=== PATIENT | female | born 1950 | race Caucasian/White ===

== ENCOUNTER → 2021-04-15 | Outpatient (CLI) | payer MEDICARE ==
--- NOTE | 2021-04-15 19:27 | CT ---
EXAMINATION TYPE: CT brain wo con DATE OF EXAM: 04/15/2021 COMPARISON: None HISTORY: Pt reports dizziness, blurry vision and LOC. Transthoracic ischemic aneurysm TECHNIQUE: CT scan of the head performed without contrast CT DLP: 1070.70 mGycm Automated exposure control for dose reduction was used. FINDINGS: No acute intracranial hemorrhage midline shift or mass effect. Goodrich-white matter differentiation is preserved. Posterior fossa contents are within normal limit. Brain volume, the ventricles and CSF spaces are within normal limit. Tiny scattered foci in the bilateral basal ganglia are noted could be related to remote lacunar infar cts. A focal low attenuating areas also demonstrated in the inocente. No acute orbital, osseous or soft tissue abnormalities seen. Mild mucosal sinus disease noted. Paranasal sinuses and mastoid air cells are well evaluated. Atherosclerotic calcifications are seen in the intracranial internal carotid arteries. IMPRESSION: 1 NO ACUTE INTRACRANIAL ABNORMALITY. 2. FOCAL LOW ATTENUATION IN THE INOCENTE MAY BE RELATED TO ARTIFACT VERSUS REMOTE INFARCT. 3. FOCAL LOW ATTENUATING LESIONS IN THE BILATERAL BASAL GANGLIA COULD BE RELATED TO REMOTE LACUNAR IN FARCT. RECOMMENDATION: FURTHER EVALUATION WITH NONCONTRAST ENHANCED MRI OF THE BRAIN COULD BE OF ADDITIONAL BENEFIT IF CLIN[facility] INDICATED.
== END | disposition home or self-care (01) ==
LOC: RADCTMAIN 18:05
PROVIDERS: ATTEND Internal Medicine Geriatric Medicine
DX: G45.9 Transient cerebral ischemic attack, unspecified (principal)
CPT/HCPCS: 70450

== ENCOUNTER → 2021-04-24 | Outpatient (CLI) | payer MEDICARE ==
--- NOTE | 2021-04-25 10:28 | US ---
EXAMINATION TYPE: US carotid duplex BILAT DATE OF EXAM: 04/24/2021 COMPARISON: NONE CLINICAL HISTORY: G45.9 TIA. EXAM MEASUREMENTS: RIGHT: Peak Systolic Velocity (PSV) cm/sec ----- Right CCA: 62.5 ----- Right ICA: 106.9 ----- Right ECA: 84.9 ICA/CCA ratio: 1.7 RIGHT: End Diastole cm/sec ----- Right CCA: 18.0 ----- Right ICA: 31.8 ----- Right ECA: 11.1 LEFT: Peak Systolic Velocity (PSV) cm/sec ----- Left CCA: 86.4 ----- Left ICA: 113.4 ----- Left ECA: 77.1 ICA/CCA ratio: 1.3 LEFT: End Diastole cm/sec ----- Left CCA: 24.8 ----- Left ICA: 47.4 ----- Left ECA: 77.1 VERTEBRALS (direction of flow): Right Vertebral: Antegrade Left Vertebral: Antegrade Rhythm: Normal No significant stenosis seen. No elevated velocities. IMPRESSION: No evidence for hemodynamically significant stenosis. NASCET criteria was used in interpretation of this exam? Criteria for Assigning % of Stenosis / Diameter reduction (Estimation based on the indirect measurements of the internal carotid artery velocities (ICA PSV). 1. Normal (no stenosis)=ICA PSV < 125 cm/s: ratio < 2.0: ICA EDV<40 cm/s. 2. Less than 50% stenosis=ICA PSV < 125 cm/s: ratio < 2.0: ICA EDV<40 cm/s. 3. 50 to 69% stenosis=ICA PSV of 125 to 230 cm/s: ration 2.0 ? 4.0: ICA EDV 40-100 cm/s. 4. Greater than 70% stenosis to near occlusion= ICA PSV > 230 cm/s: ratio > 4.0: ICA EDV > 100 cm/s. 5. Near occlusion= ICA PSV velocities may be low or undetectable: variable ratio and ICA EDV. 6. Total occlusion=unable to detect flow.
== END | disposition home or self-care (01) ==
LOC: RADUSWWP 09:08
PROVIDERS: ATTEND Internal Medicine Geriatric Medicine
DX: G45.9 Transient cerebral ischemic attack, unspecified (principal)
CPT/HCPCS: 93880

== ENCOUNTER → 2022-03-18 | Outpatient (CLI) | payer MEDICARE | END | disposition home or self-care (01) | LOC: RADPETMAIN 13:31 | PROVIDERS: ATTEND Internal Medicine Hematology & Oncology | DX: C18.7 Malignant neoplasm of sigmoid colon (principal) | CPT/HCPCS: 78815; A9552 ==

== ENCOUNTER 2022-04-02 15:58 | Emergency (ER) | payer MEDICARE ==
[2022-04-02] MEDS ORDERED: SODIUM CHLORIDE 0.9% 1,000 ML IV STA (16:21)
[2022-04-02] MEDS ORDERED: ONDANSETRON 4 MG/2 ML VIAL IVP STA (16:28)
[2022-04-02] MEDS ORDERED: MORPHINE SULFATE 4 MG/ML SYRINGE IV STA (16:28)
--- NOTE | 2022-04-02 16:33 | ED ---
Weakness HPI - General Chief complaint: Weakness Stated complaint: near syncope Time Seen by Provider: 04/02/22 16:21 Source: patient Mode of arrival: ambulatory Limitations: no limitations - History of Present Illness Initial comments: This is a pleasant 72-year-old female who was diagnosed with colon cancer about 4 months ago[address] Patient sees Dr. Juarez. Patient has had abdominal pain, vomiting, constipation for the past 3 or 4 days. Patient unable to hold down any fluids. Denies any hematemesis or coffee-ground emesis. Patient states she had some vomiting last week which seemed to resolve. However, the patient now getting lightheaded and feels like she is going to pass out.Patient describing some epigastric discomfort and acid type feeling. Denies any chest pain or shortness of breath. No fever. Has had occasional blood in the stool. Patient apparently is scheduled for surgery at [facility] to have excision of the cancerous mass. Undergoing no additional treatment at this time. No headache, no fever or chills, no changes in vision or hearing, no sore throat or difficulty with speech, no neck pain, no chest pain or shortness of breath, no changes in urination or bowel movements, no numbness or tingling, no extremity pain, no skin rashes or lesions. Past medical, surgical, social, and family history reviewed. - Related Data Home Medications Medication Instructions Recorded Confirmed Atorvastatin [Lipitor] 40 mg PO HS 04/02/22 04/02/22 Dicyclomine [Bentyl] 10 mg PO TID 04/02/22 04/02/22 Escitalopram [Lexapro] 20 mg PO HS 04/02/22 04/02/22 Gabapentin [Neurontin] 200 mg PO HS 04/02/22 04/02/22 Omeprazole [PriLOSEC] 20 mg PO BID 04/02/22 04/02/22 Ondansetron [Zofran] 4 mg PO Q8HR 04/02/22 04/02/22 Pantoprazole [Protonix] 40 mg PO BID 04/02/22 04/02/22 atenoloL [Tenormin] 25 mg PO DAILY 04/02/22 04/02/22 Allergies Allergy/AdvReac Type Severity Reaction Status Date / Time No Known Allergies Allergy Verified 04/02/22 17:33 Review of Systems ROS Statement: Those systems with pertinent positive or pertinent negative responses have been documented in the HPI. ROS Other: All systems not noted in ROS Statement are negative. Past Medical History Past Medical History: Hyperlipidemia, Hypertension History of Any Multi-Drug Resistant Organisms: None Reported Past Surgical History: No Surgical Hx Reported Past Psychological History: No Psychological Hx Reported Smoking Status: Never smoker Past Alcohol Use History: None Reported Past Drug Use History: None Reported General Exam - General Exam Comments Initial Comments: This is an ill-appearing 72-year-old female and mild distress. Patient appears to be ill but not toxic. Patient is tachycardic. Patient appears to be a bit pale and somewhat shaky. Cranial nerves II through XII grossly intact Limitations: no limitations General appearance: alert, in distress Head exam: Present: atraumatic, normocephalic, normal inspection Eye exam: Present: normal appearance, PERRL, EOMI. Absent: scleral icterus, conjunctival injection, periorbital swelling ENT exam: Present: mucous membranes dry, mucous membranes moist, normal external ear exam, other (Mucous membranes mildly dry). Absent: normal oropharynx Neck exam: Present: normal inspection, full ROM. Absent: tenderness, meningismus, lymphadenopathy Respiratory exam: Present: normal lung sounds bilaterally. Absent: respiratory distress, wheezes, rales, rhonchi, stridor, chest wall tenderness, accessory muscle use Cardiovascular Exam: Present: normal rhythm, tachycardia, normal heart sounds. Absent: systolic murmur, diastolic murmur, rubs, gallop, clicks GI/Abdominal exam: Present: soft, tenderness (Tenderness in the epigastric area with guarding, no rebound or percussion tenderness), guarding, normal bowel sounds. Absent: distended, rebound, rigid Extremities exam: Present: normal inspection, full ROM, normal capillary refill. Absent: tenderness, pedal edema, joint swelling, calf tenderness Back exam: Present: normal inspection Neurological exam: Present: alert, oriented X3, CN II-XII intact Psychiatric exam: Present: normal affect, normal mood Skin exam: Present: warm, dry, intact, normal color. Absent: rash Course Vital Signs 04/02/22 04/02/22 04/02/22 16:14 16:45 17:15 Temperature 97.2 F L Pulse Rate 123 H 123 H 122 H Respiratory 20 20 18 Rate Blood Pressure 111/70 112/77 123/70 O2 Sat by Pulse 94 L 93 L Oximetry 04/02/22 04/02/22 17:37 18:32 Temperature 97.1 F L Pulse Rate 116 H 115 H Respiratory 18 16 Rate Blood Pressure 133/83 120/61 O2 Sat by Pulse 91 L 92 L Oximetry - Reevaluation(s) Reevaluation #1: 04/02/22 17:56 Medical record is reviewed Symptoms are unchanged Patient's white blood cell count came back at 22,000 with a left shift, neutrophil count 20,700. Lactate is pending. Creatinine slightly bumped at 1.24. Zosyn 3.37 g IV piggyback ordered. Reevaluation #2: 04/02/22 19:24 Patient meets sepsis criteria. Still awaiting lactic acid which may have not been - Consultations Consultation #1: Case discussed with [facility] hospitalist group who suggested transfer to [facility] for continuity of care and complicated case. Consultation #2: Discussed with Dr. Landa at [facility] EKG Findings - EKG Comments: EKG Findings:: EKG done at 1616. ED attending physician reveals sinus tachycardia at a rate of 123. Normal intervals. Normal axis. Baseline artifact. No evidence for acute ST or T-wave changes. Normal QRS morphology. There is one PVC. No comparison study Medical Decision Making - Medical Decision Making Patient has had bowel movements and is passing occasional flatus. However given the patient's symptomology, partial bowel obstruction is possible as the patient does have a known cancerous mass in the lower colonic area. The patient. Patient appears to be dehydrated with tachycardia. Patient is having near syncopal episodes likely related hydration. Does not appear to be consistent with cardiopulmonary disease. Infectious process possible but less likely. Patient will be transferred to [facility] where she is scheduled for surgery on Monday with Dr. Prater All findings discussed with the patient. All questions answered. Treatment plan discussed. The case was discussed in detail with ED attending physician. Presentation, findings, treatment plan discussed in detail. [facility] [place] Dr. Husain - Lab Data Result diagrams: 04/02/22 16:35 04/02/22 16:35 Lab Results 04/02/22 04/02/22 04/02/22 Range/Units 16:24 16:35 16:35 WBC 22.4 H (3.8-10.6) k/uL RBC 4.56 (3.80-5.40) m/uL Hgb 10.6 L (11.4-16.0) gm/dL Hct 35.9 (34.0-46.0) % MCV 78.8 L (80.0-100.0) fL MCH 23.3 L (25.0-35.0) pg MCHC 29.6 L (31.0-37.0) g/dL RDW 14.2 (11.5-15.5) % Plt Count 652 H (150-450) k/uL MPV 7.3 Neutrophils % 93 % Lymphocytes % 3 % Monocytes % 3 % Eosinophils % 0 % Basophils % 0 % Neutrophils # 20.7 H (1.3-7.7) k/uL Lymphocytes # 0.7 L (1.0-4.8) k/uL Monocytes # 0.7 (0-1.0) k/uL Eosinophils # 0.1 (0-0.7) k/uL Basophils # 0.0 (0-0.2) k/uL Hypochromasia Moderate Poikilocytosis Slight PT (9.0-12.0) sec INR (<1.2) APTT (22.0-30.0) sec Sodium 129 L (137-145) mmol/L Potassium 3.9 (3.5-5.1) mmol/L Chloride 90 L (98-107) mmol/L Carbon Dioxide 21 L (22-30) mmol/L Anion Gap 18 mmol/L BUN 22 H (7-17) mg/dL Creatinine 1.24 H (0.52-1.04) mg/dL Est GFR (CKD-EPI)AfAm 51 (>60 ml/min/1.73 sqM) Est GFR (CKD-EPI)NonAf 44 (>60 ml/min/1.73 sqM) Glucose 131 H (74-99) mg/dL POC Glucose (mg/dL) 138 H (70-110) mg/dL POC Glu Optical Glass Wet Inspector ID Tonio, Kaylin Calcium 10.3 H (8.4-10.2) mg/dL Phosphorus 4.7 H (2.5-4.5) mg/dL Magnesium 1.6 (1.6-2.3) mg/dL Total Bilirubin 0.5 (0.2-1.3) mg/dL AST 37 H (14-36) U/L ALT 17 (4-34) U/L Alkaline Phosphatase 119 (38-126) U/L C-Reactive Protein 4.2 H (<1.0) mg/dL Total Protein 7.7 (6.3-8.2) g/dL Albumin 4.2 (3.5-5.0) g/dL Amylase 114 H (30-110) U/L Lipase 291 (23-300) U/L 04/02/22 Range/Units 16:35 WBC (3.8-10.6) k/uL RBC (3.80-5.40) m/uL Hgb (11.4-16.0) gm/dL Hct (34.0-46.0) % MCV (80.0-100.0) fL MCH (25.0-35.0) pg MCHC (31.0-37.0) g/dL RDW (11.5-15.5) % Plt Count (150-450) k/uL MPV Neutrophils % % Lymphocytes % % Monocytes % % Eosinophils % % Basophils % % Neutrophils # (1.3-7.7) k/uL Lymphocytes # (1.0-4.8) k/uL Monocytes # (0-1.0) k/uL Eosinophils # (0-0.7) k/uL Basophils # (0-0.2) k/uL Hypochromasia Poikilocytosis PT 10.6 (9.0-12.0) sec INR 1.0 (<1.2) APTT 20.4 L (22.0-30.0) sec Sodium (137-145) mmol/L Potassium (3.5-5.1) mmol/L Chloride (98-107) mmol/L Carbon Dioxide (22-30) mmol/L Anion Gap mmol/L BUN (7-17) mg/dL Creatinine (0.52-1.04) mg/dL Est GFR (CKD-EPI)AfAm (>60 ml/min/1.73 sqM) Est GFR (CKD-EPI)NonAf (>60 ml/min/1.73 sqM) Glucose (74-99) mg/dL POC Glucose (mg/dL) (70-110) mg/dL POC Glu Optical Glass Wet Inspector ID Calcium (8.4-10.2) mg/dL Phosphorus (2.5-4.5) mg/dL Magnesium (1.6-2.3) mg/dL Total Bilirubin (0.2-1.3) mg/dL AST (14-36) U/L ALT (4-34) U/L Alkaline Phosphatase (38-126) U/L C-Reactive Protein (<1.0) mg/dL Total Protein (6.3-8.2) g/dL Albumin (3.5-5.0) g/dL Amylase (30-110) U/L Lipase (23-300) U/L - Radiology Data Radiology results: report reviewed, image reviewed Critical Care Time Critical Care Time: Yes (30) Critical Care Time: Sepsis, response to treatment, assessing diagnostic tests. Rechecking patient and response to treatment. Discussion with transfer center. Discussion with [facility] group. Disposition Clinical Impression: Gastric outlet obstruction, Nausea & vomiting, Abdominal pain, History of colon cancer, Dehydration, Sepsis Disposition: OTHER INSTITUTION NOT DEFINED Is patient prescribed a controlled substance at d/c from ED?: No Referrals: Partha Kelley MD [Primary Care Provider] - 1-2 days Time of Disposition: 19:03 Decision Time: 19:03 - Out of Hospital Transfer - Req. Specs Out of Hospital Transfer - Requested Specifics: Other Emergency Center ([facility] [place])
[2022-04-02 16:35] LABS: Glucose,Whole Blood 138 mg/dL (70-110)
[2022-04-02 16:53] LABS: Basophils % (A) 0 %; Eosinophils # (A) 0.1 k/uL (0-0.7); Eosinophils % (A) 0 %; HCT 35.9 % (34.0-46.0); HGB 10.6 gm/dL (11.4-16.0); Hypochromasia Moderate; Lymphocytes # (A) 0.7 k/uL (1.0-4.8); Lymphocytes % (A) 3 %; MCH 23.3 pg (25.0-35.0); MCHC 29.6 g/dL (31.0-37.0); MCV 78.8 fL (80.0-100.0); Mean Platelet Volume 7.3; Monocytes # (A) 0.7 k/uL (0-1.0); Monocytes % (A) 3 %; Neutrophils # (A) 20.7 k/uL (1.3-7.7); Neutrophils % (A) 93 %; Platelet Count 652 k/uL (150-450); Poikilocytosis Slight; RBC 4.56 m/uL (3.80-5.40); RDW 14.2 % (11.5-15.5); WBC 22.4 k/uL (3.8-10.6)
[2022-04-02 17:04] LABS: Albumin 4.2 g/dL (3.5-5.0); Calcium 10.3 mg/dL (8.4-10.2); Magnesium 1.6 mg/dL (1.6-2.3); Phosphorus 4.7 mg/dL (2.5-4.5); Potassium 3.9 mmol/L (3.5-5.1); Total Bilirubin 0.5 mg/dL (0.2-1.3); Total Protein 7.7 g/dL (6.3-8.2)
[2022-04-02 17:11] LABS: Prothrombin Time 10.6 sec (9.0-12.0)
[2022-04-02 17:15] LABS: Partial Thromboplastin Time 20.4 sec (22.0-30.0)
[2022-04-02 17:24] LABS: C Reactive Protein 4.2 mg/dL (<1.0)
[2022-04-02] MEDS ORDERED: PIPERACILLIN-TAZOBACTAM 3.375 GM in SODIUM CHLORIDE 0.9% 100 ML IVPB STA (17:55)
--- NOTE | 2022-04-02 18:10 | XR ---
EXAMINATION TYPE: XR abdomen acute w cxr DATE OF EXAM: 04/02/2022 COMPARISON: NONE HISTORY: Weakness TECHNIQUE: 4 views FINDINGS: Heart and mediastinum are normal. Lungs are clear. Diaphragm is normal. Bony thorax is inta ct. Bowel gas pattern is normal. No sign of intestinal obstruction or pneumoperitoneum. Fecal pattern is normal. No pathologic calcifications over the kidneys. IMPRESSION: Nonacute abdomen. Normal chest
--- NOTE | 2022-04-02 18:29 | CT ---
EXAMINATION TYPE: CT abdomen pelvis w con DATE OF EXAM: 04/02/2022 COMPARISON: 01/11/2022 and 03/18/2022 HISTORY: Epigastric abdominal pain, vomiting. hx of colon CA CT DLP: 796.2 mGycm Automated exposure control for dose reduction was used. CONTRAST: Performed with IV Contrast, patient injected with 80ml mL of Isovue 300. There is mild right pleural effusion. Heart size is normal. No pericardial effusion. There is dilated fluid-filled stomach. Liver is intact. The bile duct are not dilated. No evidence of pancreatic mass . Spleen is intact. There is increased density in the omentum throughout the anterior abdomen. There is no adrenal mass. Kidneys show satisfactory contrast opacification. There is left-sided renal cortical cysts that measure up to 4 cm. No retroperitoneal adenopathy. Ureters are not dilated. Blad radha distends smoothly. There is irregular increased density in the pelvis. There is 3 cm area of soft tissue density left side of the lower pelvis. Uterus is anteverted. Small bowel is not dilated. Lumb ar spine shows a degenerative first-degree L4-5 spondylolisthesis. The bony pelvis is intact. Hip ghassan nts are intact. IMPRESSION: Increased omental density consistent with carcinomatosis and omental caking. Increased density in the pelvis on the left side consistent with metastatic disease. Markedly dilated stomach with air and fluid which is a change compared to old exam and could relate t o gastric outlet obstruction. No obstructing lesion seen. Right pleural effusion without change.
[2022-04-02 18:34] VITALS: BP 120/61; PULSE 115; RESP 16; TEMP 97.1
[2022-04-02] MEDS ORDERED: SODIUM CHLORIDE 0.9% 1,000 ML IV SCH (19:15)
== END 2022-04-02 21:12 | disposition other institution (70) ==
LOC: EC 15:58
DX: A41.9 Sepsis, unspecified organism (principal); K31.1 Adult hypertrophic pyloric stenosis; E86.0 Dehydration; I10 Essential (primary) hypertension; E78.5 Hyperlipidemia, unspecified; Z85.038 Personal history of other malignant neoplasm of large intestine; Z79.899 Other long term (current) drug therapy
CPT/HCPCS: 99291 ×2; 96365 ×2; 96375 ×2; 96361 ×2; 36415; 93005; 80053; 82150; 83690; 83735; 84100; 85025; 85610; 85730; 86140; 87040; 87635; 74022; 74177; J2543; J2270; J2405; Q9967

== ENCOUNTER 2022-09-20 10:56 | Day surgery (SDC) | payer MEDICARE ==
[2022-09-15 12:02] VITALS: BMI 28.1
[2022-09-20 11:22] VITALS: BP 136/65; PULSE 86; RESP 16; TEMP 98.4
[2022-09-20] MEDS ORDERED: LIDOCAINE 1% INJ 10MG/ML (5 ML VIAL-PF) SQ ONE (12:12)
--- NOTE | 2022-09-20 12:28 | IR ---
PICC LINE PLACEMENT: HISTORY: Infection requiring long-term antibiotic therapy PROCEDURE: Ultrasound and fluoroscopic guidance of PICC line placement. COMPLICATIONS: None ANESTHESIA: 1. 1% Lidocaine locally. FINDINGS/TECHNIQUE: The procedure was explained to the patient. The risks, complications, benefits and alternatives were discussed and any questions were answered. Informed consent was obtained. The patient was placed supine on the fluoroscopic table and prepped and draped in the usual sterile fash ion. Utilizing a 21 gauge needle and sonographic and fluoroscopic guidance, access in the left basi lic vein was achieved and there is placement of a 0.018 guidewire. The vein is patent. A 4-F sheath was placed over the guidewire. The guidewire and dilator were removed and a 4-F. PICC line was plac ed through the sheath with the tip at the level of the SVC. The sheath was removed, the catheter was flushed and sutured into position. The patient was stable throughout the procedure and remained sta ble upon discharge from the Department of Radiology. The vein puncture was patent under ultrasound. A baca scale image was obtained to document patency of the vein punctured. All elements of the maximal barrier technique were utilized. FLUOROSCOPY TIME: 1.3 minutes and one image submitted IMPRESSION: Successful PICC line placement under ultrasound and fluoroscopic guidance.
== END 2022-09-20 12:40 | disposition home or self-care (01) ==
LOC: CATHCVL 10:56
PROVIDERS: ATTEND Radiology Diagnostic Radiology
DX: I87.2 Venous insufficiency (chronic) (peripheral) (principal); C18.7 Malignant neoplasm of sigmoid colon; Z79.82 Long term (current) use of aspirin; Z79.899 Other long term (current) drug therapy; Z79.01 Long term (current) use of anticoagulants; F32.A Depression, unspecified; E78.5 Hyperlipidemia, unspecified; I10 Essential (primary) hypertension; I26.99 Other pulmonary embolism without acute cor pulmonale
CPT/HCPCS: 36573; J2001

== ENCOUNTER 2022-11-25 12:31 | Inpatient (IN) | payer MEDICARE ==
--- NOTE | 2022-11-25 13:43 | ED ---
General Adult HPI - General Chief complaint: Altered Mental Status Stated complaint: Altered mental status Time Seen by Provider: 11/25/22 12:49 Source: patient, family, RN notes reviewed Mode of arrival: wheelchair Limitations: no limitations - History of Present Illness Initial comments: Patient is a pleasant 72-year-old female presenting to the emergency department for change in mental status. Onset of symptoms was 3 days ago. Symptoms have been intermittent but progressively worsening. Patient has had headache. Patient has had increase in generalized weakness, more so her legs. Patient has recently been on oral chemotherapy for colon cancer and is planning to restart today. Patient has had bilateral leg rash that her physician has related to chemotherapy. Patient states legs do burn. Patient has expressive aphasia with slurred speech and confusion. - Related Data Home Medications Medication Instructions Recorded Confirmed Atorvastatin [Lipitor] 40 mg PO DAILY 04/02/22 11/25/22 Escitalopram [Lexapro] 20 mg PO DAILY 04/02/22 11/25/22 Pantoprazole [Protonix] 40 mg PO BID 04/02/22 11/25/22 Aspirin [Adult Low Dose Aspirin EC] 81 mg PO DAILY 09/15/22 11/25/22 Capecitabine [Xeloda] 1,500 mg PO DIRECTED 09/15/22 11/25/22 Metoprolol Tartrate [Lopressor] 50 mg PO TID 09/15/22 11/25/22 Rivaroxaban [Xarelto] 20 mg PO HS 09/15/22 11/25/22 Acetaminophen Tab [Tylenol] 650 mg PO Q6H PRN 11/25/22 11/25/22 Betamethasone Valerate [Luxiq 0.1%] 1 applic TOPICAL BID 11/25/22 11/25/22 Cholestyramine (with Sugar) 4 gm PO HS PRN 11/25/22 11/25/22 [Cholestyramine Powder] Furosemide [Lasix] 20 mg PO TID 11/25/22 11/25/22 Gabapentin [Neurontin] 200 mg PO HS PRN 11/25/22 11/25/22 Lidocaine-Prilocaine Cream [Emla 1 applic TOPICAL DAILY PRN 11/25/22 11/25/22 Cream 2.5%/2.5%] Nitroglycerin Sl Tabs [Nitrostat] 0.4 mg SUBLINGUAL Q5M PRN 11/25/22 11/25/22 Potassium Chloride ER [K-Dur 10] 10 meq PO BID 11/25/22 11/25/22 SILVER sulfADIAZINE CREAM 1 applic TOPICAL BID PRN 11/25/22 11/25/22 [Silvadene Cream] amLODIPine [Norvasc] 5 mg PO DAILY 11/25/22 11/25/22 ondansetron HCL [Zofran] 8 mg PO Q6H PRN 11/25/22 11/25/22 oxyCODONE HCL [OxyIR] 5 mg PO Q8H PRN 11/25/22 11/25/22 Allergies Allergy/AdvReac Type Severity Reaction Status Date / Time No Known Allergies Allergy Verified 11/25/22 13:38 Review of Systems ROS Statement: Those systems with pertinent positive or pertinent negative responses have been documented in the HPI. ROS Other: All systems not noted in ROS Statement are negative. Constitutional: Denies: fever Eyes: Denies: eye pain ENT: Denies: ear pain Respiratory: Denies: cough, dyspnea Cardiovascular: Denies: chest pain Gastrointestinal: Denies: abdominal pain Genitourinary: Denies: dysuria Musculoskeletal: Denies: back pain Skin: Reports: as per HPI, rash Neurological: Reports: headache, weakness, confusion Past Medical History Past Medical History: Cancer, Hyperlipidemia, Hypertension, Myocardial Infarction ([place]) Additional Past Medical History / Comment(s): Colon Cancer. bowel blockage Last Myocardial Infarction Date:: 04/2022 History of Any Multi-Drug Resistant Organisms: None Reported Past Surgical History: No Surgical Hx Reported Past Anesthesia/Blood Transfusion Reactions: No Reported Reaction Past Psychological History: Depression Smoking Status: Never smoker Past Alcohol Use History: None Reported Past Drug Use History: None Reported General Exam Limitations: no limitations General appearance: alert, in no apparent distress Head exam: Present: atraumatic, normocephalic Eye exam: Present: normal appearance, PERRL, EOMI ENT exam: Present: normal oropharynx Neck exam: Present: normal inspection. Absent: tenderness, meningismus Respiratory exam: Present: normal lung sounds bilaterally Cardiovascular Exam: Present: regular rate, normal rhythm GI/Abdominal exam: Present: soft, other (PEG tube is present however patient states this is used for drainage, not feeding). Absent: tenderness Extremities exam: Present: pedal edema Neurological exam: Present: alert, CN II-XII intact Expanded Neurological exam: Present: protecting the airway Cranial nerves: EOM's Intact: Normal Motor strength exam: RUE: 5, LUE: 5, RLE: 3, LLE: 3 Eye Response: (4) open spontaneously Motor Response: (6) obeys commands Verbal Response: (5) oriented Psychiatric exam: Present: normal affect, normal mood Skin exam: Present: other (Bilateral swelling and erythema lower legs with some scabbing-type formation. This extends from the feet to the upper thighs) Course Vital Signs 11/25/22 11/25/22 11/25/22 12:33 14:37 15:28 Temperature 97.4 F L Pulse Rate 101 H 90 98 Respiratory 20 18 18 Rate Blood Pressure 138/57 126/64 138/59 O2 Sat by Pulse 99 96 99 Oximetry EKG Findings - EKG Results: EKG: interpreted by JUANITA, sinus rhythm, normal axis, normal QRS, normal ST/T Medical Decision Making - Medical Decision Making Was pt. sent in by a medical professional or institution (Dr. PA, BOARD LINER OPERATOR, urgent care, hospital, or alf...) When possible be specific @ -No Did you speak to anyone other than the patient for history (EMS, parent, family, police, friend...)? What history was obtained from this source @ -No Did you review nursing and triage notes (agree or disagree)? Why? @ -I reviewed and agree with nursing and triage notes Were old charts reviewed (outside hosp., previous admission, EMS record, old EKG, old radiological studies, urgent care reports/EKG's, alf records)? Report findings @ -No old charts were reviewed Differential Diagnosis (chest pain, altered mental status, abdominal pain women, abdominal pain men, vaginal bleeding, weakness, fever, dyspnea, syncope, headache, dizziness, GI bleed, back pain, seizure, CVA, palpatations, mental health)? @ -Differential Altered Mental Status: Hypoglycemia, DKA, hypercapnia, ETOH, overdose, CO poisoning, trauma, myxedema coma, HTN encephalopathy, infection, encephalitis, psychosis, intercranial hemorrhage, hepatic encephalopathy, meningitis, CVA, this is not meant to be an all-inclusive list EKG interpreted by me (3pts min.). @ -As above X-rays interpreted by me (1pt min.). @ -Chest x-ray shows no acute process CT interpreted by me (1pt min.). @ -Reports reviewed U/S interpreted by me (1pt. min.). @ -None done What testing was considered but not performed or refused? (CT, X-rays, U/S, labs)? Why? @ -None What meds were considered but not given or refused? Why? @ -None Did you discuss the management of the patient with other professionals (professionals i.e. , PA, BOARD LINER OPERATOR, lab, RT, psych nurse, social media campaign manager, paper steamer, teacher, parole or probation officer, case reviewer)? Give summary @ -No Was smoking cessation discussed for >3mins.? @ -No Was critical care preformed (if so, how long)? @ -No Were there social determinants of health that impacted care today? How? (Homelessness, low income, unemployed, alcoholism, drug addiction, transportation, low edu. Level, literacy, decrease access to med. care, fpc, rehab)? @ -No Was there de-escalation of care discussed even if they declined (Discuss DNR or withdrawal of care, Hospice)? DNR status @ -No What co-morbidities impacted this encounter? (DM, HTN, Smoking, COPD, CAD, Cancer, CVA, ARF, Chemo, Hep., AIDS, mental health diagnosis, sleep apnea, morbid obesity)? @ -Patient has underlying active colon cancer Was patient admitted / discharged? Hospital course, mention meds given and route, prescriptions, significant lab abnormalities, going to OR and other pertinent info. @ -[Patient evaluated and resting comfortably in bed. Patient family are updated on results and plan. Patient will be admitted with consults with oncology and neurology. Patient has unclear etiology of change in mental status. Patient does have symptoms consistent potentially with both TIAs or metastasis not seen with CT. Patient may need MRI and this will be deferred to neurology. Patient also benefit from further evaluation of leg rash with oncology. Undiagnosed new problem with uncertain prognosis? @ -No Drug Therapy requiring intensive monitoring for toxicity (Heparin, Nitro, Insulin, Cardizem)? @ -No Were any procedures done? @ -No Diagnosis/symptom? @ -Altered mental status, dehydration, dermatitis Acute, or Chronic, or Acute on Chronic? @ -Acute, acute, acute Uncomplicated (without systemic symptoms) or Complicated (systemic symptoms)? @ -default Side effects of treatment? @ -No Exacerbation, Progression, or Severe Exacerbation? @ -No Poses a threat to life or bodily function? How? (Chest pain, USA, NM, pneumonia, PE, COPD, DKA, ARF, appy, cholecystitis, CVA, Diverticulitis, Homicidal, Suicidal, threat to staff... and all critical care pts) @ -No - Lab Data Result diagrams: 11/25/22 14:00 11/25/22 14:00 Lab Results 11/25/22 11/25/22 11/25/22 Range/Units 14:00 14:00 14:00 WBC 4.5 (3.8-10.6) k/uL RBC 2.13 L (3.80-5.40) m/uL Hgb 7.9 L (11.4-16.0) gm/dL Hct 23.4 L (34.0-46.0) % MCV 109.7 H (80.0-100.0) fL MCH 37.2 H (25.0-35.0) pg MCHC 33.9 (31.0-37.0) g/dL RDW 22.2 H (11.5-15.5) % Plt Count 76 L (150-450) k/uL MPV 10.9 Neutrophils % (Manual) 69 % Lymphocytes % (Manual) 18 % Monocytes % (Manual) 13 % Neutrophils # (Manual) 3.11 (1.3-7.7) k/uL Lymphocytes # (Manual) 0.81 L (1.0-4.8) k/uL Monocytes # (Manual) 0.59 (0-1.0) k/uL Nucleated RBCs 0 (0-0) /100 WBC Manual Slide Review Performed Hypochromasia Slight Poikilocytosis Slight Anisocytosis Moderate Macrocytosis Marked A PT 9.9 (9.0-12.0) sec INR 0.9 (<1.2) APTT 24.2 (22.0-30.0) sec Sodium 134 L (137-145) mmol/L Potassium 4.4 (3.5-5.1) mmol/L Chloride 102 (98-107) mmol/L Carbon Dioxide 27 (22-30) mmol/L Anion Gap 5 mmol/L BUN 27 H (7-17) mg/dL Creatinine 0.91 (0.52-1.04) mg/dL Est GFR (CKD-EPI)AfAm 73 (>60 ml/min/1.73 sqM) Est GFR (CKD-EPI)NonAf 64 (>60 ml/min/1.73 sqM) Glucose 141 H (74-99) mg/dL POC Glucose (mg/dL) (70-110) mg/dL POC Glu Coating And Embossing Unit Operator ID Plasma Lactic Acid Sam (0.7-2.0) mmol/L Calcium 7.2 L (8.4-10.2) mg/dL Magnesium 2.1 (1.6-2.3) mg/dL Total Bilirubin 0.5 (0.2-1.3) mg/dL AST 79 H (14-36) U/L ALT 31 (4-34) U/L Alkaline Phosphatase 370 H (38-126) U/L Total Protein 5.6 L (6.3-8.2) g/dL Albumin 2.4 L (3.5-5.0) g/dL 11/25/22 11/25/22 Range/Units 14:00 14:42 WBC (3.8-10.6) k/uL RBC (3.80-5.40) m/uL Hgb (11.4-16.0) gm/dL Hct (34.0-46.0) % MCV (80.0-100.0) fL MCH (25.0-35.0) pg MCHC (31.0-37.0) g/dL RDW (11.5-15.5) % Plt Count (150-450) k/uL MPV Neutrophils % (Manual) % Lymphocytes % (Manual) % Monocytes % (Manual) % Neutrophils # (Manual) (1.3-7.7) k/uL Lymphocytes # (Manual) (1.0-4.8) k/uL Monocytes # (Manual) (0-1.0) k/uL Nucleated RBCs (0-0) /100 WBC Manual Slide Review Hypochromasia Poikilocytosis Anisocytosis Macrocytosis PT (9.0-12.0) sec INR (<1.2) APTT (22.0-30.0) sec Sodium (137-145) mmol/L Potassium (3.5-5.1) mmol/L Chloride (98-107) mmol/L Carbon Dioxide (22-30) mmol/L Anion Gap mmol/L BUN (7-17) mg/dL Creatinine (0.52-1.04) mg/dL Est GFR (CKD-EPI)AfAm (>60 ml/min/1.73 sqM) Est GFR (CKD-EPI)NonAf (>60 ml/min/1.73 sqM) Glucose (74-99) mg/dL POC Glucose (mg/dL) 150 H (70-110) mg/dL POC Glu Co[employer] And Embossing Unit Operator ID Linda Smith Plasma Lactic Acid Sam 2.8 H* (0.7-2.0) mmol/L Calcium (8.4-10.2) mg/dL Magnesium (1.6-2.3) mg/dL Total Bilirubin (0.2-1.3) mg/dL AST (14-36) U/L ALT (4-34) U/L Alkaline Phosphatase (38-126) U/L Total Protein (6.3-8.2) g/dL Albumin (3.5-5.0) g/dL Disposition Clinical Impression: Altered mental status, Dehydration, Dermatitis Disposition: ADMITTED IP TO THIS HOSP Is patient prescribed a controlled substance at d/c from ED?: No Referrals: Partha Kelley MD [Primary Care Provider] - 1-2 days Time of Disposition: 16:06
[2022-11-25 14:22] LABS: Anisocytosis Moderate; HCT 23.4 % (34.0-46.0); HGB 7.9 gm/dL (11.4-16.0); Hypochromasia Slight; MCH 37.2 pg (25.0-35.0); MCHC 33.9 g/dL (31.0-37.0); MCV 109.7 fL (80.0-100.0); Macrocytosis Marked; Mean Platelet Volume 10.9; Poikilocytosis Slight; RBC 2.13 m/uL (3.80-5.40); RDW 22.2 % (11.5-15.5); WBC 4.5 k/uL (3.8-10.6)
[2022-11-25 14:28] LABS: INR 0.9 (<1.2); Partial Thromboplastin Time 24.2 sec (22.0-30.0); Prothrombin Time 9.9 sec (9.0-12.0)
--- NOTE | 2022-11-25 14:37 | XR ---
EXAMINATION TYPE: XR chest 2V DATE OF EXAM: 11/25/2022 COMPARISON: NONE HISTORY: Shortness of breath TECHNIQUE: Frontal and lateral views of the chest are obtained. FINDINGS: Scattered senescent parenchymal changes noted. Hyperinflation compatible with COPD. No evidence for infiltrate. No evidence for atelectasis. Heart size is stable. Mediastinal structures are stable and grossly unremarkable. No evidence for hilar prominence. Degenerative changes dorsal spine. IMPRESSION: 1. No evidence for acute pulmonary disease.
[2022-11-25 14:43] LABS: Glucose,Whole Blood 150 mg/dL (70-110)
[2022-11-25 14:45] LABS: Albumin 2.4 g/dL (3.5-5.0); Calcium 7.2 mg/dL (8.4-10.2); Magnesium 2.1 mg/dL (1.6-2.3); Potassium 4.4 mmol/L (3.5-5.1); Total Bilirubin 0.5 mg/dL (0.2-1.3); Total Protein 5.6 g/dL (6.3-8.2)
--- NOTE | 2022-11-25 15:20 | CT ---
EXAMINATION TYPE: CT brain wo/w con CT DLP: 2150.4 mGycm, Automated exposure control for dose reduction was used. DATE OF EXAM: 11/25/2022 3:14 PM COMPARISON: PET CT 03/18/2022. CLINICAL INDICATION:Female, 72 years old with history of ams, colon ca; PHH, weakness, lower limb swe lling TECHNIQUE: Axial CT images of the brain were obtained followed by contrast enhanced axial images of t he brain with 100 cc of ISO-view 370 IV contrast. One or more CT dose reduction strategies were utili zed during this examination. FINDINGS: Extra-axial spaces: No abnormal extra-axial fluid collections. Ventricular system: Within normal limits Cerebral parenchyma: No acute intraparenchymal hemorrhage or mass effect. The baca-white junction is well differentiated. No abnormal enhancement is seen after the administration of intravenous contras t. Cerebellum: Unremarkable. Mass effect: No evidence of midline shift. Intracranial vasculature: Atherosclerotic calcifications of the intracranial vessels. Soft tissues: Normal. Calvarium/osseous structures: No depressed skull fracture. Paranasal sinuses and mastoid air cells: Clear. Visualized orbits: Orbital contents are intact. IMPRESSION: No acute intracranial process and no evidence to suggest intracranial mass.
[2022-11-25 16:00] LABS: Lymphocytes # (M) 0.81 k/uL (1.0-4.8); Monocytes # (M) 0.59 k/uL (0-1.0); Neutrophils # (M) 3.11 k/uL (1.3-7.7); Neutrophils % (M) 69 %; Nucleated Red Blood Cells 0 /100 WBC (0-0); Total Cells Counted 100
[2022-11-25 16:02] LABS: Platelet Count 76 k/uL (150-450)
[2022-11-25] MEDS ORDERED: NALOXONE 0.4 MG/ML 1 ML VIAL IV PRN (16:06)
[2022-11-25] MEDS: SODIUM CHLORIDE 0.9% 1,000 ML IV SCH (16:22)
[2022-11-25] MEDS: ACETAMINOPHEN TAB 325 MG TAB PO PRN (16:24)
[2022-11-25] MEDS ORDERED: CHOLESTYRAMINE (WITH SUGAR) 4 GM PACKET PO PRN (17:15)
[2022-11-25] MEDS ORDERED: GABAPENTIN 100 MG CAP PO PRN (17:15)
[2022-11-25] MEDS ORDERED: NITROGLYCERIN SL TABS 0.4 MG TAB SUBLINGUAL PRN (17:15)
[2022-11-25] MEDS ORDERED: ONDANSETRON 4 MG TAB PO PRN (17:15)
[2022-11-25] MEDS ORDERED: CAPECITABINE 500 MG PO SCH (18:00)
[2022-11-25] MEDS: PIPERACILLIN-TAZOBACTAM 3.375 GM in SODIUM CHLORIDE 0.9% 100 ML IVPB SCH (18:43)
[2022-11-25] MEDS: FUROSEMIDE 20 MG TAB PO SCH (18:43)
--- NOTE | 2022-11-25 18:52 | US ---
EXAMINATION TYPE: US venous doppler duplex LE BI DATE OF EXAM: 11/25/2022 6:30 PM COMPARISON: NONE CLINICAL HISTORY: LE swelling. Edema limitations due to body habitus. SIDE PERFORMED: Bilateral TECHNIQUE: The lower extremity deep venous system is examined utilizing real time linear array sonog iain with graded compression, doppler sonography and color-flow sonography. VESSELS IMAGED: Common Femoral Vein Deep Femoral Vein Greater Saphenous Vein * Femoral Vein Popliteal Vein Right Leg: Negative for DVT Left Leg: Negative for DVT IMPRESSION: No evidence of deep vein thrombosis in both legs.
[2022-11-25] MEDS: RIVAROXABAN 20 MG TAB PO SCH (22:26)
[2022-11-25] MEDS: METOPROLOL TARTRATE 50 MG TAB PO SCH (22:26)
[2022-11-25] MEDS: POTASSIUM CHLORIDE ER 10 MEQ TAB.ER.PRT PO SCH (22:26)
[2022-11-25] MEDS: TRIAMCINOLONE 0.1% CREAM 80 GM TUBE TOPICAL SCH (22:26)
--- NOTE | 2022-11-26 00:50 | P.CONS ---
History of Present Illness - Reason for Consult Consult date: 11/25/22 AMS, metastatic colon cancer - History of Present Illness The patient is a 72-year-old white female, well known to our service. She is followed by Dr. Juarez in the outpatient setting. Her oncology history is as follows: The patient had presented in the spring, complaining of persistent vague left-sided abdominal pain that started approximately in early 12/24. The patient had a screening colonoscopy done in early 01/23, revealing a near obstructing mass at [address] of the abdomen and pelvis raises the possibility of mesenteric carcinomatosis. Patient subsequently had a PET scan in 03/25 which confirmed the presence of metastatic disease in the peritoneum. She then developed progressive difficulty with passing bowel movements, nausea, vomiting and appetite. She was then admitted to [facility] and had a computed course during which a stent was placed in the sigmoid colon. Her stay was completed by bilateral PEs requiring thrombectomy. Was able to recover, and was started on FOLFOX as an outpatient. She was also supported with TPN. She was subsequently changed to Xeloda and oxaliplatin in 07/26, due to skin rash affecting the upper body. PET in 07/26 had shown stable disease The pt has continued on XELOX. Over the past few weeks, she has developed progressive swelling of her LE, and rash. Rash has become especially prominent in the last 1-2 weeks The pt was brought the ER by her , due to progressive weakness, especially in her LE over the past 3 days. She has also been intermittently confused, and appears to be having difficulty in finding words. Appetite has been diminished. She c/o intermittent headaches. No h/o f/c/loss of consciousness or falls. The pt is dependent on TPN for nutrition. She is able to tolerate only small amounts of PO. She has a PEG for decompression. She does have BMs, loose and solid. Labs showed a Hgb of 7.9, and plt of 76. WBC was normal. Chem panel showed normal Cr, mild to moderate liver enzyme elevation, and Ca ++ of 7.2. CXR showed no acute process. Review of Systems Constitutional: Reports fatigue, Reports poor appetite, Reports weakness Eyes: denies blurred vision, denies pain Ears: deny: decreased hearing, ear discharge, earache, tinnitus Ears, nose, mouth and throat: Denies headache, Denies sore throat Cardiovascular: Reports decreased exercise tolerance Respiratory: Denies cough Gastrointestinal: Reports as per HPI Genitourinary: Denies dysuria, Denies hematuria Menstruation: Reports postmenopausal Musculoskeletal: Reports as per HPI, Reports muscle weakness Integumentary: Reports color changes, Reports rash Neurological: Reports aphasia, Reports change in mentation, Reports confusion, Reports weakness Psychiatric: Reports confusion Endocrine: Reports fatigue Hematologic/Lymphatic: Reports as per HPI, Reports lymphedema Past Medical History Past Medical History: Cancer, Hyperlipidemia, Hypertension, Myocardial Infarction ([place]) Additional Past Medical History / Comment(s): Colon Cancer. bowel blockage Last Myocardial Infarction Date:: 04/2022 History of Any Multi-Drug Resistant Organisms: None Reported Past Surgical History: No Surgical Hx Reported Past Anesthesia/Blood Transfusion Reactions: No Reported Reaction Past Psychological History: Depression Smoking Status: Never smoker Past Alcohol Use History: None Reported Past Drug Use History: None Reported Medications and Allergies Home Medications Medication Instructions Recorded Confirmed Type Atorvastatin [Lipitor] 40 mg PO DAILY 04/02/22 11/25/22 History Escitalopram [Lexapro] 20 mg PO DAILY 04/02/22 11/25/22 History Pantoprazole [Protonix] 40 mg PO BID 04/02/22 11/25/22 History Aspirin [Adult Low Dose Aspirin EC] 81 mg PO DAILY 09/15/22 11/25/22 History Capecitabine [Xeloda] 1,500 mg PO DIRECTED 09/15/22 11/25/22 History Metoprolol Tartrate [Lopressor] 50 mg PO TID 09/15/22 11/25/22 History Rivaroxaban [Xarelto] 20 mg PO HS 09/15/22 11/25/22 History Acetaminophen Tab [Tylenol] 650 mg PO Q6H PRN 11/25/22 11/25/22 History Betamethasone Valerate [Luxiq 0.1%] 1 applic TOPICAL BID 11/25/22 11/25/22 History Cholestyramine (with Sugar) 4 gm PO HS PRN 11/25/22 11/25/22 History [Cholestyramine Powder] Furosemide [Lasix] 20 mg PO TID 11/25/22 11/25/22 History Gabapentin [Neurontin] 200 mg PO HS PRN 11/25/22 11/25/22 History Lidocaine-Prilocaine Cream [Emla 1 applic TOPICAL DAILY PRN 11/25/22 11/25/22 History Cream 2.5%/2.5%] Nitroglycerin Sl Tabs [Nitrostat] 0.4 mg SUBLINGUAL Q5M PRN 11/25/22 11/25/22 History Potassium Chloride ER [K-Dur 10] 10 meq PO BID 11/25/22 11/25/22 History SILVER sulfADIAZINE CREAM 1 applic TOPICAL BID PRN 11/25/22 11/25/22 History [Silvadene Cream] amLODIPine [Norvasc] 5 mg PO DAILY 11/25/22 11/25/22 History ondansetron HCL [Zofran] 8 mg PO Q6H PRN 11/25/22 11/25/22 History oxyCODONE HCL [OxyIR] 5 mg PO Q8H PRN 11/25/22 11/25/22 History Allergies Allergy/AdvReac Type Severity Reaction Status Date / Time No Known Allergies Allergy Verified 11/25/22 13:38 Physical Exam Vitals: Vital Signs Temp Pulse Resp BP Pulse Ox 11/25/22 15:28 98 18 138/59 99 11/25/22 14:37 90 18 126/64 96 11/25/22 12:33 97.4 F L 101 H 20 138/57 99 Intake and Output 11/25/22 11/25/22 11/25/22 06:59 14:59 22:59 Other: Weight 89.811 kg - Constitutional General appearance: no acute distress - EENT Eyes: EOMI, PERRLA ENT: hearing grossly normal, normal oropharynx - Neck Neck: no lymphadenopathy Thyroid: bilateral: normal size - Respiratory Respiratory: bilateral: CTA - Cardiovascular Rhythm: regular Heart sounds: normal: S1, S2 - Gastrointestinal General gastrointestinal: hepatomegaly (poss hepatomegaly 3 fbcm - exam limited though due to body habitus), normal bowel sounds, soft - Integumentary Integumentary: rash (extensive, maculo papular, confluent involving whole of LE upto lower abd. scattered ulcers, scabbed areas) - Neurologic expressive aphasia - mild difficulty finding words, speech clear, O x3, no confusion currently, responses appropriate, recall diminished Neurologic: CNII-XII intact - Musculoskeletal Musculoskeletal: generalized weakness, strength equal bilaterally - Psychiatric Psychiatric: A&O x's 3 Results CBC & Chem 7: 11/25/22 14:00 11/25/22 14:00 Labs: Abnormal Lab Results - Last 24 Hours (Table) 11/25/22 11/25/22 11/25/22 Range/Units 14:00 14:00 14:00 RBC 2.13 L (3.80-5.40) m/uL Hgb 7.9 L (11.4-16.0) gm/dL Hct 23.4 L (34.0-46.0) % MCV 109.7 H (80.0-100.0) fL MCH 37.2 H (25.0-35.0) pg RDW 22.2 H (11.5-15.5) % Plt Count 76 L (150-450) k/uL Lymphocytes # (Manual) 0.81 L (1.0-4.8) k/uL Macrocytosis Marked A Sodium 134 L (137-145) mmol/L BUN 27 H (7-17) mg/dL Glucose 141 H (74-99) mg/dL POC Glucose (mg/dL) (70-110) mg/dL Plasma Lactic Acid Sam 2.8 H* (0.7-2.0) mmol/L Calcium 7.2 L (8.4-10.2) mg/dL AST 79 H (14-36) U/L Alkaline Phosphatase 370 H (38-126) U/L Total Protein 5.6 L (6.3-8.2) g/dL Albumin 2.4 L (3.5-5.0) g/dL 11/25/22 Range/Units 14:42 RBC (3.80-5.40) m/uL Hgb (11.4-16.0) gm/dL Hct (34.0-46.0) % MCV (80.0-100.0) fL MCH (25.0-35.0) pg RDW (11.5-15.5) % Plt Count (150-450) k/uL Lymphocytes # (Manual) (1.0-4.8) k/uL Macrocytosis Sodium (137-145) mmol/L BUN (7-17) mg/dL Glucose (74-99) mg/dL POC Glucose (mg/dL) 150 H (70-110) mg/dL Plasma Lactic Acid Sam (0.7-2.0) mmol/L Calcium (8.4-10.2) mg/dL AST (14-36) U/L Alkaline Phosphatase (38-126) U/L Total Protein (6.3-8.2) g/dL Albumin (3.5-5.0) g/dL Chest x-ray: report reviewed CT Scan - head: report reviewed Assessment and Plan (1) Altered mental status Narrative/Plan: Etiology is unclear at this time. This is of new onset. Confusion and ENRIQUEZ have been intermittent, with difficulty finding words and diminished recall more persistent. - Infection w/u . CXR is negative. Blood culture and UA ordered - Check MRI brain - Check ammonia level - Neurology has been consulted Current Visit: Yes Status: Acute Code(s): R41.82 - ALTERED MENTAL STATUS, UNSPECIFIED SNOMED Code(s): 755421722 (2) Dermatitis Narrative/Plan: The pt previously had upper body rash with FOLFOX, With substitution of IV 5 FU to oral Xeloda, this had improved. However she has developed major rash now involving the LE, as described. THe pt had previously received systemic steroids for repeated courses. This can be considered depending on the clinical course. Xeloda effect is the main differential Current Visit: Yes Status: Acute Code(s): L30.9 - DERMATITIS, UNSPECIFIED SNOMED Code(s): 017041159 (3) Bicytopenia Narrative/Plan: Due to chemo. Monitor counts. Transfuse to keep Hgb > 7 Current Visit: Yes Status: Acute Code(s): D75.89 - OTHER SPECIFIED DISEASES OF BLOOD AND BLOOD-FORMING ORGANS SNOMED Code(s): 76816118 (4) H/O colon cancer, stage IV Narrative/Plan: Diagnostic and therapeutic cicumstances as described. There is concern for progression, including possible brain mets given her current presentation. O/E there was possibility of hepatomegaly - Check MRI brain - Check CEA ( may not be revealing as baseline CEA was normal) - Check CT AP to eval for liver involvement ( not involved at baseline) - Treatment on hold till acute condition resolves Current Visit: Yes Status: Acute Code(s): Z85.038 - PERSONAL HISTORY OF MALIGNANT NEOPLASM OF LARGE INTESTINE SNOMED Code(s): 972988699 Plan: CHeck LE dopplers in view of progressive LE swelling
--- NOTE | 2022-11-26 03:31 | HP ---
HISTORY AND PHYSICAL CHIEF COMPLAINT: Confusion as well as bilateral skin lesions. HISTORY OF PRESENT ILLNESS: This is a 72-year-old woman with a past medical history of multiple medical problems including colon cancer, hypertension, hyperlipidemia, was also taking oral chemotherapy. Currently, the patient complains of increasing bilateral leg swelling and as well as skin lesions and as well as the patient is also confused, and the patient came to [facility] and was admitted for further evaluation and treatment. A CT of the brain showed no evidence acute abnormalities. There is no history of fever, rigors, chills at this time. PAST MEDICAL HISTORY: Reviewed, include hypertension, hyperlipidemia, colon cancer. The rest of the history and rest of the chart is also noted. HOME MEDICATIONS: Reviewed include Norvasc, the dose and rest of medication noted. ALLERGIES: None. FAMILY HISTORY: No history of heart disease or strokes in the family. SOCIAL HISTORY: No history of smoking or alcohol. REVIEW OF SYSTEMS: 14-point review is negative except as mentioned earlier. PHYSICAL EXAM: VITAL SIGNS: Pulse is 101, blood pressure 138/70, respiration 20. HEENT: Conjunctivae normal. NECK: No jugular venous distention. CARDIOVASCULAR: S1, S2 muffled. RESPIRATION: A few scattered rhonchi. ABDOMEN: Soft, obese. LEGS: Bilateral leg edema, significant erythema, and superficial skin lesion also present. JOINTS: No active deforming arthropathy. LABORATORY DATA: WBC 12.2, hemoglobin 7.9. Lactic acid is 2.6. The rest of the labs are noted. ASSESSMENT: 1. Acute bilateral leg cellulitis with possible sepsis. 2. Anemia, macrocytic. 3. Colon cancer. 4. Hypertension. 5. Hyperlipidemia. 6. Multiple medical issues. 7. Change in mental status, metabolic encephalopathy, multifactorial, possibly induced. RECOMMENDATION: This 72-year-old woman who presented with multiple complex medical issues. We will monitor the patient closely. Initiate broad-spectrum IV antibiotics, and I would also recommend Infectious Disease evaluation, Hematology-Oncology evaluation. Neurology is consulted for confusion. Guarded prognosis. Further recommendations to follow. See orders for further details. MMODL / IJN: [id number] / MTDD
[2022-11-26] MEDS: SODIUM CHLORIDE 0.9% 1,000 ML IV SCH ×2 (08:58→22:06)
[2022-11-26] MEDS: FUROSEMIDE 20 MG TAB PO SCH ×3 (08:59→15:52)
[2022-11-26] MEDS: amLODIPine 5 MG TAB PO SCH (08:59)
[2022-11-26] MEDS: PIPERACILLIN-TAZOBACTAM 3.375 GM in SODIUM CHLORIDE 0.9% 100 ML IVPB SCH ×2 (08:59→15:53)
[2022-11-26] MEDS: ESCITALOPRAM 20 MG TAB PO SCH (09:00)
[2022-11-26] MEDS: ASPIRIN 81 MG PO SCH (09:00)
[2022-11-26] MEDS: METOPROLOL TARTRATE 50 MG TAB PO SCH ×3 (09:00→21:47)
[2022-11-26] MEDS: ATORVASTATIN 40 MG TAB PO SCH (09:00)
[2022-11-26] MEDS: POTASSIUM CHLORIDE ER 10 MEQ TAB.ER.PRT PO SCH ×2 (09:00→21:47)
[2022-11-26] MEDS: TRIAMCINOLONE 0.1% CREAM 80 GM TUBE TOPICAL SCH ×2 (09:09→21:48)
[2022-11-26 11:19] LABS: African American GFR (CKD) 67.4 (60.0-200.0); Albumin 2.3 g/dL (3.8-4.9); Albumin/Globulin Ratio 0.82 (1.60-3.17); Anion Gap 7.8 mmol/L (10.00-18.00); Blood Urea Nitrogen 23.5 mg/dL (9.0-27.0); Calcium 7.6 mg/dL (8.7-10.3); Carbon Dioxide 25.5 mmol/L (20.0-27.5); Globulin 2.8 g/dL (1.6-3.3); Non-African American GFR(CKD) 58.1 (60.0-200.0); Potassium 4.1 mmol/L (3.5-5.5); Total Bilirubin 0.3 mg/dL (0.30-1.20); Total Protein 5.1 g/dL (6.2-8.2)
[2022-11-26 12:28] LABS: Basophils # (A) 0 X 10*3/uL (0.00-0.10); Basophils % (A) 0 %; Eosinophils # (A) 0.01 X 10*3/uL (0.04-0.35); Eosinophils % (A) 0.2 %; HCT 22.1 % (37.2-46.3); Immature Grans, Automated 0.5 %; Lymphocytes % (A) 31.6 %; MCH 35.7 pg (27.0-32.0); MCHC 31.7 g/dL (32.0-37.0); MCV 112.8 fL (80.0-97.0); Mean Platelet Volume 12.9 fL (9.5-12.2); Monocytes # (A) 0.81 X 10*3/uL (0.20-1.00); Monocytes % (A) 19.7 %; NRBC Per 100 WBC 0 /100 WBCS (0.0-0.0); Neutrophils # (A) 1.97 X 10*3/uL (1.80-7.70); Platelet Count 64 X 10*3/uL (140-440); RBC 1.96 X 10*6/uL (4.10-5.20); WBC 4.11 X 10*3/uL (4.50-10.00)
[2022-11-26] MEDS: MULTIVITAMINS, THERA 1 EACH TAB PO SCH (12:55)
[2022-11-26] MEDS: THIAMINE 100 MG TAB PO SCH (12:55)
[2022-11-26] MEDS: FOLIC ACID 1 MG TAB PO SCH (12:55)
[2022-11-26] MEDS: IOPAMIDOL CONTRAST (ORAL USE) VIAL PO PRN ×2 (13:51→15:03)
--- NOTE | 2022-11-26 14:40 | P.PN ---
Subjective Progress Note Date: 11/26/22 Principal diagnosis: Acute metabolic encephalopathy -Brain CT with and without contrast overnight revealed no acute intracranial process -Duplex of the lower extremities bilaterally revealed no evidence of DVT -Brain MRI and CT abdomen/pelvis are pending -Kaya notes improved mentation since admission. She denies any focal neurologic signs or symptoms -Notes having significant pain in the lower extremities bilaterally, which has gotten worse with her most recent cycle of capecitabine, which she finished on 11/11/2022 Objective - Vital Signs Vital signs: Vital Signs Temp 97.5 F L 11/26/22 12:17 Pulse 85 11/26/22 12:17 Resp 18 11/26/22 12:17 BP 107/55 11/26/22 12:17 Pulse Ox 98 11/26/22 12:17 FiO2 Intake & Output 11/25/22 11/26/22 11/26/22 18:59 06:59 18:59 Intake Total 450 Balance 450 Weight 89.811 kg 89.811 kg Intake: Intake, IV Titration 450 Amount Sodium Chloride 0.9% 1, 450 000 ml @ 75 mls/hr IV . [id number] [facility] Rx#:[id number] Other: Voiding Method External Catheter Bedside Commode External Catheter # Voids 1 1 - Constitutional General appearance: Present: no acute distress - EENT Eyes: Present: EOMI - Respiratory Respiratory: bilateral: CTA - Cardiovascular Rhythm: regular - Gastrointestinal General gastrointestinal: Present: soft. Absent: distended, tenderness - Integumentary Integumentary Comment(s): Diffuse erythema and cracks in the skin of the lower extremities bilaterally with areas of desquamation - Neurologic Neurologic: Absent: focal deficits - Labs CBC & Chem 7: 11/26/22 07:45 11/26/22 07:45 Labs: Abnormal Lab Results - Last 24 Hours (Table) 11/25/22 11/25/22 11/25/22 Range/Units 14:00 14:00 14:00 WBC (4.50-10.00) X 10*3/uL RBC 2.13 L (3.80-5.40) m/uL Hgb 7.9 L (11.4-16.0) gm/dL Hct 23.4 L (34.0-46.0) % MCV 109.7 H (80.0-100.0) fL MCH 37.2 H (25.0-35.0) pg MCHC (32.0-37.0) g/dL RDW 22.2 H (11.5-15.5) % Plt Count 76 L (150-450) k/uL MPV (9.5-12.2) fL Lymphocytes # (Manual) 0.81 L (1.0-4.8) k/uL Eosinophils # (0.04-0.35) X 10*3/uL Immature Plt Fraction (1.1-6.1) % Macrocytosis Marked A Sodium 134 L (137-145) mmol/L Anion Gap (10.00-18.00) mmol/L BUN 27 H (7-17) mg/dL Est GFR (CKD-EPI)NonAf (60.0-200.0) BUN/Creatinine Ratio (12.00-20.00) Ratio Glucose 141 H (74-99) mg/dL POC Glucose (mg/dL) (70-110) mg/dL Plasma Lactic Acid Sam 2.8 H* (0.7-2.0) mmol/L Calcium 7.2 L (8.4-10.2) mg/dL AST 79 H (14-36) U/L Alkaline Phosphatase 370 H (38-126) U/L Total Protein 5.6 L (6.3-8.2) g/dL Albumin 2.4 L (3.5-5.0) g/dL Albumin/Globulin Ratio (1.60-3.17) g/dL 11/25/22 11/25/22 11/25/22 Range/Units 14:42 16:50 20:06 WBC (4.50-10.00) X 10*3/uL RBC (3.80-5.40) m/uL Hgb (11.4-16.0) gm/dL Hct (34.0-46.0) % MCV (80.0-100.0) fL MCH (25.0-35.0) pg MCHC (32.0-37.0) g/dL RDW (11.5-15.5) % Plt Count (150-450) k/uL MPV (9.5-12.2) fL Lymphocytes # (Manual) (1.0-4.8) k/uL Eosinophils # (0.04-0.35) X 10*3/uL Immature Plt Fraction (1.1-6.1) % Macrocytosis Sodium (137-145) mmol/L Anion Gap (10.00-18.00) mmol/L BUN (7-17) mg/dL Est GFR (CKD-EPI)NonAf (60.0-200.0) BUN/Creatinine Ratio (12.00-20.00) Ratio Glucose (74-99) mg/dL POC Glucose (mg/dL) 150 H (70-110) mg/dL Plasma Lactic Acid Sam 4.3 H* 2.3 H* (0.7-2.0) mmol/L Calcium (8.4-10.2) mg/dL AST (14-36) U/L Alkaline Phosphatase (38-126) U/L Total Protein (6.3-8.2) g/dL Albumin (3.5-5.0) g/dL Albumin/Globulin Ratio (1.60-3.17) g/dL 11/26/22 11/26/22 Range/Units 07:45 07:45 WBC 4.11 L (4.50-10.00) X 10*3/uL RBC 1.96 L (3.80-5.40) m/uL Hgb 7.0 L (11.4-16.0) gm/dL Hct 22.1 L (34.0-46.0) % MCV 112.8 H (80.0-100.0) fL MCH 35.7 H (25.0-35.0) pg MCHC 31.7 L (32.0-37.0) g/dL RDW 23.0 H (11.5-15.5) % Plt Count 64 L (150-450) k/uL MPV 12.9 H (9.5-12.2) fL Lymphocytes # (Manual) (1.0-4.8) k/uL Eosinophils # 0.01 L (0.04-0.35) X 10*3/uL Immature Plt Fraction 12.0 H (1.1-6.1) % Macrocytosis Sodium (137-145) mmol/L Anion Gap 7.80 L (10.00-18.00) mmol/L BUN (7-17) mg/dL Est GFR (CKD-EPI)NonAf 58.1 L (60.0-200.0) BUN/Creatinine Ratio 24.00 H (12.00-20.00) Ratio Glucose (74-99) mg/dL POC Glucose (mg/dL) (70-110) mg/dL Plasma Lactic Acid Sam (0.7-2.0) mmol/L Calcium 7.6 L (8.4-10.2) mg/dL AST 70 H (14-36) U/L Alkaline Phosphatase 332 H (38-126) U/L Total Protein 5.1 L (6.3-8.2) g/dL Albumin 2.3 L (3.5-5.0) g/dL Albumin/Globulin Ratio 0.82 L (1.60-3.17) g/dL Microbiology - Last 24 Hours (Table) 11/25/22 23:02 Wound Culture - Preliminary Leg - Right - Imaging and Cardiology CT scan - abdomen: pending MRI - head: pending Assessment and Plan (1) Altered mental status Current Visit: Yes Status: Acute Code(s): R41.82 - ALTERED MENTAL STATUS, UNSPECIFIED SNOMED Code(s): 886788476 (2) Bicytopenia Current Visit: Yes Status: Acute Code(s): D75.89 - OTHER SPECIFIED DISEASES OF BLOOD AND BLOOD-FORMING ORGANS SNOMED Code(s): 92893602 (3) H/O colon cancer, stage IV Current Visit: Yes Status: Acute Code(s): Z85.038 - PERSONAL HISTORY OF MALIGNANT NEOPLASM OF LARGE INTESTINE SNOMED Code(s): 233841628 Plan: Metabolic encephalopathy -Noted having episodes of confusion with disorientation to place and being slow to respond prior to admission -She denies any fevers prior to admission or changes to her medications -Labs revealed no acute metabolic changes with ammonia within normal limits -Clinically, Kaya and her note that she is significantly improved compared to initial presentation -Follow-up MRI of the brain to rule out intracranial metastases -Neurology consult also obtained, appreciate their assistance Dermatitis -Noted to have significant erythema of the legs bilaterally that are painful -This had limited her mobility within the past week -There are areas of skin breakdown and desquamation, likely consistent with dermatitis secondary to capecitabine that appears to be grade 3 in nature -Hold capecitabine for now and likely on discharge until this improves to grade 2 -Dose reduction of capecitabine may have to be considered outpatient on resumption -Wound consult ordered for additional management recommendations, appreciate th eir assistance Bicytopenia -Capecitabine induced anemia (grade 2), and thrombocytopenia (grade 1) -Continue to monitor CBC daily -Transfuse for hemoglobin less than 7 -Transfuse for platelets less than 10,000 and/or bleeding Metastatic colon cancer -Noted to have metastases to the peritoneum as well as possibly the liver and small nodules in the lungs -Completed 6 cycles of of FOLFOX, which was then transition to capecitabine due to rash from 5-FU -Most recent cycle of CAPOX/XELOX was on 11/05/2022 for oxaliplatin and completed 2 weeks of capecitabine on 11/11/2022 -CT abdomen/pelvis as above along with MRI of the brain to assess for evidence of disease progression -Continue holding capecitabine as noted above
[2022-11-26] MEDS: PANTOPRAZOLE 40 MG TABLET PO SCH (15:52)
--- NOTE | 2022-11-26 15:54 | PN ---
PROGRESS NOTE DATE OF SERVICE: 11/26/2022 SUBJECTIVE: This is a 72-year-old woman who was admitted with acute bilateral leg cellulitis, also had some change in mental status. No chest pain. No palpitations. No fever. OBJECTIVE: VITAL SIGNS: Pulse is 85, blood pressure is 107/54, respirations 18. CHEST: Clear to auscultation. CARDIOVASCULAR: S1 and S2 muffled. ABDOMEN: Soft. NERVOUS SYSTEM: No focal deficits. LABORATORY DATA: Hemoglobin 7. The rest of the labs are noted. ASSESSMENT: 1. Acute bilateral leg cellulitis with possible sepsis. 2. Anemia, macrocytic. 3. Colon cancer. 4. Hypertension. 5. Hyperlipidemia. 6. Multiple medical issues. 7. Change in mental status, acute metabolic encephalopathy, possibly multifactorial. RECOMMENDATIONS: Recommend to continue current medications. Continue symptomatic treatment. Continue with broad-spectrum IV antibiotics. Closely follow with Infectious Disease. I would also recommend 1 unit transfusion. Continue to monitor. Further recommendations to follow. MMODL / IJN: [id number] /
--- NOTE | 2022-11-26 16:22 | CT ---
EXAMINATION TYPE: CT abdomen pelvis w con DATE OF EXAM: 11/26/2022 COMPARISON: 04/02/2022 HISTORY: poss hepatomegaly, metastatic colon ca CT DLP: 1546.5 mGycm Automated exposure control for dose reduction was used. CONTRAST: Performed with IV Contrast, patient injected with 100cc mL of Isovue 300. Images obtained from the diaphragms to the floor the pelvis with oral and IV contrast. There is bilateral pleural effusions. There is mild infiltrates and atelectasis of the lung bases seth aterally. Heart size is normal. No pericardial effusion. Liver and spleen are intact. The bile ducts are not dilated. Gallbladder is intact. No pancreatic mas s. There is no adrenal mass. Kidneys have normal size. There are left-sided renal cortical cysts up to 4 cm. No hydronephrosis. Ureters are not dilated. No retroperitoneal adenopathy. The bladder distends smoothly. There is a stent in the rectum. There is 3.7 cm enlarged lymph node on the left lateral pel han sidewall. Appendix not definitely seen. There is tiny amount of fluid in the right paracolic gutt er. There is subcutaneous edema around the abdomen. There is some edema and increased density in the omental fat anterior abdomen. Lumbar vertebrae have normal alignment. No compression fracture. Posterior elements are intact. IMPRESSION: Rectal stent. Enlarged left lateral pelvic lymph node slightly increased compared to the old exam. Di ffuse subcutaneous edema. Omental caking consistent with metastatic disease and similar to the old ex am. There is tiny amount of abdominal ascites fluid which is new compared to old exam. Bilateral pleu ral effusions and basilar atelectasis increased compared to old exam.
--- NOTE | 2022-11-26 18:50 | MR ---
EXAMINATION TYPE: MR brain wo/w con DATE OF EXAM: 11/26/2022 COMPARISON: CT brain 11/25/2022 HISTORY: Colon ca, AMS CONTRAST: Performed utilizing 9 mL intravenous Gadavist gadolinium contrast. TECHNIQUE: Multiplanar, multiecho imaging on a 3.0 Aicha magnet is performed through the brain. Stud y is performed within 24 hours of arrival to the hospital. The craniovertebral junction is normal. The pituitary is normal. Diffusion-weighted imaging is performed. No abnormal hyperintensity is present to suggest an acute i ntracranial infarct or acute ischemic change. There is some increased signal along the proximal left temporal lobe baca matter on inversion recover y weighted sequences may be some chronic ischemic change. No abnormal hyperdensity is present on the diffusion. Following contrast, no abnormal enhancement is evident. This area may be somewhat hypointe nse on T1 postcontrast imaging. Ventricles and sulci are appropriate for the patient age. IMPRESSIONS: 1. Increased signal along the proximal left temporal lobe gyrus could be some chronic ischemic change . Acute changes for ischemic change are not identified. 2. Suspicious changes to suggest a static disease are not apparent.
[2022-11-26] MEDS: RIVAROXABAN 20 MG TAB PO SCH (21:47)
--- NOTE | 2022-11-26 22:57 | P.CONS ---
History of Present Illness - Reason for Consult Consult date: 11/26/22 Sepsis Requesting physician: Yanira Mixon - Chief Complaint Weakness and mental status changes X 1 day - History of Present Illness Patient is a 72-year female with a past medical history significant for metastatic colon cancer on chemotherapy patient was brought into the ER last night for evaluation of change in mental status symptom has been getting worse for the last 3 days mostly complaining of generalized weakness the patient also have developed bilateral lower extremity swelling and leg rash apparent related to her chemotherapy with worsening of her symptoms with increasing pain mostly dull aching to sharp and burning in nature 6-7 out of 10 no radiation did have some superficial ulceration with a clear drainage with the symptom the patient was evaluated on arrival to the ER patient was afebrile and no fever has been recorded subsequently patient did have a normal white count kidney function was normal lactic acid was elevated AST was mildly elevated patient did have blood cultures obtained which are currently pending lower extremity Dopplers were negative for DVT patient did have a chest x-ray and no evidence for acute cardiopulmonary disease CT of the brain no acute intracranial process patient was started on Zosyn infectious disease was consulted was consulted for possible sepsis Review of Systems Positive point has been mentioned in the HPI rest of the systems are negative Past Medical History Past Medical History: Cancer, Hyperlipidemia, Hypertension, Myocardial Infarction ([place]) Additional Past Medical History / Comment(s): Colon Cancer. bowel blockage Last Myocardial Infarction Date:: 04/2022 History of Any Multi-Drug Resistant Organisms: None Reported Past Surgical History: No Surgical Hx Reported Past Anesthesia/Blood Transfusion Reactions: No Reported Reaction Past Psychological History: Depression Smoking Status: Never smoker Past Alcohol Use History: None Reported Past Drug Use History: None Reported Medications and Allergies Home Medications Medication Instructions Recorded Confirmed Type Atorvastatin [Lipitor] 40 mg PO DAILY 04/02/22 11/25/22 History Escitalopram [Lexapro] 20 mg PO DAILY 04/02/22 11/25/22 History Pantoprazole [Protonix] 40 mg PO BID 04/02/22 11/25/22 History Aspirin [Adult Low Dose Aspirin EC] 81 mg PO DAILY 09/15/22 11/25/22 History Capecitabine [Xeloda] 1,500 mg PO DIRECTED 09/15/22 11/25/22 History Metoprolol Tartrate [Lopressor] 50 mg PO TID 09/15/22 11/25/22 History Acetaminophen Tab [Tylenol] 650 mg PO Q6H PRN 11/25/22 11/25/22 History Betamethasone Valerate [Luxiq 0.1%] 1 applic TOPICAL BID 11/25/22 11/25/22 Histo ry Cholestyramine (with Sugar) 4 gm PO HS PRN 11/25/22 11/25/22 History [Cholestyramine Powder] Furosemide [Lasix] 20 mg PO TID 11/25/22 11/25/22 History Gabapentin [Neurontin] 200 mg PO HS PRN 11/25/22 11/25/22 History Lidocaine-Prilocaine Cream [Emla 1 applic TOPICAL DAILY PRN 11/25/22 11/25/22 History Cream 2.5%/2.5%] Nitroglycerin Sl Tabs [Nitrostat] 0.4 mg SUBLINGUAL Q5M PRN 11/25/22 11/25/22 History Potassium Chloride ER [K-Dur 10] 10 meq PO BID 11/25/22 11/25/22 History SILVER sulfADIAZINE CREAM 1 applic TOPICAL BID PRN 11/25/22 11/25/22 History [Silvadene Cream] amLODIPine [Norvasc] 5 mg PO DAILY 11/25/22 11/25/22 History ondansetron HCL [Zofran] 8 mg PO Q6H PRN 11/25/22 11/25/22 History oxyCODONE HCL [OxyIR] 5 mg PO Q8H PRN 11/25/22 11/25/22 History Amoxic-Pot Clav 875-125Mg 1 tab PO Q12HR 5 Days #10 tab 12/06/22 Rx [Augmentin 875-125] Ciprofloxacin HCl [Cipro] 500 mg PO BID 5 Days #10 tab 12/06/22 Rx Folic Acid 1 mg PO DAILY@1200 #30 tab 12/06/22 Rx Levothyroxine Sodium [Synthroid] 25 mcg PO DAILY@0630 #30 tab 12/06/22 Rx Multivitamins, Thera [Multivitamin 1 each PO DAILY #30 tab 12/06/22 Rx (formulary)] Rivaroxaban [Xarelto] 10 mg PO DAILY #30 tab 12/06/22 Rx Thiamine [Vitamin B-1] 100 mg PO DAILY@1200 #30 tab 12/06/22 Rx Allergies Allergy/AdvReac Type Severity Reaction Status Date / Time No Known Allergies Allergy Verified 11/25/22 13:38 Physical Exam Vitals: Vital Signs Temp Pulse Pulse Resp BP BP Pulse Ox 11/26/22 08:35 92 18 11/26/22 07:51 96 11/26/22 07:05 97.7 F 92 18 101/49 96 11/26/22 02:00 97.4 F L 80 16 99/53 98 11/25/22 20:00 97.5 F L 105 H 16 122/63 99 11/25/22 18:00 98 11 L 137/58 98 11/25/22 17:00 98 19 152/61 98 11/25/22 16:00 99 17 139/62 98 11/25/22 15:28 98 18 138/59 99 11/25/22 14:37 90 18 126/64 96 11/25/22 12:33 97.4 F L 101 H 20 138/57 99 Intake and Output 11/25/22 11/26/22 11/26/22 22:59 06:59 14:59 Intake Total 450 Balance 450 Intake: Intake, IV Titration 450 Amount Sodium Chloride 0.9% 1, 450 000 ml @ 75 mls/hr IV . [id number] [facility] Rx#:[id number] Other: Voiding Method External Catheter Bedside Commode External Catheter # Voids 1 1 Weight 89.811 kg GENERAL DESCRIPTION: Elderly female lying in bed, no distress. No tachypnea or accessory muscle of respiration use. HEENT: Shows Pallor , no scleral icterus. Oral mucous membrane is dry. No pharyngeal erythema or thrush NECK: Trachea central, no thyromegaly. LUNGS: Unlabored breathing. Clear to auscultation anteriorly. No wheeze or crackle. HEART: S1, S2, regular rate and rhythm. No loud murmur ABDOMEN: Soft, no tenderness , guarding or rigidity, no organomegaly EXTREMITIES: Diffuse swelling to bilateral lower extremity with erythematous rash no blister or any drainage. SKIN: No rash, no masses palpable. NEUROLOGICAL: The patient is awake, alert, oriented x3, mood and affect normal. Results CBC & Chem 7: 12/06/22 06:51 12/06/22 06:51 Labs: Abnormal Lab Results - Last 24 Hours (Table) 11/25/22 11/25/2223 Range/Units 14:00 14:00 14:00 RBC 2.13 L (3.80-5.40) m/uL Hgb 7.9 L (11.4-16.0) gm/dL Hct 23.4 L (34.0-46.0) % MCV 109.7 H (80.0-100.0) fL MCH 37.2 H (25.0-35.0) pg RDW 22.2 H (11.5-15.5) % Plt Count 76 L (150-450) k/uL Lymphocytes # (Manual) 0.81 L (1.0-4.8) k/uL Macrocytosis Marked A Sodium 134 L (137-145) mmol/L Anion Gap (10.00-18.00) mmol/L BUN 27 H (7-17) mg/dL Est GFR (CKD-EPI)NonAf (60.0-200.0) BUN/Creatinine Ratio (12.00-20.00) Ratio Glucose 141 H (74-99) mg/dL POC Glucose (mg/dL) (70-110) mg/dL Plasma Lactic Acid Sam 2.8 H* (0.7-2.0) mmol/L Calcium 7.2 L (8.4-10.2) mg/dL AST 79 H (14-36) U/L Alkaline Phosphatase 370 H (38-126) U/L Total Protein 5.6 L (6.3-8.2) g/dL Albumin 2.4 L (3.5-5.0) g/dL Albumin/Globulin Ratio (1.60-3.17) g/dL 11/25/22 11/25/22 11/25/22 Range/Units 14:42 16:50 20:06 RBC (3.80-5.40) m/uL Hgb (11.4-16.0) gm/dL Hct (34.0-46.0) % MCV (80.0-100.0) fL MCH (25.0-35.0) pg RDW (11.5-15.5) % Plt Count (150-450) k/uL Lymphocytes # (Manual) (1.0-4.8) k/uL Macrocytosis Sodium (137-145) mmol/L Anion Gap (10.00-18.00) mmol/L BUN (7-17) mg/dL Est GFR (CKD-EPI)NonAf (60.0-200.0) BUN/Creatinine Ratio (12.00-20.00) Ratio Glucose (74-99) mg/dL POC Glucose (mg/dL) 150 H (70-110) mg/dL Plasma Lactic Acid Sam 4.3 H* 2.3 H* (0.7-2.0) mmol/L Calcium (8.4-10.2) mg/dL AST (14-36) U/L Alkaline Phosphatase (38-126) U/L Total Protein (6.3-8.2) g/dL Albumin (3.5-5.0) g/dL Albumin/Globulin Ratio (1.60-3.17) g/dL 11/26/22 Range/Units 07:45 RBC (3.80-5.40) m/uL Hgb (11.4-16.0) gm/dL Hct (34.0-46.0) % MCV (80.0-100.0) fL MCH (25.0-35.0) pg RDW (11.5-15.5) % Plt Count (150-450) k/uL Lymphocytes # (Manual) (1.0-4.8) k/uL Macrocytosis Sodium (137-145) mmol/L Anion Gap 7.80 L (10.00-18.00) mmol/L BUN (7-17) mg/dL Est GFR (CKD-EPI)NonAf 58.1 L (60.0-200.0) BUN/Creatinine Ratio 24.00 H (12.00-20.00) Ratio Glucose (74-99) mg/dL POC Glucose (mg/dL) (70-110) mg/dL Plasma Lactic Acid Sam (0.7-2.0) mmol/L Calcium 7.6 L (8.4-10.2) mg/dL AST 70 H (14-36) U/L Alkaline Phosphatase 332 H (38-126) U/L Total Protein 5.1 L (6.3-8.2) g/dL Albumin 2.3 L (3.5-5.0) g/dL Albumin/Globulin Ratio 0.82 L (1.60-3.17) g/dL Assessment and Plan (1) Left leg cellulitis Status: Acute Code(s): L03.116 - CELLULITIS OF LEFT LOWER LIMB SNOMED Cod e(s): 775048801 Plan: 1patient presented to hospital with mental status changes more likely metabolic in this patient who do have a history of metastatic colon cancer on chemotherapy patient currently with no fever or elevated white count and does not look toxic. Patient did have a negative chest x-ray 2we will obtain UA to complete the work-up 3-patient also have bilateral lower extremity swelling erythematous rash possibly related to her chemotherapy cellulitis less likely but not entirely excluded lower extremity Doppler were negative for DVT 4we will apply Silvadene cream to the erythematous rash followed by Cisco wrap to get some of the swelling down 5continue with empiric Zosyn while waiting for the work-up to be completed 6check inflammatory markers We will follow on clinical condition and cultures to further adjust medication if needed Thank you for this consultation we will follow the patient along with you Time with Patient: Greater than 30
[2022-11-27] MEDS: PIPERACILLIN-TAZOBACTAM 3.375 GM in SODIUM CHLORIDE 0.9% 100 ML IVPB SCH ×3 (00:21→15:31)
[2022-11-27] MEDS: SODIUM CHLORIDE 0.9% 1,000 ML IV SCH (06:23)
[2022-11-27 08:25] LABS: Anisocytosis Moderate; HGB 8.8 gm/dL (11.4-16.0); Hypochromasia Slight; MCH 35.1 pg (25.0-35.0); MCHC 32.6 g/dL (31.0-37.0); MCV 107.7 fL (80.0-100.0); Macrocytosis Marked; Mean Platelet Volume 11.3; Poikilocytosis Moderate; RDW 23.4 % (11.5-15.5); WBC 2.9 k/uL (3.8-10.6)
[2022-11-27 08:34] LABS: Platelet Count 60 k/uL (150-450)
[2022-11-27] MEDS: ATORVASTATIN 40 MG TAB PO SCH (09:35)
[2022-11-27] MEDS: amLODIPine 5 MG TAB PO SCH (09:35)
[2022-11-27] MEDS: METOPROLOL TARTRATE 50 MG TAB PO SCH ×3 (09:35→21:19)
[2022-11-27] MEDS: ASPIRIN 81 MG PO SCH (09:35)
[2022-11-27] MEDS: PANTOPRAZOLE 40 MG TABLET PO SCH ×2 (09:35→17:55)
[2022-11-27] MEDS: ESCITALOPRAM 20 MG TAB PO SCH (09:36)
[2022-11-27] MEDS: MULTIVITAMINS, THERA 1 EACH TAB PO SCH (09:36)
[2022-11-27] MEDS: FUROSEMIDE 20 MG TAB PO SCH ×3 (09:36→17:55)
[2022-11-27] MEDS: POTASSIUM CHLORIDE ER 10 MEQ TAB.ER.PRT PO SCH ×2 (09:36→21:18)
--- NOTE | 2022-11-27 10:11 | P.CNNES ---
History of Present Illness Consult date: 11/26/22 Requesting physician: Matt Loyola Reason for Consult: AMS History of Present Illness: Patient is a 72-year-old female, with diagnosis of colon cancer, status post chemotherapy, now undergoing oral chemotherapy with Xeloda, came to the hospital yesterday at 12:31 PM for altered mental status. Patient states that in the past 6 weeks she has developed rapidly progressive swelling of bilateral lower extremity, which has now become very red, started oozing. She states her both legs are affected, there is swollen, wet and sore. It is progressively getting worse. She is not able to walk, cannot get out of bed, cannot do anything. In the last 3 days she has developed altered mental status, which she states came "all of a sudden", as she did not know the date or where she was. She couldn't get up on her own. Her has to help her with everything. Patient denies any stroke symptoms. Patient admits to having bifrontal headache 4/10 and Tylenol helps. She states that she is often prone to get headache and Tylenol usually helps, and this headache is not new. Patient says that she was diagnosed with colon cancer in March 2022. She underwent 6 rounds of IV chemotherapy. Now she is on oral chemotherapy regimen with Xeloda. It is a 15 gait regimen, off for 6 days and then repeat course for 15 days. She has completed 3/4 cycles. Patient does not know the stage of her cancer. Her vital signs on arrival blood pressure 138/57, pulse rate 101, temperature 97.4. She has been afebrile. Blood tests shows normal WBC hemoglobin 7.9, platelets 76, which is low. MCV is significantly elevated 112. PT/PTT is normal, sodium 134, potassium is normal, renal functions normal. Lactate was 2.8, which went up to 4.3. AST is elevated 79, ALT normal 31. Ammonia is <9. Patient underwent computed tomography scan of the head, which was normal. I personally reviewed CT head, agree with the findings. EKG shows sinus rhythm. Venous Doppler negative for DVT. CT of abdomen and pelvis revealed rectal stent. Enlarged left lateral pelvic lymph node slightly increased compared to the old exam. Diffuse subcutaneous edema. On mental caking consistent with metastatic disease and similar to the old exam. There is tiny amount of abdominal ascites fluid which is new compared to old exam. Bilateral pleural effusion and basilar atelectasis increased compared to old exam. Patient denies any tobacco or alcohol use. Denies hypertension diabetes or hyperlipidemia. Review of Systems Constitutional: Reports chills, Denies fever Eyes: denies blurred vision, denies diplopia, denies pain Ears: deny: decreased hearing, ear discharge Ears, nose, mouth and throat: Reports headache, Denies sore throat Cardiovascular: Denies chest pain, Denies shortness of breath Respiratory: Denies congestion, Denies cough, Denies excessive sputum Gastrointestinal: Denies abdominal pain, Denies diarrhea, Denies nausea, Denies vomiting Genitourinary: Denies dysuria, Denies hematuria, Denies urge incontinence Musculoskeletal: Reports gait dysfunction, Denies frequent falls, Denies low back pain, Denies myalgias Integumentary: Reports rash, Denies pruritus Neurological: Reports as per HPI Psychiatric: Denies anxiety, Denies depression Endocrine: Reports fatigue, Reports weight change Past Medical History Past Medical History: Cancer, Hyperlipidemia, Hypertension, Myocardial Infarction ([place]) Additional Past Medical History / Comment(s): Colon Cancer. bowel blockage Last Myocardial Infarction Date:: 04/2022 History of Any Multi-Drug Resistant Organisms: None Reported Past Surgical History: No Surgical Hx Reported Past Anesthesia/Blood Transfusion Reactions: No Reported Reaction Past Psychological History: Depression Smoking Status: Never smoker Past Alcohol Use History: None Reported Past Drug Use History: None Reported Medications and Allergies Home Medications Medication Instructions Recorded Confirmed Type Atorvastatin [Lipitor] 40 mg PO DAILY 04/02/22 11/25/22 History Escitalopram [Lexapro] 20 mg PO DAILY 04/02/22 11/25/22 History Pantoprazole [Protonix] 40 mg PO BID 04/02/22 11/25/22 History Aspirin [Adult Low Dose Aspirin EC] 81 mg PO DAILY 09/15/22 11/25/22 History Capecitabine [Xeloda] 1,500 mg PO DIRECTED 09/15/22 11/25/22 History Metoprolol Tartrate [Lopressor] 50 mg PO TID 09/15/22 11/25/22 History Rivaroxaban [Xarelto] 20 mg PO HS 09/15/22 11/25/22 History Acetaminophen Tab [Tylenol] 650 mg PO Q6H PRN 11/25/22 11/25/22 History Betamethasone Valerate [Luxiq 0.1%] 1 applic TOPICAL BID 11/25/22 11/25/22 His tory Cholestyramine (with Sugar) 4 gm PO HS PRN 11/25/22 11/25/22 History [Cholestyramine Powder] Furosemide [Lasix] 20 mg PO TID 11/25/22 11/25/22 History Gabapentin [Neurontin] 200 mg PO HS PRN 11/25/22 11/25/22 History Lidocaine-Prilocaine Cream [Emla 1 applic TOPICAL DAILY PRN 11/25/22 11/25/22 History Cream 2.5%/2.5%] Nitroglycerin Sl Tabs [Nitrostat] 0.4 mg SUBLINGUAL Q5M PRN 11/25/22 11/25/22 History Potassium Chloride ER [K-Dur 10] 10 meq PO BID 11/25/22 11/25/22 History SILVER sulfADIAZINE CREAM 1 applic TOPICAL BID PRN 11/25/22 11/25/22 History [Silvadene Cream] amLODIPine [Norvasc] 5 mg PO DAILY 11/25/22 11/25/22 History ondansetron HCL [Zofran] 8 mg PO Q6H PRN 11/25/22 11/25/22 History oxyCODONE HCL [OxyIR] 5 mg PO Q8H PRN 11/25/22 11/25/22 History Allergies Allergy/AdvReac Type Severity Reaction Status Date / Time No Known Allergies Allergy Verified 11/25/22 13:38 Physical Examination - Vital Signs Vital Signs: Vital Signs Temp Pulse Pulse Resp BP BP Pulse Ox 11/26/22 18:18 97.6 F 80 18 115/61 97 11/26/22 18:05 97.9 F 88 20 121/69 97 11/26/22 17:45 98.6 F 69 20 116/61 96 11/26/22 17:30 97.5 F L 70 20 121/67 96 11/26/22 12:17 97.5 F L 85 18 107/55 98 11/26/22 08:35 92 18 11/26/22 07:51 96 11/26/22 07:05 97.7 F 92 18 101/49 96 11/26/22 02:00 97.4 F L 80 16 99/53 98 11/25/22 20:00 97.5 F L 105 H 16 122/63 99 Intake and Output 11/26/22 11/26/22 11/26/22 06:59 14:59 22:59 Intake Total 450 0 Balance 450 0 Intake: Intake, IV Titration 450 Amount Sodium Chloride 0.9% 1, 450 000 ml @ 75 mls/hr IV . [id number] [facility] Rx#:[id number] Blood Product 0 Rc As-1 Unit 0 [id number] Other: Voiding Method External Catheter Bedside Commode External Catheter # Voids 1 1 # Bowel Movements 1 1 Patient is an elderly female, very pleasant, in no acute distress. Patient is slightly encephalopathic, mildly delirious, but is alert awake oriented to time place and person. She knows it is 11/26/2022 and that she is in [facility] in [facility]. Speech and language functions are normal. Patient can name and repeat very well. No aphasia or dysarthria. Attention, concentration and fund of knowledge is adequate. On cranial nerve examination, pupils are equal, round and reacting to light, visual patiño are full on confrontation, with no neglect on double simultaneous stimulation. Extraocular muscles are intact with no nystagmus. Face is symmetric, tongue protrudes to the midline. Palatal elevation and sensation normal, hearing and shoulder shrug normal, facial sensation normal. On muscle strength testing, there is no pronator drift and the strength is normal in arms distally and proximally. In the lower limbs, hip flexion is 4+, ankle dorsiflexion 5 bilaterally. Deep tendon reflexes are symmetric 2+ in the upper limbs, 1 in the lower limbs and plantars are flat. Sensory to touch is equal with no neglect on double simultaneous stimulation. Cerebellar function showed no ataxia for [id number] testing. No dysdiadochokinesia. Tone and bulk of muscles normal. Gait deferred.. On general examination, there is no carotid bruit or murmur, S1-S2 audible. C hest is clear on consultation. Abdomen is soft nontender. No organomegaly, bowel sounds present. Patient has significant peripheral edema in the lower legs bilaterally, and the skin is very bright red patches, with some oozing and some blistering Results - Laboratory Findings CBC and BMP: 11/27/22 07:08 11/27/22 07:13 Abnormal Lab Findings: Abnormal Labs 11/25/22 11/25/22 11/25/22 14:00 14:00 14:00 WBC RBC 2.13 L Hgb 7.9 L Hct 23.4 L MCV 109.7 H MCH 37.2 H MCHC RDW 22.2 H Plt Count 76 L MPV Lymphocytes # (Manual) 0.81 L Eosinophils # Immature Plt Fraction Macrocytosis Marked A Sodium 134 L Anion Gap BUN 27 H Est GFR (CKD-EPI)NonAf BUN/Creatinine Ratio Glucose 141 H POC Glucose (mg/dL) Plasma Lactic Acid Sam 2.8 H* Calcium 7.2 L AST 79 H Alkaline Phosphatase 370 H Total Protein 5.6 L Albumin 2.4 L Albumin/Globulin Ratio Crossmatch 11/25/22 11/25/22 11/25/22 14:42 16:50 20:06 WBC RBC Hgb Hct MCV MCH MCHC RDW Plt Count MPV Lymphocytes # (Manual) Eosinophils # Immature Plt Fraction Macrocytosis Sodium Anion Gap BUN Est GFR (CKD-EPI)NonAf BUN/Creatinine Ratio Glucose POC Glucose (mg/dL) 150 H Plasma Lactic Acid Sam 4.3 H* 2.3 H* Calcium AST Alkaline Phosphatase Total Protein Albumin Albumin/Globulin Ratio Crossmatch 11/26/22 11/26/22 11/26/22 07:45 07:45 14:01 WBC 4.11 L RBC 1.96 L Hgb 7.0 L Hct 22.1 L MCV 112.8 H MCH 35.7 H MCHC 31.7 L RDW 23.0 H Plt Count 64 L MPV 12.9 H Lymphocytes # (Manual) Eosinophils # 0.01 L Immature Plt Fraction 12.0 H Macrocytosis Sodium Anion Gap 7.80 L BUN Est GFR (CKD-EPI)NonAf 58.1 L BUN/Creatinine Ratio 24.00 H Glucose POC Glucose (mg/dL) Plasma Lactic Acid Sam Calcium 7.6 L AST 70 H Alkaline Phosphatase 332 H Total Protein 5.1 L Albumin 2.3 L Albumin/Globulin Ratio 0.82 L Crossmatch See Detail Assessment and Plan Assessment: * Altered mental status, likely due to toxic metabolic encephalopathy. Rule out cerebral metastasis. Rule out paraneoplastic syndrome * Metastatic colon cancer, with metastasis to the peritoneum as well as the liver. * Macrocytosis, rule out B12/folate deficiency * Bilateral leg swelling, rash in the lower legs with oozing. Rule out lymphedema. Rule out cellulitis. * Coronary artery disease, history of TX April 2022. Plan: * Patient undergoing MRI of the brain with and without contrast * We will check EEG to rule out any epileptiform activity * We will check NMDA antibodies, Anti Hu and Anti Yo antibodies. * B12, folate, MMA, TSH * Oncology and ID also on board. * Neurology will follow. Thank you for the consult.
[2022-11-27 11:59] LABS: African American GFR (CKD) 66.6 (60.0-200.0); Anion Gap 9.3 mmol/L (10.00-18.00); BUN/Creat Ratio 19.23 Ratio (12.00-20.00); Calcium 7.4 mg/dL (8.7-10.3); Carbon Dioxide 23.9 mmol/L (20.0-27.5); Non-African American GFR(CKD) 57.5 (60.0-200.0)
[2022-11-27] MEDS: THIAMINE 100 MG TAB PO SCH (12:48)
[2022-11-27] MEDS: FOLIC ACID 1 MG TAB PO SCH (12:48)
--- NOTE | 2022-11-27 13:58 | P.PN ---
Subjective Progress Note Date: 11/27/22 Patient is a 72-year-old female, with diagnosis of colon cancer, status post chemotherapy, now undergoing oral chemotherapy with Xeloda, came to the hospital yesterday at 12:31 PM for altered mental status. Patient states that in the past 6 weeks she has developed rapidly progressive swelling of bilateral lower extremity, which has now become very red, started oozing. She states her both legs are affected, there is swollen, wet and sore. It is progressively getting worse. She is not able to walk, cannot get out of bed, cannot do anything. In the last 3 days she has developed altered mental status, which she states came "all of a sudden", as she did not know the date or where she was. She couldn't get up on her own. Her has to help her with everything.Patient denies any stroke symptoms. Patient admits to having bifrontal headache 4/10 and Tylenol helps. She states that she is often prone to get headache and Tylenol usually helps, and this headache is not new. Patient says that she was diagnosed with colon cancer in March 2022. She underwent 6 rounds of IV chemotherapy. Now she is on oral chemotherapy regimen with Xeloda. It is a 15 gait regimen, off for 6 days and then repeat course for 15 days. She has completed 3/4 cycles. Patient does not know the stage of her cancer. Her vital signs on arrival blood pressure 138/57, pulse rate 101, temperature 97.4. She has been afebrile. Blood tests shows normal WBC hemoglobin 7.9, platelets 76, which is low. MCV is significantly elevated 112. PT/PTT is normal, sodium 134, potassium is normal, renal functions normal. Lactate was 2.8, which went up to 4.3. AST is elevated 79, ALT normal 31. Ammonia is <9. Patient underwent computed tomography scan of the head, which was normal. I personally reviewed CT head, agree with the findings. EKG shows sinus rhythm. Venous Doppler negative for DVT. CT of abdomen and pelvis revealed rectal stent. Enlarged left lateral pelvic lymph node slightly increased compared to the old exam. Diffuse subcutaneous edema. On mental caking consistent with metastatic disease and similar to the old exam. There is tiny amount of abdominal ascites fluid which is new compared to old exam. Bilateral pleural effusion and basilar atelectasis increased compared to old exam. 11/27/22. Patient seen and examined at bedside. States she feels better compared to yesterday. Confusion is improving REVIEW OF SYSTEMS: CONSTITUTIONAL: No fever, no malaise,. CARDIOVASCULAR: No chest pain, no palpitations, no syncope. PULMONARY: No shortness of breath, no cough, GASTROINTESTINAL: No diarrhea, no nausea, no vomiting, no abdominal pain. NEUROLOGICAL: No headaches, no weakness, PHYSICAL EXAMINATION: GENERAL: The patient is alert and oriented x3, not in any acute distress. Well developed, well nourished. HEENT: Pupils are round and equally reacting to light. EOMI. No scleral icterus. No conjunctival pallor. Normocephalic, atraumatic. No pharyngeal erythema. No thyromegaly. CARDIOVASCULAR: S1 and S2 present. No murmurs, rubs, or gallops. PULMONARY: Chest is clear to auscultation, no wheezing or crackles. ABDOMEN: Soft, nontender, nondistended, normoactive bowel sounds. No palpable organomegaly. MUSCULOSKELETAL: No joint swelling or deformity. EXTREMITIES: No cyanosis, clubbing, or pedal edema. NEUROLOGICAL: Gross neurological examination did not reveal any focal deficits. SKIN: Bilateral lower extremity erythematous rash Assessment Cellulitis of lower extremities. Acute Metabolic encephalopathy Anemia Colon cancer Hypertension Hyperlipidemia plan Monitor vital signs Monitor CBC Monitor CMP Follow-up blood cultures Continue Zosyn Follow-up in ID recs Follow-up on oncology recommendations Objective - Vital Signs Vital signs: Vital Signs Temp 97.9 F 11/27/22 11:45 Pulse 76 11/27/22 11:45 Resp 18 11/27/22 11:45 BP 101/58 11/27/22 11:45 Pulse Ox 98 11/27/22 11:45 FiO2 Intake & Output 11/26/22 11/27/22 11/27/22 18:59 06:59 18:59 Intake Total 0 1620 Output Total 500 Balance 0 1120 Intake: Intake, IV Titration 1000 Amount Piperacillin-Tazobactam 3 100 .375 gm In Sodium Chloride 0.9% 100 ml @ 25 mls/hr IVPB Q8HR [facility] Rx# :[id number] Sodium Chloride 0.9% 1, 900 000 ml @ 75 mls/hr IV . [id number] [facility] Rx#:[id number] Blood Product 0 620 Rc As-1 Unit 0 310 [id number] Output: Urine 500 Other: Voiding Method Bedside Commode Bedside Commode Bedside Commode External Catheter External Catheter External Catheter # Voids 1 1 # Bowel Movements 1 1 - Labs CBC & Chem 7: 11/27/22 07:08 11/27/22 07:13 Labs: Abnormal Lab Results - Last 24 Hours (Table) 11/26/22 11/27/22 11/27/22 Range/Units 14:01 07:08 07:13 WBC 2.9 L (3.8-10.6) k/uL RBC 2.50 L (3.80-5.40) m/uL Hgb 8.8 L (11.4-16.0) gm/dL Hct 27.0 L (34.0-46.0) % MCV 107.7 H (80.0-100.0) fL MCH 35.1 H (25.0-35.0) pg RDW 23.4 H (11.5-15.5) % Plt Count 60 L (150-450) k/uL Macrocytosis Marked A Anion Gap 9.30 L (10.00-18.00) mmol/L Est GFR (CKD-EPI)NonAf 57.5 L (60.0-200.0) Calcium 7.4 L (8.7-10.3) mg/dL Crossmatch See Detail Microbiology - Last 24 Hours (Table) 11/25/22 23:02 Gram Stain - Preliminary Leg - Right Wound Culture - Preliminary Gram Neg Bacilli Group D Enterococcus 11/25/22 13:30 Blood Culture - Preliminary Blood No Growth after 24 hours 11/25/22 14:00 Blood Culture - Preliminary Blood No Growth after 24 hours
[2022-11-27 15:26] LABS: Lymphocytes # (M) 0.64 k/uL (1.0-4.8); Monocytes # (M) 0.35 k/uL (0-1.0); Neutrophils # (M) 1.91 k/uL (1.3-7.7); Neutrophils % (M) 66 %; Nucleated Red Blood Cells 0 /100 WBC (0-0); Total Cells Counted 100
[2022-11-27 15:27] LABS: Mixed Population RBC Present
--- NOTE | 2022-11-27 17:32 | P.PN ---
Subjective Progress Note Date: 11/27/22 Principal diagnosis: Acute metabolic encephalopathy -Brain MRI noted increased signal in the proximal left temporal lobe gyrus with no evidence of acute ischemia or metastases -CT abdomen/pelvis revealed no gross evidence of disease progression -No acute events overnight -Noted to have improved mentation on today's visit with decreased swelling of the legs Objective - Vital Signs Vital signs: Vital Signs Temp 97.9 F 11/27/22 11:45 Pulse 76 11/27/22 11:45 Resp 18 11/27/22 11:45 BP 101/58 11/27/22 11:45 Pulse Ox 98 11/27/22 11:45 FiO2 Intake & Output 11/26/22 11/27/22 11/27/22 18:59 06:59 18:59 Intake Total 0 1620 240 Output Total 500 Balance 0 1120 240 Intake: Intake, IV Titration 1000 Amount Piperacillin-Tazobactam 3 100 .375 gm In Sodium Chloride 0.9% 100 ml @ 25 mls/hr IVPB Q8HR [facility] Rx# :[id number] Sodium Chloride 0.9% 1, 900 000 ml @ 75 mls/hr IV . [id number] [facility] Rx#:[id number] Oral 240 Blood Product 0 620 Rc As-1 Unit 0 310 [id number] Output: Urine 500 Other: Voiding Method Bedside Commode Bedside Commode Bedside Commode External Catheter External Catheter External Catheter # Voids 1 1 # Bowel Movements 1 1 - Constitutional General appearance: Present: cooperative, no acute distress - Respiratory Respiratory: bilateral: CTA - Cardiovascular Rhythm: regular - Gastrointestinal General gastrointestinal: Present: normal bowel sounds, soft. Absent: distended, tenderness - Integumentary Integumentary Comment(s): Significant erythema of the lower extremities bilaterally with areas of desquamation and weeping clear fluid - Neurologic Neurologic: Absent: focal deficits - Labs CBC & Chem 7: 11/27/22 07:08 11/27/22 07:13 Labs: Abnormal Lab Results - Last 24 Hours (Table) 11/26/22 11/27/22 11/27/22 Range/Units 14:01 07:08 07:13 WBC 2.9 L (3.8-10.6) k/uL RBC 2.50 L (3.80-5.40) m/uL Hgb 8.8 L (11.4-16.0) gm/dL Hct 27.0 L (34.0-46.0) % MCV 107.7 H (80.0-100.0) fL MCH 35.1 H (25.0-35.0) pg RDW 23.4 H (11.5-15.5) % Plt Count 60 L (150-450) k/uL Lymphocytes # (Manual) 0.64 L (1.0-4.8) k/uL Macrocytosis Marked A Anion Gap 9.30 L (10.00-18.00) mmol/L Est GFR (CKD-EPI)NonAf 57.5 L (60.0-200.0) Calcium 7.4 L (8.7-10.3) mg/dL Crossmatch See Detail Microbiology - Last 24 Hours (Table) 11/25/22 13:30 Blood Culture - Preliminary Blood No Growth after 48 hours 11/25/22 14:00 Blood Culture - Preliminary Blood No Growth after 48 hours 11/25/22 23:02 Gram Stain - Preliminary Leg - Right Wound Culture - Preliminary Gram Neg Bacilli Group D Enterococcus - Imaging and Cardiology CT scan - abdomen: report reviewed, image reviewed MRI - head: report reviewed Assessment and Plan (1) Altered mental status Current Visit: Yes Status: Acute Code(s): R41.82 - ALTERED MENTAL STATUS, UNSPECIFIED SNOMED Code(s): 230054864 (2) Bicytopenia Current Visit: Yes Status: Acute Code(s): D75.89 - OTHER SPECIFIED DISEASES OF BLOOD AND BLOOD-FORMING ORGANS SNOMED Code(s): 06809176 (3) H/O colon cancer, stage IV Current Visit: Yes Status: Acute Code(s): Z85.038 - PERSONAL HISTORY OF MALIGNANT NEOPLASM OF LARGE INTESTINE SNOMED Code(s): 925955820 Plan: Metabolic encephalopathy -Noted having episodes of confusion with disorientation to place and being slow to respond prior to admission -She denies any fevers prior to admission or changes to her medications -Labs revealed no acute metabolic changes with ammonia within normal limits -Clinically, Kaya notes she continues to improve compared to her initial presentation -MRI of the brain noted increased signal in the proximal left temporal lobe gyrus with no evidence of ischemia or intracranial metastases -Discussed with neurology with no clear etiology for this finding -EEG along with antibodies for NMDA, anti-Hu, and anti-Yo have been recommended along with vitamin B12, MMA, folate, TSH -Follow-up additional neurology recommendations, appreciate their assistance Dermatitis -Noted to have significant erythema of the legs bilaterally that are painful -This had limited her mobility within the past week. This has improved since admission -There are areas of skin breakdown and desquamation, likely consistent with dermatitis secondary to capecitabine that appears to be grade 3 in nature -Hold capecitabine for now and likely on discharge until this improves to grade 2 -Dose reduction of capecitabine may have to be considered outpatient on resumption -Wound consult ordered for additional management recommendations, appreciate their assistance Bicytopenia -Capecitabine induced anemia (grade 2), and thrombocytopenia (grade 1) -Continue to monitor CBC daily -Transfuse for hemoglobin less than 7 -Transfuse for platelets less than 10,000 and/or bleeding Metastatic colon cancer -Noted to have metastases to the peritoneum as well as possibly the liver and small nodules in the lungs -Completed 6 cycles of of FOLFOX, which was then transition to capecitabine due to rash from 5-FU -Most recent cycle of CAPOX/XELOX was on 11/05/2022 for oxaliplatin and completed 2 weeks of capecitabine on 11/11/2022 -CT abdomen/pelvis on admission with no definitive evidence of disease progression -Continue holding capecitabine as noted above -Consider dose changes to capecitabine or alternative regimen to be determined by her primary oncologist outpatient
[2022-11-27] MEDS: RIVAROXABAN 20 MG TAB PO SCH (21:18)
[2022-11-28] MEDS: PIPERACILLIN-TAZOBACTAM 3.375 GM in SODIUM CHLORIDE 0.9% 100 ML IVPB SCH ×3 (00:25→16:52)
[2022-11-28] MEDS: SODIUM CHLORIDE 0.9% 1,000 ML IV SCH ×2 (01:19→10:03)
--- NOTE | 2022-11-28 02:32 | P.PN ---
Subjective Progress Note Date: 11/27/22 Patient was seen for a follow-up. Patient is laying comfortably in the bed. Patient denies headache today at all. No new concerns. Objective - Vital Signs Vital signs: Vital Signs Temp 97.9 F 11/27/22 11:45 Pulse 76 11/27/22 11:45 Resp 18 11/27/22 11:45 BP 101/58 11/27/22 11:45 Pulse Ox 98 11/27/22 11:45 FiO2 Intake & Output 11/26/22 11/27/22 11/27/22 18:59 06:59 18:59 Intake Total 0 1620 240 Output Total 500 Balance 0 1120 240 Intake: Intake, IV Titration 1000 Amount Piperacillin-Tazobactam 3 100 .375 gm In Sodium Chloride 0.9% 100 ml @ 25 mls/hr IVPB Q8HR [facility] Rx# :[id number] Sodium Chloride 0.9% 1, 900 000 ml @ 75 mls/hr IV . [id number] [facility] Rx#:[id number] Oral 240 Blood Product 0 620 Rc As-1 Unit 0 310 [id number] Output: Urine 500 Other: Voiding Method Bedside Commode Bedside Commode Bedside Commode External Catheter External Catheter External Catheter # Voids 1 1 # Bowel Movements 1 1 - Exam Patient's mentation is normal. Otherwise examination is unchanged. - Labs CBC & Chem 7: 11/27/22 07:08 11/27/22 07:13 Labs: Abnormal Lab Results - Last 24 Hours (Table) 11/26/22 11/27/22 11/27/22 Range/Units 14:01 07:08 07:13 WBC 2.9 L (3.8-10.6) k/uL RBC 2.50 L (3.80-5.40) m/uL Hgb 8.8 L (11.4-16.0) gm/dL Hct 27.0 L (34.0-46.0) % MCV 107.7 H (80.0-100.0) fL MCH 35.1 H (25.0-35.0) pg RDW 23.4 H (11.5-15.5) % Plt Count 60 L (150-450) k/uL Lymphocytes # (Manual) 0.64 L (1.0-4.8) k/uL Macrocytosis Marked A Anion Gap 9.30 L (10.00-18.00) mmol/L Est GFR (CKD-EPI)NonAf 57.5 L (60.0-200.0) Calcium 7.4 L (8.7-10.3) mg/dL Crossmatch See Detail Microbiology - Last 24 Hours (Table) 11/25/22 13:30 Blood Culture - Preliminary Blood No Growth after 48 hours 11/25/22 14:00 Blood Culture - Preliminary Blood No Growth after 48 hours 11/25/22 23:02 Gram Stain - Preliminary Leg - Right Wound Culture - Preliminary Gram Neg Bacilli Group D Enterococcus Assessment and Plan Assessment: * Altered mental status, likely due to toxic metabolic encephalopathy. Rule out cerebral metastasis. Rule out paraneoplastic syndrome * Abnormal brain MRI. * Metastatic colon cancer, with metastasis to the peritoneum as well as the liver. * Macrocytosis, rule out B12/folate deficiency * Bilateral leg swelling, rash in the lower legs with oozing. Rule out lymphedema. Rule out cellulitis. * Coronary artery disease, history of [place] April 2022. Plan: * MRI of the brain with and without contrast reported as increased signal along the proximal left temporal lobe gyrus, could be some chronic ischemic change. Acute changes for ischemic changes are not identified. Suspicious changes to suggest metastatic disease are not apparently. I personally reviewed MRI, and there is abnormal signal only in the FLAIR sequence in the left temporal cortical region. There is no abnormal signal on DWI or abnormal enhancement. Uncertain if it is early metastatic deposit, or inflammatory process. * Recommend repeating MRI of the brain with and without contrast in 2-3 months, or earlier if indicated to rule out metastatic disease. * We will check EEG to rule out any epileptiform activity * We will check NMDA antibodies, Anti Hu and Anti Yo antibodies. * B12 1236, folate 40.0, MMA, TSH * Oncology and ID also on board. * Dr. Tony Mota will resume neurology service in the morning.
[2022-11-28 02:48] LABS: Appearance,Urine Clear (Clear); Bilirubin,Urine Negative (Negative); Blood,Urine Negative (Negative); Color,Urine Light Yellow; Glucose,Urine (UA) Negative (Negative); Ketones,Urine Negative (Negative); Leukocyte Esterase,Urine Negative (Negative); Nitrite,Urine Negative (Negative); Protein,Urine Negative (Negative); Specific Gravity,Urine 1.011 (1.001-1.035); Urobilinogen,Urine <2.0 mg/dL (<2.0)
[2022-11-28] MEDS: PANTOPRAZOLE 40 MG TABLET PO SCH ×2 (08:32→16:52)
[2022-11-28] MEDS: FUROSEMIDE 20 MG TAB PO SCH ×3 (08:32→16:52)
[2022-11-28] MEDS: ASPIRIN 81 MG PO SCH (08:32)
[2022-11-28] MEDS: amLODIPine 5 MG TAB PO SCH (08:32)
[2022-11-28] MEDS: ATORVASTATIN 40 MG TAB PO SCH (08:32)
[2022-11-28] MEDS: MULTIVITAMINS, THERA 1 EACH TAB PO SCH (08:32)
[2022-11-28] MEDS: METOPROLOL TARTRATE 50 MG TAB PO SCH ×3 (08:32→22:12)
[2022-11-28] MEDS: POTASSIUM CHLORIDE ER 10 MEQ TAB.ER.PRT PO SCH ×2 (08:32→22:12)
[2022-11-28] MEDS: ESCITALOPRAM 20 MG TAB PO SCH (08:32)
--- NOTE | 2022-11-28 09:43 | P.GSCN ---
History of Present Illness Consult date: 11/28/22 Reason for Consult: Lower extremity rash Requesting physician: Gorge Juarez History of present illness: This is a 72-year-old female with a history of extensive colorectal cancer. She is admitted with a number of complaints including a progressive swelling, pain, weeping of both lower extremities. Past Medical History Past Medical History: Cancer, Hyperlipidemia, Hypertension, Myocardial Infarction ([place]) Additional Past Medical History / Comment(s): Colon Cancer. bowel blockage Last Myocardial Infarction Date:: 04/2022 History of Any Multi-Drug Resistant Organisms: None Reported Past Surgical History: No Surgical Hx Reported Past Anesthesia/Blood Transfusion Reactions: No Reported Reaction Past Psychological History: Depression Smoking Status: Never smoker Past Alcohol Use History: None Reported Past Drug Use History: None Reported Medications and Allergies Home Medications Medication Instructions Recorded Confirmed Type Atorvastatin [Lipitor] 40 mg PO DAILY 04/02/22 11/25/22 History Escitalopram [Lexapro] 20 mg PO DAILY 04/02/22 11/25/22 History Pantoprazole [Protonix] 40 mg PO BID 04/02/22 11/25/22 History Aspirin [Adult Low Dose Aspirin EC] 81 mg PO DAILY 09/15/22 11/25/22 History Capecitabine [Xeloda] 1,500 mg PO DIRECTED 09/15/22 11/25/22 History Metoprolol Tartrate [Lopressor] 50 mg PO TID 09/15/22 11/25/22 History Rivaroxaban [Xarelto] 20 mg PO HS 09/15/22 11/25/22 History Acetaminophen Tab [Tylenol] 650 mg PO Q6H PRN 11/25/22 11/25/22 History Betamethasone Valerate [Luxiq 0.1%] 1 applic TOPICAL BID 11/25/22 11/25/22 History Cholestyramine (with Sugar) 4 gm PO HS PRN 11/25/22 11/25/22 History [Cholestyramine Powder] Furosemide [Lasix] 20 mg PO TID 11/25/22 11/25/22 History Gabapentin [Neurontin] 200 mg PO HS PRN 11/25/22 11/25/22 History Lidocaine-Prilocaine Cream [Emla 1 applic TOPICAL DAILY PRN 11/25/22 11/25/22 History Cream 2.5%/2.5%] Nitroglycerin Sl Tabs [Nitrostat] 0.4 mg SUBLINGUAL Q5M PRN 11/25/22 11/25/22 History Potassium Chloride ER [K-Dur 10] 10 meq PO BID 11/25/22 11/25/22 History SILVER sulfADIAZINE CREAM 1 applic TOPICAL BID PRN 11/25/22 11/25/22 History [Silvadene Cream] amLODIPine [Norvasc] 5 mg PO DAILY 11/25/22 11/25/22 History ondansetron HCL [Zofran] 8 mg PO Q6H PRN 11/25/22 11/25/22 History oxyCODONE HCL [OxyIR] 5 mg PO Q8H PRN 11/25/22 11/25/22 History Allergies Allergy/AdvReac Type Severity Reaction Status Date / Time No Known Allergies Allergy Verified 11/25/22 13:38 Surgical - Exam Osteopathic Statement: *. No significant issues noted on an osteopathic structural exam other than those noted in the History and Physical/Consult. Vital Signs Temp Pulse Resp BP Pulse Ox 97.4 F L 101 H 20 138/57 99 11/25/22 12:33 11/25/22 12:33 11/25/22 12:33 11/25/22 12:33 11/25/22 12:33 - General well developed, well nourished, no distress - Eyes normal ocular movement, no icteric - ENT no hearing loss, no congestion - Neck no masses, trachea midline - Respiratory normal respiratory effort, clear to auscultation - Abdomen Abdomen: soft, non tender, no guarding, no rigid, no rebound - Integumentary no rash, no abnormal pigmentation - Neurologic no disoriented, no combative - Psychiatric oriented to time, oriented to person, oriented to place, speech is normal, memory intact Both lower extremities are covered from groins down with a macular rash with elements of desquamation and mild weeping. Results - Labs 11/27/22 07:08 11/27/22 07:13 Abnormal Lab Results - Last 24 Hours (Table) 11/27/22 11/27/22 11/27/22 Range/Units 07:08 07:13 14:55 Lymphocytes # (Manual) 0.64 L (1.0-4.8) k/uL Anion Gap 9.30 L (10.00-18.00) mmol/L Est GFR (CKD-EPI)NonAf 57.5 L (60.0-200.0) Calcium 7.4 L (8.7-10.3) mg/dL Vitamin B12 1263.0 H (200.0-944.0) pg/mL Folate (4.40-31.00) ng/mL 11/27/22 Range/Units 14:55 Lymphocytes # (Manual) (1.0-4.8) k/uL Anion Gap (10.00-18.00) mmol/L Est GFR (CKD-EPI)NonAf (60.0-200.0) Calcium (8.7-10.3) mg/dL Vitamin B12 (200.0-944.0) pg/mL Folate 40.00 H (4.40-31.00) ng/mL Microbiology - Last 24 Hours (Table) 11/25/22 13:30 Blood Culture - Preliminary Blood No Growth after 48 hours 11/25/22 14:00 Blood Culture - Preliminary Blood No Growth after 48 hours 11/25/22 23:02 Gram Stain - Preliminary Leg - Right Wound Culture - Preliminary Gram Neg Bacilli Group D Enterococcus Diabetes panel 11/27/22 Range/Units 07:13 Sodium 136 (135-145) mmol/L Potassium 4.0 (3.5-5.5) mmol/L Chloride 103 (96-109) mmol/L Carbon Dioxide 23.9 (20.0-27.5) mmol/L BUN 19.0 (9.0-27.0) mg/dL Creatinine 1.0 (0.6-1.5) mg/dL Glucose 78 (70-110) mg/dL Calcium 7.4 L (8.7-10.3) mg/dL Calcium panel 11/27/22 Range/Units 07:13 Calcium 7.4 L (8.7-10.3) mg/dL Pituitary panel 11/27/22 Range/Units 07:13 Sodium 136 (135-145) mmol/L Potassium 4.0 (3.5-5.5) mmol/L Chloride 103 (96-109) mmol/L Carbon Dioxide 23.9 (20.0-27.5) mmol/L BUN 19.0 (9.0-27.0) mg/dL Creatinine 1.0 (0.6-1.5) mg/dL Glucose 78 (70-110) mg/dL Calcium 7.4 L (8.7-10.3) mg/dL Adrenal panel 11/27/22 Range/Units 07:13 Sodium 136 (135-145) mmol/L Potassium 4.0 (3.5-5.5) mmol/L Chloride 103 (96-109) mmol/L Carbon Dioxide 23.9 (20.0-27.5) mmol/L BUN 19.0 (9.0-27.0) mg/dL Creatinine 1.0 (0.6-1.5) mg/dL Glucose 78 (70-110) mg/dL Calcium 7.4 L (8.7-10.3) mg/dL Assessment and Plan (1) Dermatitis Current Visit: Yes Status: Acute Code(s): L30.9 - DERMATITIS, UNSPECIFIED SNOMED Code(s): 385297153 Plan: This patient has a dermatologic condition that is very possibly related to a chemotherapeutic agent. This is generally out of the scope of wound care per se. I would recommend consultation, either inpatient or outpatient if necessary, with dermatology. Treatment would generally relate to the cessation or at least lowering the dosage of offending chemotherapeutic agents. I would leave it to oncology or dermatology as to whether to treat the phenomenon with topical or systemic steroid therapy. Topical Silvadene may be of some benefit. I would however watch closely for the possibility of the silver creating its own skin irritation. A more benign second alternative would be triad.
--- NOTE | 2022-11-28 10:29 | P.PN ---
Subjective Progress Note Date: 11/28/22 I'm seeing the patient for the first time during this admission. Patient had altered mental status and there is concern that patient has toxic-metabolic encephalopathy. On the MRI was felt was abnormal by Dr. Muhammad, in which he felt the patient had increased signal in the proximal left temporal gyrus concern for metastatic deposit or inflammatory process. It seems that the patient has history of metastatic colon cancer and the patient had MRI of the brain. Patient states she's doing well overall. Please refer to Dr. Muhammad for further details. Objective - Vital Signs Vital signs: Vital Signs Temp 97.8 F 11/28/22 07:16 Pulse 80 11/28/22 07:16 Resp 16 11/28/22 07:16 BP 113/64 11/28/22 07:16 Pulse Ox 96 11/28/22 07:16 FiO2 Intake & Output 11/27/22 11/28/22 11/28/22 18:59 06:59 18:59 Intake Total 240 1000 Balance 240 1000 Intake: Intake, IV Titration 1000 Amount Piperacillin-Tazobactam 3 100 .375 gm In Sodium Chloride 0.9% 100 ml @ 25 mls/hr IVPB Q8HR [facility] Rx# :[id number] Sodium Chloride 0.9% 1, 900 000 ml @ 75 mls/hr IV . [id number] [facility] Rx#:[id number] Oral 240 Other: Voiding Method Bedside Commode Bedside Commode External Catheter # Voids 1 2 # Bowel Movements 1 - Exam GENERAL: The patient is lying in bed and is not in acute distress. NEUROLOGICAL: Higher mental function: The patient is awake, alert, oriented to self, place and time. Patient is following simple commands. Has paraphrasic error and it seems has difficulty repeating phrases. No neglect. Cranial nerves: The pupils are round, equal and reactive to light. Visual patiño are full to confrontation throughout. Extraocular movement is intact no nystagmus is noted. The facial strength is normal throughout. No dysarthria is noted. Shoulder shrug is normal bilaterally. Motor: The strength is hard to assess inidividual muscles because of her cooperation. But lifting bilateral upper and no focality is appreciated. Has severe erythema withe edema in lowers bilaterally. . - Labs CBC & Chem 7: 11/27/22 07:08 11/27/22 07:13 Labs: Abnormal Lab Results - Last 24 Hours (Table) 11/27/22 11/27/22 11/27/22 Range/Units 07:08 07:13 14:55 Lymphocytes # (Manual) 0.64 L (1.0-4.8) k/uL Anion Gap 9.30 L (10.00-18.00) mmol/L Est GFR (CKD-EPI)NonAf 57.5 L (60.0-200.0) Calcium 7.4 L (8.7-10.3) mg/dL Vitamin B12 1263.0 H (200.0-944.0) pg/mL Folate (4.40-31.00) ng/mL TSH (0.350-5.500) uIU/mL Free (T4) Reflex I (0.800-1.800) ng/dL 11/27/22 11/28/22 Range/Units 14:55 06:15 Lymphocytes # (Manual) (1.0-4.8) k/uL Anion Gap (10.00-18.00) mmol/L Est GFR (CKD-EPI)NonAf (60.0-200.0) Calcium (8.7-10.3) mg/dL Vitamin B12 (200.0-944.0) pg/mL Folate 40.00 H (4.40-31.00) ng/mL TSH 30.500 H (0.350-5.500) uIU/mL Free (T4) Reflex I 0.580 L (0.800-1.800) ng/dL Microbiology - Last 24 Hours (Table) 11/25/22 13:30 Blood Culture - Preliminary Blood No Growth after 48 hours 11/25/22 14:00 Blood Culture - Preliminary Blood No Growth after 48 hours 11/25/22 23:02 Gram Stain - Preliminary Leg - Right Wound Culture - Preliminary Gram Neg Bacilli Group D Enterococcus Assessment and Plan Assessment: * Altered mental status, likely due to toxic metabolic encephalopathy and abnormal thryoid. Rule out cerebral metastasis. Rule out paraneoplastic syndrome * Aphasia due to possible suspicious for left temporal lesion * Abnormal brain MRI over left temporal and unsure if early brain mets * Metastatic colon cancer, with metastasis to the peritoneum as well as the liver. * Hypothyroidism * Macrocytosis, rule out B12/folate deficiency * Bilateral leg swelling, rash in the lower legs with oozing. Rule out lymphedema. Rule out cellulitis. * Coronary artery disease, history of [place] April 2022. Plan: * MRI of the brain with and without contrast reported as increased signal along the proximal left temporal lobe gyrus, could be some chronic ischemic change. Acute changes for ischemic changes are not identified. Suspicious changes to suggest metastatic disease are not apparently. I personally reviewed MRI, and there is abnormal signal only in the FLAIR sequence in the left temporal cortical region. There is no abnormal signal on DWI or abnormal enhancement. Uncertain if it is early metastatic deposit, or inflammatory process. * Recommend repeating MRI of the brain with and without contrast in 1-2 months, or earlier if indicated to rule out metastatic disease. * Pending EEG to rule out any epileptiform activity * Pending NMDA antibodies, Anti Hu and Anti Yo antibodies. * B12 1236, folate 40.0, MMA pending * For abnormal thyroid will defr management to primary team. * Oncology and ID also on board. Upon discharge, recommend the patient to follow-up with neurologist as outpatient within 1-2 weeks. Time with Patient: Less than 30
[2022-11-28] MEDS: THIAMINE 100 MG TAB PO SCH (11:59)
[2022-11-28] MEDS: FOLIC ACID 1 MG TAB PO SCH (11:59)
[2022-11-28] MEDS: ACETAMINOPHEN TAB 325 MG TAB PO PRN ×2 (12:06→22:15)
--- NOTE | 2022-11-28 13:17 | P.PN ---
Subjective Progress Note Date: 11/28/22 Patient is a 72-year-old female, with diagnosis of colon cancer, status post chemotherapy, now undergoing oral chemotherapy with Xeloda, came to the hospital yesterday at 12:31 PM for altered mental status. Patient states that in the past 6 weeks she has developed rapidly progressive swelling of bilateral lower extremity, which has now become very red, started oozing. She states her both legs are affected, there is swollen, wet and sore. It is progressively getting worse. She is not able to walk, cannot get out of bed, cannot do anything. In the last 3 days she has developed altered mental status, which she states came "all of a sudden", as she did not know the date or where she was. She couldn't get up on her own. Her has to help her with everything.Patient denies any stroke symptoms. Patient admits to having bifrontal headache 4/10 and Tylenol helps. She states that she is often prone to get headache and Tylenol usually helps, and this headache is not new. Patient says that she was diagnosed with colon cancer in March 2022. She underwent 6 rounds of IV chemotherapy. Now she is on oral chemotherapy regimen with Xeloda. It is a 15 gait regimen, off for 6 days and then repeat course for 15 days. She has completed 3/4 cycles. Patient does not know the stage of her cancer. Her vital signs on arrival blood pressure 138/57, pulse rate 101, temperature 97.4. She has been afebrile. Blood tests shows normal WBC hemoglobin 7.9, platelets 76, which is low. MCV is significantly elevated 112. PT/PTT is normal, sodium 134, potassium is normal, renal functions normal. Lactate was 2.8, which went up to 4.3. AST is elevated 79, ALT normal 31. Ammonia is <9. Patient underwent computed tomography scan of the head, which was normal. I personally reviewed CT head, agree with the findings. EKG shows sinus rhythm. Venous Doppler negative for DVT. CT of abdomen and pelvis revealed rectal stent. Enlarged left lateral pelvic lymph node slightly increased compared to the old exam. Diffuse subcutaneous edema. On mental caking consistent with metastatic disease and similar to the old exam. There is tiny amount of abdominal ascites fluid which is new compared to old exam. Bilateral pleural effusion and basilar atelectasis increased compared to old exam. 11/27/22. Patient seen and examined at bedside. States she feels better compared to yesterday. Confusion is improving 11/28 26. Patient seen and examined. Swelling of lower extremities has improved. Redness has improved REVIEW OF SYSTEMS: CONSTITUTIONAL: No fever, no malaise,. CARDIOVASCULAR: No chest pain, no palpitations, no syncope. PULMONARY: No shortness of breath, no cough, GASTROINTESTINAL: No diarrhea, no nausea, no vomiting, no abdominal pain. NEUROLOGICAL: No headaches, no weakness, PHYSICAL EXAMINATION: GENERAL: The patient is alert and oriented x3, not in any acute distress. Well developed, well nourished. HEENT: Pupils are round and equally reacting to light. EOMI. No scleral icterus. No conjunctival pallor. Normocephalic, atraumatic. No pharyngeal erythema. No thyromegaly. CARDIOVASCULAR: S1 and S2 present. No murmurs, rubs, or gallops. PULMONARY: Chest is clear to auscultation, no wheezing or crackles. ABDOMEN: Soft, nontender, nondistended, normoactive bowel sounds. No palpable organomegaly. MUSCULOSKELETAL: No joint swelling or deformity. EXTREMITIES: No cyanosis, clubbing, or pedal edema. NEUROLOGICAL: Gross neurological examination did not reveal any focal deficits. SKIN:Both lower extremities are covered from groins down with a macular rash with elements of desquamation and mild weeping. Assessment Cellulitis of lower extremities. Acute Metabolic encephalopathy Anemia Colon cancer Hypertension Hyperlipidemia Dermatitis plan Monitor vital signs Monitor CBC Monitor CMP Follow-up blood cultures Continue Zosyn Follow-up in ID recs MRI of the brain with and without contrast reported as increased signal along the proximal left temporal lobe gyrus, could be some chronic ischemic change. Acute changes for ischemic changes are not identified. Suspicious changes to suggest metastatic disease are not apparently. Recommend repeating MRI of the brain with and without contrast in 2-3 months, or earlier if indicated to rule out metastatic disease. Neurology following EEG ordered For dermatitis, to be secondary to capecitabine, oncologist recommended to hold it for now and at Discharge Follow-up on oncology recommendations. Patient Completed 6 cycles of of FOLFOX, which was then transition to capecitabine due to rash from 5-FU .Most recent cycle of CAPOX/XELOX was on 11/05/2022 for oxaliplatin and completed 2 weeks of capecitabine on 11/11/2022.-Continue holding capecitabine as noted above.- Consider dose changes to capecitabine or alternative regimen to be determined by her primary oncologist outpatient Objective - Vital Signs Vital signs: Vital Signs Temp 97.8 F 11/28/22 07:16 Pulse 80 11/28/22 07:16 Resp 16 11/28/22 07:16 BP 113/64 11/28/22 07:16 Pulse Ox 96 11/28/22 07:16 FiO2 Intake & Output 11/27/22 11/28/22 11/28/22 18:59 06:59 18:59 Intake Total 240 1000 Balance 240 1000 Intake: Intake, IV Titration 1000 Amount Piperacillin-Tazobactam 3 100 .375 gm In Sodium Chloride 0.9% 100 ml @ 25 mls/hr IVPB Q8HR [facility] Rx# :[id number] Sodium Chloride 0.9% 1, 900 000 ml @ 75 mls/hr IV . [id number] [facility] Rx#:[id number] Oral 240 Other: Voiding Method Bedside Commode Bedside Commode External Catheter # Voids 1 2 # Bowel Movements 1 - Labs CBC & Chem 7: 11/27/22 07:08 11/27/22 07:13 Labs: Abnormal Lab Results - Last 24 Hours (Table) 11/27/22 11/27/22 11/27/22 Range/Units 07:08 07:13 14:55 Lymphocytes # (Manual) 0.64 L (1.0-4.8) k/uL Anion Gap 9.30 L (10.00-18.00) mmol/L Est GFR (CKD-EPI)NonAf 57.5 L (60.0-200.0) Calcium 7.4 L (8.7-10.3) mg/dL Vitamin B12 1263.0 H (200.0-944.0) pg/mL Folate (4.40-31.00) ng/mL TSH (0.350-5.500) uIU/mL 11/27/22 11/28/22 Range/Units 14:55 06:15 Lymphocytes # (Manual) (1.0-4.8) k/uL Anion Gap (10.00-18.00) mmol/L Est GFR (CKD-EPI)NonAf (60.0-200.0) Calcium (8.7-10.3) mg/dL Vitamin B12 (200.0-944.0) pg/mL Folate 40.00 H (4.40-31.00) ng/mL TSH 30.500 H (0.350-5.500) uIU/mL Microbiology - Last 24 Hours (Table) 11/25/22 13:30 Blood Culture - Preliminary Blood No Growth after 48 hours 11/25/22 14:00 Blood Culture - Preliminary Blood No Growth after 48 hours 11/25/22 23:02 Gram Stain - Preliminary Leg - Right Wound Culture - Preliminary Gram Neg Bacilli Group D Enterococcus
--- NOTE | 2022-11-28 21:16 | P.PN ---
Subjective Progress Note Date: 11/27/22 Principal diagnosis: Bilateral lower extremity rash and question cellulitis Patient is a 72-year female with a past medical history significant for metastatic colon cancer on chemotherapy patient was brought into the ER last night for evaluation of change in mental status, patient also have a extensive rash to bilateral lower extremity and was a question of possible cellulitis. On today's evaluation that is 11/27/2022, the patient is afebrile. The patient is feeling better today breathing comfortably no chest pain or shortness of breath and cough some nausea but no vomiting overall pain and discomfort lower extremity has slightly decreased Objective - Vital Signs Vital signs: Vital Signs Temp 97.9 F 11/27/22 11:45 Pulse 76 11/27/22 11:45 Resp 18 11/27/22 11:45 BP 101/58 11/27/22 11:45 Pulse Ox 98 11/27/22 11:45 FiO2 Intake & Output 11/26/22 11/27/22 11/27/22 18:59 06:59 18:59 Intake Total 0 1620 Output Total 500 Balance 0 1120 Intake: Intake, IV Titration 1000 Amount Piperacillin-Tazobactam 3 100 .375 gm In Sodium Chloride 0.9% 100 ml @ 25 mls/hr IVPB Q8HR [facility] Rx# :[id number] Sodium Chloride 0.9% 1, 900 000 ml @ 75 mls/hr IV . [id number] [facility] Rx#:[id number] Blood Product 0 620 Rc As-1 Unit 0 310 [id number] Output: Urine 500 Other: Voiding Method Bedside Commode Bedside Commode Bedside Commode External Catheter External Catheter External Catheter # Voids 1 1 # Bowel Movements 1 1 - Exam GENERAL DESCRIPTION: An elderly female lying in bed in no distress RESPIRATORY SYSTEM: Unlabored breathing , decreased breath sounds at bases HEART: S1 S2 regular rate and rhythm , ABDOMEN: Soft , no tenderness EXTREMITIES: Diffuse swelling bilaterally extremity with erythematous rash - Labs CBC & Chem 7: 11/27/22 07:08 11/27/22 07:13 Labs: Abnormal Lab Results - Last 24 Hours (Table) 11/26/22 11/27/22 11/27/22 Range/Units 14:01 07:08 07:13 WBC 2.9 L (3.8-10.6) k/uL RBC 2.50 L (3.80-5.40) m/uL Hgb 8.8 L (11.4-16.0) gm/dL Hct 27.0 L (34.0-46.0) % MCV 107.7 H (80.0-100.0) fL MCH 35.1 H (25.0-35.0) pg RDW 23.4 H (11.5-15.5) % Plt Count 60 L (150-450) k/uL Macrocytosis Marked A Anion Gap 9.30 L (10.00-18.00) mmol/L Est GFR (CKD-EPI)NonAf 57.5 L (60.0-200.0) Calcium 7.4 L (8.7-10.3) mg/dL Crossmatch See Detail Microbiology - Last 24 Hours (Table) 11/25/22 23:02 Gram Stain - Preliminary Leg - Right Wound Culture - Preliminary Gram Neg Bacilli Group D Enterococcus 11/25/22 13:30 Blood Culture - Preliminary Blood No Growth after 24 hours 11/25/22 14:00 Blood Culture - Preliminary Blood No Growth after 24 hours Assessment and Plan (1) Bilateral lower leg cellulitis Current Visit: Yes Status: Acute Code(s): L03.116 - CELLULITIS OF LEFT LOWER LIMB; L03.115 - CELLULITIS OF RIGHT LOWER LIMB SNOMED Code(s): 992241315 Plan: 1patient presented to hospital with mental status changes more likely metabolic in this patient who do have a history of metastatic colon cancer on chemotherapy patient currently with no fever or elevated white count and does not look toxic. Patient did have a negative chest x-ray 2 -patient also have bilateral lower extremity swelling erythematous rash possibly related to her chemotherapy cellulitis less likely but not entirely excluded lower extremity Doppler were negative for DVT 3local cultures currently growing gram-positive as well as gram-negative 4patient to continue with the Zosyn while waiting for cultures to finalize Time with Patient: Less than 30
--- NOTE | 2022-11-28 21:18 | P.PN ---
Subjective Progress Note Date: 11/28/22 Principal diagnosis: Bilateral lower extremity rash and question cellulitis Patient is a 72-year female with a past medical history significant for metastatic colon cancer on chemotherapy patient was brought into the ER last night for evaluation of change in mental status, patient also have a extensive rash to bilateral lower extremity and was a question of possible cellulitis. On today's evaluation that is 11/28/2022, the patient remains to be afebrile. The patient is breathing comfortably on room air, the patient denies chest pain or shortness of breath and cough some nausea but no vomiting , the patient pain and discomfort lower extremity has slightly decreased in intensity Objective - Vital Signs Vital signs: Vital Signs Temp 98.0 F 11/28/22 11:41 Pulse 78 11/28/22 11:41 Resp 18 11/28/22 11:41 BP 111/60 11/28/22 11:41 Pulse Ox 97 11/28/22 11:41 FiO2 Intake & Output 11/27/22 11/28/22 11/28/22 18:59 06:59 18:59 Intake Total 240 1000 Balance 240 1000 Intake: Intake, IV Titration 1000 Amount Piperacillin-Tazobactam 3 100 .375 gm In Sodium Chloride 0.9% 100 ml @ 25 mls/hr IVPB Q8HR [facility] Rx# :[id number] Sodium Chloride 0.9% 1, 900 000 ml @ 75 mls/hr IV . [id number] [facility] Rx#:[id number] Oral 240 Other: Voiding Method Bedside Commode Bedside Commode Bedside Commode External Catheter # Voids 1 2 # Bowel Movements 1 - Exam GENERAL DESCRIPTION: An elderly female lying in bed in no distress RESPIRATORY SYSTEM: Unlabored breathing , decreased breath sounds at bases HEART: S1 S2 regular rate and rhythm , ABDOMEN: Soft , no tenderness EXTREMITIES: Diffuse swelling bilaterally extremity with erythematous rash, which is decreased intensity - Labs CBC & Chem 7: 11/27/22 07:08 11/27/22 07:13 Labs: Abnormal Lab Results - Last 24 Hours (Table) 11/27/22 11/27/22 11/27/22 Range/Units 07:08 14:55 14:55 Lymphocytes # (Manual) 0.64 L (1.0-4.8) k/uL Vitamin B12 1263.0 H (200.0-944.0) pg/mL Folate 40.00 H (4.40-31.00) ng/mL TSH (0.350-5.500) uIU/mL Free (T4) Reflex I (0.800-1.800) ng/dL 11/28/22 Range/Units 06:15 Lymphocytes # (Manual) (1.0-4.8) k/uL Vitamin B12 (200.0-944.0) pg/mL Folate (4.40-31.00) ng/mL TSH 30.500 H (0.350-5.500) uIU/mL Free (T4) Reflex I 0.580 L (0.800-1.800) ng/dL Microbiology - Last 24 Hours (Table) 11/25/22 23:02 Gram Stain - Preliminary Leg - Right Wound Culture - Preliminary Pseudomonas aeruginosa Group D Enterococcus 11/25/22 13:30 Blood Culture - Preliminary Blood No Growth after 48 hours 11/25/22 14:00 Blood Culture - Preliminary Blood No Growth after 48 hours Assessment and Plan (1) Bilateral lower leg cellulitis Current Visit: Yes Status: Acute Code(s): L03.116 - CELLULITIS OF LEFT LOWER LIMB; L03.115 - CELLULITIS OF RIGHT LOWER LIMB SNOMED Code(s): 553486899 Plan: 1patient presented to hospital with mental status changes more likely metabolic in this patient who do have a history of metastatic colon cancer on chemotherapy patient currently with no fever or elevated white count and does not look toxic. Patient did have a negative chest x-ray 2 -patient also have bilateral lower extremity swelling erythematous rash possibly related to her chemotherapy cellulitis less likely but not entirely excluded lower extremity Doppler were negative for DVT 3local cultures currently growing gram-positive as well as gram-negative, with ID sensitivities pending 4patient did have some clinical improvement and will continue with the Zosyn while waiting for cultures to finalize Time with Patient: Less than 30
[2022-11-28] MEDS: RIVAROXABAN 20 MG TAB PO SCH (22:11)
--- NOTE | 2022-11-28 23:41 | EEG ---
ELECTROENCEPHALOGRAM REPORT CLINICAL HISTORY: This is a 72-year-old woman with altered mental status. The video EEG is obtained to evaluate for seizure epileptiform activity. RELEVANT MEDICATION: Gabapentin. EEG TYPE: A routine 21-channel EEG is performed with video using the 10/20 electrode placement system. DESCRIPTION: Wakefulness is only obtained. During awake state, the posterior-dominant rhythm consists of tmg-th-wdewxmag voltage of 7 to 8 hertz that is well modulated, well sustained. There is no physiological sleep architecture. There is no focal slowing. Interictal and ictal is none. ACTIVATION PROCEDURE: Photic stimulation did not evoke a posterior driving response. There is no abnormality during the photic stimulation. Hyperventilation is not performed. CLINICAL INTERPRETATION: This is an abnormal routine EEG. The background slowing is suggestive of mild encephalopathy. Otherwise, there is no focal slowing, epileptiform discharge, or seizure on the EEG. Clinical correlation is recommended. MMMILKA / KURTN: [id number] /
[2022-11-29] MEDS: PIPERACILLIN-TAZOBACTAM 3.375 GM in SODIUM CHLORIDE 0.9% 100 ML IVPB SCH ×3 (00:23→16:33)
[2022-11-29] MEDS: SODIUM CHLORIDE 0.9% 1,000 ML IV SCH ×2 (00:27→14:15)
[2022-11-29] MEDS: PANTOPRAZOLE 40 MG TABLET PO SCH ×2 (09:10→16:35)
[2022-11-29] MEDS: amLODIPine 5 MG TAB PO SCH (09:10)
[2022-11-29] MEDS: FUROSEMIDE 20 MG TAB PO SCH ×3 (09:10→16:33)
[2022-11-29] MEDS: MULTIVITAMINS, THERA 1 EACH TAB PO SCH (09:11)
[2022-11-29] MEDS: ASPIRIN 81 MG PO SCH (09:11)
[2022-11-29] MEDS: ATORVASTATIN 40 MG TAB PO SCH (09:11)
[2022-11-29] MEDS: POTASSIUM CHLORIDE ER 10 MEQ TAB.ER.PRT PO SCH ×2 (09:11→21:24)
[2022-11-29] MEDS: ESCITALOPRAM 20 MG TAB PO SCH (09:11)
[2022-11-29] MEDS: METOPROLOL TARTRATE 50 MG TAB PO SCH ×3 (09:11→21:24)
[2022-11-29] MEDS: ACETAMINOPHEN TAB 325 MG TAB PO PRN ×2 (09:40→21:29)
[2022-11-29 10:16] LABS: Anisocytosis Moderate; HCT 25.8 % (34.0-46.0); HGB 8.4 gm/dL (11.4-16.0); Hypochromasia Slight; MCH 34.5 pg (25.0-35.0); MCHC 32.5 g/dL (31.0-37.0); MCV 106.4 fL (80.0-100.0); Macrocytosis Marked; Mean Platelet Volume 11.2; Poikilocytosis Slight; RBC 2.42 m/uL (3.80-5.40); WBC 2.5 k/uL (3.8-10.6)
[2022-11-29 10:19] LABS: Platelet Count 48 k/uL (150-450)
[2022-11-29 13:35] LABS: Band Neutrophils % 1 %; Lymphocytes # (M) 0.78 k/uL (1.0-4.8); Monocytes # (M) 0.38 k/uL (0-1.0); Neutrophils % (M) 53 %; Nucleated Red Blood Cells 0 /100 WBC (0-0); Total Cells Counted 100
[2022-11-29] MEDS: FOLIC ACID 1 MG TAB PO SCH (14:15)
[2022-11-29] MEDS: THIAMINE 100 MG TAB PO SCH (14:15)
--- NOTE | 2022-11-29 14:20 | P.PN ---
Subjective Progress Note Date: 11/29/22 Patient is a 72-year-old female, with diagnosis of colon cancer, status post chemotherapy, now undergoing oral chemotherapy with Xeloda, came to the hospital yesterday at 12:31 PM for altered mental status. Patient states that in the past 6 weeks she has developed rapidly progressive swelling of bilateral lower extremity, which has now become very red, started oozing. She states her both legs are affected, there is swollen, wet and sore. It is progressively getting worse. She is not able to walk, cannot get out of bed, cannot do anything. In the last 3 days she has developed altered mental status, which she states came "all of a sudden", as she did not know the date or where she was. She couldn't get up on her own. Her has to help her with everything.Patient denies any stroke symptoms. Patient admits to having bifrontal headache 4/10 and Tylenol helps. She states that she is often prone to get headache and Tylenol usually helps, and this headache is not new. Patient says that she was diagnosed with colon cancer in March 2022. She underwent 6 rounds of IV chemotherapy. Now she is on oral chemotherapy regimen with Xeloda. It is a 15 gait regimen, off for 6 days and then repeat course for 15 days. She has completed 3/4 cycles. Patient does not know the stage of her cancer. Her vital signs on arrival blood pressure 138/57, pulse rate 101, temperature 97.4. She has been afebrile. Blood tests shows normal WBC hemoglobin 7.9, platelets 76, which is low. MCV is significantly elevated 112. PT/PTT is normal, sodium 134, potassium is normal, renal functions normal. Lactate was 2.8, which went up to 4.3. AST is elevated 79, ALT normal 31. Ammonia is <9. Patient underwent computed tomography scan of the head, which was normal. I personally reviewed CT head, agree with the findings. EKG shows sinus rhythm. Venous Doppler negative for DVT. CT of abdomen and pelvis revealed rectal stent. Enlarged left lateral pelvic lymph node slightly increased compared to the old exam. Diffuse subcutaneous edema. On mental caking consistent with metastatic disease and similar to the old exam. There is tiny amount of abdominal ascites fluid which is new compared to old exam. Bilateral pleural effusion and basilar atelectasis increased compared to old exam. 11/27/22. Patient seen and examined at bedside. States she feels better compared to yesterday. Confusion is improving 11/28. Patient seen and examined. Swelling of lower extremities has improved. Redness has improved 11/29. Patient seen and examined. at the bedside. States she feels much better. No episodes of fever or chills. Redness of lower extremities improving REVIEW OF SYSTEMS: CONSTITUTIONAL: No fever, no malaise,. CARDIOVASCULAR: No chest pain, no palpitations, no syncope. PULMONARY: No shortness of breath, no cough, GASTROINTESTINAL: No diarrhea, no nausea, no vomiting, no abdominal pain. NEUROLOGICAL: No headaches, no weakness, PHYSICAL EXAMINATION: GENERAL: The patient is alert and oriented x3, not in any acute distress. Well developed, well nourished. HEENT: Pupils are round and equally reacting to light. EOMI. No scleral icterus. No conjunctival pallor. Normocephalic, atraumatic. No pharyngeal erythema. No thyromegaly. CARDIOVASCULAR: S1 and S2 present. No murmurs, rubs, or gallops. PULMONARY: Chest is clear to auscultation, no wheezing or crackles. ABDOMEN: Soft, nontender, nondistended, normoactive bowel sounds. No palpable organomegaly. MUSCULOSKELETAL: No joint swelling or deformity. EXTREMITIES: No cyanosis, clubbing, or pedal edema. NEUROLOGICAL: Gross neurological examination did not reveal any focal deficits. SKIN:Both lower extremities are covered from groins down with a macular rash with elements of desquamation and mild weeping. Bandage in place Assessment Cellulitis of lower extremities. Acute Metabolic encephalopathy Anemia Colon cancer Hypertension Hyperlipidemia Dermatitis Hypothyroidism TSH elevated at 30.5 plan Monitor vital signs Monitor CBC Monitor CMP Follow-up blood cultures Continue Zosyn Follow-up in ID recs MRI of the brain with and without contrast reported as increased signal along the proximal left temporal lobe gyrus, could be some chronic ischemic change. Acute changes for ischemic changes are not identified. Suspicious changes to suggest metastatic disease are not apparently. Recommend repeating MRI of the brain with and without contrast in 2-3 months, or earlier if indicated to rule out metastatic disease. Neurology following EEG ordered For dermatitis, to be secondary to capecitabine, oncologist recommended to hold it for now and at Discharge Follow-up on oncology recommendations. Patient Completed 6 cycles of of FOLFOX, which was then transition to capecitabine due to rash from 5-FU .Most recent cycle of CAPOX/XELOX was on 11/05/2022 for oxaliplatin and completed 2 weeks of capecitabine on 11/11/2022.-Continue holding capecitabine as noted above.- Consider dose changes to capecitabine or alternative regimen to be determined by her primary oncologist outpatient Started on Synthroid 25 MCG daily, repeat TSH levels in 6-8 weeks Objective - Vital Signs Vital signs: Vital Signs Temp 98.2 F 11/29/22 13:17 Pulse 79 11/29/22 13:17 Resp 16 11/29/22 13:17 BP 112/65 11/29/22 13:17 Pulse Ox 98 11/29/22 13:17 FiO2 Intake & Output 11/28/22 11/29/22 11/29/22 18:59 06:59 18:59 Other: Voiding Method Bedside Commode Bedside Commode Toilet Bedside Commode # Voids 1 1 # Bowel Movements 1 2 1 - Labs CBC & Chem 7: 11/29/22 09:47 11/27/22 07:13 Labs: Abnormal Lab Results - Last 24 Hours (Table) 11/29/22 Range/Units 09:47 WBC 2.5 L (3.8-10.6) k/uL RBC 2.42 L (3.80-5.40) m/uL Hgb 8.4 L (11.4-16.0) gm/dL Hct 25.8 L (34.0-46.0) % MCV 106.4 H (80.0-100.0) fL RDW 23.0 H (11.5-15.5) % Plt Count 48 L (150-450) k/uL Lymphocytes # (Manual) 0.78 L (1.0-4.8) k/uL Macrocytosis Marked A Microbiology - Last 24 Hours (Table) 11/25/22 23:02 Gram Stain - Final Leg - Right Wound Culture - Final Pseudomonas aeruginosa Enterococcus faecalis 11/25/22 13:30 Blood Culture - Preliminary Blood No Growth after 72 hours 11/25/22 14:00 Blood Culture - Preliminary Blood No Growth after 72 hours
--- NOTE | 2022-11-29 14:47 | CDI ---
Documentation Clarification Form Date: 11/29/2022 2:36:29 PM From: Anayeli Block RN, CCDS Email: [email or web address] Admit Date: 11/25/2022 4:08:00 PM Patient Name: Kaya Loco Visit Number: [id number] Discharge Date: ATTENTION: The Clinical Documentation Specialists (CDI) and [facility] Coding Staff appreciate your assistance in clarifying documentation. Please respond to the clarification below the line at the bottom and electronically sign. The CDI & [facility] Coding staff will review the response and follow-up if needed. Please note: Queries are made part of the Legal Health Record. If you have any questions, please contact the author of this message via ITS. Dr. Darell De Luna The patient has abnormal labs. Additional clarification is requested. History/Risk factors: colon cancer and currently on oral chemotherapy. Admitted with change in mental status, metabolic encephalopathy. Clinical indicators: 11/29 Labs: WBC 2.5, Hgb 8.4, platelets 48 11/26 Oncology: "Capecitabine induced anemia (grade 2), and thrombocytopenia (grade 1)." Treatment: Monitor CBC daily. Transfuse for Hgb <7. Transfuse for platelets <10,000 and or bleeding. 1 unit of PRBC's on 11/26. Folic acid 1mg po daily. Please clarify if there is an additional diagnosis: [ x] Pancytopenia due to chemotherapy [ ] Pancytopenia due to other, please specify [ ] Other condition, please specify ____ [ ] Unable to determine MTDD
--- NOTE | 2022-11-29 14:56 | P.PN ---
Subjective Progress Note Date: 11/29/22 Principal diagnosis: altered mental status Upon visit today patient is resting comfortably in bedside chair. at bedside. Patient reports improvement today and states her legs are less painful. No other reported complaints at this time Objective - Vital Signs Vital signs: Vital Signs Temp 98.2 F 11/29/22 13:17 Pulse 79 11/29/22 13:17 Resp 16 11/29/22 13:17 BP 112/65 11/29/22 13:17 Pulse Ox 98 11/29/22 13:17 FiO2 Intake & Output 11/28/22 11/29/22 11/29/22 18:59 06:59 18:59 Other: Voiding Method Bedside Commode Bedside Commode Toilet Bedside Commode # Voids 1 1 # Bowel Movements 1 2 1 - Constitutional General appearance: Present: average body habitus, no acute distress - EENT Eyes: Present: anicteric sclerae, EOMI ENT: Present: hearing grossly normal - Respiratory Details: breathing is even and unlabored - Cardiovascular Details: skin is warm and dry - Peripheral edema leg Peripheral Edema: bilateral: 3+ - Integumentary Integumentary Comment(s): diffuse erythema, dryness, and scaling to BLE - Neurologic Neurologic Comment(s): grossly intact - Musculoskeletal Musculoskeletal: Present: strength equal bilaterally - Psychiatric Psychiatric: Present: A&O x's 3, intact judgment & insight - Labs CBC & Chem 7: 11/29/22 09:47 11/27/22 07:13 Labs: Abnormal Lab Results - Last 24 Hours (Table) 11/29/22 Range/Units 09:47 WBC 2.5 L (3.8-10.6) k/uL RBC 2.42 L (3.80-5.40) m/uL Hgb 8.4 L (11.4-16.0) gm/dL Hct 25.8 L (34.0-46.0) % MCV 106.4 H (80.0-100.0) fL RDW 23.0 H (11.5-15.5) % Plt Count 48 L (150-450) k/uL Lymphocytes # (Manual) 0.78 L (1.0-4.8) k/uL Macrocytosis Marked A Microbiology - Last 24 Hours (Table) 11/25/22 23:02 Gram Stain - Final Leg - Right Wound Culture - Final Pseudomonas aeruginosa Enterococcus faecalis 11/25/22 13:30 Blood Culture - Preliminary Blood No Growth after 72 hours 11/25/22 14:00 Blood Culture - Preliminary Blood No Growth after 72 hours Assessment and Plan (1) Altered mental status Current Visit: Yes Status: Acute Priority: High Code(s): R41.82 - ALTERED MENTAL STATUS, UNSPECIFIED SNOMED Code(s): 190976484 (2) Bicytopenia Current Visit: Yes Status: Acute Priority: High Code(s): D75.89 - OTHER SPECIFIED DISEASES OF BLOOD AND BLOOD-FORMING ORGANS SNOMED Code(s): 75378965 (3) Dermatitis Current Visit: Yes Status: Acute Priority: High Code(s): L30.9 - DERMA TITIS, UNSPECIFIED SNOMED Code(s): 785449948 (4) H/O colon cancer, stage IV Current Visit: Yes Status: Acute Priority: High Code(s): Z85.038 - PERSON AL HISTORY OF MALIGNANT NEOPLASM OF LARGE INTESTINE SNOMED Code(s): 321916131 Plan: Metabolic encephalopathy -Noted having episodes of confusion with disorientation to place and being slow to respond prior to admission. -She denies any fevers prior to admission or changes to her medications -Labs revealed no acute metabolic changes with ammonia within normal limits -Clinically, Kaya notes she continues to improve compared to her initial presentation -MRI of the brain noted increased signal in the proximal left temporal lobe gyrus with no evidence of ischemia or intracranial metastases -Discussed with neurology with no clear etiology for this finding -EEG along with antibodies for NMDA, anti-Hu, and anti-Yo have been recommended along with vitamin B12, MMA, folate, TSH. Folate and vitamin B12 normal. MMA pending. Thyroid studies, consistent with hypothyroidism. Synthroid ordered. -Follow-up additional neurology recommendations, appreciate their assistance Dermatitis -Noted to have significant erythema of the legs bilaterally that are painful -This had limited her mobility within the past week. This has improved since admission -There are areas of skin breakdown and desquamation, likely consistent with dermatitis secondary to capecitabine that appears to be grade 3 in nature -Hold capecitabine for now and likely on discharge until this improves to grade 2 -Dose reduction of capecitabine may have to be considered outpatient on resumption -Wound consult ordered for additional management recommendations, monica christie assistance Bicytopenia -Capecitabine induced anemia and thrombocytopenia -Continue to monitor CBC daily -Transfuse for hemoglobin less than 7 -Transfuse for platelets less than 10,000 and/or bleeding Metastatic colon cancer -Noted to have metastases to the peritoneum as well as possibly the liver and small nodules in the lungs -Completed 6 cycles of of FOLFOX, which was then transitioned to capecitabine due to rash from 5-FU -Most recent cycle of CAPOX/XELOX was on 11/05/2022 for oxaliplatin and completed 2 weeks of capecitabine on 11/11/2022 -CT abdomen/pelvis on admission with no definitive evidence of disease progression -Continue holding capecitabine as noted above -Consider dose changes to capecitabine or alternative regimen to be determined by her primary oncologist outpatient
--- NOTE | 2022-11-29 15:47 | P.PN ---
Subjective Progress Note Date: 11/29/22 The patient is seen at bedside and feels about doing drastically better. Denies of any new neurological issues. Feels her speech is better. Objective - Vital Signs Vital signs: Vital Signs Temp 98.2 F 11/29/22 13:17 Pulse 79 11/29/22 13:17 Resp 16 11/29/22 13:17 BP 112/65 11/29/22 13:17 Pulse Ox 98 11/29/22 13:17 FiO2 Intake & Output 11/28/22 11/29/22 11/29/22 18:59 06:59 18:59 Other: Voiding Method Bedside Commode Bedside Commode Toilet Bedside Commode # Voids 1 1 # Bowel Movements 1 2 1 - Exam GENERAL: The patient is lying in bed and is not in acute distress. NEUROLOGICAL: Higher mental function: The patient is awake, alert, oriented to self, place and time. Patient is following simple commands. No aphasia or neglect. Cranial nerves: The pupils are round, equal and reactive to light. Visual patiño are full to confrontation throughout. Extraocular movement is intact no nystagmus is noted. The facial strength is normal throughout. No dysarthria is noted. Shoulder shrug is normal bilaterally. Motor: The strength is hard to assess inidividual muscles because of her cooperation. But lifting bilateral upper and no focality is appreciated. Has severe erythema withe edema in lowers bilaterally. . - Labs CBC & Chem 7: 11/29/22 09:47 11/27/22 07:13 Labs: Abnormal Lab Results - Last 24 Hours (Table) 11/29/22 Range/Units 09:47 WBC 2.5 L (3.8-10.6) k/uL RBC 2.42 L (3.80-5.40) m/uL Hgb 8.4 L (11.4-16.0) gm/dL Hct 25.8 L (34.0-46.0) % MCV 106.4 H (80.0-100.0) fL RDW 23.0 H (11.5-15.5) % Plt Count 48 L (150-450) k/uL Lymphocytes # (Manual) 0.78 L (1.0-4.8) k/uL Macrocytosis Marked A Microbiology - Last 24 Hours (Table) 11/25/22 23:02 Gram Stain - Final Leg - Right Wound Culture - Final Pseudomonas aeruginosa Enterococcus faecalis 11/25/22 13:30 Blood Culture - Preliminary Blood No Growth after 72 hours 11/25/22 14:00 Blood Culture - Preliminary Blood No Growth after 72 hours Assessment and Plan Assessment: * Altered mental status, likely due to toxic metabolic encephalopathy and abnormal thryoid. Rule out cerebral metastasis. Rule out paraneoplastic syn drome---mentation improved. * Aphasia due to possible suspicious for left temporal lesion ---seems improving * Abnormal brain MRI over left temporal and unsure if early brain mets * Metastatic colon cancer, with metastasis to the peritoneum as well as the liver. * Hypothyroidism * Macrocytosis, rule out B12/folate deficiency * Bilateral leg swelling, rash in the lower legs with oozing. Rule out lymphed roberto. Rule out cellulitis. * Coronary artery disease, history of MT April 2022. Plan: * MRI of the brain with and without contrast reported as increased signal along the proximal left temporal lobe gyrus, could be some chronic ischemic change. Acute changes for ischemic changes are not identified. Suspicious changes to suggest metastatic disease are not apparently. I personally reviewed MRI, and there is abnormal signal only in the FLAIR sequence in the left temporal cortical region. There is no abnormal signal on DWI or abnormal enhancement. Uncertain if it is early metastatic deposit, or inflammatory process. * Recommend repeating MRI of the brain with and without contrast in 1-2 months, or earlier if indicated to rule out metastatic disease. * EEG: Is abnormal. The back of slowing suggestive of mild encephalopathy. Otherwise there is no focal slowing, perform discharges or seizure on the EEG. * Pending NMDA antibodies, Anti Hu and Anti Yo antibodies. * B12 1236, folate 40.0, MMA pending * I ordered ionized calcium and if abnormal will defer management to primary team. * For abnormal thyroid will defer management to primary team. * Oncology and ID also on board. * Upon discharge, recommend the patient to follow-up with neurologist as outpatient within 1-2 weeks. Otherwise no additional work-up. The plan is discussed with patient. Time with Patient: Less than 30
[2022-11-29] MEDS: RIVAROXABAN 20 MG TAB PO SCH (21:24)
--- NOTE | 2022-11-29 23:09 | P.PN ---
Subjective Progress Note Date: 11/29/22 Principal diagnosis: Bilateral lower extremity rash and question cellulitis Patient is a 72-year female with a past medical history significant for metastatic colon cancer on chemotherapy patient was brought into the ER last night for evaluation of change in mental status, patient also have a extensive rash to bilateral lower extremity and was a question of possible cellulitis. On today's evaluation that is 11/29/2022, The patient remains to be afebrile, the patient is breathing comfortably on room air patient denies having any chest pain or shortness breath or cough or pain or discomfort at the leg has decreased in intensity and denies having any diarrhea Objective - Vital Signs Vital signs: Vital Signs Temp 98.2 F 11/29/22 13:17 Pulse 79 11/29/22 13:17 Resp 16 11/29/22 13:17 BP 112/65 11/29/22 13:17 Pulse Ox 98 11/29/22 13:17 FiO2 Intake & Output 11/28/22 11/29/22 11/29/22 18:59 06:59 18:59 Other: Voiding Method Bedside Commode Bedside Commode Toilet Bedside Commode # Voids 1 1 # Bowel Movements 1 2 1 - Exam GENERAL DESCRIPTION: An elderly female lying in bed in no distress RESPIRATORY SYSTEM: Unlabored breathing , decreased breath sounds at bases HEART: S1 S2 regular rate and rhythm , ABDOMEN: Soft , no tenderness EXTREMITIES: Diffuse swelling bilaterally extremity with erythematous rash, which is decreased intensity - Labs CBC & Chem 7: 11/29/22 09:47 11/27/22 07:13 Labs: Abnormal Lab Results - Last 24 Hours (Table) 11/29/22 Range/Units 09:47 WBC 2.5 L (3.8-10.6) k/uL RBC 2.42 L (3.80-5.40) m/uL Hgb 8.4 L (11.4-16.0) gm/dL Hct 25.8 L (34.0-46.0) % MCV 106.4 H (80.0-100.0) fL RDW 23.0 H (11.5-15.5) % Plt Count 48 L (150-450) k/uL Lymphocytes # (Manual) 0.78 L (1.0-4.8) k/uL Macrocytosis Marked A Microbiology - Last 24 Hours (Table) 11/25/22 23:02 Gram Stain - Final Leg - Right Wound Culture - Final Pseudomonas aeruginosa Enterococcus faecalis 11/25/22 13:30 Blood Culture - Preliminary Blood No Growth after 72 hours 11/25/22 14:00 Blood Culture - Preliminary Blood No Growth after 72 hours Assessment and Plan (1) Bilateral lower leg cellulitis Current Visit: Yes Status: Acute Code(s): L03.116 - CELLULITIS OF LEFT LOWER LIMB; L03.115 - CELLULITIS OF RIGHT LOWER LIMB SNOMED Code(s): 629249861 Plan: 1patient presented to hospital with mental status changes more likely metabolic in this patient who do have a history of metastatic colon cancer on chemotherapy patient currently with no fever or elevated white count and does not look toxic. Patient did have a negative chest x-ray 2 -patient also have bilateral lower extremity swelling erythematous rash possibly related to her chemotherapy cellulitis less likely but not entirely excluded lower extremity Doppler were negative for DVT 3Local culture has been finalized with Pseudomonas aeruginosa and Enterococcus faecalis for the patient is covered with Zosyn to continue while inpatient however will be able to finish therapy with oral antibiotics on discharge Time with Patient: Less than 30
[2022-11-30] MEDS: PIPERACILLIN-TAZOBACTAM 3.375 GM in SODIUM CHLORIDE 0.9% 100 ML IVPB SCH ×4 (01:00→23:34)
[2022-11-30] MEDS: LEVOTHYROXINE 25 MCG TAB PO SCH (06:13)
[2022-11-30] MEDS: SODIUM CHLORIDE 0.9% 1,000 ML IV SCH ×2 (06:13→16:22)
[2022-11-30] MEDS: METOPROLOL TARTRATE 50 MG TAB PO SCH ×3 (08:48→21:15)
[2022-11-30] MEDS: FUROSEMIDE 20 MG TAB PO SCH ×3 (08:48→16:22)
[2022-11-30] MEDS: ATORVASTATIN 40 MG TAB PO SCH (08:48)
[2022-11-30] MEDS: amLODIPine 5 MG TAB PO SCH (08:48)
[2022-11-30] MEDS: ASPIRIN 81 MG PO SCH (08:48)
[2022-11-30] MEDS: PANTOPRAZOLE 40 MG TABLET PO SCH ×2 (08:48→16:22)
[2022-11-30] MEDS: ESCITALOPRAM 20 MG TAB PO SCH (08:48)
[2022-11-30] MEDS: MULTIVITAMINS, THERA 1 EACH TAB PO SCH (08:49)
[2022-11-30] MEDS: POTASSIUM CHLORIDE ER 10 MEQ TAB.ER.PRT PO SCH ×2 (08:49→21:15)
[2022-11-30] MEDS: ACETAMINOPHEN TAB 325 MG TAB PO PRN ×2 (10:54→23:33)
--- NOTE | 2022-11-30 12:49 | P.PN ---
Subjective Progress Note Date: 11/30/22 Patient is a 72-year-old female, with diagnosis of colon cancer, status post chemotherapy, now undergoing oral chemotherapy with Xeloda, came to the hospital yesterday at 12:31 PM for altered mental status. Patient states that in the past 6 weeks she has developed rapidly progressive swelling of bilateral lower extremity, which has now become very red, started oozing. She states her both legs are affected, there is swollen, wet and sore. It is progressively getting worse. She is not able to walk, cannot get out of bed, cannot do anything. In the last 3 days she has developed altered mental status, which she states came "all of a sudden", as she did not know the date or where she was. She couldn't get up on her own. Her has to help her with everything.Patient denies any stroke symptoms. Patient admits to having bifrontal headache 4/10 and Tylenol helps. She states that she is often prone to get headache and Tylenol usually helps, and this headache is not new. Patient says that she was diagnosed with colon cancer in March 2022. She underwent 6 rounds of IV chemotherapy. Now she is on oral chemotherapy regimen with Xeloda. It is a 15 gait regimen, off for 6 days and then repeat course for 15 days. She has completed 3/4 cycles. Patient does not know the stage of her cancer. Her vital signs on arrival blood pressure 138/57, pulse rate 101, temperature 97.4. She has been afebrile. Blood tests shows normal WBC hemoglobin 7.9, platelets 76, which is low. MCV is significantly elevated 112. PT/PTT is normal, sodium 134, potassium is normal, renal functions normal. Lactate was 2.8, which went up to 4.3. AST is elevated 79, ALT normal 31. Ammonia is <9. Patient underwent computed tomography scan of the head, which was normal. I personally reviewed CT head, agree with the findings. EKG shows sinus rhythm. Venous Doppler negative for DVT. CT of abdomen and pelvis revealed rectal stent. Enlarged left lateral pelvic lymph node slightly increased compared to the old exam. Diffuse subcutaneous edema. On mental caking consistent with metastatic disease and similar to the old exam. There is tiny amount of abdominal ascites fluid which is new compared to old exam. Bilateral pleural effusion and basilar atelectasis increased compared to old exam. 11/27/22. Patient seen and examined at bedside. States she feels better compared to yesterday. Confusion is improving 11/28. Patient seen and examined. Swelling of lower extremities has improved. Redness has improved 11/29. Patient seen and examined. at the bedside. States she feels much better. No episodes of fever or chills. Redness of lower extremities improving 11/30. Patient seen and examined. States that her confusion has improved, patient stated that she is closer to being back to baseline. Maintaining good appetite. Denies any lightheadedness or dizziness REVIEW OF SYSTEMS: CONSTITUTIONAL: No fever, no malaise,. CARDIOVASCULAR: No chest pain, no palpitations, no syncope. PULMONARY: No shortness of breath, no cough, GASTROINTESTINAL: No diarrhea, no nausea, no vomiting, no abdominal pain. NEUROLOGICAL: No headaches, no weakness, PHYSICAL EXAMINATION: GENERAL: The patient is alert and oriented x3, not in any acute distress. Well developed, well nourished. HEENT: Pupils are round and equally reacting to light. EOMI. No scleral icterus. No conjunctival pallor. Normocephalic, atraumatic. No pharyngeal erythema. No thyromegaly. CARDIOVASCULAR: S1 and S2 present. No murmurs, rubs, or gallops. PULMONARY: Chest is clear to auscultation, no wheezing or crackles. ABDOMEN: Soft, nontender, nondistended, normoactive bowel sounds. No palpable organomegaly. MUSCULOSKELETAL: No joint swelling or deformity. EXTREMITIES: No cyanosis, clubbing, or pedal edema. NEUROLOGICAL: Gross neurological examination did not reveal any focal deficits. SKIN:Both lower extremities are covered from groins down with a macular rash with elements of desquamation and mild weeping. Bandage in place, improving Assessment Cellulitis of lower extremities. Acute Metabolic encephalopathy Anemia Colon cancer Hypertension Hyperlipidemia Dermatitis Hypothyroidism TSH elevated at 30.5 plan Monitor vital signs Monitor CBC Monitor CMP Follow-up blood cultures Continue Zosyn Follow-up in ID recs MRI of the brain with and without contrast reported as increased signal along the proximal left temporal lobe gyrus, could be some chronic ischemic change. Acute changes for ischemic changes are not identified. Suspicious changes to suggest metastatic disease are not apparently. Recommend repeating MRI of the brain with and without contrast in 2-3 months, or earlier if indicated to rule out metastatic disease. EEG Is abnormal. The back of slowing suggestive of mild encephalopathy. Otherwise there is no focal slowing, perform discharges or seizure on the EEG. For dermatitis, to be secondary to capecitabine, oncologist recommended to hold it for now and at Discharge Follow-up on oncology recommendations. Patient Completed 6 cycles of of FOLFOX, which was then transition to capecitabine due to rash from 5-FU .Most recent cycle of CAPOX/XELOX was on 11/05/2022 for oxaliplatin and completed 2 weeks of capecitabine on 11/11/2022.-Continue holding capecitabine as noted above.- Consider dose changes to capecitabine or alternative regimen to be determined by her primary oncologist outpatient Continue Synthroid 25 MCG daily, repeat TSH levels in 6-8 weeks Objective - Vital Signs Vital signs: Vital Signs Temp 98.1 F 11/30/22 07:39 Pulse 85 11/30/22 08:50 Resp 17 11/30/22 08:50 BP 125/66 11/30/22 07:39 Pulse Ox 95 11/30/22 07:39 FiO2 Intake & Output 11/29/22 11/30/22 11/30/22 18:59 06:59 18:59 Intake Total 1100 Output Total 300 Balance 1100 -300 Intake: Intake, IV Titration 1100 Amount Piperacillin-Tazobactam 3 200 .375 gm In Sodium Chloride 0.9% 100 ml @ 25 mls/hr IVPB Q8HR [facility] Rx# :[id number] Sodium Chloride 0.9% 1, 900 000 ml @ 75 mls/hr IV . [id number] [facility] Rx#:[id number] Output: Urine 300 Other: Voiding Method Toilet Toilet Toilet Bedside Commode Bedside Commode Bedside Commode # Voids 1 1 1 # Bowel Movements 1 1 - Labs CBC & Chem 7: 11/29/22 09:47 11/27/22 07:13 Labs: Abnormal Lab Results - Last 24 Hours (Table) 11/29/22 Range/Units 09:47 WBC 2.5 L (3.8-10.6) k/uL RBC 2.42 L (3.80-5.40) m/uL Hgb 8.4 L (11.4-16.0) gm/dL Hct 25.8 L (34.0-46.0) % MCV 106.4 H (80.0-100.0) fL RDW 23.0 H (11.5-15.5) % Plt Count 48 L (150-450) k/uL Lymphocytes # (Manual) 0.78 L (1.0-4.8) k/uL Macrocytosis Marked A Microbiology - Last 24 Hours (Table) 11/25/22 13:30 Blood Culture - Preliminary Blood No Growth after 96 hours 11/25/22 14:00 Blood Culture - Preliminary Blood No Growth after 96 hours 11/25/22 23:02 Gram Stain - Final Leg - Right Wound Culture - Final Pseudomonas aeruginosa Enterococcus faecalis
[2022-11-30] MEDS: FOLIC ACID 1 MG TAB PO SCH (13:41)
[2022-11-30] MEDS: THIAMINE 100 MG TAB PO SCH (13:41)
--- NOTE | 2022-11-30 14:10 | P.PN ---
Subjective Progress Note Date: 11/30/22 Principal diagnosis: altered mental status Upon visit today patient is resting comfortably in bed. Patient reports much improvement today. she denies leg pain but states they feel heavy. Also reports decreased redness in bilateral lower extremities. She also reports that she f eels much less foggy and more like herself. No other reported complaints at this time Objective - Vital Signs Vital signs: Vital Signs Temp 98.2 F 11/30/22 13:03 Pulse 84 11/30/22 13:03 Resp 16 11/30/22 13:03 BP 130/58 11/30/22 13:03 Pulse Ox 95 11/30/22 13:03 FiO2 Intake & Output 11/29/22 11/30/22 11/30/22 18:59 06:59 18:59 Intake Total 1100 Output Total 300 Balance 1100 -300 Intake: Intake, IV Titration 1100 Amount Piperacillin-Tazobactam 3 200 .375 gm In Sodium Chloride 0.9% 100 ml @ 25 mls/hr IVPB Q8HR [facility] Rx# :[id number] Sodium Chloride 0.9% 1, 900 000 ml @ 75 mls/hr IV . [id number] [facility] Rx#:[id number] Output: Urine 300 Other: Voiding Method Toilet Toilet Toilet Bedside Commode Bedside Commode Bedside Commode # Voids 1 1 1 # Bowel Movements 1 1 - Constitutional General appearance: Present: average body habitus, no acute distress - EENT Eyes: Present: anicteric sclerae, EOMI ENT: Present: hearing grossly normal - Respiratory Details: breathing is even and unlabored - Cardiovascular Details: skin warm and dry - Peripheral edema leg Peripheral Edema: bilateral: 4+ - Integumentary Integumentary Comment(s): BLE with erythema, dryness and scaling, improved since admission - Neurologic Neurologic Comment(s): grossly intact - Musculoskeletal Musculoskeletal: Present: strength equal bilaterally - Psychiatric Psychiatric: Present: A&O x's 3, appropriate affect, intact judgment & insight - Labs CBC & Chem 7: 11/29/22 09:47 11/27/22 07:13 Labs: Microbiology - Last 24 Hours (Table) 11/25/22 13:30 Blood Culture - Preliminary Blood No Growth after 96 hours 11/25/22 14:00 Blood Culture - Preliminary Blood No Growth after 96 hours 11/25/22 23:02 Gram Stain - Final Leg - Right Wound Culture - Final Pseudomonas aeruginosa Enterococcus faecalis Assessment and Plan (1) Altered mental status Current Visit: Yes Status: Acute Priority: High Code(s): R41.82 - ALTERED MENTAL STATUS, UNSPECIFIED SNOMED Code(s): 999417234 (2) Bicytopenia Current Visit: Yes Status: Acute Priority: High Code(s): D75.89 - OTHER SPECIFIED DISEASES OF BLOOD AND BLOOD-FORMING ORGANS SNOMED Code(s): 14340211 (3) Dermatitis Current Visit: Yes Status: Acute Priority: High Code(s): L30.9 - DERMATITIS, UNSPECIFIED SNOMED Code(s): 250384716 (4) H/O colon cancer, stage IV Current Visit: Yes Status: Acute Priority: High Code(s): Z85.038 - PERSONAL HISTORY OF MALIGNANT NEOPLASM OF LARGE INTESTINE SNOMED Code(s): 042175985 Plan: Metabolic encephalopathy -Noted having episodes of confusion with disorientation to place and being slow to respond prior to admission. -She denies any fevers prior to admission or changes to her medications -Labs revealed no acute metabolic changes with ammonia within normal limits -Clinically, Kaya notes she continues to improve compared to her initial presentation -MRI of the brain noted increased signal in the proximal left temporal lobe gyrus with no evidence of ischemia or intracranial metastases -Discussed with neurology with no clear etiology for this finding -EEG along with antibodies for NMDA, anti-Hu, and anti-Yo have been recommended along with vitamin B12, MMA, folate, TSH. Folate and vitamin B12 normal. MMA pending. Thyroid studies, consistent with hypothyroidism. Synthroid ordered. -Follow-up additional neurology recommendations, appreciate their assistance Dermatitis -Noted to have significant erythema of the legs bilaterally that are painful. Improved since admission -This had limited her mobility within the past week. This has improved since admission -There are areas of skin breakdown and desquamation, likely consistent with dermatitis secondary to capecitabine that appears to be grade 3 in nature -Hold capecitabine for now and likely on discharge until this improves to grade 2 -Dose reduction of capecitabine may have to be considered outpatient on re sumption -Wound consult ordered for additional management recommendations, appreciate their assistance Bicytopenia -Capecitabine induced anemia and thrombocytopenia -Continue to monitor CBC daily -Transfuse for hemoglobin less than 7 -Transfuse for platelets less than 10,000 and/or bleeding Metastatic colon cancer -Noted to have metastases to the peritoneum as well as possibly the liver and small nodules in the lungs -Completed 6 cycles of of FOLFOX, which was then transitioned to capecitabine due to rash from 5-FU -Most recent cycle of CAPOX/XELOX was on 11/05/2022 for oxaliplatin and completed 2 weeks of capecitabine on 11/11/2022 -CT abdomen/pelvis on admission with no definitive evidence of disease progression -Continue holding capecitabine as noted above -Consider dose changes to capecitabine or alternative regimen to be determined by her primary oncologist outpatient attests: I have performed H&P and developed impression and plan of care for patient, discussed with dictator. I agree with dictated know, documented as a scribe
--- NOTE | 2022-11-30 15:04 | P.PN ---
Subjective Progress Note Date: 11/30/22 Principal diagnosis: Bilateral lower extremity rash and question cellulitis Patient is a 72-year female with a past medical history significant for metastatic colon cancer on chemotherapy patient was brought into the ER last night for evaluation of change in mental status, patient also have a extensive rash to bilateral lower extremity and was a question of possible cellulitis. On today's evaluation that is 11/30/2022, The patient continues to be afebrile, the patient is breathing comfortably on room air, patient denies having any chest pain or shortness breath or cough , the patient overall discomfort to the lower extremity has decreased in intensity and no diarrhea Objective - Vital Signs Vital signs: Vital Signs Temp 98.2 F 11/30/22 13:03 Pulse 84 11/30/22 13:03 Resp 16 11/30/22 13:03 BP 130/58 11/30/22 13:03 Pulse Ox 95 11/30/22 13:03 FiO2 Intake & Output 11/29/22 11/30/22 11/30/22 18:59 06:59 18:59 Intake Total 1100 Output Total 300 Balance 1100 -300 Intake: Intake, IV Titration 1100 Amount Piperacillin-Tazobactam 3 200 .375 gm In Sodium Chloride 0.9% 100 ml @ 25 mls/hr IVPB Q8HR [facility] Rx# :[id number] Sodium Chloride 0.9% 1, 900 000 ml @ 75 mls/hr IV . [id number] [facility] Rx#:[id number] Output: Urine 300 Other: Voiding Method Toilet Toilet Toilet Bedside Commode Bedside Commode Bedside Commode # Voids 1 1 1 # Bowel Movements 1 1 - Exam GENERAL DESCRIPTION: An elderly female lying in bed in no distress RESPIRATORY SYSTEM: Unlabored breathing , decreased breath sounds at bases HEART: S1 S2 regular rate and rhythm , ABDOMEN: Soft , no tenderness EXTREMITIES: Bilateral lower extremity currently wrapped with Cisco wrap - Labs CBC & Chem 7: 11/29/22 09:47 11/27/22 07:13 Labs: Abnormal Lab Results - Last 24 Hours (Table) 11/29/22 Range/Units 09:47 Lymphocytes # (Manual) 0.78 L (1.0-4.8) k/uL Microbiology - Last 24 Hours (Table) 11/25/22 13:30 Blood Culture - Preliminary Blood No Growth after 96 hours 11/25/22 14:00 Blood Culture - Preliminary Blood No Growth after 96 hours 11/25/22 23:02 Gram Stain - Final Leg - Right Wound Culture - Final Pseudomonas aeruginosa Enterococcus faecalis Assessment and Plan (1) Bilateral lower leg cellulitis Current Visit: Yes Status: Acute Code(s): L03.116 - CELLULITIS OF LEFT LOWER LIMB; L03.115 - CELLULITIS OF RIGHT LOWER LIMB SNOMED Code(s): 838460368 Plan: 1patient presented to hospital with mental status changes more likely metabolic in this patient who do have a history of metastatic colon cancer on chemotherapy patient currently with no fever or elevated white count and does not look toxic. Patient did have a negative chest x-ray 2 -patient also have bilateral lower extremity swelling erythematous rash possibly related to her chemotherapy cellulitis less likely but not entirely excluded lower extremity Doppler were negative for DVT 3Local culture has been finalized with Pseudomonas aeruginosa and Enterococcus faecalis for the patient is covered with Zosyn which should be continued finishing therapy with oral Cipro and Augmentin Time with Patient: Less than 30
[2022-11-30] MEDS: RIVAROXABAN 20 MG TAB PO SCH (21:15)
[2022-12-01] MEDS: LEVOTHYROXINE 25 MCG TAB PO SCH (05:44)
[2022-12-01] MEDS: FUROSEMIDE 20 MG TAB PO SCH ×3 (07:29→17:04)
[2022-12-01] MEDS: PANTOPRAZOLE 40 MG TABLET PO SCH ×2 (07:29→17:05)
[2022-12-01] MEDS: ACETAMINOPHEN TAB 325 MG TAB PO PRN ×2 (08:28→21:03)
[2022-12-01] MEDS: ATORVASTATIN 40 MG TAB PO SCH (08:31)
[2022-12-01] MEDS: ASPIRIN 81 MG PO SCH (08:31)
[2022-12-01] MEDS: POTASSIUM CHLORIDE ER 10 MEQ TAB.ER.PRT PO SCH ×2 (08:31→21:01)
[2022-12-01] MEDS: METOPROLOL TARTRATE 50 MG TAB PO SCH ×3 (08:32→21:01)
[2022-12-01] MEDS: amLODIPine 5 MG TAB PO SCH (08:32)
[2022-12-01] MEDS: ESCITALOPRAM 20 MG TAB PO SCH (08:32)
[2022-12-01] MEDS: MULTIVITAMINS, THERA 1 EACH TAB PO SCH (08:32)
[2022-12-01] MEDS: PIPERACILLIN-TAZOBACTAM 3.375 GM in SODIUM CHLORIDE 0.9% 100 ML IVPB SCH ×3 (08:42→23:59)
[2022-12-01 10:14] LABS: African American GFR (CKD) 58.5 (60.0-200.0); Albumin 2.7 g/dL (3.8-4.9); Albumin/Globulin Ratio 0.87 (1.60-3.17); Anion Gap 9.8 mmol/L (10.00-18.00); BUN/Creat Ratio 8.18 Ratio (12.00-20.00); Calcium 8.1 mg/dL (8.7-10.3); Carbon Dioxide 23.2 mmol/L (20.0-27.5); Globulin 3.1 g/dL (1.6-3.3); Non-African American GFR(CKD) 50.5 (60.0-200.0); Potassium 3.5 mmol/L (3.5-5.5); Total Bilirubin 0.4 mg/dL (0.30-1.20); Total Protein 5.8 g/dL (6.2-8.2)
[2022-12-01 11:12] LABS: Basophils # (A) 0.02 X 10*3/uL (0.00-0.10); Basophils % (A) 0.7 %; Eosinophils # (A) 0 X 10*3/uL (0.04-0.35); Eosinophils % (A) 0 %; HCT 25.9 % (37.2-46.3); HGB 8.5 g/dL (12.0-15.0); Immature Grans, Automated 1.1 %; Immature Platelet Fraction 11.5 % (1.1-6.1); Lymphocytes # (A) 0.91 X 10*3/uL (0.90-5.00); Lymphocytes % (A) 34.1 %; MCH 34.4 pg (27.0-32.0); MCHC 32.8 g/dL (32.0-37.0); MCV 104.9 fL (80.0-97.0); Mean Platelet Volume 12.1 fL (9.5-12.2); Monocytes # (A) 0.62 X 10*3/uL (0.20-1.00); Monocytes % (A) 23.2 %; NRBC Per 100 WBC 0 /100 WBCS (0.0-0.0); Neutrophils # (A) 1.09 X 10*3/uL (1.80-7.70); Neutrophils % (A) 40.9 %; Platelet Count 52 X 10*3/uL (140-440); RBC 2.47 X 10*6/uL (4.10-5.20); RDW 22.5 % (11.5-14.5); WBC 2.67 X 10*3/uL (4.50-10.00)
[2022-12-01] MEDS: SODIUM CHLORIDE 0.9% 1,000 ML IV SCH ×2 (11:38→23:59)
--- NOTE | 2022-12-01 12:47 | P.PN ---
Subjective Progress Note Date: 12/01/22 The patient is seen at sitting in a recliner chair and states is doing well and no issues. Objective - Vital Signs Vital signs: Vital Signs Temp 97.9 F 12/01/22 07:15 Pulse 81 12/01/22 07:15 Resp 18 12/01/22 07:15 BP 116/68 12/01/22 07:15 Pulse Ox 99 12/01/22 07:59 FiO2 Intake & Output 11/30/22 12/01/22 12/01/22 18:59 06:59 18:59 Intake Total 240 120 Output Total 300 Balance -60 120 Intake: Intake, IV Titration 240 Amount Piperacillin-Tazobactam 3 240 .375 gm In Sodium Chloride 0.9% 100 ml @ 25 mls/hr IVPB Q8HR [facility] Rx# :[id number] Oral 120 Output: Urine 300 Other: Voiding Method Toilet Bedside Commode # Voids 3 1 2 # Bowel Movements 1 - Exam GENERAL: The patient is sitting in a recliner chair and is not in acute distress. NEUROLOGICAL: Higher mental function: The patient is awake, alert, oriented to self, place and time. Patient is following simple commands. No aphasia or neglect. Cranial nerves: The pupils are round, equal and reactive to light. Visual patiño are full to confrontation throughout. Extraocular movement is intact no nystagmus is noted. The facial strength is normal throughout. No dysarthria is noted. Shoulder shrug is normal bilaterally. Motor: The strength is hard to assess inidividual muscles because of her cooperation. But lifting bilateral upper and no focality is appreciated. Has severe erythema withe edema in lowers bilaterally. . - Labs CBC & Chem 7: 12/01/22 05:37 12/01/22 05:37 Labs: Abnormal Lab Results - Last 24 Hours (Table) 12/01/22 12/01/22 Range/Units 05:37 05:37 WBC 2.67 L (4.50-10.00) X 10*3/uL RBC 2.47 L (4.10-5.20) X 10*6/uL Hgb 8.5 L (12.0-15.0) g/dL Hct 25.9 L (37.2-46.3) % MCV 104.9 H (80.0-97.0) fL MCH 34.4 H (27.0-32.0) pg RDW 22.5 H (11.5-14.5) % Plt Count 52 L (140-440) X 10*3/uL Neutrophils # 1.09 L (1.80-7.70) X 10*3/uL Eosinophils # 0 L (0.04-0.35) X 10*3/uL Immature Plt Fraction 11.5 H (1.1-6.1) % Anion Gap 9.80 L (10.00-18.00) mmol/L Est GFR (CKD-EPI)AfAm 58.5 L (60.0-200.0) Est GFR (CKD-EPI)NonAf 50.5 L (60.0-200.0) BUN/Creatinine Ratio 8.18 L (12.00-20.00) Ratio Calcium 8.1 L (8.7-10.3) mg/dL AST 108 H (13-35) U/L Alkaline Phosphatase 451 H (41-126) U/L Total Protein 5.8 L (6.2-8.2) g/dL Albumin 2.7 L (3.8-4.9) g/dL Albumin/Globulin Ratio 0.87 L (1.60-3.17) g/dL Microbiology - Last 24 Hours (Table) 11/25/22 13:30 Blood Culture - Preliminary Blood No Growth after 120 hours 11/25/22 14:00 Blood Culture - Preliminary Blood No Growth after 120 hours Assessment and Plan Assessment: * Altered mental status, likely due to toxic metabolic encephalopathy and abnormal thryoid. Rule out cerebral metastasis. Rule out paraneoplastic syndrome---mentation improved. * Aphasia due to possible suspicious for left temporal lesion ---seems improving * Abnormal brain MRI over left temporal and unsure if early brain mets * Metastatic colon cancer, with metastasis to the peritoneum as well as the liver. * Hypothyroidism * Macrocytosis, rule out B12/folate deficiency * Bilateral leg swelling, rash in the lower legs with oozing. Rule out lymphedema. Rule out cellulitis. * Coronary artery disease, history of IA April 2022. Plan: * MRI of the brain with and without contrast reported as increased signal along the proximal left temporal lobe gyrus, could be some chronic ischemic change. Acute changes for ischemic changes are not identified. Suspicious changes to suggest metastatic disease are not apparently. I personally reviewed MRI, and there is abnormal signal only in the FLAIR sequence in the left temporal co rtical region. There is no abnormal signal on DWI or abnormal enhancement. Uncertain if it is early metastatic deposit, or inflammatory process. * Recommend repeating MRI of the brain with and without contrast in 1-2 months, or earlier if indicated to rule out metastatic disease. * EEG: Is abnormal. The back of slowing suggestive of mild encephalopathy. Otherwise there is no focal slowing, perform discharges or seizure on the EEG. * Pending NMDA antibodies, Anti Hu and Anti Yo antibodies. * B12 1236, folate 40.0, MMA pending * I ordered ionized calcium and if abnormal will defer management to primary team. * For abnormal thyroid will defer management to primary team. * Oncology and ID also on board. * Upon discharge, recommend the patient to follow-up with neurologist as outpatient within 1-2 weeks. Otherwise no additional work-up. Will sign off. Please reconsult if needed. The plan is discussed with patient. Time with Patient: Less than 30
[2022-12-01] MEDS: THIAMINE 100 MG TAB PO SCH (13:04)
[2022-12-01] MEDS: FOLIC ACID 1 MG TAB PO SCH (13:04)
--- NOTE | 2022-12-01 18:56 | P.PN ---
Subjective Progress Note Date: 12/01/22 Principal diagnosis: Bilateral lower extremity rash and question cellulitis Patient is a 72-year female with a past medical history significant for metastatic colon cancer on chemotherapy patient was brought into the ER last night for evaluation of change in mental status, patient also have a extensive rash to bilateral lower extremity and was a question of possible cellulitis. On today's evaluation that is 12/01/2022, The patient remains to be afebrile, the patient is breathing comfortably on room air, patient denies having any chest pain or shortness breath or cough , the patient pain/ discomfort to the lower extremity has decreased in intensity and denies any drainage, no nausea no vomiting no abdominal pain and no diarrhea Objective - Vital Signs Vital signs: Vital Signs Temp 97.9 F 12/01/22 07:15 Pulse 81 12/01/22 07:15 Resp 18 12/01/22 07:15 BP 116/68 12/01/22 07:15 Pulse Ox 99 12/01/22 07:59 FiO2 Intake & Output 11/30/22 12/01/22 12/01/22 18:59 06:59 18:59 Intake Total 240 120 Output Total 300 Balance -60 120 Intake: Intake, IV Titration 240 Amount Piperacillin-Tazobactam 3 240 .375 gm In Sodium Chloride 0.9% 100 ml @ 25 mls/hr IVPB Q8HR [facility] Rx# :[id number] Oral 120 Output: Urine 300 Other: Voiding Method Toilet Bedside Commode # Voids 3 1 2 # Bowel Movements 1 - Exam GENERAL DESCRIPTION: An elderly female lying in bed in no distress RESPIRATORY SYSTEM: Unlabored breathing , decreased breath sounds at bases HEART: S1 S2 regular rate and rhythm , ABDOMEN: Soft , no tenderness EXTREMITIES: Bilateral lower extremity currently wrapped with Cisco wrap - Labs CBC & Chem 7: 12/01/22 05:37 12/01/22 05:37 Labs: Abnormal Lab Results - Last 24 Hours (Table) 12/01/22 12/01/22 Range/Units 05:37 05:37 WBC 2.67 L (4.50-10.00) X 10*3/uL RBC 2.47 L (4.10-5.20) X 10*6/uL Hgb 8.5 L (12.0-15.0) g/dL Hct 25.9 L (37.2-46.3) % MCV 104.9 H (80.0-97.0) fL MCH 34.4 H (27.0-32.0) pg RDW 22.5 H (11.5-14.5) % Plt Count 52 L (140-440) X 10*3/uL Neutrophils # 1.09 L (1.80-7.70) X 10*3/uL Eosinophils # 0 L (0.04-0.35) X 10*3/uL Immature Plt Fraction 11.5 H (1.1-6.1) % Anion Gap 9.80 L (10.00-18.00) mmol/L Est GFR (CKD-EPI)AfAm 58.5 L (60.0-200.0) Est GFR (CKD-EPI)NonAf 50.5 L (60.0-200.0) BUN/Creatinine Ratio 8.18 L (12.00-20.00) Ratio Calcium 8.1 L (8.7-10.3) mg/dL AST 108 H (13-35) U/L Alkaline Phosphatase 451 H (41-126) U/L Total Protein 5.8 L (6.2-8.2) g/dL Albumin 2.7 L (3.8-4.9) g/dL Albumin/Globulin Ratio 0.87 L (1.60-3.17) g/dL Microbiology - Last 24 Hours (Table) 11/25/22 13:30 Blood Culture - Preliminary Blood No Growth after 120 hours 11/25/22 14:00 Blood Culture - Preliminary Blood No Growth after 120 hours Assessment and Plan (1) Bilateral lower leg cellulitis Current Visit: Yes Status: Acute Code(s): L03.116 - CELLULITIS OF LEFT LOWER LIMB; L03.115 - CELLULITIS OF RIGHT LOWER LIMB SNOMED Code(s): 557990788 Plan: 1patient presented to hospital with mental status changes more likely metabolic in this patient who do have a history of metastatic colon cancer on chemotherapy patient currently with no fever or elevated white count and does not look toxic. Patient did have a negative chest x-ray 2 -patient also have bilateral lower extremity swelling erythematous rash possibly related to her chemotherapy cellulitis less likely but not entirely excluded lower extremity Doppler were negative for DVT 3the patient lower extremity culture has been finalized with Pseudomonas aeruginosa and Enterococcus faecalis , patient to continue with Zosyn while inpa tient and plan to finish therapy with oral Cipro and Augmentin 7 days on discharge Time with Patient: Less than 30
--- NOTE | 2022-12-01 19:08 | P.PN ---
Subjective Patient is a 72-year-old female, with diagnosis of colon cancer, status post chemotherapy, now undergoing oral chemotherapy with Xeloda, came to the hospital yesterday at 12:31 PM for altered mental status. Patient states that in the past 6 weeks she has developed rapidly progressive swelling of bilateral lower extremity, which has now become very red, started oozing. She states her both legs are affected, there is swollen, wet and sore. It is progressively getting worse. She is not able to walk, cannot get out of bed, cannot do anything. In the last 3 days she has developed altered mental status, which she states came "all of a sudden", as she did not know the date or where she was. She couldn't get up on her own. Her has to help her with everything.Patient denies any stroke symptoms. Patient admits to having bifrontal headache 4/10 and Tylenol helps. She states that she is often prone to get headache and Tylenol usually helps, and this headache is not new. Patient says that she was diagnosed with colon cancer in March 2022. She underwent 6 rounds of IV chemotherapy. Now she is on oral chemotherapy regimen with Xeloda. It is a 15 gait regimen, off for 6 days and then repeat course for 15 days. She has compl eted 3/4 cycles. Patient does not know the stage of her cancer. Her vital signs on arrival blood pressure 138/57, pulse rate 101, temperature 97.4. She has been afebrile. Blood tests shows normal WBC hemoglobin 7.9, platelets 76, which is low. MCV is significantly elevated 112. PT/PTT is johnson l, sodium 134, potassium is normal, renal functions normal. Lactate was 2.8, which went up to 4.3. AST is elevated 79, ALT normal 31. Ammonia is <9. Patient underwent computed tomography scan of the head, which was normal. I personally reviewed CT head, agree with the findings. EKG shows sinus rhythm. Venous Doppler negative for DVT. CT of abdomen and pelvis revealed rectal stent. Enlarged left lateral pelvic lymph node slightly increased compared to the old exam. Diffuse subcutaneous edema. On mental caking consistent with metastatic disease and similar to the old exam. There is tiny amount of abdominal ascites fluid which is new compared to old exam. Bilateral pleural effusion and basilar atelectasis increased compared to old exam. 12/01/2022 This is a pleasant 72 years old female who presents with confusion and leg cellulitis and clinically is improving. Today she was sitting in chair fully awake and oriented and mentation is back to baseline, she has insight into her illness, she follows commands, she feels improving and she wants to be considered for discharge today or tomorrow. Her both legs are wrapped in Cisco bandage. She tolerated diet well, she is walking to the bathroom with no difficulty. Patient is been followed by several consultants including hematology/oncology, neurology, and infectious disease team. Patient is currently covered with Zosyn for her bilateral lower extremity cellulitis which is also thought secondary to chemotherapy as well as infection, culture is growing Pseudomonas and enterococcus faecalis, she is covered with Zosyn with recommendation to be discharged on Augmentin and Cipro 7 days per ID team Also she has mild hyperthyroidism and she was started on levothyroxine 25 g, patient wears and she was instructed to recheck her thyroid function tests in 4- 6 weeks. Also MRI of the brain was suspicious for left temporal lobe increased signal which is thought chronic ischemia however neurologist is consistent also possibility of metastasis and recommended to repeat MRI of the brain in 1-2 months. She is known history of obesity: Cancer undergoing chemotherapy with possible metastasis to the lung, liver and omentum however repeat CAT scan showing no progressive disease. Overall patient is clinically improving and expected her to be discharged in 2448 hrs. Objective - Vital Signs Vital signs: Vital Signs Temp 97.6 F 12/01/22 12:26 Pulse 66 12/01/22 12:26 Resp 18 12/01/22 12:26 BP 114/65 12/01/22 12:26 Pulse Ox 98 12/01/22 12:26 FiO2 Intake & Output 11/30/22 12/01/22 12/01/22 18:59 06:59 18:59 Intake Total 240 120 Output Total 300 Balance -60 120 Intake: Intake, IV Titration 240 Amount Piperacillin-Tazobactam 3 240 .375 gm In Sodium Chloride 0.9% 100 ml @ 25 mls/hr IVPB Q8HR [facility] Rx# :[id number] Oral 120 Output: Urine 300 Other: Voiding Method Toilet Bedside Commode # Voids 3 1 2 # Bowel Movements 1 - Exam GENERAL: The patient is alert and oriented x3, not in any acute distress. Well developed, well nourished. HEENT: Pupils are round and equally reacting to light. EOMI. No scleral icterus. No conjunctival pallor. Normocephalic, atraumatic. No pharyngeal erythema. No thyromegaly. CARDIOVASCULAR: S1 and S2 present. No murmurs, rubs, or gallops. PULMONARY: Chest is clear to auscultation, no wheezing or crackles. ABDOMEN: Soft, nontender, nondistended, normoactive bowel sounds. No palpable organomegaly. MUSCULOSKELETAL: No joint swelling or deformity. -EXTREMITIES: No cyanosis, clubbing, or pedal edema. Bilateral rash and cellulitis, with Cisco wrap in place NEUROLOGICAL: Gross neurological examination did not reveal any focal deficits. SKIN: No rashes. no petechiae. - Labs CBC & Chem 7: 12/01/22 05:37 12/01/22 05:37 Labs: Abnormal Lab Results - Last 24 Hours (Table) 12/01/22 12/01/22 Range/Units 05:37 05:37 WBC 2.67 L (4.50-10.00) X 10*3/uL RBC 2.47 L (4.10-5.20) X 10*6/uL Hgb 8.5 L (12.0-15.0) g/dL Hct 25.9 L (37.2-46.3) % MCV 104.9 H (80.0-97.0) fL MCH 34.4 H (27.0-32.0) pg RDW 22.5 H (11.5-14.5) % Plt Count 52 L (140-440) X 10*3/uL Neutrophils # 1.09 L (1.80-7.70) X 10*3/uL Eosinophils # 0 L (0.04-0.35) X 10*3/uL Immature Plt Fraction 11.5 H (1.1-6.1) % Anion Gap 9.80 L (10.00-18.00) mmol/L Est GFR (CKD-EPI)AfAm 58.5 L (60.0-200.0) Est GFR (CKD-EPI)NonAf 50.5 L (60.0-200.0) BUN/Creatinine Ratio 8.18 L (12.00-20.00) Ratio Calcium 8.1 L (8.7-10.3) mg/dL AST 108 H (13-35) U/L Alkaline Phosphatase 451 H (41-126) U/L Total Protein 5.8 L (6.2-8.2) g/dL Albumin 2.7 L (3.8-4.9) g/dL Albumin/Globulin Ratio 0.87 L (1.60-3.17) g/dL Microbiology - Last 24 Hours (Table) 11/25/22 13:30 Blood Culture - Preliminary Blood No Growth after 120 hours 11/25/22 14:00 Blood Culture - Preliminary Blood No Growth after 120 hours Assessment and Plan Assessment: Bilateral Cellulitis and rash of lower extremities. Secondary to enterococcus pseudomonas and secondary to chemotherapy Capcetiban as per oncologist who follo w the pt closely Acute toxic/Metabolic encephalopathy. Completely resolved and patient back to baseline Pancytopenia most likely secondary to chemotherapy Metastatic Colon cancer to the liver lung and omentum, computed tomography scan showing no progressive disease Left temporal lobe increased signal suspected chronic ischemia versus metastatic disease, needs outpatient follow-up Hypertension Hyperlipidemia Dermatitis Hypothyroidism Plan: Continue with antibiotics as per ID team, currently on Zosyn with plan to discharge him on Cipro and Augmentin 7 days Continue with his total Recommend to repeat thyroid function tests in 4-6 weeks, currently continue with levothyroxine 25 g Recommend repeat MRI of the brain in 1-2 months. Neurologist Neurology service signed off the case Patient as well as closely by ID team oncology team Labs and medication were reviewed.. Continue same treatment. Continue with symptomatic treatment. Resume home medication. Monitor labs and vitals. DVT and GI prophylaxis. Further recommendations as per clinical course of the p atient DVT prophylaxis: xdarelto GI Prophylaxis: Ppi Prognosis is guarded
[2022-12-01] MEDS: RIVAROXABAN 20 MG TAB PO SCH (21:01)
[2022-12-02] MEDS: LEVOTHYROXINE 25 MCG TAB PO SCH (05:32)
[2022-12-02 07:44] VITALS: BMI 31.0
[2022-12-02] MEDS: PIPERACILLIN-TAZOBACTAM 3.375 GM in SODIUM CHLORIDE 0.9% 100 ML IVPB SCH ×2 (09:08→16:12)
[2022-12-02] MEDS: amLODIPine 5 MG TAB PO SCH (09:09)
[2022-12-02] MEDS: ATORVASTATIN 40 MG TAB PO SCH (09:09)
[2022-12-02] MEDS: POTASSIUM CHLORIDE ER 10 MEQ TAB.ER.PRT PO SCH ×2 (09:09→20:46)
[2022-12-02] MEDS: METOPROLOL TARTRATE 50 MG TAB PO SCH ×4 (09:09→20:50)
[2022-12-02] MEDS: MULTIVITAMINS, THERA 1 EACH TAB PO SCH (09:10)
[2022-12-02] MEDS: ESCITALOPRAM 20 MG TAB PO SCH (09:10)
[2022-12-02] MEDS: ASPIRIN 81 MG PO SCH (09:11)
[2022-12-02 10:12] LABS: Anisocytosis Moderate; Basophils % (A) 0 %; Eosinophils % (A) 1 %; HCT 29.3 % (34.0-46.0); HGB 9.3 gm/dL (11.4-16.0); Hypochromasia Slight; Lymphocytes # (A) 0.9 k/uL (1.0-4.8); Lymphocytes % (A) 30 %; MCHC 31.8 g/dL (31.0-37.0); Macrocytosis Marked; Mean Platelet Volume 10.3; Monocytes # (A) 0.3 k/uL (0-1.0); Monocytes % (A) 10 %; Neutrophils # (A) 1.7 k/uL (1.3-7.7); Neutrophils % (A) 56 %; Poikilocytosis Slight; RBC 2.74 m/uL (3.80-5.40); RDW 21.6 % (11.5-15.5)
[2022-12-02 10:16] LABS: Platelet Count 55 k/uL (150-450)
--- NOTE | 2022-12-02 11:08 | P.GSCN ---
History of Present Illness Consult date: 12/02/22 History of present illness: CHIEF COMPLAINT: Altered mental status and lower extremity cellulitis HISTORY OF PRESENT ILLNESS: This is a 72-year-old female who presented to the hospital with evidence of altered mental status as well as lower extremity cellulitis. There have been plans initially for possible discharge patient today. However, she started to have bright red blood per rectum yesterday afternoon with blood clots. She denies any abdominal pain she had some mild discomfort with the bowel movements. She had 2 bloody stools yesterday and has had 3 bloody stools since this morning. She has a known history of colon cancer with metastatic disease to the liver and omentum. She was diagnosed in March 2022. She had been undergoing chemotherapy. Hemoglobin on admission was 7.9 hemoglobin today is 9.3. She has been on Xarelto and aspirin. Medications were discontinued today. She did receive the Xarelto an aspirin yesterday. She is on the Xarelto for history of PE. Her last colonoscopy was in March 2022 when the colon cancer was diagnosed. She is had an EGD completed. PAST MEDICAL HISTORY: See below PAST SURGICAL HISTORY: See below MEDICATIONS: See below ALLERGIES: See below SOCIAL HISTORY: No illicit drug use. REVIEW OF SYSTEMS: CONSTITUTIONAL: Denies fever or chills. HEENT: Denies blurred vision, vision changes, or eye pain. Denies hemoptysis CARDIOVASCULAR: Denies chest pain or pressure. RESPIRATORY: No shortness of breath. GASTROINTESTINAL: See HPI for pertinent findings HEMATOLOGIC: Denies bleeding disorders. GENITOURINARY: Denies any blood in urine or increased urinary frequency. SKIN: Denies pruitis. Denies rash. PHYSICAL EXAM: VITAL SIGNS: Reviewed GENERAL: Well-developed in no acute distress. HEENT: No sclera icterus. Extraocular movements grossly intact. Moist buccal mucosa. Head is atraumatic, normocephalic. No nasal drainage. ABDOMEN: Soft. Nondistended. Nontender NEUROLOGIC: Alert and oriented. Cranial nerves II through XII grossly intact. LABORATORY DATA: WBC is 3.0 Hgb is up from 8.5 to 9.3 platelets 55 Sodium 138 potassium 3.5 creatinine 1.1 IMAGING: Computed tomography scan rectal stent. Enlarged left lateral pelvic lymph node slightly increased compared to old exam. Diffuse subcutaneous edema. Mental caking consistent with metastatic disease and similar to old exam. Tiny amount of abdominal ascites fluid which is new compared to old exam. ASSESSMENT: 1. Acute GI bleed with bright red blood per rectum 2. History of PE on Xarelto 3. History of colon cancer with metastases to the liver and omentum PLAN: -Patient scheduled for EGD and colonoscopy on 12/05/[address] suarez -Continue to monitor hemoglobin -Continue to monitor for any signs or symptoms of bleeding -Continue to hold Xarelto and aspirin Thank you for this consultation Physician Cake Press Operator note has been reviewed by physician. Signing provider agrees with the documented findings, assessment, and plan of care. Past Medical History Past Medical History: Cancer, Hyperlipidemia, Hypertension, Myocardial Infarction ([place]) Additional Past Medical History / Comment(s): Colon Cancer. bowel blockage Last Myocardial Infarction Date:: 04/2022 History of Any Multi-Drug Resistant Organisms: None Reported Past Surgical History: No Surgical Hx Reported Past Anesthesia/Blood Transfusion Reactions: No Reported Reaction Past Psychological History: Depression Smoking Status: Never smoker Past Alcohol Use History: None Reported Past Drug Use History: None Reported Medications and Allergies Home Medications Medication Instructions Recorded Confirmed Type Atorvastatin [Lipitor] 40 mg PO DAILY 04/02/22 11/25/22 History Escitalopram [Lexapro] 20 mg PO DAILY 04/02/22 11/25/22 History Pantoprazole [Protonix] 40 mg PO BID 04/02/22 11/25/22 History Aspirin [Adult Low Dose Aspirin EC] 81 mg PO DAILY 09/15/22 11/25/22 History Capecitabine [Xeloda] 1,500 mg PO DIRECTED 09/15/22 11/25/22 History Metoprolol Tartrate [Lopressor] 50 mg PO TID 09/15/22 11/25/22 History Rivaroxaban [Xarelto] 20 mg PO HS 09/15/22 11/25/22 History Acetaminophen Tab [Tylenol] 650 mg PO Q6H PRN 11/25/22 11/25/22 History Betamethasone Valerate [Luxiq 0.1%] 1 applic TOPICAL BID 11/25/22 11/25/22 History Cholestyramine (with Sugar) 4 gm PO HS PRN 11/25/22 11/25/22 History [Cholestyramine Powder] Furosemide [Lasix] 20 mg PO TID 11/25/22 11/25/22 History Gabapentin [Neurontin] 200 mg PO HS PRN 11/25/22 11/25/22 History Lidocaine-Prilocaine Cream [Emla 1 applic TOPICAL DAILY PRN 11/25/22 11/25/22 History Cream 2.5%/2.5%] Nitroglycerin Sl Tabs [Nitrostat] 0.4 mg SUBLINGUAL Q5M PRN 11/25/22 11/25/22 History Potassium Chloride ER [K-Dur 10] 10 meq PO BID 11/25/22 11/25/22 History SILVER sulfADIAZINE CREAM 1 applic TOPICAL BID PRN 11/25/22 11/25/22 History [Silvadene Cream] amLODIPine [Norvasc] 5 mg PO DAILY 11/25/22 11/25/22 History ondansetron HCL [Zofran] 8 mg PO Q6H PRN 11/25/22 11/25/22 History oxyCODONE HCL [OxyIR] 5 mg PO Q8H PRN 11/25/22 11/25/22 History Allergies Allergy/AdvReac Type Severity Reaction Status Date / Time No Known Allergies Allergy Verified 11/25/22 13:38 Surgical - Exam Vital Signs Temp Pulse Resp BP Pulse Ox 97.4 F L 101 H 20 138/57 99 11/25/22 12:33 11/25/22 12:33 11/25/22 12:33 11/25/22 12:33 11/25/22 12:33 Results - Labs 12/02/22 09:51 12/01/22 05:37 Abnormal Lab Results - Last 24 Hours (Table) 12/01/22 12/02/22 Range/Units 05:37 09:51 WBC 2.67 L 3.0 L (4.50-10.00) X 10*3/uL RBC 2.47 L 2.74 L (4.10-5.20) X 10*6/uL Hgb 8.5 L 9.3 L (12.0-15.0) g/dL Hct 25.9 L 29.3 L (37.2-46.3) % MCV 104.9 H 107.0 H (80.0-97.0) fL MCH 34.4 H (27.0-32.0) pg RDW 22.5 H 21.6 H (11.5-14.5) % Plt Count 52 L 55 L (140-440) X 10*3/uL Neutrophils # 1.09 L (1.80-7.70) X 10*3/uL Lymphocytes # 0.9 L (1.0-4.8) k/uL Eosinophils # 0 L (0.04-0.35) X 10*3/uL Immature Plt Fraction 11.5 H (1.1-6.1) % Macrocytosis Marked A Microbiology - Last 24 Hours (Table) 11/25/22 13:30 Blood Culture - Final Blood No Growth after 144 hours 11/25/22 14:00 Blood Culture - Final Blood No Growth after 144 hours
[2022-12-02] MEDS: FUROSEMIDE 20 MG TAB PO SCH ×3 (11:11→18:06)
[2022-12-02] MEDS: PANTOPRAZOLE 40 MG TABLET PO SCH ×2 (11:11→18:06)
--- NOTE | 2022-12-02 11:35 | P.PN ---
Subjective Progress Note Date: 12/02/22 Principal diagnosis: Bilateral lower extremity rash and question cellulitis Patient is a 72-year female with a past medical history significant for metastatic colon cancer on chemotherapy patient was brought into the ER last night for evaluation of change in mental status, patient also have a extensive rash to bilateral lower extremity and was a question of possible cellulitis. Patient apparently has developed bleeding per rectum and Gen. surgery has been consulted On today's evaluation that is 12/02/2022, The patient continues to be afebrile, the patient is breathing comfortably on room air, patient denies having any chest pain or shortness breath or cough , the patient denies any pain to the lower extremity and denies any drainage, no nausea no vomiting no abdominal pain Objective - Vital Signs Vital signs: Vital Signs Temp 97.7 F 12/02/22 07:32 Pulse 67 12/02/22 07:32 Resp 18 12/02/22 07:32 BP 106/63 12/02/22 07:32 Pulse Ox 97 12/02/22 07:32 FiO2 Intake & Output 12/01/22 12/02/22 12/02/22 18:59 06:59 18:59 Intake Total 680 Balance 680 Weight 89.811 kg Intake: Intake, IV Titration 200 Amount Piperacillin-Tazobactam 3 100 .375 gm In Sodium Chloride 0.9% 100 ml @ 25 mls/hr IVPB Q8HR [facility] Rx# :[id number] Sodium Chloride 0.9% 1, 100 000 ml @ 75 mls/hr IV . [id number] [facility] Rx#:[id number] Oral 480 Other: Voiding Method Toilet Bedside Commode # Voids 1 2 1 # Bowel Movements 1 - Exam GENERAL DESCRIPTION: An elderly female lying in bed in no distress RESPIRATORY SYSTEM: Unlabored breathing , decreased breath sounds at bases HEART: S1 S2 regular rate and rhythm , ABDOMEN: Soft , no tenderness EXTREMITIES: Bilateral lower extremity currently wrapped with Cisco wrap, overall swelling redness has decreased no drainage - Labs CBC & Chem 7: 12/02/22 09:51 12/01/22 05:37 Labs: Abnormal Lab Results - Last 24 Hours (Table) 12/01/22 12/01/22 Range/Units 05:37 05:37 WBC 2.67 L (4.50-10.00) X 10*3/uL RBC 2.47 L (4.10-5.20) X 10*6/uL Hgb 8.5 L (12.0-15.0) g/dL Hct 25.9 L (37.2-46.3) % MCV 104.9 H (80.0-97.0) fL MCH 34.4 H (27.0-32.0) pg RDW 22.5 H (11.5-14.5) % Plt Count 52 L (140-440) X 10*3/uL Neutrophils # 1.09 L (1.80-7.70) X 10*3/uL Eosinophils # 0 L (0.04-0.35) X 10*3/uL Immature Plt Fraction 11.5 H (1.1-6.1) % Anion Gap 9.80 L (10.00-18.00) mmol/L Est GFR (CKD-EPI)AfAm 58.5 L (60.0-200.0) Est GFR (CKD-EPI)NonAf 50.5 L (60.0-200.0) BUN/Creatinine Ratio 8.18 L (12.00-20.00) Ratio Calcium 8.1 L (8.7-10.3) mg/dL AST 108 H (13-35) U/L Alkaline Phosphatase 451 H (41-126) U/L Total Protein 5.8 L (6.2-8.2) g/dL Albumin 2.7 L (3.8-4.9) g/dL Albumin/Globulin Ratio 0.87 L (1.60-3.17) g/dL Microbiology - Last 24 Hours (Table) 11/25/22 13:30 Blood Culture - Final Blood No Growth after 144 hours 11/25/22 14:00 Blood Culture - Final Blood No Growth after 144 hours Assessment and Plan (1) Bilateral lower leg cellulitis Current Visit: Yes Status: Acute Code(s): L03.116 - CELLULITIS OF LEFT LOWER LIMB; L03.115 - CELLULITIS OF RIGHT LOWER LIMB SNOMED Code(s): 496290021 Plan: 1patient presented to hospital with mental status changes more likely metabolic in this patient who do have a history of metastatic colon cancer on chemotherapy patient currently with no fever or elevated white count and does not look toxic. Patient did have a negative chest x-ray 2 -patient also have bilateral lower extremity swelling erythematous rash possibly related to her chemotherapy cellulitis less likely but not entirely excluded lower extremity Doppler were negative for DVT 3the patient lower extremity culture has been finalized with Pseudomonas aeruginosa and Enterococcus faecalis 4-patient is currently being treated with Zosyn while inpatient and plan to finish therapy with oral Cipro and Augmentin once stable for discharge from other managing consultant Time with Patient: Less than 30
[2022-12-02] MEDS: THIAMINE 100 MG TAB PO SCH (13:09)
[2022-12-02] MEDS: FOLIC ACID 1 MG TAB PO SCH (13:09)
--- NOTE | 2022-12-02 14:32 | P.PN ---
Subjective Progress Note Date: 12/02/22 Principal diagnosis: altered mental status Upon visit today patient is resting comfortably in bed. Patient reports feeling well and leg pain has improved. Patient reports having 2 bloody loose stools yesterday. Aspirin and xarelto have been held. Surgery consulted with plan for EGD/colonoscopy Monday. Denies abdominal pain, N/V, fever and chills. No other reported complaints at this time Objective - Vital Signs Vital signs: Vital Signs Temp 98.1 F 12/02/22 12:16 Pulse 87 12/02/22 12:16 Resp 18 12/02/22 12:16 BP 100/61 12/02/22 12:16 Pulse Ox 99 12/02/22 12:16 FiO2 Intake & Output 12/01/22 12/02/22 12/02/22 18:59 06:59 18:59 Intake Total 680 Balance 680 Weight 89.811 kg Intake: Intake, IV Titration 200 Amount Piperacillin-Tazobactam 3 100 .375 gm In Sodium Chloride 0.9% 100 ml @ 25 mls/hr IVPB Q8HR [facility] Rx# :[id number] Sodium Chloride 0.9% 1, 100 000 ml @ 75 mls/hr IV . [id number] [facility] Rx#:[id number] Oral 480 Other: Voiding Method Toilet Bedside Commode # Voids 1 2 1 # Bowel Movements 1 - Constitutional General appearance: Present: average body habitus, no acute distress - EENT Eyes: Present: anicteric sclerae, EOMI ENT: Present: hearing grossly normal - Respiratory Details: breathing is even and unlabored - Cardiovascular Details: skin warm and dry - Peripheral edema leg Peripheral Edema: bilateral: 4+ - Gastrointestinal General gastrointestinal: Present: soft. Absent: tenderness - Integumentary Integumentary Comment(s): BLE dry, scaly and erythematous, with improvement - Neurologic Neurologic Comment(s): grossly intact - Musculoskeletal Musculoskeletal: Present: strength equal bilaterally - Psychiatric Psychiatric: Present: A&O x's 3, appropriate affect, intact judgment & insight - Labs CBC & Chem 7: 12/02/22 09:51 12/01/22 05:37 Labs: Abnormal Lab Results - Last 24 Hours (Table) 12/02/22 Range/Units 09:51 WBC 3.0 L (3.8-10.6) k/uL RBC 2.74 L (3.80-5.40) m/uL Hgb 9.3 L (11.4-16.0) gm/dL Hct 29.3 L (34.0-46.0) % MCV 107.0 H (80.0-100.0) fL RDW 21.6 H (11.5-15.5) % Plt Count 55 L (150-450) k/uL Lymphocytes # 0.9 L (1.0-4.8) k/uL Macrocytosis Marked A Microbiology - Last 24 Hours (Table) 11/25/22 13:30 Blood Culture - Final Blood No Growth after 144 hours 11/25/22 14:00 Blood Culture - Final Blood No Growth after 144 hours Assessment and Plan (1) Altered mental status Current Visit: Yes Status: Acute Priority: High Code(s): R41.82 - ALTERED MENTAL STATUS, UNSPECIFIED SNOMED Code(s): 787607579 (2) Bicytopenia Current Visit: Yes Status: Acute Priority: High Code(s): D75.89 - OTHER SPECIFIED DISEASES OF BLOOD AND BLOOD-FORMING ORGANS SNOMED Code(s): 96018232 (3) Dermatitis Current Visit: Yes Status: Acute Priority: High Code(s): L30.9 - DERMATITIS, UNSPECIFIED SNOMED Code(s): 291553709 (4) H/O colon cancer, stage IV Current Visit: Yes Status: Acute Priority: High Code(s): Z85.038 - PERSONAL HISTORY OF MALIGNANT NEOPLASM OF LARGE INTESTINE SNOMED Code(s): 004381199 Plan: Metabolic encephalopathy -Noted having episodes of confusion with disorientation to place and being slow to respond prior to admission. -She denies any fevers prior to admission or changes to her medications -Labs revealed no acute metabolic changes with ammonia within normal limits -Clinically, Kaya notes she continues to improve compared to her initial presentation -MRI of the brain noted increased signal in the proximal left temporal lobe gyrus with no evidence of ischemia or intracranial metastases -Discussed with neurology with no clear etiology for this finding -EEG along with antibodies for NMDA, anti-Hu, and anti-Yo have been recommended along with vitamin B12, MMA, folate, TSH. Folate, vitamin B12, MMA normal. Thyroid studies, consistent with hypothyroidism. Synthroid ordered. -Follow-up additional neurology recommendations, appreciate their assistance Dermatitis -Noted to have significant erythema of the legs bilaterally that are painful. Improved since admission -This had limited her mobility within the past week. This has improved since admission -There are areas of skin breakdown and desquamation, likely consistent with dermatitis secondary to capecitabine that appears to be grade 3 in nature -Hold capecitabine for now and likely on discharge until this improves to grade 2 -Dose reduction of capecitabine may have to be considered outpatient on resumption -Wound consult ordered for additional management recommendations, appreciate their assistance Bicytopenia -Capecitabine induced anemia and thrombocytopenia -Continue to monitor CBC daily -Transfuse for hemoglobin less than 7 -Transfuse for platelets less than 10,000 and/or bleeding Hematochezia: -Reports 2 bloody BMs yesterday -Surgery consulted. Plan for EGD/colonoscopy Monday -Aspirin and xarelto held Metastatic colon cancer -Noted to have metastases to the peritoneum as well as possibly the liver and small nodules in the lungs -Completed 6 cycles of of FOLFOX, which was then transitioned to capecitabine due to rash from 5-FU -Most recent cycle of CAPOX/XELOX was on 11/05/2022 for oxaliplatin and completed 2 weeks of capecitabine on 11/11/2022 -CT abdomen/pelvis on admission with no definitive evidence of disease progression -Continue holding capecitabine as noted above -Consider dose changes to capecitabine or alternative regimen to be determined by her primary oncologist outpatient attests: I have performed H&P and developed impression and plan of care for patient, discussed with dictator. I agree with dictated know, documented as a scribe
[2022-12-02] MEDS: SILVER sulfADIAZINE Cream 400 GM 1 APPLIC APPLIC TOPICAL SCH ×2 (16:38→20:47)
[2022-12-02] MEDS: SODIUM CHLORIDE 0.9% 1,000 ML IV SCH ×2 (16:40→20:47)
--- NOTE | 2022-12-02 19:47 | P.PN ---
Subjective Patient is a 72-year-old female, with diagnosis of colon cancer, status post chemotherapy, now undergoing oral chemotherapy with Xeloda, came to the hospital yesterday at 12:31 PM for altered mental status. Patient states that in the past 6 weeks she has developed rapidly progressive swelling of bilateral lower extremity, which has now become very red, started oozing. She states her both legs are affected, there is swollen, wet and sore. It is progressively getting worse. She is not able to walk, cannot get out of bed, cannot do anything. In the last 3 days she has developed altered mental status, which she states came "all of a sudden", as she did not know the date or where she was. She couldn't get up on her own. Her has to help her with everything.Patient denies any stroke symptoms. Patient admits to having bifrontal headache 4/10 and Tylenol helps. She states that she is often prone to get headache and Tylenol usually helps, and this headache is not new. Patient says that she was diagnosed with colon cancer in March 2022. She underwent 6 rounds of IV chemotherapy. Now she is on oral chemotherapy regimen with Xeloda. It is a 15 gait regimen, off for 6 days and then repeat course for 15 days. She has compl eted 3/4 cycles. Patient does not know the stage of her cancer. Her vital signs on arrival blood pressure 138/57, pulse rate 101, temperature 97.4. She has been afebrile. Blood tests shows normal WBC hemoglobin 7.9, platelets 76, which is low. MCV is significantly elevated 112. PT/PTT is johnson l, sodium 134, potassium is normal, renal functions normal. Lactate was 2.8, which went up to 4.3. AST is elevated 79, ALT normal 31. Ammonia is <9. Patient underwent computed tomography scan of the head, which was normal. I personally reviewed CT head, agree with the findings. EKG shows sinus rhythm. Venous Doppler negative for DVT. CT of abdomen and pelvis revealed rectal stent. Enlarged left lateral pelvic lymph node slightly increased compared to the old exam. Diffuse subcutaneous edema. On mental caking consistent with metastatic disease and similar to the old exam. There is tiny amount of abdominal ascites fluid which is new compared to old exam. Bilateral pleural effusion and basilar atelectasis increased compared to old exam. 12/01/2022 This is a pleasant 72 years old female who presents with confusion and leg cellulitis and clinically is improving. Today she was sitting in chair fully awake and oriented and mentation is back to baseline, she has insight into her illness, she follows commands, she feels improving and she wants to be considered for discharge today or tomorrow. Her both legs are wrapped in Cisco bandage. She tolerated diet well, she is walking to the bathroom with no difficulty. Patient is been followed by several consultants including hematology/oncology, neurology, and infectious disease team. Patient is currently covered with Zosyn for her bilateral lower extremity cellulitis which is also thought secondary to chemotherapy as well as infection, culture is growing Pseudomonas and enterococcus faecalis, she is covered with Zosyn with recommendation to be discharged on Augmentin and Cipro 7 days per ID team Also she has mild hyperthyroidism and she was started on levothyroxine 25 g, patient wears and she was instructed to recheck her thyroid function tests in 4- 6 weeks. Also MRI of the brain was suspicious for left temporal lobe increased signal which is thought chronic ischemia however neurologist is consistent also possibility of metastasis and recommended to repeat MRI of the brain in 1-2 months. She is known history of obesity: Cancer undergoing chemotherapy with possible metastasis to the lung, liver and omentum however repeat CAT scan showing no progressive disease. Overall patient is clinically improving and expected her to be discharged in 2448 hrs. 12/02/2022 Patient reports bleeding per rectum to, hemoglobin is stable 9.3 but patient with evidence of pancytopenia, platelet 55, we held aspirin and Plavix and consult to surgery team murmurs obtained recommended to keep holding aspirin and Plavix and plan for EGD/colonoscopy on Monday on 12/05. Patient still stressed for Zosyn for her bilateral cellulitis and improving slowly and gradually. Then the patient awakened alert and denies abdominal pain and symptoms. Patient states that she takes Zoloft since last April because she was not sure why she is taking it, I explained to the patient she'll be at higher risk of thrombosis and stroke while she is off his aspirin and she agrees with the plan. Objective - Vital Signs Vital signs: Vital Signs Temp 97.7 F 12/02/22 07:32 Pulse 67 12/02/22 07:32 Resp 18 12/02/22 07:32 BP 106/63 12/02/22 07:32 Pulse Ox 97 12/02/22 09:31 FiO2 Intake & Output 12/01/22 12/02/22 12/02/22 18:59 06:59 18:59 Intake Total 680 Balance 680 Weight 89.811 kg Intake: Intake, IV Titration 200 Amount Piperacillin-Tazobactam 3 100 .375 gm In Sodium Chloride 0.9% 100 ml @ 25 mls/hr IVPB Q8HR [facility] Rx# :[id number] Sodium Chloride 0.9% 1, 100 000 ml @ 75 mls/hr IV . [id number] [facility] Rx#:[id number] Oral 480 Other: Voiding Method Toilet Bedside Commode # Voids 1 2 1 # Bowel Movements 1 - Exam GENERAL: The patient is alert and oriented x3, not in any acute distress. Well developed, well nourished. HEENT: Pupils are round and equally reacting to light. EOMI. No scleral icterus. No conjunctival pallor. Normocephalic, atraumatic. No pharyngeal erythema. No t hyromegaly. CARDIOVASCULAR: S1 and S2 present. No murmurs, rubs, or gallops. PULMONARY: Chest is clear to auscultation, no wheezing or crackles. ABDOMEN: Soft, nontender, nondistended, normoactive bowel sounds. No palpable organomegaly. MUSCULOSKELETAL: No joint swelling or deformity. -EXTREMITIES: No cyanosis, clubbing, or pedal edema. Bilateral rash and cellulitis, with Cisco wrap in place NEUROLOGICAL: Gross neurological examination did not reveal any focal deficits. SKIN: No rashes. no petechiae. - Labs CBC & Chem 7: 12/02/22 09:51 12/01/22 05:37 Labs: Abnormal Lab Results - Last 24 Hours (Table) 12/02/22 Range/Units 09:51 WBC 3.0 L (3.8-10.6) k/uL RBC 2.74 L (3.80-5.40) m/uL Hgb 9.3 L (11.4-16.0) gm/dL Hct 29.3 L (34.0-46.0) % MCV 107.0 H (80.0-100.0) fL RDW 21.6 H (11.5-15.5) % Plt Count 55 L (150-450) k/uL Lymphocytes # 0.9 L (1.0-4.8) k/uL Macrocytosis Marked A Microbiology - Last 24 Hours (Table) 11/25/22 13:30 Blood Culture - Final Blood No Growth after 144 hours 11/25/22 14:00 Blood Culture - Final Blood No Growth after 144 hours Assessment and Plan Assessment: Bilateral Cellulitis and rash of lower extremities. Secondary to enterococcus p seudomonas and secondary to chemotherapy Capcetiban as per oncologist who follow the pt closely Possible GI bleed with bleeding per rectum Acute toxic/Metabolic encephalopathy. Completely resolved and patient back to baseline Pancytopenia most likely secondary to chemotherapy Metastatic Colon cancer to the liver lung and omentum, computed tomography scan showing no progressive disease Left temporal lobe increased signal suspected chronic ischemia versus metastatic disease, needs outpatient follow-up Hypertension Hyperlipidemia Dermatitis Hypothyroidism Plan: Continue with antibiotics as per ID team, currently on Zosyn with plan to discharge him on Cipro and Augmentin 7 days Hold aspirin and xarelto , surgical team consult with plan for EGD/colonoscopy on Recommend to repeat thyroid function tests in 4-6 weeks, currently continue with levothyroxine 25 g Recommend repeat MRI of the brain in 1-2 months. Neurologist Neurology service signed off the case Patient as well as closely by ID team oncology team Labs and medication were reviewed.. Continue same treatment. Continue with symptomatic treatment. Resume home medication. Monitor labs and vitals. DVT and GI prophylaxis. Further recommendations as per clinical course of the patient DVT prophylaxis: xdarelto (on hold) GI Prophylaxis: Ppi Prognosis is guarded
[2022-12-02] MEDS: ACETAMINOPHEN TAB 325 MG TAB PO PRN (20:52)
[2022-12-03] MEDS: LEVOTHYROXINE 25 MCG TAB PO SCH (06:49)
[2022-12-03 09:06] LABS: HCT 24.3 % (37.2-46.3); HGB 7.9 g/dL (12.0-15.0); MCH 34.8 pg (27.0-32.0); MCHC 32.5 g/dL (32.0-37.0); Mean Platelet Volume 12.9 fL (9.5-12.2); NRBC Per 100 WBC 0 /100 WBCS (0.0-0.0); Platelet Count 44 X 10*3/uL (140-440); RBC 2.27 X 10*6/uL (4.10-5.20); RDW 22.4 % (11.5-14.5); WBC 2.69 X 10*3/uL (4.50-10.00)
[2022-12-03 09:07] LABS: Immature Platelet Fraction 12.3 % (1.1-6.1)
[2022-12-03 09:21] LABS: African American GFR (CKD) 71.3 (60.0-200.0); Anion Gap 7.9 mmol/L (10.00-18.00); BUN/Creat Ratio 8.45 Ratio (12.00-20.00); Blood Urea Nitrogen 7.9 mg/dL (9.0-27.0); Non-African American GFR(CKD) 61.5 (60.0-200.0); Potassium 3.4 mmol/L (3.5-5.5)
--- NOTE | 2022-12-03 09:38 | P.PN ---
Progress Note - Text Progress Note Date: 12/03/22 Patient been stable. Her hemoglobin 7.9. On exam vital signs are stable. Abdomen soft. Patient is scheduled for EGD colonoscopy on Monday.
[2022-12-03] MEDS: ATORVASTATIN 40 MG TAB PO SCH (10:08)
[2022-12-03] MEDS: PANTOPRAZOLE 40 MG TABLET PO SCH ×2 (10:08→17:14)
[2022-12-03] MEDS: FUROSEMIDE 20 MG TAB PO SCH ×3 (10:08→17:14)
[2022-12-03] MEDS: MULTIVITAMINS, THERA 1 EACH TAB PO SCH ×2 (10:08→10:09)
[2022-12-03] MEDS: amLODIPine 5 MG TAB PO SCH (10:09)
[2022-12-03] MEDS: POTASSIUM CHLORIDE ER 10 MEQ TAB.ER.PRT PO SCH ×2 (10:09→22:09)
[2022-12-03] MEDS: THIAMINE 100 MG TAB PO SCH (10:09)
[2022-12-03] MEDS: METOPROLOL TARTRATE 50 MG TAB PO SCH ×3 (10:09→22:09)
[2022-12-03] MEDS: SILVER sulfADIAZINE Cream 400 GM 1 APPLIC APPLIC TOPICAL SCH ×2 (10:10→17:24)
[2022-12-03] MEDS: ESCITALOPRAM 20 MG TAB PO SCH (10:10)
[2022-12-03] MEDS: FOLIC ACID 1 MG TAB PO SCH (14:28)
[2022-12-03] MEDS: SODIUM CHLORIDE 0.9% 1,000 ML IV SCH (14:29)
--- NOTE | 2022-12-03 17:13 | P.PN ---
Subjective Progress Note Date: 12/03/22 Principal diagnosis: Bilateral lower extremity rash and question cellulitis Patient is a 72-year female with a past medical history significant for metastatic colon cancer on chemotherapy patient was brought into the ER last night for evaluation of change in mental status, patient also have a extensive rash to bilateral lower extremity and was a question of possible cellulitis. Patient apparently has developed bleeding per rectum and Gen. surgery has been consulted On today's evaluation that is 12/03/2022, The patient remains to be afebrile, the patient is breathing comfortably on room air, patient denies having any chest pain or shortness breath or cough , the patient denies any pain to the lower extremity and denies nausea no vomiting no abdominal pain, feeling better no new symptoms Objective - Vital Signs Vital signs: Vital Signs Temp 98.3 F 12/03/22 08:00 Pulse 84 12/03/22 08:45 Resp 16 12/03/22 08:45 BP 122/61 12/03/22 08:00 Pulse Ox 98 12/03/22 08:00 FiO2 Intake & Output 12/02/22 12/03/22 12/03/22 18:59 06:59 18:59 Weight 89.811 kg Other: Voiding Method Toilet Toilet Bedside Commode Bedside Commode # Voids 1 0 1 # Bowel Movements 1 0 - Exam GENERAL DESCRIPTION: An elderly female lying in bed in no distress RESPIRATORY SYSTEM: Unlabored breathing , decreased breath sounds at bases HEART: S1 S2 regular rate and rhythm , ABDOMEN: Soft , no tenderness EXTREMITIES: Bilateral lower extremity currently wrapped with Cisco wrap, overall swelling redness has decreased no drainage - Labs CBC & Chem 7: 12/03/22 06:43 12/03/22 06:43 Labs: Abnormal Lab Results - Last 24 Hours (Table) 12/03/22 12/03/22 Range/Units 06:43 06:43 WBC 2.69 L (4.50-10.00) X 10*3/uL RBC 2.27 L (4.10-5.20) X 10*6/uL Hgb 7.9 L (12.0-15.0) g/dL Hct 24.3 L (37.2-46.3) % MCV 107.0 H (80.0-97.0) fL MCH 34.8 H (27.0-32.0) pg RDW 22.4 H (11.5-14.5) % Plt Count 44 L (140-440) X 10*3/uL MPV 12.9 H (9.5-12.2) fL Immature Plt Fraction 12.3 H (1.1-6.1) % Potassium 3.4 L (3.5-5.5) mmol/L Anion Gap 7.90 L (10.00-18.00) mmol/L BUN 7.9 L (9.0-27.0) mg/dL BUN/Creatinine Ratio 8.45 L (12.00-20.00) Ratio Calcium 8.0 L (8.7-10.3) mg/dL Assessment and Plan (1) Bilateral lower leg cellulitis Current Visit: Yes Status: Acute Code(s): L03.116 - CELLULITIS OF LEFT LOWER LIMB; L03.115 - CELLULITIS OF RIGHT LOWER LIMB SNOMED Code(s): 949939666 Plan: 1patient presented to hospital with mental status changes more likely metabolic in this patient who do have a history of metastatic colon cancer on chemotherapy patient currently with no fever or elevated white count and does not look toxic. Patient did have a negative chest x-ray 2 -patient also have bilateral lower extremity swelling erythematous rash possibly related to her chemotherapy cellulitis less likely but not entirely excluded lower extremity Doppler were negative for DVT 3the patient lower extremity culture has been finalized with Pseudomonas aeruginosa and Enterococcus faecalis 4-patient seem to have show some clinical improvement and will continue with the Zosyn local wound care as ordered questions concerned were answered
[2022-12-03] MEDS: ACETAMINOPHEN TAB 325 MG TAB PO PRN (22:11)
[2022-12-03] MEDS ORDERED: POTASSIUM CHLORIDE ER 20 MEQ TAB.ER PO STA (23:11)
--- NOTE | 2022-12-03 23:14 | P.PN ---
Subjective Patient is a 72-year-old female, with diagnosis of colon cancer, status post chemotherapy, now undergoing oral chemotherapy with Xeloda, came to the hospital yesterday at 12:31 PM for altered mental status. Patient states that in the past 6 weeks she has developed rapidly progressive swelling of bilateral lower extremity, which has now become very red, started oozing. She states her both legs are affected, there is swollen, wet and sore. It is progressively getting worse. She is not able to walk, cannot get out of bed, cannot do anything. In the last 3 days she has developed altered mental status, which she states came "all of a sudden", as she did not know the date or where she was. She couldn't get up on her own. Her has to help her with everything.Patient denies any stroke symptoms. Patient admits to having bifrontal headache 4/10 and Tylenol helps. She states that she is often prone to get headache and Tylenol usually helps, and this headache is not new. Patient says that she was diagnosed with colon cancer in March 2022. She underwent 6 rounds of IV chemotherapy. Now she is on oral chemotherapy regimen with Xeloda. It is a 15 gait regimen, off for 6 days and then repeat course for 15 days. She has compl eted 3/4 cycles. Patient does not know the stage of her cancer. Her vital signs on arrival blood pressure 138/57, pulse rate 101, temperature 97.4. She has been afebrile. Blood tests shows normal WBC hemoglobin 7.9, platelets 76, which is low. MCV is significantly elevated 112. PT/PTT is johnson l, sodium 134, potassium is normal, renal functions normal. Lactate was 2.8, which went up to 4.3. AST is elevated 79, ALT normal 31. Ammonia is <9. Patient underwent computed tomography scan of the head, which was normal. I personally reviewed CT head, agree with the findings. EKG shows sinus rhythm. Venous Doppler negative for DVT. CT of abdomen and pelvis revealed rectal stent. Enlarged left lateral pelvic lymph node slightly increased compared to the old exam. Diffuse subcutaneous edema. On mental caking consistent with metastatic disease and similar to the old exam. There is tiny amount of abdominal ascites fluid which is new compared to old exam. Bilateral pleural effusion and basilar atelectasis increased compared to old exam. 12/01/2022 This is a pleasant 72 years old female who presents with confusion and leg cellulitis and clinically is improving. Today she was sitting in chair fully awake and oriented and mentation is back to baseline, she has insight into her illness, she follows commands, she feels improving and she wants to be considered for discharge today or tomorrow. Her both legs are wrapped in Cisco bandage. She tolerated diet well, she is walking to the bathroom with no difficulty. Patient is been followed by several consultants including hematology/oncology, neurology, and infectious disease team. Patient is currently covered with Zosyn for her bilateral lower extremity cellulitis which is also thought secondary to chemotherapy as well as infection, culture is growing Pseudomonas and enterococcus faecalis, she is covered with Zosyn with recommendation to be discharged on Augmentin and Cipro 7 days per ID team Also she has mild hyperthyroidism and she was started on levothyroxine 25 g, patient wears and she was instructed to recheck her thyroid function tests in 4- 6 weeks. Also MRI of the brain was suspicious for left temporal lobe increased signal which is thought chronic ischemia however neurologist is consistent also possibility of metastasis and recommended to repeat MRI of the brain in 1-2 months. She is known history of obesity: Cancer undergoing chemotherapy with possible metastasis to the lung, liver and omentum however repeat CAT scan showing no progressive disease. Overall patient is clinically improving and expected her to be discharged in 2448 hrs. 12/02/2022 Patient reports bleeding per rectum to, hemoglobin is stable 9.3 but patient with evidence of pancytopenia, platelet 55, we held aspirin and Plavix and consult to surgery team murmurs obtained recommended to keep holding aspirin and Plavix and plan for EGD/colonoscopy on Monday on 12/05. Patient still stressed for Zosyn for her bilateral cellulitis and improving slowly and gradually. Then the patient awakened alert and denies abdominal pain and symptoms. Patient states that she takes Zoloft since last April because she was not sure why she is taking it, I explained to the patient she'll be at higher risk of thrombosis and stroke while she is off his aspirin and she agrees with the plan. 12/03/2022 Patient pleasant that looks comfortable in bed, she denies abdominal pain. No more episodes of blood per rectum or blood in stool or black stool. No other new complaint xarelto And aspirin remains on hold, risk of thrombosis and stroke are explained for the patient and she verbalized understanding and acceptance to keep holding this medication. Hemoglobin dropped today to 7.9 but also she has evidence of pancytopenia she remains on Zosyn Plan for EGD/colonoscopy on Monday for GI bleed. I talked to the patient and with a recommendation of the neurologist to check MRI of the brain in 1-2 months total of metastasis and both verbalized understanding and acceptance Objective - Vital Signs Vital signs: Vital Signs Temp 98.3 F 12/03/22 08:00 Pulse 84 12/03/22 08:45 Resp 16 12/03/22 08:45 BP 122/61 12/03/22 08:00 Pulse Ox 98 12/03/22 08:00 FiO2 Intake & Output 12/02/22 12/03/22 12/03/22 18:59 06:59 18:59 Weight 89.811 kg Other: Voiding Method Toilet Toilet Bedside Commode Bedside Commode # Voids 1 0 1 # Bowel Movements 1 0 - Exam GENERAL: The patient is alert and oriented x3, not in any acute distress. Well developed, well nourished. HEENT: Pupils are round and equally reacting to light. EOMI. No scleral icterus. No conjunctival pallor. Normocephalic, atraumatic. No pharyngeal erythema. No thyromegaly. CARDIOVASCULAR: S1 and S2 present. No murmurs, rubs, or gallops. PULMONARY: Chest is clear to auscultation, no wheezing or crackles. ABDOMEN: Soft, nontender, nondistended, normoactive bowel sounds. No palpable organomegaly. MUSCULOSKELETAL: No joint swelling or deformity. -EXTREMITIES: No cyanosis, clubbing, or pedal edema. Bilateral rash and cellulitis, with Cisco wrap in place NEUROLOGICAL: Gross neurological examination did not reveal any focal deficits. SKIN: No rashes. no petechiae. - Labs CBC & Chem 7: 12/03/22 06:43 12/03/22 06:43 Labs: Abnormal Lab Results - Last 24 Hours (Table) 12/03/22 12/03/22 Range/Units 06:43 06:43 WBC 2.69 L (4.50-10.00) X 10*3/uL RBC 2.27 L (4.10-5.20) X 10*6/uL Hgb 7.9 L (12.0-15.0) g/dL Hct 24.3 L (37.2-46.3) % MCV 107.0 H (80.0-97.0) fL MCH 34.8 H (27.0-32.0) pg RDW 22.4 H (11.5-14.5) % Plt Count 44 L (140-440) X 10*3/uL MPV 12.9 H (9.5-12.2) fL Immature Plt Fraction 12.3 H (1.1-6.1) % Potassium 3.4 L (3.5-5.5) mmol/L Anion Gap 7.90 L (10.00-18.00) mmol/L BUN 7.9 L (9.0-27.0) mg/dL BUN/Creatinine Ratio 8.45 L (12.00-20.00) Ratio Calcium 8.0 L (8.7-10.3) mg/dL Assessment and Plan Assessment: Bilateral Cellulitis and rash of lower extremities. Secondary to enterococcus pseudomonas and secondary to chemotherapy Capcetiban as per oncologist who follo w the pt closely Possible GI bleed with bleeding per rectum Acute toxic/Metabolic encephalopathy. Completely resolved and patient back to baseline Pancytopenia most likely secondary to chemotherapy Metastatic Colon cancer to the liver lung and omentum, computed tomography scan showing no progressive disease Left temporal lobe increased signal suspected chronic ischemia versus metastatic disease, needs outpatient follow-up Hypertension Hyperlipidemia Dermatitis Hypothyroidism Plan: Continue with antibiotics as per ID team, currently on Zosyn with plan to discharge him on Cipro and Augmentin 7 days Hold aspirin and xarelto , surgical team consult with plan for EGD/colonoscopy on Recommend to repeat thyroid function tests in 4-6 weeks, currently continue with levothyroxine 25 g Recommend repeat MRI of the brain in 1-2 months. Neurologist Neurology service signed off the case Patient as well as closely by ID team oncology team Labs and medication were reviewed.. Continue same treatment. Continue with symptomatic treatment. Resume home medication. Monitor labs and vitals. DVT and GI prophylaxis. Further recommendations as per clinical course of the patient DVT prophylaxis: xdarelto (on hold) GI Prophylaxis: Ppi Prognosis is guarded
[2022-12-04] MEDS: SODIUM CHLORIDE 0.9% 1,000 ML IV SCH ×2 (01:20→15:30)
[2022-12-04] MEDS: LEVOTHYROXINE 25 MCG TAB PO SCH (06:55)
[2022-12-04] MEDS ORDERED: PEG 3350 (236 GM/BTL) + LYTES 4,000 ML BOTTLE PO ONE (09:00)
[2022-12-04] MEDS: PANTOPRAZOLE 40 MG TABLET PO SCH ×2 (09:07→16:00)
[2022-12-04] MEDS: FUROSEMIDE 20 MG TAB PO SCH ×3 (09:07→15:59)
[2022-12-04] MEDS: ATORVASTATIN 40 MG TAB PO SCH (09:07)
[2022-12-04] MEDS: ESCITALOPRAM 20 MG TAB PO SCH (09:07)
[2022-12-04] MEDS: METOPROLOL TARTRATE 50 MG TAB PO SCH ×3 (09:07→21:22)
[2022-12-04] MEDS: amLODIPine 5 MG TAB PO SCH (09:07)
[2022-12-04] MEDS: THIAMINE 100 MG TAB PO SCH (09:08)
[2022-12-04] MEDS: POTASSIUM CHLORIDE ER 10 MEQ TAB.ER.PRT PO SCH ×2 (09:08→21:22)
[2022-12-04] MEDS: SILVER sulfADIAZINE Cream 400 GM 1 APPLIC APPLIC TOPICAL SCH ×2 (09:08→21:23)
[2022-12-04 09:22] LABS: Anion Gap 7.8 mmol/L (10.00-18.00); BUN/Creat Ratio 7.48 Ratio (12.00-20.00); Blood Urea Nitrogen 6.6 mg/dL (9.0-27.0); Calcium 8.3 mg/dL (8.7-10.3); Non-African American GFR(CKD) 65.6 (60.0-200.0); Potassium 3.9 mmol/L (3.5-5.5)
[2022-12-04 09:24] LABS: HCT 24.7 % (37.2-46.3); HGB 7.9 g/dL (12.0-15.0); MCH 33.8 pg (27.0-32.0); MCV 105.6 fL (80.0-97.0); Mean Platelet Volume 11.7 fL (9.5-12.2); NRBC Per 100 WBC 0 /100 WBCS (0.0-0.0); Platelet Count 39 X 10*3/uL (140-440); RBC 2.34 X 10*6/uL (4.10-5.20); RDW 21.8 % (11.5-14.5); WBC 2.31 X 10*3/uL (4.50-10.00)
[2022-12-04 10:22] LABS: Basophils # (A) 0.02 X 10*3/uL (0.00-0.10); Basophils % (A) 0.9 %; Eosinophils # (A) 0 X 10*3/uL (0.04-0.35); Eosinophils % (A) 0 %; Immature Grans, Automated 0.4 %; Lymphocytes # (A) 1.01 X 10*3/uL (0.90-5.00); Lymphocytes % (A) 43.7 %; Monocytes # (A) 0.56 X 10*3/uL (0.20-1.00); Monocytes % (A) 24.2 %; Neutrophils # (A) 0.71 X 10*3/uL (1.80-7.70); Neutrophils % (A) 30.8 %
[2022-12-04 10:23] LABS: Acanthocytes 2+; Anisocytosis (M) 2+; Crenated RBC 2+; Elliptocytes 2+; Immature Platelet Fraction 11.8 % (1.1-6.1); Macrocytosis (M) 2+; Polychromasia 2+; Target Cells 2+
--- NOTE | 2022-12-04 11:13 | P.PN ---
Progress Note - Text Progress Note Date: 12/04/22 Patient resting comfortably bed. She has no significant placed. She's quite bowel prep. On exam vital signs are stable. Abdomen soft. The prep patient for EGD colonoscopy in the a.m.
[2022-12-04] MEDS: FOLIC ACID 1 MG TAB PO SCH (11:32)
--- NOTE | 2022-12-04 16:14 | P.PN ---
Subjective Progress Note Date: 12/04/22 Principal diagnosis: Bilateral lower extremity rash and question cellulitis Patient is a 72-year female with a past medical history significant for metastatic colon cancer on chemotherapy patient was brought into the ER last night for evaluation of change in mental status, patient also have a extensive rash to bilateral lower extremity and was a question of possible cellulitis. Patient apparently has developed bleeding per rectum and Gen. surgery has been consulted On today's evaluation that is 12/04/2022, The patient continues to be afebrile, the patient is breathing comfortably on room air, patient denies having any chest pain or shortness breath or cough , the patient denies any pain to the lower extremity and patient is currently undergoing prep for colonoscopy per surgery Objective - Vital Signs Vital signs: Vital Signs Temp 98.1 F 12/04/22 12:35 Pulse 65 12/04/22 12:35 Resp 16 12/04/22 12:35 BP 114/70 12/04/22 12:35 Pulse Ox 98 12/04/22 12:35 FiO2 21 12/04/22 08:32 Intake & Output 12/03/22 12/04/22 12/04/22 18:59 06:59 18:59 Intake Total 360 Output Total 1200 400 Balance -840 -400 Intake: Oral 360 Output: Urine 1200 400 Other: Voiding Method Toilet Toilet Toilet Bedside Commode Bedside Commode Bedside Commode # Voids 1 1 1 - Exam GENERAL DESCRIPTION: An elderly female lying in bed in no distress RESPIRATORY SYSTEM: Unlabored breathing , decreased breath sounds at bases HEART: S1 S2 regular rate and rhythm , ABDOMEN: Soft , no tenderness EXTREMITIES: Bilateral lower extremity currently wrapped with Cisco wrap, overall swelling redness has decreased no drainage - Labs CBC & Chem 7: 12/04/22 06:15 12/04/22 06:15 Labs: Abnormal Lab Results - Last 24 Hours (Table) 12/04/22 12/04/22 Range/Units 06:15 06:15 WBC 2.31 L (4.50-10.00) X 10*3/uL RBC 2.34 L (4.10-5.20) X 10*6/uL Hgb 7.9 L (12.0-15.0) g/dL Hct 24.7 L (37.2-46.3) % MCV 105.6 H (80.0-97.0) fL MCH 33.8 H (27.0-32.0) pg RDW 21.8 H (11.5-14.5) % Plt Count 39 L (140-440) X 10*3/uL Plt Count Comment DECREASED A Neutrophils # 0.71 L (1.80-7.70) X 10*3/uL Eosinophils # 0 L (0.04-0.35) X 10*3/uL Immature Plt Fraction 11.8 H (1.1-6.1) % Carbon Dioxide 28.0 H (20.0-27.5) mmol/L Anion Gap 7.80 L (10.00-18.00) mmol/L BUN 6.6 L (9.0-27.0) mg/dL BUN/Creatinine Ratio 7.48 L (12.00-20.00) Ratio Calcium 8.3 L (8.7-10.3) mg/dL Assessment and Plan (1) Bilateral lower leg cellulitis Current Visit: Yes Status: Acute Code(s): L03.116 - CELLULITIS OF LEFT LOWER LIMB; L03.115 - CELLULITIS OF RIGHT LOWER LIMB SNOMED Code(s): 611501170 Plan: 1patient presented to hospital with mental status changes more likely metabolic in this patient who do have a history of metastatic colon cancer on chemotherapy patient currently with no fever or elevated white count and does not look toxic. Patient did have a negative chest x-ray 2 -patient also have bilateral lower extremity swelling erythematous rash possibly related to her chemotherapy cellulitis less likely but not entirely excluded lower extremity Doppler were negative for DVT 3the patient lower extremity culture has been finalized with Pseudomonas aeruginosa and Enterococcus faecalis 4-patient has shown clinical improvement as for his lower extremities are concerned and will continue with the Zosyn, transition to oral antibiotics on discharge Time with Patient: Less than 30
[2022-12-04] MEDS: PIPERACILLIN-TAZOBACTAM 3.375 GM in SODIUM CHLORIDE 0.9% 100 ML IVPB SCH ×2 (17:15→23:30)
--- NOTE | 2022-12-04 21:45 | P.PN ---
Subjective Patient is a 72-year-old female, with diagnosis of colon cancer, status post chemotherapy, now undergoing oral chemotherapy with Xeloda, came to the hospital yesterday at 12:31 PM for altered mental status. Patient states that in the past 6 weeks she has developed rapidly progressive swelling of bilateral lower extremity, which has now become very red, started oozing. She states her both legs are affected, there is swollen, wet and sore. It is progressively getting worse. She is not able to walk, cannot get out of bed, cannot do anything. In the last 3 days she has developed altered mental status, which she states came "all of a sudden", as she did not know the date or where she was. She couldn't get up on her own. Her has to help her with everything.Patient denies any stroke symptoms. Patient admits to having bifrontal headache 4/10 and Tylenol helps. She states that she is often prone to get headache and Tylenol usually helps, and this headache is not new. Patient says that she was diagnosed with colon cancer in March 2022. She underwent 6 rounds of IV chemotherapy. Now she is on oral chemotherapy regimen with Xeloda. It is a 15 gait regimen, off for 6 days and then repeat course for 15 days. She has compl eted 3/4 cycles. Patient does not know the stage of her cancer. Her vital signs on arrival blood pressure 138/57, pulse rate 101, temperature 97.4. She has been afebrile. Blood tests shows normal WBC hemoglobin 7.9, platelets 76, which is low. MCV is significantly elevated 112. PT/PTT is johnson l, sodium 134, potassium is normal, renal functions normal. Lactate was 2.8, which went up to 4.3. AST is elevated 79, ALT normal 31. Ammonia is <9. Patient underwent computed tomography scan of the head, which was normal. I personally reviewed CT head, agree with the findings. EKG shows sinus rhythm. Venous Doppler negative for DVT. CT of abdomen and pelvis revealed rectal stent. Enlarged left lateral pelvic lymph node slightly increased compared to the old exam. Diffuse subcutaneous edema. On mental caking consistent with metastatic disease and similar to the old exam. There is tiny amount of abdominal ascites fluid which is new compared to old exam. Bilateral pleural effusion and basilar atelectasis increased compared to old exam. 12/01/2022 This is a pleasant 72 years old female who presents with confusion and leg cellulitis and clinically is improving. Today she was sitting in chair fully awake and oriented and mentation is back to baseline, she has insight into her illness, she follows commands, she feels improving and she wants to be considered for discharge today or tomorrow. Her both legs are wrapped in Cisco bandage. She tolerated diet well, she is walking to the bathroom with no difficulty. Patient is been followed by several consultants including hematology/oncology, neurology, and infectious disease team. Patient is currently covered with Zosyn for her bilateral lower extremity cellulitis which is also thought secondary to chemotherapy as well as infection, culture is growing Pseudomonas and enterococcus faecalis, she is covered with Zosyn with recommendation to be discharged on Augmentin and Cipro 7 days per ID team Also she has mild hyperthyroidism and she was started on levothyroxine 25 g, patient wears and she was instructed to recheck her thyroid function tests in 4- 6 weeks. Also MRI of the brain was suspicious for left temporal lobe increased signal which is thought chronic ischemia however neurologist is consistent also possibility of metastasis and recommended to repeat MRI of the brain in 1-2 months. She is known history of obesity: Cancer undergoing chemotherapy with possible metastasis to the lung, liver and omentum however repeat CAT scan showing no progressive disease. Overall patient is clinically improving and expected her to be discharged in 2448 hrs. 12/02/2022 Patient reports bleeding per rectum to, hemoglobin is stable 9.3 but patient with evidence of pancytopenia, platelet 55, we held aspirin and Plavix and consult to surgery team murmurs obtained recommended to keep holding aspirin and Plavix and plan for EGD/colonoscopy on Monday on 12/05. Patient still stressed for Zosyn for her bilateral cellulitis and improving slowly and gradually. Then the patient awakened alert and denies abdominal pain and symptoms. Patient states that she takes Zoloft since last April because she was not sure why she is taking it, I explained to the patient she'll be at higher risk of thrombosis and stroke while she is off his aspirin and she agrees with the plan. 12/03/2022 Patient pleasant that looks comfortable in bed, she denies abdominal pain. No more episodes of blood per rectum or blood in stool or black stool. No other new complaint xarelto And aspirin remains on hold, risk of thrombosis and stroke are explained for the patient and she verbalized understanding and acceptance to keep holding this medication. Hemoglobin dropped today to 7.9 but also she has evidence of pancytopenia she remains on Zosyn Plan for EGD/colonoscopy on Monday for GI bleed. I talked to the patient and with a recommendation of the neurologist to check MRI of the brain in 1-2 months total of metastasis and both verbalized understanding and acceptance 12/04/2022 Patient clinically looks the same pleasant and relaxed with no new complaints, no more bleeding per rectum or GI bleed, no black stool. She is hemodynamically stable looks similar to yesterday, she still pancytopenia but platelet count is significantly trending down to 39,000 today compared to 44,000 yesterday. However patient aspirin and Xarelto are both on hold for GI bleed Patient is planned for colonoscopy/EGD by surgery team tomorrow We would recommend to clear the patient by both Gen. surgery team after the procedure tomorrow (for GI bleed) by hematology/oncology team (for thrombocytopenia) before resuming patient Xarelto and aspirin Objective - Vital Signs Vital signs: Vital Signs Temp 98.4 F 12/04/22 07:45 Pulse 70 12/04/22 08:20 Resp 15 12/04/22 08:20 BP 125/69 12/04/22 07:45 Pulse Ox 96 12/04/22 08:32 FiO2 21 12/04/22 08:32 Intake & Output 12/03/22 12/04/22 12/04/22 18:59 06:59 18:59 Intake Total 360 Output Total 1200 400 Balance -840 -400 Intake: Oral 360 Output: Urine 1200 400 Other: Voiding Method Toilet Toilet Toilet Bedside Commode Bedside Commode Bedside Commode # Voids 1 1 1 - Exam GENERAL: The patient is alert and oriented x3, not in any acute distress. Well developed, well nourished. HEENT: Pupils are round and equally reacting to light. EOMI. No scleral icterus. No conjunctival pallor. Normocephalic, atraumatic. No pharyngeal erythema. No thyromegaly. CARDIOVASCULAR: S1 and S2 present. No murmurs, rubs, or gallops. PULMONARY: Chest is clear to auscultation, no wheezing or crackles. ABDOMEN: Soft, nontender, nondistended, normoactive bowel sounds. No palpable organomegaly. MUSCULOSKELETAL: No joint swelling or deformity. -EXTREMITIES: No cyanosis, clubbing, or pedal edema. Bilateral rash and cellulitis, with Cisco wrap in place NEUROLOGICAL: Gross neurological examination did not reveal any focal deficits. SKIN: No rashes. no petechiae. - Labs CBC & Chem 7: 12/04/22 06:15 12/04/22 06:15 Labs: Abnormal Lab Results - Last 24 Hours (Table) 12/04/22 12/04/22 Range/Units 06:15 06:15 WBC 2.31 L (4.50-10.00) X 10*3/uL RBC 2.34 L (4.10-5.20) X 10*6/uL Hgb 7.9 L (12.0-15.0) g/dL Hct 24.7 L (37.2-46.3) % MCV 105.6 H (80.0-97.0) fL MCH 33.8 H (27.0-32.0) pg RDW 21.8 H (11.5-14.5) % Plt Count 39 L (140-440) X 10*3/uL Plt Count Comment DECREASED A Neutrophils # 0.71 L (1.80-7.70) X 10*3/uL Eosinophils # 0 L (0.04-0.35) X 10*3/uL Immature Plt Fraction 11.8 H (1.1-6.1) % Carbon Dioxide 28.0 H (20.0-27.5) mmol/L Anion Gap 7.80 L (10.00-18.00) mmol/L BUN 6.6 L (9.0-27.0) mg/dL BUN/Creatinine Ratio 7.48 L (12.00-20.00) Ratio Calcium 8.3 L (8.7-10.3) mg/dL Assessment and Plan Assessment: Bilateral Cellulitis and rash of lower extremities. Secondary to enterococcus pseudomonas and secondary to chemotherapy Capcetiban as per oncologist who follow the pt closely Possible GI bleed with bleeding per rectum Acute toxic/Metabolic encephalopathy. Completely resolved and patient back to baseline Pancytopenia most likely secondary to chemotherapy Metastatic Colon cancer to the liver lung and omentum, computed tomography scan showing no progressive disease Left temporal lobe increased signal suspected chronic ischemia versus metastatic disease, needs outpatient follow-up Hypertension Hyperlipidemia Dermatitis Hypothyroidism Plan: Continue with antibiotics as per ID team, currently on Zosyn with plan to di scharge him on Cipro and Augmentin 7 days Hold aspirin and xarelto , surgical team consult with plan for EGD/colonoscopy on Tuesday 12/05. Also platelet count is low today which might be contraindication to resume blood thinner. We recommend to check with surgery team after EGD/colonoscopy and with h ematology team for thrombocytopenia prior to resuming her aspirin and Xarelto Recommend to repeat thyroid function tests in 4-6 weeks, currently continue with levothyroxine 25 g Recommend repeat MRI of the brain in 1-2 months (to tule out metastatic disease). per Neurologist. This recommendation is provided to the patient and at bedside and verbalized understanding and acceptance Neurology service signed off the case Hematology/oncology team consult on the case Labs and medication were reviewed.. Continue same treatment. Continue with symptomatic treatment. Resume home medication. Monitor labs and vitals. DVT and GI prophylaxis. Further recommendations as per clinical course of the patient DVT prophylaxis: xdarelto (on hold), continue mechanical GI Prophylaxis: Ppi Prognosis is guarded
[2022-12-05] MEDS: SODIUM CHLORIDE 0.9% 1,000 ML IV SCH ×2 (05:33→17:50)
[2022-12-05] MEDS: LEVOTHYROXINE 25 MCG TAB PO SCH (06:07)
[2022-12-05 09:29] LABS: Anion Gap 8.1 mmol/L (10.00-18.00); Blood Urea Nitrogen 5.6 mg/dL (9.0-27.0); Carbon Dioxide 26.9 mmol/L (20.0-27.5); Non-African American GFR(CKD) 74.2 (60.0-200.0); Potassium 3.9 mmol/L (3.5-5.5)
[2022-12-05 09:45] LABS: Basophils # (A) 0.02 X 10*3/uL (0.00-0.10); Basophils % (A) 0.8 %; Eosinophils # (A) 0 X 10*3/uL (0.04-0.35); Eosinophils % (A) 0 %; HCT 23.9 % (37.2-46.3); HGB 7.8 g/dL (12.0-15.0); Immature Grans, Automated 0.4 %; Immature Platelet Fraction 10.1 % (1.1-6.1); Lymphocytes # (A) 0.95 X 10*3/uL (0.90-5.00); Lymphocytes % (A) 39.9 %; MCH 34.7 pg (27.0-32.0); MCHC 32.6 g/dL (32.0-37.0); MCV 106.2 fL (80.0-97.0); Mean Platelet Volume 13.2 fL (9.5-12.2); Monocytes # (A) 0.48 X 10*3/uL (0.20-1.00); Monocytes % (A) 20.2 %; NRBC Per 100 WBC 0 /100 WBCS (0.0-0.0); Neutrophils # (A) 0.92 X 10*3/uL (1.80-7.70); Neutrophils % (A) 38.7 %; Platelet Count 37 X 10*3/uL (140-440); RBC 2.25 X 10*6/uL (4.10-5.20); RDW 21.5 % (11.5-14.5); WBC 2.38 X 10*3/uL (4.50-10.00)
[2022-12-05] MEDS: FOLIC ACID 1 MG TAB PO SCH (10:21)
[2022-12-05] MEDS: PANTOPRAZOLE 40 MG TABLET PO SCH ×2 (10:21→17:38)
[2022-12-05] MEDS: ATORVASTATIN 40 MG TAB PO SCH (10:21)
[2022-12-05] MEDS: ESCITALOPRAM 20 MG TAB PO SCH (10:21)
[2022-12-05] MEDS: METOPROLOL TARTRATE 50 MG TAB PO SCH ×3 (10:21→21:25)
[2022-12-05] MEDS: amLODIPine 5 MG TAB PO SCH (10:21)
[2022-12-05] MEDS: PIPERACILLIN-TAZOBACTAM 3.375 GM in SODIUM CHLORIDE 0.9% 100 ML IVPB SCH ×3 (10:22→23:42)
[2022-12-05] MEDS: POTASSIUM CHLORIDE ER 10 MEQ TAB.ER.PRT PO SCH ×2 (10:22→21:25)
[2022-12-05] MEDS: MULTIVITAMINS, THERA 1 EACH TAB PO SCH (10:22)
[2022-12-05] MEDS: SILVER sulfADIAZINE Cream 400 GM 1 APPLIC APPLIC TOPICAL SCH ×2 (10:23→21:26)
[2022-12-05] MEDS: THIAMINE 100 MG TAB PO SCH (10:23)
[2022-12-05] MEDS: FUROSEMIDE 20 MG TAB PO SCH ×3 (10:26→17:38)
--- NOTE | 2022-12-05 16:06 | P.PN ---
Subjective Progress Note Date: 12/05/22 Principal diagnosis: Cellulitis. Metastatic colon cancer on treatment. In follow-up patient skin on her legs is feeling much better, less painful, she can walk now, the lesions are drying up, significantly less drainage. Patient is scheduled for an EGD/colonoscopy for bright red blood per rectum. She denies any other bleeding. Objective - Vital Signs Vital signs: Vital Signs Temp 98.4 F 12/05/22 12:44 Pulse 72 12/05/22 12:44 Resp 18 12/05/22 12:44 BP 108/59 12/05/22 12:44 Pulse Ox 98 12/05/22 12:44 FiO2 21 12/04/22 08:32 Intake & Output 12/04/22 12/05/22 12/05/22 18:59 06:59 18:59 Intake Total 240 Output Total 1200 Balance -960 Intake: Oral 240 Output: Urine 1200 Other: Voiding Method Toilet Toilet Bedside Commode Bedside Commode # Voids 1 # Bowel Movements 3 2 - Constitutional General appearance: Present: average body habitus, cooperative, no acute dist ress - EENT Eyes: Present: anicteric sclerae, EOMI ENT: Present: hearing grossly normal, normal oropharynx (Dry mucous membranes) - Respiratory Respiratory: bilateral: diminished - Cardiovascular Rhythm: regular Heart sounds: normal: S1, S2 Abnormal Heart Sounds: Absent: systolic murmur, diastolic murmur, rub, S3 Gallop, S4 Gallop, click, other - Peripheral edema leg Peripheral Edema: bilateral: 1+ - Gastrointestinal General gastrointestinal: Present: normal bowel sounds, soft - Integumentary Integumentary Comment(s): Bilateral lower extremities, up to the hips, massive number of scabbed lesions, very dry skin, redness, majority of the legs are wrapped in Cisco bandages, significant less draining, less painful to the touch - Neurologic Neurologic: Present: CNII-XII intact - Psychiatric Psychiatric: Present: A&O x's 3, appropriate affect, intact judgment & insight - Labs CBC & Chem 7: 12/05/22 03:51 12/05/22 03:51 Labs: Abnormal Lab Results - Last 24 Hours (Table) 12/05/22 12/05/22 Range/Units 03:51 03:51 WBC 2.38 L (4.50-10.00) X 10*3/uL RBC 2.25 L (4.10-5.20) X 10*6/uL Hgb 7.8 L (12.0-15.0) g/dL Hct 23.9 L (37.2-46.3) % MCV 106.2 H (80.0-97.0) fL MCH 34.7 H (27.0-32.0) pg RDW 21.5 H (11.5-14.5) % Plt Count 37 L (140-440) X 10*3/uL MPV 13.2 H (9.5-12.2) fL Neutrophils # 0.92 L (1.80-7.70) X 10*3/uL Eosinophils # 0 L (0.04-0.35) X 10*3/uL Immature Plt Fraction 10.1 H (1.1-6.1) % Anion Gap 8.10 L (10.00-18.00) mmol/L BUN 5.6 L (9.0-27.0) mg/dL BUN/Creatinine Ratio 7.00 L (12.00-20.00) Ratio Calcium 8.0 L (8.7-10.3) mg/dL Assessment and Plan (1) Pancytopenia due to antineoplastic chemotherapy Current Visit: Yes Status: Acute Code(s): D61.810 - ANTINEOPLASTIC CHEMOTHERAPY INDUCED PANCYTOPENIA; T45.1X5A - ADVERSE EFFECT OF ANTINEOPLASTIC AND IMMUNOSUP DRUGS, INIT SNOMED Code(s): 717073948803202 (2) Altered mental status Current Visit: Yes Status: Acute Priority: High Code(s): R41.82 - ALTERED MENTAL STATUS, UNSPECIFIED SNOMED Code(s): 418336408 (3) Bilateral lower leg cellulitis Current Visit: Yes Status: Acute Code(s): L03.116 - CELLULITIS OF LEFT LOWER LIMB; L03.115 - CELLULITIS OF RIGHT LOWER LIMB SNOMED Code(s): 472629939 (4) H/O colon cancer, stage IV Current Visit: Yes Status: Acute Priority: High Code(s): Z85.038 - PERSONAL HISTORY OF MALIGNANT NEOPLASM OF LARGE INTESTINE SNOMED Code(s): 595279071 Plan: Metastatic colon adenocarcinoma -Coumadin held due to acute infection -Pseudomonas and enterococcus growth from the leg wounds. ID is following. On antibiotics -Dermatitis, Generalized. Secondary to treatment? On antibiotics. Improving. Altered mental status -MRI of the brain report reviewed, recommendation for follow-up in a few months. Patient's mental status is improving since admission. -Patient doing much better with hydration and treatment of infection Bright red blood per rectum -EGD and colonoscopy ordered for bright red blood per rectum. Patient is doing prep. Procedures tomorrow. Hemoglobin stable today. Pancytopenia -Secondary to treatment with superimposed infection. -Transfuse for hemoglobin less than 7, platelets less than 10,000 or if patient is symptomatic. Patient has not required transfusion this admission. WBC low but adequate at 2.3, ANC is 920. CBC daily with differential. attests: I seen and examined patient, performed H&P, developed impression and plan of care. Discussed with dictator. Agree with documentation, dictated as a scribe
[2022-12-05] MEDS ORDERED: PROPOFOL 10 MG/ML 20 ML VIAL IV ONE (16:28)
[2022-12-05] MEDS ORDERED: IV FLUID CONTINUATION 1,000 ML IV ONE ×2 (16:37)
--- NOTE | 2022-12-05 16:52 | P.OP ---
Date of Procedure: 12/05/22 Description of Procedure: Patient's placed on the endoscopy table in the lateral position. She received IV sedation. The gastro-/oropharynx passed in the esophagus and stomach. Scope was placed through the pylorus. The first and second portion duodenum appeared normal. Scope was brought back the antrum this appeared normal. Scope was unretroflexed patient had PEG tube in place. The bolster. To be in appropriate position. The GE junction was at 40 cm the distal esophagus appeared normal. Proximal esophagus. Scope withdrawn for patient. There is no evidence of any active upper GI bleed. Next digital rectal exam was performed. This revealed large amount liquid stool and external hemorrhoids. The flexible colonoscope was then placed patient anus. The flexible colonoscope was then advanced throughout the colon. There was a rectal stent seen. There is some minimal bleeding seen at the rectal stump. The flexible colonoscope was then placed through the area the rectal stent and then into the transverse colon. Scope withdrawn. Advanced beyond this due to poor colon prep. The large amount liquid stool. Scope withdrawn. The visualized transverse colon, descending colon and sigmoid colon appeared normal. The area the rectal stent had a small amount of bleeding seen. The sco pe was then brought back the distal rectum this appeared normal. Scope withdrawn for patient. Presumed the patient had bleeding from her rectal stent. The patient will need to stop blood thinners.
--- NOTE | 2022-12-05 19:05 | P.PN ---
Subjective Progress Note Date: 12/05/22 Principal diagnosis: Bilateral lower extremity rash and question cellulitis Patient is a 72-year female with a past medical history significant for metastatic colon cancer on chemotherapy patient was brought into the ER last night for evaluation of change in mental status, patient also have a extensive rash to bilateral lower extremity and was a question of possible cellulitis. Patient apparently has developed bleeding per rectum and Gen. surgery has been consulted On today's evaluation that is 12/05/2022, the patient remains to be afebrile, the patient is breathing comfortably on room air, patient denies having any chest pain or shortness of breath or cough no abdominal pain or pain to the left lower extremity Objective - Vital Signs Vital signs: Vital Signs Temp 97.9 F 12/05/22 07:26 Pulse 74 12/05/22 07:26 Resp 16 12/05/22 07:26 BP 113/62 12/05/22 07:26 Pulse Ox 97 12/05/22 09:06 FiO2 21 12/04/22 08:32 Intake & Output 12/04/22 12/05/22 12/05/22 18:59 06:59 18:59 Intake Total 240 Output Total 1200 Balance -960 Intake: Oral 240 Output: Urine 1200 Other: Voiding Method Toilet Toilet Bedside Commode Bedside Commode # Voids 1 # Bowel Movements 3 2 - Exam GENERAL DESCRIPTION: An elderly female lying in bed in no distress RESPIRATORY SYSTEM: Unlabored breathing , decreased breath sounds at bases HEART: S1 S2 regular rate and rhythm , ABDOMEN: Soft , no tenderness EXTREMITIES: Bilateral lower extremity currently wrapped with Cisco wrap, overall swelling redness has decreased no drainage - Labs CBC & Chem 7: 12/05/22 03:51 12/05/22 03:51 Labs: Abnormal Lab Results - Last 24 Hours (Table) 12/05/22 12/05/22 Range/Units 03:51 03:51 WBC 2.38 L (4.50-10.00) X 10*3/uL RBC 2.25 L (4.10-5.20) X 10*6/uL Hgb 7.8 L (12.0-15.0) g/dL Hct 23.9 L (37.2-46.3) % MCV 106.2 H (80.0-97.0) fL MCH 34.7 H (27.0-32.0) pg RDW 21.5 H (11.5-14.5) % Plt Count 37 L (140-440) X 10*3/uL MPV 13.2 H (9.5-12.2) fL Neutrophils # 0.92 L (1.80-7.70) X 10*3/uL Eosinophils # 0 L (0.04-0.35) X 10*3/uL Immature Plt Fraction 10.1 H (1.1-6.1) % Anion Gap 8.10 L (10.00-18.00) mmol/L BUN 5.6 L (9.0-27.0) mg/dL BUN/Creatinine Ratio 7.00 L (12.00-20.00) Ratio Calcium 8.0 L (8.7-10.3) mg/dL Assessment and Plan (1) Bilateral lower leg cellulitis Current Visit: Yes Status: Acute Code(s): L03.116 - CELLULITIS OF LEFT LOWER LIMB; L03.115 - CELLULITIS OF RIGHT LOWER LIMB SNOMED Code(s): 448540488 Plan: 1patient presented to hospital with mental status changes more likely metabolic in this patient who do have a history of metastatic colon cancer on chemotherapy patient currently with no fever or elevated white count and does not look toxic. Patient did have a negative chest x-ray 2 -patient also have bilateral lower extremity swelling erythematous rash possibly related to her chemotherapy cellulitis less likely but not entirely excluded lower extremity Doppler were negative for DVT 3the patient lower extremity culture has been finalized with Pseudomonas aeruginosa and Enterococcus faecalis 4patient to continue with the Zosyn for her left lower extremity cellulitis in this patient seem to have shown clinical improvement and monitor clinical course closely Time with Patient: Less than 30
--- NOTE | 2022-12-05 20:35 | P.PN ---
Subjective Progress Note Date: 12/05/22 Patient is a 72-year-old female, with diagnosis of colon cancer, status post chemotherapy, now undergoing oral chemotherapy with Xeloda, came to the hospital yesterday at 12:31 PM for altered mental status. Patient states that in the past 6 weeks she has developed rapidly progressive swelling of bilateral lower extremity, which has now become very red, started oozing. She states her both legs are affected, there is swollen, wet and sore. It is progressively getting worse. She is not able to walk, cannot get out of bed, cannot do anything. In the last 3 days she has developed altered mental status, which she states came "all of a sudden", as she did not know the date or where she was. She couldn't get up on her own. Her has to help her with everything.Patient denies any stroke symptoms. Patient admits to having bifrontal headache 4/10 and Tylenol helps. She states that she is often prone to get headache and Tylenol usually helps, and this headache is not new. Patient says that she was diagnosed with colon cancer in March 2022. She underwent 6 rounds of IV chemotherapy. Now she is on oral chemotherapy regimen with Xeloda. It is a 15 gait regimen, off for 6 days and then repeat course for 15 days. She has completed 3/4 cycles. Patient does not know the stage of her cancer. Her vital signs on arrival blood pressure 138/57, pulse rate 101, temperature 97.4. She has been afebrile. Blood tests shows normal WBC hemoglobin 7.9, platelets 76, which is low. MCV is significantly elevated 112. PT/PTT is normal, sodium 134, potassium is normal, renal functions normal. Lactate was 2.8, which went up to 4.3. AST is elevated 79, ALT normal 31. Ammonia is <9. Patient underwent computed tomography scan of the head, which was normal. I personally reviewed CT head, agree with the findings. EKG shows sinus rhythm. Venous Doppler negative for DVT. CT of abdomen and pelvis revealed rectal stent. Enlarged left lateral pelvic lymph node slightly increased compared to the old exam. Diffuse subcutaneous edema. On mental caking consistent with metastatic disease and similar to the old exam. There is tiny amount of abdominal ascites fluid which is new compared to old exam. Bilateral pleural effusion and basilar atelectasis increased compared to old exam. 12/01/2022 This is a pleasant 72 years old female who presents with confusion and leg cellulitis and clinically is improving. Today she was sitting in chair fully awake and oriented and mentation is back to baseline, she has insight into her illness, she follows commands, she feels improving and she wants to be considered for discharge today or tomorrow. Her both legs are wrapped in Cisco bandage. She tolerated diet well, she is walking to the bathroom with no difficulty. Patient is been followed by several consultants including hematology/oncology, neurology, and infectious disease team. Patient is currently covered with Zosyn for her bilateral lower extremity cellulitis which is also thought secondary to chemotherapy as well as infection, culture is growing Pseudomonas and enterococcus faecalis, she is covered with Zosyn with recommendation to be discharged on Augmentin and Cipro 7 days per ID team Also she has mild hyperthyroidism and she was started on levothyroxine 25 g, patient wears and she was instructed to recheck her thyroid function tests in 4- 6 weeks. Also MRI of the brain was suspicious for left temporal lobe increased signal which is thought chronic ischemia however neurologist is consistent also possibility of metastasis and recommended to repeat MRI of the brain in 1-2 months. She is known history of obesity: Cancer undergoing chemotherapy with possible metastasis to the lung, liver and omentum however repeat CAT scan showing no progressive disease. Overall patient is clinically improving and expected her to be discharged in 2448 hrs. 12/02/2022 Patient reports bleeding per rectum to, hemoglobin is stable 9.3 but patient with evidence of pancytopenia, platelet 55, we held aspirin and Plavix and consult to surgery team murmurs obtained recommended to keep holding aspirin and Plavix and plan for EGD/colonoscopy on Monday on 12/05. Patient still stressed for Zosyn for her bilateral cellulitis and improving slowly and gradually. Then the patient awakened alert and denies abdominal pain and symptoms. Patient states that she takes Zoloft since last April because she was not sure why she is taking it, I explained to the patient she'll be at higher risk of thrombosis and stroke while she is off his aspirin and she agrees with the plan. 12/03/2022 Patient pleasant that looks comfortable in bed, she denies abdominal pain. No more episodes of blood per rectum or blood in stool or black stool. No other new complaint xarelto And aspirin remains on hold, risk of thrombosis and stroke are explained for the patient and she verbalized understanding and acceptance to keep holding this medication. Hemoglobin dropped today to 7.9 but also she has evidence of pancytopenia she remains on Zosyn Plan for EGD/colonoscopy on Monday for GI bleed. I talked to the patient and with a recommendation of the neurologist to check MRI of the brain in 1-2 months total of metastasis and both verbalized understanding and acceptance 12/04/2022 Patient clinically looks the same pleasant and relaxed with no new complaints, no more bleeding per rectum or GI bleed, no black stool. She is hemodynamically stable looks similar to yesterday, she still pancytopenia but platelet count is significantly trending down to 39,000 today compared to 44,000 yesterday. However patient aspirin and Xarelto are both on hold for GI bleed Patient is planned for colonoscopy/EGD by surgery team tomorrow We would recommend to clear the patient by both Gen. surgery team after the procedure tomorrow (for GI bleed) by hematology/oncology team (for thrombo cytopenia) before resuming patient Xarelto and aspirin 12/05/2022 Patient is seen and evaluated in follow-up today currently nothing by mouth she reports general surgery is following and being scheduled for EGD colonoscopy. Aspirin and Xarelto remain on hold with hematology, general surgery, infectious disease following. Patient is continued on IV antibiotics in the form of Zosyn per ID recommendations for bilateral lower extremity cellulitis. Patient with weakness and would recommend physical therapy evaluation. Will await surgical report. Review of systems: Constitutional: reports of fatigue, no fever, or chills Cardiovascular: No reports of chest pain or palpitations Respiratory: No reports of shortness of breath or cough GI: No reports of nausea, vomiting, or diarrhea : No reports of dysuria or retention Neurovascular: reports of weakness All medications have been reviewed Active Medications Acetaminophen (Acetaminophen Tab 325 Mg Tab) 650 mg PO Q6HR PRN PRN Reason: Mild Pain or Fever > 100.5 Last Admin: 12/03/22 22:11 Dose: 650 mg Amlodipine Besylate (Amlodipine 5 Mg Tab) 5 mg PO DAILY [facility] Last Admin: 12/05/22 10:21 Dose: 5 mg Atorvastatin Calcium (Atorvastatin 40 Mg Tab) 40 mg PO DAILY [facility] Last Admin: 12/05/22 10:21 Dose: 40 mg Cholestyramine Resin (Cholestyramine (With Sugar) 4 Gm Packet) 4 gm PO HS PRN PRN Reason: Diarrhea Escitalopram Oxalate (Escitalopram 20 Mg Tab) 20 mg PO DAILY [facility] Last Admin: 12/05/22 10:21 Dose: 20 mg Folic Acid (Folic Acid 1 Mg Tab) 1 mg PO DAILY@1200 [facility] Last Admin: 12/05/22 10:21 Dose: 1 mg Furosemide (Furosemide 20 Mg Tab) 20 mg PO AC-TID [facility] Last Admin: 12/05/22 17:38 Dose: 20 mg Gabapentin (Gabapentin 100 Mg Cap) 200 mg PO HS PRN PRN Reason: Pain Sodium Chloride (Saline 0.9%) 1,000 mls @ 75 mls/hr IV .[id number] [facility] Last Admin: 12/05/22 17:50 Dose: Not Given Piperacillin Sod/Tazobactam (Sod 3.375 gm/ Sodium Chloride) 100 mls @ 25 mls/hr IVPB Q8HR [facility]; Protocol Last Admin: 12/05/22 16:12 Dose: 25 mls/hr Levothyroxine Sodium (Levothyroxine 25 Mcg Tab) 25 mcg PO DAILY@0630 [facility] Last Admin: 12/05/22 06:07 Dose: 25 mcg Metoprolol Tartrate (Metoprolol Tartrate 50 Mg Tab) 50 mg PO TID [facility] Last Admin: 12/05/22 16:14 Dose: Not Given Multivitamins (Multivitamins, Thera 1 Each Tab) 1 each PO DAILY [facility] Last Admin: 12/05/22 10:22 Dose: Not Given Naloxone HCl (Naloxone 0.4 Mg/Ml 1 Ml Vial) 0.2 mg IV Q2M PRN PRN Reason: Opioid Reversal Nitroglycerin (Nitroglycerin Sl Tabs 0.4 Mg Tab) 0.4 mg SUBLINGUAL Q5M PRN PRN Reason: Chest Pain Ondansetron HCl (Ondansetron 4 Mg Tab) 8 mg PO Q6H PRN PRN Reason: Nausea Oxycodone HCl (Oxycodone Hcl 5 Mg Tab) 2.5 mg PO Q8H PRN PRN Reason: Moderate to Severe Pain (4-10) Pantoprazole Sodium (Pantoprazole 40 Mg Tablet) 40 mg PO AC-BID [facility] Last Admin: 12/05/22 17:38 Dose: 40 mg Potassium Chloride (Potassium Chloride Er 10 Meq Tab.Er.Prt) 10 meq PO BID [facility] Last Admin: 12/05/22 10:22 Dose: 10 meq Silver Sulfadiazine (Silver Sulfadiazine Cream 400 Gm 1 Applic Applic) 1 applic TOPICAL BID [facility]; Protocol Last Admin: 12/05/22 10:23 Dose: 1 applic Thiamine HCl (Thiamine 100 Mg Tab) 100 mg PO DAILY@1200 [facility] Last Admin: 12/05/22 10:23 Dose: Not Given Physical exam: GENERAL: The patient is alert and oriented x3, not in any acute distress. Well developed, well nourished. HEENT: Pupils are round and equally reacting to light. EOMI. No scleral icterus. No conjunctival pallor. Normocephalic, atraumatic. No pharyngeal erythema. No thyromegaly. CARDIOVASCULAR: S1 and S2 present. No murmurs, rubs, or gallops. PULMONARY: Chest is clear to auscultation, no wheezing or crackles. ABDOMEN: Soft, nontender, nondistended, normoactive bowel sounds. No palpable organomegaly. MUSCULOSKELETAL: No joint swelling or deformity. -EXTREMITIES: No cyanosis, clubbing, or pedal edema. Bilateral rash and cellulitis, with Cisco wrap in place NEUROLOGICAL: Gross neurological examination did not reveal any focal deficits. SKIN: No rashes. no petechiae. Assessment: Bilateral Cellulitis and rash of lower extremities. Secondary to enterococcus pseudomonas and secondary to chemotherapy Capcetiban as per oncologist who follow the pt closely Possible GI bleed with bleeding per rectum Acute toxic/Metabolic encephalopathy. Completely resolved and patient back to baseline Pancytopenia most likely secondary to chemotherapy Metastatic Colon cancer to the liver lung and omentum, computed tomography scan showing no progressive disease Left temporal lobe increased signal suspected chronic ischemia versus metastatic disease, needs outpatient follow-up Hypertension Hyperlipidemia Dermatitis Hypothyroidism Plan: Continue with antibiotics as per ID team, currently on Zosyn with plan to discharge home on Cipro and Augmentin 7 days Hold aspirin and xarelto , surgical team consult planning for EGD/colonoscopy this afternoon. Will await report We recommend to check with surgery team after EGD/colonoscopy and with hematology team for thrombocytopenia prior to resuming her aspirin and Xarelto Recommend to repeat thyroid function tests in 4-6 weeks, currently continue with levothyroxine 25 g Recommend repeat MRI of the brain in 1-2 months (to rule out metastatic disease). per Neurologist. This recommendation is provided to the patient and at bedside and verbalized understanding and acceptance Neurology service has signed off the case Hematology/oncology team consult on the case and will discuss further about discharge planning GI Prophylaxis: Ppi Will follow-up with repeat labs in the a.m. and discuss with consultations about possible discharge in the next 24-48 hours Due to multiple complex medical issues, prognosis is guarded The impression and plan of care has been dictated by Gill Riley, Nurse Practitioner as directed. Dr. Oral MD I have performed a history and examination and MDM of this patient, discussed the same with the dictator, and agree with the dictator's assessment and plan as written ,documented as a scribe. Based on total visit time, I have performed more than 50% of the visit. Objective - Vital Signs Vital signs: Vital Signs Temp 98.7 F 12/05/22 19:03 Pulse 81 12/05/22 19:03 Resp 18 12/05/22 19:03 BP 111/61 12/05/22 19:03 Pulse Ox 99 12/05/22 19:03 FiO2 21 12/04/22 08:32 Intake & Output 12/05/22 12/05/22 12/06/22 06:59 18:59 06:59 Intake Total 100 Balance 100 Intake: IV 100 Other: Voiding Method Toilet Bedside Commode # Voids 3 1 # Bowel Movements 2 - Labs CBC & Chem 7: 12/05/22 03:51 12/05/22 03:51 Labs: Abnormal Lab Results - Last 24 Hours (Table) 12/05/22 12/05/22 Range/Units 03:51 03:51 WBC 2.38 L (4.50-10.00) X 10*3/uL RBC 2.25 L (4.10-5.20) X 10*6/uL Hgb 7.8 L (12.0-15.0) g/dL Hct 23.9 L (37.2-46.3) % MCV 106.2 H (80.0-97.0) fL MCH 34.7 H (27.0-32.0) pg RDW 21.5 H (11.5-14.5) % Plt Count 37 L (140-440) X 10*3/uL MPV 13.2 H (9.5-12.2) fL Neutrophils # 0.92 L (1.80-7.70) X 10*3/uL Eosinophils # 0 L (0.04-0.35) X 10*3/uL Immature Plt Fraction 10.1 H (1.1-6.1) % Anion Gap 8.10 L (10.00-18.00) mmol/L BUN 5.6 L (9.0-27.0) mg/dL BUN/Creatinine Ratio 7.00 L (12.00-20.00) Ratio Calcium 8.0 L (8.7-10.3) mg/dL
[2022-12-05] MEDS: ACETAMINOPHEN TAB 325 MG TAB PO PRN (21:33)
[2022-12-06] MEDS: LEVOTHYROXINE 25 MCG TAB PO SCH (05:56)
[2022-12-06] MEDS: SODIUM CHLORIDE 0.9% 1,000 ML IV SCH (05:56)
[2022-12-06] MEDS: SILVER sulfADIAZINE Cream 400 GM 1 APPLIC APPLIC TOPICAL SCH (09:06)
[2022-12-06] MEDS: ATORVASTATIN 40 MG TAB PO SCH (09:07)
[2022-12-06] MEDS: amLODIPine 5 MG TAB PO SCH (09:07)
[2022-12-06] MEDS: PANTOPRAZOLE 40 MG TABLET PO SCH (09:07)
[2022-12-06] MEDS: FUROSEMIDE 20 MG TAB PO SCH ×2 (09:07→11:53)
[2022-12-06] MEDS: METOPROLOL TARTRATE 50 MG TAB PO SCH (09:07)
[2022-12-06] MEDS: ESCITALOPRAM 20 MG TAB PO SCH (09:07)
[2022-12-06] MEDS: PIPERACILLIN-TAZOBACTAM 3.375 GM in SODIUM CHLORIDE 0.9% 100 ML IVPB SCH (09:08)
[2022-12-06] MEDS: MULTIVITAMINS, THERA 1 EACH TAB PO SCH (09:08)
[2022-12-06] MEDS: POTASSIUM CHLORIDE ER 10 MEQ TAB.ER.PRT PO SCH (09:08)
[2022-12-06 11:15] LABS: African American GFR (CKD) 74.6 (60.0-200.0); Anion Gap 8.9 mmol/L (10.00-18.00); BUN/Creat Ratio 6.33 Ratio (12.00-20.00); Blood Urea Nitrogen 5.7 mg/dL (9.0-27.0); Calcium 8.2 mg/dL (8.7-10.3); Carbon Dioxide 25.1 mmol/L (20.0-27.5); Magnesium 1.4 mg/dL (1.5-2.4); Non-African American GFR(CKD) 64.3 (60.0-200.0); Potassium 3.7 mmol/L (3.5-5.5)
[2022-12-06] MEDS: FOLIC ACID 1 MG TAB PO SCH (11:53)
[2022-12-06] MEDS: THIAMINE 100 MG TAB PO SCH (11:53)
--- NOTE | 2022-12-06 12:01 | P.PN ---
Subjective Progress Note Date: 12/06/22 CHIEF COMPLAINT: GI bleeding HISTORY OF PRESENT ILLNESS: Patient status post EGD and colonoscopy showing external hemorrhoids minimal bleeding at rectal stump and small amount of bleeding at the rectal stent. Patient had poor bowel prep. Patient denies any abdominal pain. Denies any nausea or vomiting. Hemoglobin from yesterday stable at 7.8. CBC pending Patient seen and examined with Dr. Weiss PHYSICAL EXAM: VITAL SIGNS: Reviewed. GENERAL: Well-developed in no acute distress. HEENT: No sclera icterus. Extraocular movements grossly intact. Moist buccal mucosa. Head is atraumatic, normocephalic. ABDOMEN: Soft. Nondistended. Nontender. NEUROLOGIC: Alert and oriented. Cranial nerves II through XII grossly intact. ASSESSMENT: 1. Acute GI bleed with bright red blood per rectum likely due to bleeding at rectal stent 2. History of PE. Xarelto has been discontinued 3. History of colon cancer with metastases to the liver and omentum PLAN: -Recommend that patient stops blood thinners due to bleeding from her rectal stent -Continue regular diet -Continue supportive care Physician Data Technical Lead note has been reviewed by physician. Signing provider agrees with the documented findings, assessment, and plan of care. Objective - Vital Signs Vital signs: Vital Signs Temp 98.7 F 12/06/22 08:05 Pulse 73 12/06/22 08:05 Resp 16 12/06/22 08:05 BP 125/60 12/06/22 08:05 Pulse Ox 97 12/06/22 10:02 FiO2 21 12/06/22 10:02 Intake & Output 12/05/22 12/06/22 12/06/22 18:59 06:59 18:59 Intake Total 100 Balance 100 Intake: IV 100 Other: Voiding Method Toilet Bedside Commode Bedside Commode Diaper # Voids 3 2 # Bowel Movements 1 - Labs CBC & Chem 7: 12/05/22 03:51 12/06/22 06:51 Labs: Abnormal Lab Results - Last 24 Hours (Table) 12/06/22 Range/Units 06:51 Anion Gap 8.90 L (10.00-18.00) mmol/L BUN 5.7 L (9.0-27.0) mg/dL BUN/Creatinine Ratio 6.33 L (12.00-20.00) Ratio Calcium 8.2 L (8.7-10.3) mg/dL Magnesium 1.4 L (1.5-2.4) mg/dL
[2022-12-06 13:16] VITALS: BP 118/63; PULSE 79; RESP 18; TEMP 99
[2022-12-06 13:56] LABS: Basophils # (A) 0.01 X 10*3/uL (0.00-0.10); Basophils % (A) 0.4 %; Eosinophils # (A) 0 X 10*3/uL (0.04-0.35); Eosinophils % (A) 0 %; HCT 23.3 % (37.2-46.3); HGB 7.6 g/dL (12.0-15.0); Immature Grans, Automated 0.4 %; Immature Platelet Fraction 12.2 % (1.1-6.1); Lymphocytes # (A) 0.81 X 10*3/uL (0.90-5.00); Lymphocytes % (A) 34.6 %; MCH 34.5 pg (27.0-32.0); MCHC 32.6 g/dL (32.0-37.0); MCV 105.9 fL (80.0-97.0); Mean Platelet Volume 11.4 fL (9.5-12.2); Monocytes # (A) 0.49 X 10*3/uL (0.20-1.00); Monocytes % (A) 20.9 %; NRBC Per 100 WBC 0 /100 WBCS (0.0-0.0); Neutrophils # (A) 1.02 X 10*3/uL (1.80-7.70); Neutrophils % (A) 43.7 %; Platelet Count 32 X 10*3/uL (140-440); RDW 21.3 % (11.5-14.5); WBC 2.34 X 10*3/uL (4.50-10.00)
--- NOTE | 2022-12-06 17:05 | P.PN ---
Subjective Progress Note Date: 12/06/22 Principal diagnosis: Cellulitis. Metastatic colon cancer on treatment. In follow-up patient skin on her legs cot to improve, less painful with each day, she is walking with wheeled walker, the lesions are drying up more, no drainage. Tolerated EGD/colonoscopy for bright red blood per rectum. She denies any other bleeding. Objective - Vital Signs Vital signs: Vital Signs Temp 99 F 12/06/22 13:05 Pulse 79 12/06/22 13:05 Resp 18 12/06/22 13:05 BP 118/63 12/06/22 13:05 Pulse Ox 96 12/06/22 13:05 FiO2 21 12/06/22 10:02 Intake & Output 12/05/22 12/06/22 12/06/22 18:59 06:59 18:59 Intake Total 100 Balance 100 Intake: IV 100 Other: Voiding Method Toilet Bedside Commode Bedside Commode Diaper # Voids 3 2 # Bowel Movements 1 - Constitutional General appearance: Present: cooperative, no acute distress, obese - EENT Eyes: Present: anicteric sclerae, EOMI ENT: Present: hearing grossly normal - Respiratory Details: resp even and unlabored - Peripheral edema leg Peripheral Edema: bilateral: None - Integumentary Integumentary Comment(s): Skin lesions on the BLE cont to improved-only mild redness, very dry, no drainage or blisters seen, swelling almost completely resolved - Neurologic Neurologic: Present: CNII-XII intact - Musculoskeletal Musculoskeletal: Present: generalized weakness, strength equal bilaterally - Psychiatric Psychiatric: Present: A&O x's 3, appropriate affect, intact judgment & insight - Labs CBC & Chem 7: 12/06/22 06:51 12/06/22 06:51 Labs: Abnormal Lab Results - Last 24 Hours (Table) 12/06/22 12/06/22 Range/Units 06:51 06:51 WBC 2.34 L (4.50-10.00) X 10*3/uL RBC 2.20 L (4.10-5.20) X 10*6/uL Hgb 7.6 L (12.0-15.0) g/dL Hct 23.3 L (37.2-46.3) % MCV 105.9 H (80.0-97.0) fL MCH 34.5 H (27.0-32.0) pg RDW 21.3 H (11.5-14.5) % Plt Count 32 L (140-440) X 10*3/uL Neutrophils # 1.02 L (1.80-7.70) X 10*3/uL Lymphocytes # 0.81 L (0.90-5.00) X 10*3/uL Eosinophils # 0 L (0.04-0.35) X 10*3/uL Immature Plt Fraction 12.2 H (1.1-6.1) % Anion Gap 8.90 L (10.00-18.00) mmol/L BUN 5.7 L (9.0-27.0) mg/dL BUN/Creatinine Ratio 6.33 L (12.00-20.00) Ratio Calcium 8.2 L (8.7-10.3) mg/dL Magnesium 1.4 L (1.5-2.4) mg/dL Assessment and Plan (1) Pancytopenia due to antineoplastic chemotherapy Status: Acute Code(s): D61.810 - ANTINEOPLASTIC CHEMOTHERAPY INDUCED PANCYTOPENIA; T45.1X5A - ADVERSE EFFECT OF ANTINEOPLASTIC AND IMMUNOSUP DRUGS, INIT SNOMED Code(s): 492703442249574 (2) Altered mental status Status: Acute Priority: High Code(s): R41.82 - ALTERED MENTAL STATUS, UNSPECIFIED SNOMED Code(s): 855223991 (3) Bilateral lower leg cellulitis Status: Acute Code(s): L03.116 - CELLULITIS OF LEFT LOWER LIMB; L03.115 - CELLULITIS OF RIGHT LOWER LIMB SNOMED Code(s): 079168478 (4) H/O colon cancer, stage IV Status: Acute Priority: High Code(s): Z85.038 - PERSONAL HISTORY OF MALIGNANT NEOPLASM OF LARGE INTESTINE SNOMED Code(s): 548152182 Plan: Metastatic colon adenocarcinoma -Xeloda held due to acute infection -Pseudomonas and enterococcus growth from the leg wounds. ID is following. On antibiotics -Dermatitis, Generalized. Suspected secondary to treatment. On antibiotics. Cont to improve. Altered mental status -MRI of the brain report reviewed, recommendation for follow-up in a few months. -Resolved Bright red blood per rectum -EGD and colonoscopy ordered for bright red blood per rectum. Some blood seen at rectal stent, hemorrhoids. Hemoglobin stable. -Surgical recommendations to hold anticoagulants/antiplatelet therapy -Patient has a history of bilateral PE April 25. Patient has metastatic cancer, increasing risk of thrombosis. Risks versus benefit of anticoagulation discussed with the patient. Patient is agreeable to try the 10 mg of Xarelto once her plt are >50,000. S/S bleeding. CBC in office weekly. New Rx was sent to her pharmacy. Pancytopenia -Secondary to treatment and superimposed infection. -Transfuse for hemoglobin less than 7, Hgb 7.6 today. I previously documented no PRBC transfusions but, pt did have 1 PRBC transfusion this admission. Transfuse for platelets less than 10,000 or if patient is symptomatic, plt 32,000 today. WBC low but adequate at 2.3, ANC is 1020. CBC daily with differential while inpt.
--- NOTE | 2022-12-08 06:41 | P.DS ---
Providers Date of admission: 11/25/22 16:08 Expected date of discharge: 12/06/22 Attending physician: Safia Pitts Consults: 11/25/22 16:06 Consult Physician Routine Consulting Provider: Kali Juarez Consult Reason/Comments: Oncological care, dermatitis Do you want consulting provider notified?: Yes Consult Physician Urgent Consulting Provider: Kallie Muhammad Consult Reason/Comments: ams Do you want consulting provider notified?: Yes 11/25/22 18:31 Consult Physician Routine Consulting Provider: Cheyenne Shipley Consult Reason/Comments: sepsis Do you want consulting provider notified?: Yes 12/02/22 09:35 Consult Physician Routine Consulting Provider: Sd Weiss Consult Reason/Comments: GI Bleed Do you want consulting provider notified?: Yes Primary care physician: Partha [facility] Course: Final diagnosis Bilateral Cellulitis and rash of lower extremities. Secondary to enterococcus pseudomonas and secondary to chemotherapy Capcetiban as per oncologist who follow the pt closely Possible GI bleed with bleeding per rectum, colonoscopy showed some bleeding at the rectal stent in hemorrhoids, bleeding resolved Acute toxic/Metabolic encephalopathy. Completely resolved and patient back to baseline Pancytopenia most likely secondary to chemotherapy Metastatic Colon cancer to the liver lung and omentum, computed tomography scan showing no progressive disease Left temporal lobe increased signal suspected chronic ischemia versus metastatic disease, needs outpatient follow-up Hypertension Hyperlipidemia Dermatitis Hypothyroidism Discharge disposition Patient is being discharged in a stable condition with guarded prognosis to home with home care. Patient will follow-up with Dr. Kelley in the outpatient setting upon discharge. Patient is to continue on oral antibiotics per infectious disease and close outpatient follow-up as well as follow-up with oncology Dr. Juarez as scheduled. Total time taken is greater than 35 minutes. Hospital course This is a 72-year-old female who was recently admitted bilateral lower extremity cellulitis of multiple comorbidities being closely monitored with multiple medical consultations. Patient did have some bleeding per rectum underwent EGD with colonoscopy showing some faint bleeding at the rectal stent as well as some hemorrhoids and surgery recommends no anticoagulation. Patient does have thrombocytopenia and follows closely with oncology. Patient to be started on a lower dose of Xarelto once platelets are above 50. Patient does have follow-up appointment with oncology this week and recommend repeat labs to closely monitor CBC BMP. Patient has been cleared by consultations and will be going home today. Please refer to consultation notes for further HPI. Currently no reports of chest pain, shortness of breath, or palpitations. Patient is afebrile. No reports of nausea or vomiting and patient is tolerating diet. Patient will be discharged home today. Extremely guarded and overall poor prognosis Physical exam: Gen: This is a 72-year-old female who is awake, alert and oriented 3, well- developed, well-nourished, obese HEENT: Head is atraumatic, normocephalic. Pupils equal, round. Sclerae is anicteric. NECK: Supple. No JVD. No lymphadenopathy. No thyromegaly. LUNGS: Diminished breath sounds bilaterally with no wheezes or rhonchi. No intercostal retractions. HEART: S1, S2 are muffled ABDOMEN: Soft. Bowel sounds are present. No masses. No tenderness. EXTREMITIES: No pedal edema. No calf tenderness. NEUROLOGICAL: Patient is awake, alert and oriented x3. Cranial nerves 2 through 12 are grossly intact. Diffusely weak Please refer to medication reconciliation sheet for a list of medications. The impression and plan of care has been dictated by Gill Riley, Nurse Practitioner as directed. Dr. Oral MD I have performed a history and examination and MDM of this patient, discussed the same with the dictator, and agree with the dictator's assessment and plan as written ,documented as a scribe. Based on total visit time, I have performed more than 50% of the visit. Patient Condition at Discharge: Good Plan - Discharge Summary Discharge Rx Participant: Yes New Discharge Prescriptions: New Multivitamins, Thera [Multivitamin (formulary)] 1 each PO DAILY #30 tab Thiamine [Vitamin B-1] 100 mg PO DAILY@1200 #30 tab Amoxic-Pot Clav 875-125Mg [Augmentin 875-125] 1 tab PO Q12HR 5 Days #10 tab Ciprofloxacin HCl [Cipro] 500 mg PO BID 5 Days #10 tab Rivaroxaban [Xarelto] 10 mg PO DAILY #30 tab Folic Acid 1 mg PO DAILY@1200 #30 tab Levothyroxine Sodium [Synthroid] 25 mcg PO DAILY@0630 #30 tab Continue Escitalopram [Lexapro] 20 mg PO DAILY Atorvastatin [Lipitor] 40 mg PO DAILY Aspirin [Adult Low Dose Aspirin EC] 81 mg PO DAILY Capecitabine [Xeloda] 1,500 mg PO DIRECTED Lidocaine-Prilocaine Cream [Emla Cream 2.5%/2.5%] 1 applic TOPICAL DAILY PRN PRN Reason: PORT ACCESS Cholestyramine (with Sugar) [Cholestyramine Powder] 4 gm PO HS PRN PRN Reason: Diarrhea Acetaminophen Tab [Tylenol] 650 mg PO Q6H PRN PRN Reason: Pain Or Fever > 100.5 Nitroglycerin Sl Tabs [Nitrostat] 0.4 mg SUBLINGUAL Q5M PRN PRN Reason: Chest Pain Potassium Chloride ER [K-Dur 10] 10 meq PO BID Pantoprazole [Protonix] 40 mg PO BID Metoprolol Tartrate [Lopressor] 50 mg PO TID Gabapentin [Neurontin] 200 mg PO HS PRN PRN Reason: Pain oxyCODONE HCL [OxyIR] 5 mg PO Q8H PRN PRN Reason: Pain SILVER sulfADIAZINE CREAM [Silvadene Cream] 1 applic TOPICAL BID PRN PRN Reason: WOUNDS Betamethasone Valerate [Luxiq 0.1%] 1 applic TOPICAL BID ondansetron HCL [Zofran] 8 mg PO Q6H PRN PRN Reason: Nausea Furosemide [Lasix] 20 mg PO TID amLODIPine [Norvasc] 5 mg PO DAILY Discontinued Rivaroxaban [Xarelto] 20 mg PO HS Discharge Medication List Atorvastatin [Lipitor] 40 mg PO DAILY 04/02/22 [History] Escitalopram [Lexapro] 20 mg PO DAILY 04/02/22 [History] Pantoprazole [Protonix] 40 mg PO BID 04/02/22 [History] Aspirin [Adult Low Dose Aspirin EC] 81 mg PO DAILY 09/15/22 [History] Capecitabine [Xeloda] 1,500 mg PO DIRECTED 09/15/22 [History] Metoprolol Tartrate [Lopressor] 50 mg PO TID 09/15/22 [History] Acetaminophen Tab [Tylenol] 650 mg PO Q6H PRN 11/25/22 [History] Betamethasone Valerate [Luxiq 0.1%] 1 applic TOPICAL BID 11/25/22 [History] Cholestyramine (with Sugar) [Cholestyramine Powder] 4 gm PO HS PRN 11/25/22 [History] Furosemide [Lasix] 20 mg PO TID 11/25/22 [History] Gabapentin [Neurontin] 200 mg PO HS PRN 11/25/22 [History] Lidocaine-Prilocaine Cream [Emla Cream 2.5%/2.5%] 1 applic TOPICAL DAILY PRN 11/25/22 [History] Nitroglycerin Sl Tabs [Nitrostat] 0.4 mg SUBLINGUAL Q5M PRN 11/25/22 [History] Potassium Chloride ER [K-Dur 10] 10 meq PO BID 11/25/22 [History] SILVER sulfADIAZINE CREAM [Silvadene Cream] 1 applic TOPICAL BID PRN 11/25/22 [History] amLODIPine [Norvasc] 5 mg PO DAILY 11/25/22 [History] ondansetron HCL [Zofran] 8 mg PO Q6H PRN 11/25/22 [History] oxyCODONE HCL [OxyIR] 5 mg PO Q8H PRN 11/25/22 [History] Amoxic-Pot Clav 875-125Mg [Augmentin 875-125] 1 tab PO Q12HR 5 Days #10 tab 12/06/22 [Rx] Ciprofloxacin HCl [Cipro] 500 mg PO BID 5 Days #10 tab 12/06/22 [Rx] Folic Acid 1 mg PO DAILY@1200 #30 tab 12/06/22 [Rx] Levothyroxine Sodium [Synthroid] 25 mcg PO DAILY@0630 #30 tab 12/06/22 [Rx] Multivitamins, Thera [Multivitamin (formulary)] 1 each PO DAILY #30 tab 12/06/22 [Rx] Rivaroxaban [Xarelto] 10 mg PO DAILY #30 tab 12/06/22 [Rx] Thiamine [Vitamin B-1] 100 mg PO DAILY@1200 #30 tab 12/06/22 [Rx] Follow up Appointment(s)/Referral(s): Partha Kelley MD [Primary Care Provider] - 12/08/22 3:00 pm [facility] [NON-STAFF] - 1-2 Days Kali Juarez MD [STAFF PHYSICIAN] - 12/28/22 4:15 pm Activity/Diet/Wound Care/Special Instructions: heart healthy diet activity is restricted till you see your doctor We recommend to check your thyroid function test in 4-6 weeks we recommend repeating MRI of the brain with and without contrast in 1-2 months, or earlier if indicated to rule out metastatic disease. Continue holding anticoagulant until follow-up per general surgery Continue current diet and slowly advance as tolerated Follow-up with primary care provider on discharge Follow-up with oncology outpatient Continue antibiotics until finished Discharge Disposition: HOME WITH HOME HEALTH SERVICES
--- NOTE | 2022-12-09 09:53 | CDI ---
Documentation Clarification Form Date: 12/09/22 From: Mojgan Venegas Admit Date: 11/25/2022 4:08:00 PM Patient Name: Kaya Loco Visit Number: [id number] Discharge Date: 12/06/2022 2:50:00 PM ATTENTION: The Clinical Documentation Specialists (CDI) and [facility] Coding Staff appreciate your assistance in clarifying documentation. Please respond to the clarification below the line at the bottom and electronically sign. The CDI & [facility] Coding staff will review the response and follow-up if needed. Please note: Queries are made part of the Legal Health Record. If you have any questions, please contact the author of this message via ITS. Dr. Yanira Mixon, The patient has possible sepsis per H&P. Based on this information and the findings below, is there an additional diagnosis that is clinically appropriate for this patient? History/Risk Factors: bilateral lower limb cellulitis, antineoplastic chemotherapy induced pancytopenia, Colon ca with mets to liver and omentum, toxic encephalopathy Clinical Indicators: Presents with headache and generalized weakness, more so her legs. 11/25 WBC: 4.5 11/25 Lactic acid: 2.8 Blood cultures: negative 11/25 Vitals signs: t97.4, p 101, r 20, bp 138/57, O2 Sat 99 Treatment: Sodium Chloride 0.9% 1000 ml IV 75 mls/hr, Zosyn 3.375 gm IVPB Q8HR ID Consult: No fever or elevated white count and does not look toxic Antibiotics: yes IV Bolus: yes Is there an additional diagnosis that is clinically appropriate for this patient? [ ] Sepsis, present on admission [ ] Sepsis ruled out [ ] Severe Sepsis with organ failure [ ] SIRS, without underlying infectious process [ ] Other, please specify [ ] Unable to determine SIRS Criteria: 2 or more of the following may indicate SIRS Temperature < 96.8F (36C) or > 101.0F (38.3C) Heart Rate > 90 bpm Respiratory Rate > 20 breaths/min or PaCO2 < 32 mmHg White Blood Cell Count > 12,000 or < 4,000 cells/mm3 or > 10% bands Sepsis ruled out MTDD
--- NOTE | 2022-12-11 17:09 | P.PN ---
Subjective Progress Note Date: 12/06/22 Principal diagnosis: Bilateral lower extremity rash and question cellulitis Patient is a 72-year female with a past medical history significant for metastatic colon cancer on chemotherapy patient was brought into the ER last night for evaluation of change in mental status, patient also have a extensive rash to bilateral lower extremity and was a question of possible cellulitis. Patient apparently has developed bleeding per rectum and Gen. surgery has been consulted On today's evaluation that is 12/06/2022, the patient continues to be afebrile, the patient is breathing comfortably on room air, patient denies chest pain or shortness of breath or cough, the patient denies having any nausea no vomiting no abdominal pain or pain to the left lower extremity Objective - Vital Signs Vital signs: Vital Signs Temp 99 F 12/06/22 13:05 Pulse 79 12/06/22 13:05 Resp 18 12/06/22 13:05 BP 118/63 12/06/22 13:05 Pulse Ox 96 12/06/22 13:05 FiO2 21 12/06/22 10:02 Intake & Output 12/05/22 12/06/22 12/06/22 18:59 06:59 18:59 Intake Total 100 Balance 100 Intake: IV 100 Other: Voiding Method Toilet Bedside Commode Bedside Commode Diaper # Voids 3 2 # Bowel Movements 1 - Exam GENERAL DESCRIPTION: An elderly female lying in bed in no distress RESPIRATORY SYSTEM: Unlabored breathing , decreased breath sounds at bases HEART: S1 S2 regular rate and rhythm , ABDOMEN: Soft , no tenderness EXTREMITIES: Bilateral lower extremity currently wrapped with Cisco wrap, overall swelling redness has decreased no drainage - Labs CBC & Chem 7: 12/06/22 06:51 12/06/22 06:51 Labs: Abnormal Lab Results - Last 24 Hours (Table) 12/06/22 Range/Units 06:51 Anion Gap 8.90 L (10.00-18.00) mmol/L BUN 5.7 L (9.0-27.0) mg/dL BUN/Creatinine Ratio 6.33 L (12.00-20.00) Ratio Calcium 8.2 L (8.7-10.3) mg/dL Magnesium 1.4 L (1.5-2.4) mg/dL Assessment and Plan (1) Bilateral lower leg cellulitis Status: Acute Code(s): L03.116 - CELLULITIS OF LEFT LOWER LIMB; L03.115 - CELLULITIS OF RIGHT LOWER LIMB SNOMED Code(s): 539107320 Plan: 1patient presented to hospital with mental status changes more likely metabolic in this patient who do have a history of metastatic colon cancer on chemotherapy patient currently with no fever or elevated white count and does not look toxic. Patient did have a negative chest x-ray 2 -patient also have bilateral lower extremity swelling erythematous rash possibly related to her chemotherapy cellulitis less likely but not entirely excluded lower extremity Doppler were negative for DVT 3the patient lower extremity culture has been finalized with Pseudomonas aeruginosa and Enterococcus faecalis 4patient seemed to have shown clinical improvement as for his left lower extremity cellulitis , consider short course of oral Cipro and Augmentin on discharge discussed with the admitting team Time with Patient: Less than 30
== END 2022-12-06 14:50 | disposition home health service (06) | DRG 602 ==
LOC: EC 12:31 → 5NMEDONC 16:08
PROVIDERS: ADMIT Internal Medicine; ATTEND Internal Medicine
PROC: 30233N1 Transfusion of Nonautologous Red Blood Cells into Peripheral Vein, Percutaneous Approach (ICD-10-PCS; 2022-11-26)
PROC: 0DJ08ZZ Inspection of Upper Intestinal Tract, Via Natural or Artificial Opening Endoscopic (ICD-10-PCS; principal; 2022-12-05 15:20)
PROC: 0DJD8ZZ Inspection of Lower Intestinal Tract, Via Natural or Artificial Opening Endoscopic (ICD-10-PCS; 2022-12-05 15:20)
DX: L03.115 Cellulitis of right lower limb (principal); D61.810 Antineoplastic chemotherapy induced pancytopenia; G92.8 Other toxic encephalopathy; J90 Pleural effusion, not elsewhere classified; R18.8 Other ascites; R47.01 Aphasia; C18.9 Malignant neoplasm of colon, unspecified; C78.7 Secondary malignant neoplasm of liver and intrahepatic bile duct; C78.6 Secondary malignant neoplasm of retroperitoneum and peritoneum; Z43.1 Encounter for attention to gastrostomy; J98.11 Atelectasis; K92.1 Melena; D53.9 Nutritional anemia, unspecified; L03.116 Cellulitis of left lower limb; B96.5 Pseudomonas (aeruginosa) (mallei) (pseudomallei) as the cause of diseases classified elsewhere; E86.0 Dehydration; I10 Essential (primary) hypertension; E78.5 Hyperlipidemia, unspecified; I25.10 Atherosclerotic heart disease of native coronary artery without angina pectoris; E05.90 Thyrotoxicosis, unspecified without thyrotoxic crisis or storm; T45.1X5A Adverse effect of antineoplastic and immunosuppressive drugs, initial encounter; L30.9 Dermatitis, unspecified; F32.A Depression, unspecified; I25.2 Old myocardial infarction; K64.4 Residual hemorrhoidal skin tags; E66.9 Obesity, unspecified; Z68.31 Body mass index [BMI] 31.0-31.9, adult; Z79.82 Long term (current) use of aspirin; Z79.01 Long term (current) use of anticoagulants; Z79.890 Hormone replacement therapy; Z79.899 Other long term (current) drug therapy; Z86.711 Personal history of pulmonary embolism; Z71.3 Dietary counseling and surveillance
CPT/HCPCS: 36415; 43235; 45378; 70470; 70553; 71046; 74177; 80048; 80053; 81003; 82140; 82330; 82607; 82746; 83605; 83735; 83921; 84439; 84443; 85025; 85027; 85610; 85730; 86255; 86850; 86900; 86901; 86920; 87040; 87070; 87077; 87186; 87205; 93005; 93970; 94760; 95816; 99285

== ENCOUNTER 2023-01-09 11:26 | Inpatient (IN) | payer MEDICARE ==
[2023-01-09 12:17] LABS: Anisocytosis Slight; Basophils % (A) 0 %; Eosinophils # (A) 0.1 k/uL (0-0.7); Eosinophils % (A) 1 %; HCT 30.7 % (34.0-46.0); HGB 9.9 gm/dL (11.4-16.0); Lymphocytes # (A) 0.7 k/uL (1.0-4.8); Lymphocytes % (A) 13 %; MCH 33.5 pg (25.0-35.0); MCHC 32.4 g/dL (31.0-37.0); MCV 103.6 fL (80.0-100.0); Macrocytosis Moderate; Mean Platelet Volume 8.6; Monocytes # (A) 0.4 k/uL (0-1.0); Monocytes % (A) 7 %; Neutrophils # (A) 4.1 k/uL (1.3-7.7); Neutrophils % (A) 77 %; RBC 2.96 m/uL (3.80-5.40); RDW 16.2 % (11.5-15.5); WBC 5.3 k/uL (3.8-10.6)
[2023-01-09 12:28] LABS: Platelet Count 208 k/uL (150-450)
--- NOTE | 2023-01-09 12:32 | XR ---
EXAMINATION TYPE: XR chest 2V DATE OF EXAM: 01/09/2023 COMPARISON: 11/25/22 HISTORY: 72-year-old female with chest pain TECHNIQUE: PA and lateral views FINDINGS: Heart normal size. Aorta and pulmonary vasculature within normal limits. Some strandy atelectasis at the left base. Right anterior chest wall injection port with catheter tip at the upper right atrium. IMPRESSION: No acute cardiopulmonary process.
[2023-01-09 12:33] LABS: Albumin 3.7 g/dL (3.5-5.0); Calcium 8.6 mg/dL (8.4-10.2); Magnesium 1.1 mg/dL (1.6-2.3); Total Bilirubin 0.8 mg/dL (0.2-1.3); Total Protein 8.4 g/dL (6.3-8.2)
[2023-01-09 12:34] LABS: INR 0.9 (<1.2); Partial Thromboplastin Time 22.3 sec (22.0-30.0); Prothrombin Time 9.8 sec (9.0-12.0)
[2023-01-09 12:41] LABS: Potassium 3.8 mmol/L (3.5-5.1)
[2023-01-09] MEDS ORDERED: fentaNYL (PF) 50 MCG/ML 2 ML AMP IVP STA (13:53)
--- NOTE | 2023-01-09 13:53 | CT ---
CT CHEST FOR PULMONARY EMBOLISM. EXAMINATION TYPE: CT chest angio for PE DATE OF EXAM: 01/09/2023 INDICATION: Chest pain, history of PE CT DLP: 178.7 mGycm, Automated exposure control for dose reduction was used. CONTRAST: Patient injected with 100 mL of Isovue 300. COMPARISON: None TECHNIQUE: CT of the chest is performed on a spiral scan at 2 mm thick sections. Study is performed with intravenous contrast timed for evaluation for pulmonary embolism. This will limit additional po rtions of the evaluation. 3-D MIP images reconstructed by the technologist are reviewed on the compu ter in the coronal and sagittal planes. FINDINGS: No persistent filling defects are evident to suggest an acute pulmonary embolism. No mediastinal or hilar adenopathy enlarged by CT criteria is evident. The ascending aorta diameter at the level of the main pulmonary artery is 2.8 cm. The main pulmonary artery diameter at the bifur cation is 2.3 cm. Lung windows are clear. Limited CT section through the upper abdomen are unremarkable. IMPRESSIONS: 1. No acute pulmonary embolism
--- NOTE | 2023-01-09 14:13 | ED ---
Chest Pain HPI - General Chief Complaint: Chest Pain Stated Complaint: Chest Pains Time Seen by Provider: 01/09/23 11:58 Source: patient Mode of arrival: wheelchair Limitations: no limitations - History of Present Illness Initial Comments: 72-year-old female with past medical history of metastatic colon cancer, PEs, NSTEMI who presents to the emergency room reporting chest pain. States that it started this morning. Describes it as a left-sided chest pain without radiation. States it is pleuritic in nature and does make her feel short of breath. She did not attempt to take anything at home for the pain. Does have a history of PE and was recently taken off of Xarleto due to GI bleeding. She denies ripping or tearing sensation to her back. No abdominal pain. No fevers chills or cough. No other alleviating, precipitating or modifying factors - Related Data Home Medications Medication Instructions Recorded Confirmed Atorvastatin [Lipitor] 40 mg PO DAILY 04/02/22 01/09/23 Escitalopram [Lexapro] 20 mg PO DAILY 04/02/22 01/09/23 Pantoprazole [Protonix] 40 mg PO BID 04/02/22 01/09/23 Metoprolol Tartrate [Lopressor] 50 mg PO TID 09/15/22 01/09/23 Acetaminophen Tab [Tylenol] 650 mg PO Q6H PRN 11/25/22 01/09/23 Furosemide [Lasix] 20 mg PO TID 11/25/22 01/09/23 Lidocaine-Prilocaine Cream [Emla 1 applic TOPICAL DAILY PRN 11/25/22 01/09/23 Cream 2.5%/2.5%] Nitroglycerin Sl Tabs [Nitrostat] 0.4 mg SUBLINGUAL Q5M PRN 11/25/22 01/09/23 Potassium Chloride ER [K-Dur 10] 10 meq PO BID 11/25/22 01/09/23 amLODIPine [Norvasc] 5 mg PO DAILY 11/25/22 01/09/23 ondansetron HCL [Zofran] 8 mg PO Q6H PRN 11/25/22 01/09/23 Multivitamins, Thera [Multivitamin 1 tab PO DAILY 01/09/23 01/09/23 (formulary)] Previous Rx's Medication Instructions Recorded Folic Acid 1 mg PO DAILY@1200 #30 tab 12/06/22 Levothyroxine Sodium [Synthroid] 25 mcg PO DAILY@0630 #30 tab 12/06/22 Thiamine [Vitamin B-1] 100 mg PO DAILY@1200 #30 tab 12/06/22 Allergies Allergy/AdvReac Type Severity Reaction Status Date / Time No Known Allergies Allergy Verified 01/09/23 13:23 Review of Systems ROS Statement: Those systems with pertinent positive or pertinent negative responses have been documented in the HPI. ROS Other: All systems not noted in ROS Statement are negative. EKG Findings - EKG Comments: EKG Findings:: EKG demonstrates sinus rhythm with rate of 78. RI interval 196. QRS 89. QTC 414. No acute ST segment elevations or depressions. Past Medical History Past Medical History: Cancer, Hyperlipidemia, Hypertension, Myocardial Infarction ([place]) Additional Past Medical History / Comment(s): Colon Cancer. bowel blockage Last Myocardial Infarction Date:: 04/2022 History of Any Multi-Drug Resistant Organisms: None Reported Past Surgical History: No Surgical Hx Reported Past Anesthesia/Blood Transfusion Reactions: No Reported Reaction Past Psychological History: Depression Smoking Status: Never smoker Past Alcohol Use History: None Reported Past Drug Use History: None Reported - Past Family History Father Family Medical History: Chest Pain / Angina, Congestive Heart Failure (CHF), Coronary Artery Disease (CAD) Brother(s) Family Medical History: Chest Pain / Angina, Congestive Heart Failure (CHF), Coronary Artery Disease (CAD) Additional Family Medical History / Comment(s): stenting General Exam Limitations: no limitations Course Vital Signs 01/09/23 01/09/23 01/09/23 11:30 11:52 13:44 Temperature 98.4 F Pulse Rate 81 80 71 Pulse Rate [ 81 Cotton Inspector ] Respiratory 16 18 18 Rate Blood Pressure 124/65 135/71 136/86 O2 Sat by Pulse 98 96 94 L Oximetry 01/09/23 01/09/23 15:40 17:05 Temperature 98.0 F Pulse Rate 76 79 Pulse Rate [ Cotton Inspector ] Respiratory 18 18 Rate Blood Pressure 116/68 118/67 O2 Sat by Pulse 98 98 Oximetry Chest Pain MDM - MDM Was pt. sent in by a medical professional or institution (, PA, ASSISTANT TRACK COACH, urgent care, hospital, or half-way...) When possible be specific @ -No Did you speak to anyone other than the patient for history (EMS, parent, family, police, friend...)? What history was obtained from this source @ -No Did you review nursing and triage notes (agree or disagree)? Why? @ -I reviewed and agree with nursing and triage notes Were old charts reviewed (outside hosp., previous admission, EMS record, old EKG, old radiological studies, urgent care reports/EKG's, half-way records)? Report findings @ -No old charts were reviewed Differential Diagnosis (chest pain, altered mental status, abdominal pain women, abdominal pain men, vaginal bleeding, weakness, fever, dyspnea, syncope, headache, dizziness, GI bleed, back pain, seizure, CVA, palpatations, mental health, musculoskeletal)? @ -acs, nstemi, stemi, chest wall pain EKG interpreted by me (3pts min.). @ -EKG interpreted by me - see above X-rays interpreted by me (1pt min.). @ -interpreted by me - normal CT interpreted by me (1pt min.). @ -interpreted by me - normal U/S interpreted by me (1pt. min.). @ -None done What testing was considered but not performed or refused? (CT, X-rays, U/S, labs)? Why? @ -None What meds were considered but not given or refused? Why? @ -None Did you discuss the management of the patient with other professionals (professionals i.e. , PA, ASSISTANT TRACK COACH, lab, RT, psych nurse, social media editor, windows architect, teacher, civilian jail officer, shoe parts caser)? Give summary @ -Yes, discussed the admission with Dr. De Luna Was smoking cessation discussed for >3mins.? @ -No Was critical care preformed (if so, how long)? @ -No Were there social determinants of health that impacted care today? How? (Homelessness, low income, unemployed, alcoholism, drug addiction, transportation, low edu. Level, literacy, decrease access to med. care, fci, rehab)? @ -No Was there de-escalation of care discussed even if they declined (Discuss DNR or withdrawal of care, Hospice)? DNR status @ -No What co-morbidities impacted this encounter? (DM, HTN, Smoking, COPD, CAD, Cancer, CVA, ARF, Chemo, Hep., AIDS, mental health diagnosis, sleep apnea, morbid obesity)? @ -Hx PE Was patient admitted / discharged? Hospital course, mention meds given and route, prescriptions, significant lab abnormalities, going to OR and other pertinent info. @ -Upon arrival patient was placed into room 5. There are history of physical exam was performed. IV access established laboratory studies were conducted. Hemoccult 9.9. Troponin is undetectable. Patient's is sent for a CT of her chest due to her known history of PE. No signs of PE at this time. Recommended admission in order to trend her troponins which the patient was agreeable. Spoke with Dr. De Luna for admission Undiagnosed new problem with uncertain prognosis? @ -Yes Drug Therapy requiring intensive monitoring for toxicity (Heparin, Nitro, Insulin, Cardizem)? @ -No Were any procedures done? @ -No Diagnosis/symptom? @ -acute chest pain, stage 4 colon cancer Acute, or Chronic, or Acute on Chronic? @ -acute Uncomplicated (without systemic symptoms) or Complicated (systemic symptoms)? @ -complicated Side effects of treatment? @ -No Exacerbation, Progression, or Severe Exacerbation? @ -No Poses a threat to life or bodily function? How? (Chest pain, [place], [place], pneumonia, PE, COPD, DKA, ARF, appy, cholecystitis, CVA, Diverticulitis, Homicidal, Suicidal, threat to staff... and all critical care pts) @ -Yes Disposition Clinical Impression: Chest pain, H/O colon cancer, stage IV Disposition: ADMITTED IP TO THIS HOSP Condition: Stable Is patient prescribed a controlled substance at d/c from ED?: No Time of Disposition: 15:18 Decision to Admit Reason: Admit from EC Decision Date: 01/09/23 Decision Time: 15:18
[2023-01-09] MEDS ORDERED: NALOXONE 0.4 MG/ML 1 ML VIAL IV PRN (15:18)
[2023-01-09] MEDS: MAGNESIUM SULFATE-D5W PMX 1 GM in DEXTROSE/WATER 1 100ML.BAG IVPB SCH ×3 (15:42→20:15)
[2023-01-09] MEDS ORDERED: NITROGLYCERIN SL TABS 0.4 MG TAB SUBLINGUAL PRN (15:58)
[2023-01-09] MEDS ORDERED: ACETAMINOPHEN TAB 325 MG TAB PO PRN (15:58)
[2023-01-09] MEDS ORDERED: ONDANSETRON 4 MG TAB PO PRN (15:58)
[2023-01-09] MEDS: METOPROLOL TARTRATE 50 MG TAB PO SCH ×2 (16:27→20:15)
[2023-01-09] MEDS: FUROSEMIDE 20 MG TAB PO SCH ×2 (16:27→20:16)
[2023-01-09] MEDS: PANTOPRAZOLE 40 MG TABLET PO SCH (20:16)
[2023-01-09] MEDS: POTASSIUM CHLORIDE ER 10 MEQ TAB.ER.PRT PO SCH (20:16)
[2023-01-09] MEDS ORDERED: MELATONIN 5 MG TABLET PO SCH (23:30)
--- NOTE | 2023-01-10 05:11 | HP ---
HISTORY AND PHYSICAL CHIEF COMPLAINT: Chest pain. HISTORY OF PRESENT ILLNESS: This is a 72-year-old woman with a past medical history of recent medical history including stage IV colon cancer, also had episode of pulmonary embolism, but subsequently the patient had GI bleed and anticoagulation apparently is on hold. Currently, the patient is complaining of chest pain. The patient also had some skin reaction with sepsis infection and multiple other medical issues also. The patient is complaining of chest pain which is radiating across the chest. The patient came to [facility] and was admitted for further evaluation and treatment. Initial troponins are negative at this time. There is no history of any fever, rigors, or chills. PAST MEDICAL HISTORY: Reviewed, include history of colon cancer, history of myocardial infarction. Rest of the history and rest of the chart is also reviewed. HOME MEDICATIONS: Reviewed include Zofran. Doses and rest of medication noted. ALLERGIES: None. FAMILY HISTORY: No history of heart disease or strokes in the family. SOCIAL HISTORY: No history of smoking or alcohol intake. REVIEW OF SYSTEMS: A 14-point review is negative except as mentioned earlier. PHYSICAL EXAMINATION: VITAL SIGNS: Pulse is 71, blood pressure 133/83, respirations 18. HEENT: Conjunctivae normal. NECK: No JVD. CARDIOVASCULAR: S1, S2 muffled. RESPIRATIONS: Breath sounds diminished in the bases. No rhonchi. No crackles. ABDOMEN: Soft, nontender. LEGS: Minimal discoloration and minimal swelling also present. NERVOUS SYSTEM: No focal deficits. LABORATORY DATA: Reviewed. ASSESSMENT: 1. Chest pain, possible unstable angina. 2. History of metastatic colon cancer, stage IV. 3. History of recent bilateral leg cellulitis, possibly secondary to enterococcus and Pseudomonas and secondary to chemotherapy with subset event. 4. History of recent GI bleed with bleeding at the rectal stent and hemorrhoids. 5. Hypertension. 6. Hyperlipidemia. 7. History of hypertension. 8. Hyperlipidemia. RECOMMENDATIONS AND DISCUSSION: This is a 72-year-old woman, who presented with multiple complex medical issues, we will monitor the patient closely. I will recommend symptomatic treatment. Rule out myocardial infarction. Cardiology evaluation, possible stress test. Otherwise, I would also recommend hematology/oncology evaluation and continue to monitor. Overall prognosis guarded because of multiple complex medical issues. Further recommendations to follow. Please note, the chest CTA showed no evidence of pulmonary embolism. The patient did have some thrombectomy procedure in [facility] previously. See orders for further details. MMODL / IJN: [id number] /
[2023-01-10] MEDS ORDERED: LEVOTHYROXINE 25 MCG TAB PO SCH (06:30)
[2023-01-10] MEDS ORDERED: MULTIVITAMINS, THERA 1 EACH TAB PO SCH (09:00)
[2023-01-10] MEDS ORDERED: amLODIPine 5 MG TAB PO SCH (09:00)
[2023-01-10] MEDS ORDERED: ATORVASTATIN 40 MG TAB PO SCH (09:00)
[2023-01-10] MEDS ORDERED: ESCITALOPRAM 20 MG TAB PO SCH (09:00)
[2023-01-10] MEDS: FUROSEMIDE 20 MG TAB PO SCH ×2 (09:16→15:50)
[2023-01-10] MEDS: POTASSIUM CHLORIDE ER 10 MEQ TAB.ER.PRT PO SCH (09:16)
[2023-01-10] MEDS: METOPROLOL TARTRATE 50 MG TAB PO SCH ×2 (09:16→15:50)
[2023-01-10] MEDS: PANTOPRAZOLE 40 MG TABLET PO SCH (09:16)
[2023-01-10 09:20] VITALS: RESP 16
[2023-01-10 09:21] LABS: HCT 30.4 % (34.0-46.0); HGB 9.3 gm/dL (11.4-16.0); Hypochromasia Moderate; MCH 33.1 pg (25.0-35.0); MCHC 30.6 g/dL (31.0-37.0); MCV 108.4 fL (80.0-100.0); Macrocytosis Marked; Mean Platelet Volume 7.9; Platelet Count 176 k/uL (150-450); RDW 15.9 % (11.5-15.5)
[2023-01-10 09:31] LABS: Calcium 8.6 mg/dL (8.4-10.2); Potassium 3.3 mmol/L (3.5-5.1)
[2023-01-10] MEDS ORDERED: POTASSIUM CHLORIDE ER 20 MEQ TAB.ER PO STA (10:15)
[2023-01-10] MEDS ORDERED: THIAMINE 100 MG TAB PO SCH (12:00)
[2023-01-10] MEDS ORDERED: FOLIC ACID 1 MG TAB PO SCH (12:00)
[2023-01-10 13:39] LABS: Monocytes # (M) 0.52 k/uL (0-1.0); Neutrophils # (M) 2.88 k/uL (1.3-7.7); Neutrophils % (M) 72 %; Nucleated Red Blood Cells 0 /100 WBC (0-0); Total Cells Counted 100
[2023-01-10 13:40] LABS: Anisocytosis (M) Present
--- NOTE | 2023-01-10 15:51 | P.CONS ---
History of Present Illness - Reason for Consult Consult date: 01/10/23 colon adenocarcinoma Requesting physician: Yanira Mixon - Chief Complaint chest pain - History of Present Illness Mrs. Loco is a pleasant 72-year-old female With a past medical history of hypertension, hypothyroidism, depression, Cardiovascular disease, hyperlipidemia, who is well-known to our service, followed by Dr. Kali Juarez Or metastatic colon adenocarcinoma. Patient was initially diagnosed around March 2022. 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 She required a stent due to inability to pass stool, nausea and vomiting. She was diagnosed with bilateral PEs requiring thrombectomy. She was started on TPN. She was initiated on FOLFOX, changed to oral Xeloda and oxaliplatin IV 07/26. She had done well until about November 2022, she was admitted for confusion, anorexia, she was found to have pseudomonas and enterococcus in wounds on her legs, which are now healed well. She was treated with antibiotics, her oral chemotherapy was held, and has been on hold since. MRI of the brain was negative for any acute findings. She had an EGD and colonoscopy showing the rectal stent, some hemorrhoids. She was discharged and has done well. She was seen by Dr. Miriam Juarez 12/28, plans for PET scan which is scheduled 01/13. Has a follow-up appointment on 01/25 when further treatment options will be discussed. Patient is currently admitted with complaints of chest pain, left-sided, radiating across the front of the left chest, sharp in nature, denies shortness of breath, does relate some shoulder discomfort, especially to the top of the shoulder. No diaphoresis, nausea, vomiting, feeling of palpitations in the chest. She was discontinued off of anticoagulation for history of a PE in November for GI bleeding. She has not been resumed. She denies any headaches, dizziness, feelings of syncope. Hgb 9.9, trop neg. CTA neg for PE, CXR neg for any acute process. Review of Systems 10 point review of systems is negative except as stated in HPI Past Medical History Past Medical History: Cancer, Hyperlipidemia, Hypertension, Myocardial Infarction ([place]) Additional Past Medical History / Comment(s): Colon Cancer. bowel blockage Last Myocardial Infarction Date:: 04/2022 History of Any Multi-Drug Resistant Organisms: None Reported Past Surgical History: No Surgical Hx Reported Past Anesthesia/Blood Transfusion Reactions: No Reported Reaction Past Psychological History: Depression Smoking Status: Never smoker Past Alcohol Use History: None Reported Past Drug Use History: None Reported - Past Family History Father Family Medical History: Chest Pain / Angina, Congestive Heart Failure (CHF), Co ronary Artery Disease (CAD) Brother(s) Family Medical History: Chest Pain / Angina, Congestive Heart Failure (CHF), Coronary Artery Disease (CAD) Additional Family Medical History / Comment(s): stenting Medications and Allergies Home Medications Medication Instructions Recorded Confirmed Type Atorvastatin [Lipitor] 40 mg PO DAILY 04/02/22 01/09/23 History Escitalopram [Lexapro] 20 mg PO DAILY 04/02/22 01/09/23 History Pantoprazole [Protonix] 40 mg PO BID 04/02/22 01/09/23 History Metoprolol Tartrate [Lopressor] 50 mg PO TID 09/15/22 01/09/23 History Acetaminophen Tab [Tylenol] 650 mg PO Q6H PRN 11/25/22 01/09/23 History Furosemide [Lasix] 20 mg PO TID 11/25/22 01/09/23 History Lidocaine-Prilocaine Cream [Emla 1 applic TOPICAL DAILY PRN 11/25/22 01/09/23 History Cream 2.5%/2.5%] Nitroglycerin Sl Tabs [Nitrostat] 0.4 mg SUBLINGUAL Q5M PRN 11/25/22 01/09/23 History Potassium Chloride ER [K-Dur 10] 10 meq PO BID 11/25/22 01/09/23 History amLODIPine [Norvasc] 5 mg PO DAILY 11/25/22 01/09/23 History ondansetron HCL [Zofran] 8 mg PO Q6H PRN 11/25/22 01/09/23 History Folic Acid 1 mg PO DAILY@1200 #30 tab 12/06/22 01/09/23 Rx Levothyroxine Sodium [Synthroid] 25 mcg PO DAILY@0630 #30 tab 12/06/22 01/09/23 Rx Thiamine [Vitamin B-1] 100 mg PO DAILY@1200 #30 tab 12/06/22 01/09/23 Rx Multivitamins, Thera [Multivitamin 1 tab PO DAILY 01/09/23 01/09/23 History (formulary)] Allergies Allergy/AdvReac Type Severity Reaction Status Date / Time No Known Allergies Allergy Verified 01/09/23 13:23 Physical Exam Vitals: Vital Signs Temp Pulse Pulse Resp BP BP Pulse Ox 01/10/23 04:00 80 15 110/66 98 01/10/23 00:00 81 17 95/53 94 L 01/09/23 20:00 98.6 F 95 16 118/69 96 01/09/23 18:30 98.7 F 81 18 104/54 98 01/09/23 17:05 98.0 F 79 18 118/67 98 01/09/23 15:40 76 18 116/68 98 01/09/23 13:44 71 18 136/86 94 L 01/09/23 11:52 80 81 18 135/71 96 01/09/23 11:30 98.4 F 81 16 124/65 98 Intake and Output 01/09/23 01/10/23 01/10/23 22:59 06:59 14:59 Other: # Voids 1 Weight 78.925 kg - Constitutional General appearance: average body habitus, cooperative, no acute distress - EENT Eyes: anicteric sclerae, EOMI ENT: hearing grossly normal, normal oropharynx - Neck Neck: no lymphadenopathy - Respiratory Respiratory: bilateral: CTA - Cardiovascular Rhythm: regular Heart sounds: normal: S1, S2 Abnormal Heart Sounds: no systolic murmur, no diastolic murmur, no rub, no S3 Gallop, no S4 Gallop, no click, no other leg Peripheral Edema: bilateral: Trace - Gastrointestinal General gastrointestinal: no absent bowel sounds, no decreased bowel sounds, no distended, no hepatomegaly, no hyperactive bowel sounds, normal bowel sounds, no organomegaly, no rigid, no scaphoid, soft, no splenomegaly, no tenderness, no umbilical hernia, no ventral hernia - Integumentary Integumentary: normal - Neurologic Neurologic: CNII-XII intact - Musculoskeletal Musculoskeletal: strength equal bilaterally - Psychiatric Psychiatric: A&O x's 3, appropriate affect, intact judgment & insight Results CBC & Chem 7: 01/10/23 08:14 01/10/23 08:14 Labs: Abnormal Lab Results - Last 24 Hours (Table) 01/09/23 01/09/23 Range/Units 11:58 11:59 RBC 2.96 L (3.80-5.40) m/uL Hgb 9.9 L (11.4-16.0) gm/dL Hct 30.7 L (34.0-46.0) % MCV 103.6 H (80.0-100.0) fL RDW 16.2 H (11.5-15.5) % Lymphocytes # 0.7 L (1.0-4.8) k/uL Glucose 106 H (74-99) mg/dL Magnesium 1.1 L (1.6-2.3) mg/dL AST 78 H (14-36) U/L ALT 39 H (4-34) U/L Alkaline Phosphatase 411 H (38-126) U/L Total Protein 8.4 H (6.3-8.2) g/dL Chest x-ray: report reviewed CT scan - chest: report reviewed Assessment and Plan (1) Chest pain Current Visit: Yes Status: Acute Priority: High Code(s): R07.9 - CHEST PAIN, UNSPECIFIED SNOMED Code(s): 15441921 (2) H/O colon cancer, stage IV Current Visit: Yes Status: Acute Priority: High Code(s): Z85.038 - PERSONAL HISTORY OF MALIGNANT NEOPLASM OF LARGE INTESTINE SNOMED Code(s): 871133152 (3) Hypomagnesemia Current Visit: Yes Status: Acute Priority: High Code(s): E83.42 - HYPOMAGNESEMIA SNOMED Code(s): 021391969 Plan: Chest pain -Chest pain being worked up -Cardiology consulted, pending assessment and recommendations GI bleeding was about 2 months ago. Literature suggests 3 months post GI bleeding before re-starting anticoagulation. If patient is worked up by C ardiology and needs to be on anticoagulation or antiplatelet therapy this can be considered. Will discuss with Cardiology if AC needed. Stage IV colon cancer -Patient is having treatment restaging PET scan next week with follow-up with Primary Oncologist for results and further plan of care -Patient is not currently on any cancer treatment -Patient currently is flushing her PEG tube with water, she is not using, she is able to tolerate oral intake and is having normal bowel movements Leg wounds from her previous visit are healed Low magnesium as being replaced via protocol attests: I have seen and examined patient, performed H&P, developed impression and plan of care. Discussed with dictator. Agree with documentation, dictated as a scribe
[2023-01-10 15:55] VITALS: BP 107/53; PULSE 84; TEMP 97.6
--- NOTE | 2023-01-10 16:58 | CA ---
Transthoracic Echo Report Name: Kaya Loco Age: 72 Gender: F : 1950 Exam Date: 01/10/2023 12:28 Exam Location: [facility] Ht (in): 67 Wt (lb): 170 Ordering Physician: Citlali Singer Attending/Referring Phys: [id number], Enmanuel Charge Nurse Johnathan Zuleta RDCS Procedure CPT: Indications: LVF Cardiac Hx: Technical Quality: Fair Contrast 1: Total Dose (mL): Contrast 2: Total Dose (mL): MEASUREMENTS (Male / Female) Normal Values 2D ECHO LV Diastolic Diameter PLAX 4.5 cm 4.2 - 5.9 / 3.9 - 5.3 cm LV Systolic Diameter PLAX 2.8 cm LV Fractional Shortening PLAX 37.3 % IVS Diastolic Thickness 1.0 cm 0.6 - 1.0 / 0.6 - 0.9 cm IVS Systolic Thickness 1.6 cm LVPW Diastolic Thickness 1.1 cm 0.6 - 1.0 / 0.6 - 0.9 cm LVPW Systolic Thickness 1.8 cm LV Relative Wall Thickness 0.5 RV Internal Dim ED PLAX 3.6 cm LVOT Diameter 1.7 cm LA Systolic Diameter LX 3.5 cm 3.0 - 4.0 / 2.7 - 3.8 cm LV Diastolic Volume MOD BP 52.5 cm??? 67 - 155 / 56 - 104 cm??? LV Systolic Volume MOD BP 20.1 cm??? 22 - 58 / 19 - 49 cm??? LV Ejection Fraction MOD BP 61.8 % >= 55 % LV Stroke Volume MOD BP 32.4 cm??? LV Diastolic Volume MOD 4C 44.6 cm??? LV Systolic Volume MOD 4C 17.5 cm??? LV Ejection Fraction MOD 4C 60.9 % LV Stroke Volume MOD 4C 27.2 cm??? LV Diastolic Length 4C 7.2 cm LV Systolic Length 4C 5.7 cm LV Diastolic Volume MOD 2C 56.9 cm??? LV Systolic Volume MOD 2C 22.7 cm??? LV Ejection Fraction MOD 2C 60.2 % LV Stroke Volume MOD 2C 34.2 cm??? LV Diastolic Length 2C 6.6 cm LV Systolic Length 2C 5.6 cm Ascending Aorta Diameter 2.4 cm M-MODE Aortic Root Diameter MM 3.1 cm LA Systolic Diameter MM 3.7 cm LA Ao Ratio MM 1.2 AV Cusp Separation MM 1.6 cm DOPPLER AV Peak Velocity 143.9 cm/s AV Peak Gradient 8.3 mmHg AV Mean Velocity 97.4 cm/s AV Mean Gradient 4.4 mmHg AV Velocity Time Integral 27.6 cm LVOT Peak Velocity 98.9 cm/s LVOT Peak Gradient 3.9 mmHg LVOT Mean Velocity 71.4 cm/s LVOT Mean Gradient 2.3 mmHg LVOT Velocity Time Integral 22.7 cm LVOT Stroke Volume 53.4 cm??? LVOT Stroke Volume Index 28.3 ml/m??? AV Area Cont Eq vti 1.9 cm??? AV Area Cont Eq pk 1.6 cm??? MV Deceleration Archuleta 456.2 cm/s??? MR Peak Velocity 446.6 cm/s MR Peak Gradient 79.8 mmHg Mitral E Point Velocity 63.7 cm/s Mitral A Point Velocity 86.9 cm/s Mitral E to A Ratio 0.7 MV Deceleration Time 139.7 ms MV E' Velocity 5.2 cm/s Mitral E to MV E' Ratio 12.2 TR Peak Velocity 200.9 cm/s TR Peak Gradient 16.1 mmHg Right Ventricular Systolic Press 26.1 mmHg PV Peak Velocity 95.6 cm/s PV Peak Gradient 3.7 mmHg FINDINGS Left Ventricle Left ventricular ejection fraction is estimated at 55-60 %. Borderline left ventricular hypertrophy. Grade 1 diastolic dysfunction. Normal basal systolic function. Right Ventricle Normal right ventricular size and function. RVSP- 26 mm Hg. Right Atrium Mild right atrial dilatation. Left Atrium Mild left atrial dilatation. Mitral Valve Mitral valve thickened. No mitral stenosis. Mild mitral regurgitation. Aortic Valve Trileaflet aortic valve. No aortic stenosis. No aortic regurgitation. Tricuspid Valve [id number] tricuspid regurgitation. Pulmonic Valve Structurally normal pulmonic valve. Pericardium Normal pericardium. No pericardial effusion. Aorta Normal size aortic root and proximal ascending aorta. CONCLUSIONS Left ventricular ejection fraction 55-60% RVSP 26 Mild left and right atrial dilation Mild mitral regurgitation No pericardial effusion Previewed by: Dr. Akhil Kiser DO (Electronically Signed) Final Date: 10 Jan 2023 16:57
--- NOTE | 2023-01-10 19:48 | P.DS ---
Providers Date of admission: 01/09/23 15:27 Expected date of discharge: 01/10/23 Attending physician: Darell De Luna MD Consults: 01/09/23 15:18 Consult Physician Urgent Consulting Provider: [facility] Consult Reason/Comments: Acute chest pain Do you want consulting provider notified?: Yes 01/09/23 15:58 Consult Physician Routine Consulting Provider: Jan So Consult Reason/Comments: malignancy Do you want consulting provider notified?: Yes Primary care physician: Partha Kelley [facility] Course: Final diagnosis Chest pain, possible unstable angina, ruled out ACS History of metastatic colon cancer, stage IV History of recent bilateral leg cellulitis possibly secondary to enterococcus and Pseudomonas on secondary to chemotherapy with subsequent event History of recent GI bleed bleeding at the rectum stump and hemorrhoids Hypertension Hyperlipidemia History of hypertension Full code Discharge disposition Patient is being discharged in a stable condition with guarded prognosis to home. Patient will follow-up with Dr. Kelley in the outpatient setting upon discharge. Patient is to follow up with cardiology as well as oncology outpatient as scheduled. Patient to continue holding anticoagulation at this time. Total time taken is greater than 35 minutes. Hospital course This is a 72-year-old female who was recently admitted with chest pain mainta ined on telemetry monitoring being monitored by cardiology. Patient had 2-D echo ordered which is pending and within normal limits patient may be discharged from cardiology perspective. Patient continue on current medication regimen and outpatient follow-up with cardiology in one week as discussed. Patient also follows with oncology does have follow-up appointment scheduled for later in the month. Patient reports to feeling improved and will like to go home. Please refer to other consultation notes for further HPI. Currently no reports of chest pain, shortness of breath, or palpitations. Patient is afebrile. No reports of nausea or vomiting and patient is tolerating diet. Patient will be discharged home today. Guarded prognosis given patient's significant comorbidities Physical exam: Gen: This is a 72-year-old female who was awake, alert and oriented 3, well- developed, well-nourished, elderly-appearing HEENT: Head is atraumatic, normocephalic. Pupils equal, round. Sclerae is anicteric. NECK: Supple. No JVD. No lymphadenopathy. No thyromegaly. LUNGS: Diminished breath sounds bilaterally with no wheezing noted, faint rhonchi. No intercostal retractions. HEART: S1, S2 are muffled ABDOMEN: Soft. Bowel sounds are present. No masses. No tenderness. EXTREMITIES: No pedal edema. No calf tenderness. NEUROLOGICAL: Patient is awake, alert and oriented x3. Cranial nerves 2 through 12 are grossly intact. Please refer to medication reconciliation sheet for a list of medications. The impression and plan of care has been dictated by Nurse Sally Bowden as directed. Dr. Oral MD I have performed a history and examination and MDM of this patient, discussed the same with the dictator, and agree with the dictator's assessment and plan as written ,documented as a scribe. Based on total visit time, I have performed more than 50% of the visit. Patient Condition at Discharge: Stable Plan - Discharge Summary Discharge Rx Participant: Yes New Discharge Prescriptions: Continue Escitalopram [Lexapro] 20 mg PO DAILY Atorvastatin [Lipitor] 40 mg PO DAILY Lidocaine-Prilocaine Cream [Emla Cream 2.5%/2.5%] 1 applic TOPICAL DAILY PRN PRN Reason: PORT ACCESS Acetaminophen Tab [Tylenol] 650 mg PO Q6H PRN PRN Reason: Pain Or Fever > 100.5 Nitroglycerin Sl Tabs [Nitrostat] 0.4 mg SUBLINGUAL Q5M PRN PRN Reason: Chest Pain Potassium Chloride ER [K-Dur 10] 10 meq PO BID Thiamine [Vitamin B-1] 100 mg PO DAILY@1200 #30 tab Pantoprazole [Protonix] 40 mg PO BID Metoprolol Tartrate [Lopressor] 50 mg PO TID ondansetron HCL [Zofran] 8 mg PO Q6H PRN PRN Reason: Nausea Furosemide [Lasix] 20 mg PO TID amLODIPine [Norvasc] 5 mg PO DAILY Folic Acid 1 mg PO DAILY@1200 #30 tab Levothyroxine Sodium [Synthroid] 25 mcg PO DAILY@0630 #30 tab Multivitamins, Thera [Multivitamin (formulary)] 1 tab PO DAILY Discharge Medication List Atorvastatin [Lipitor] 40 mg PO DAILY 04/02/22 [History] Escitalopram [Lexapro] 20 mg PO DAILY 04/02/22 [History] Pantoprazole [Protonix] 40 mg PO BID 04/02/22 [History] Metoprolol Tartrate [Lopressor] 50 mg PO TID 09/15/22 [History] Acetaminophen Tab [Tylenol] 650 mg PO Q6H PRN 11/25/22 [History] Furosemide [Lasix] 20 mg PO TID 11/25/22 [History] Lidocaine-Prilocaine Cream [Emla Cream 2.5%/2.5%] 1 applic TOPICAL DAILY PRN 11/25/22 [History] Nitroglycerin Sl Tabs [Nitrostat] 0.4 mg SUBLINGUAL Q5M PRN 11/25/22 [History] Potassium Chloride ER [K-Dur 10] 10 meq PO BID 11/25/22 [History] amLODIPine [Norvasc] 5 mg PO DAILY 11/25/22 [History] ondansetron HCL [Zofran] 8 mg PO Q6H PRN 11/25/22 [History] Folic Acid 1 mg PO DAILY@1200 #30 tab 12/06/22 [Rx] Levothyroxine Sodium [Synthroid] 25 mcg PO DAILY@0630 #30 tab 12/06/22 [Rx] Thiamine [Vitamin B-1] 100 mg PO DAILY@1200 #30 tab 12/06/22 [Rx] Multivitamins, Thera [Multivitamin (formulary)] 1 tab PO DAILY 01/09/23 [History] Follow up Appointment(s)/Referral(s): Dyllan Aranda MD [STAFF PHYSICIAN] - 1 Week (please call to schedule follow up, tell them you were discharged from [place] [id number] for chest pain) Partha Kelley MD [Primary Care Provider] - 1-2 days (please call to schedule follow up, tell them you were discharged from [facility] 01/10 for chest pain) Kali Juarez MD [STAFF PHYSICIAN] - 01/25/23 11:15 am Patient Instructions/Handouts: Chest Pain (DC) Activity/Diet/Wound Care/Special Instructions: Activity Limited until follow-up Follow-up with primary care provider on discharge Follow-up oncology outpatient Follow-up cardiology outpatient Discharge Disposition: HOME SELF-CARE
[2023-01-10] MEDS ORDERED: MELATONIN 5 MG TABLET PO SCH (21:00)
--- NOTE | 2023-01-11 07:15 | P.CRDCN ---
History of Present Illness Consult date: 01/11/23 Consult reason: chest pain History of present illness: History of present illness: This is a 72 year old female with previous medical history of pulmonary embolism treated at [facility] in April 2022. She also has past medical history of hypertension, hyperlipidemia, colon cancer, depression. She states she also had elevated troponins at that time but no heart catheterization was performed. She woke up yesterday with chest pain started on the left and went across her chest and she has never had this type of chest pain before. She took a nitroglycerin with no change in the pain. The pain lasted all day and did not let up. It was worse with deep breathing. No cough, no fever or chills. No shortness of breath. She presented to the emergency center with stable blood pressure 124/65 heart rate was in the 80s, pulse ox 98% on room air. EKG sinus rhythm with no acute ST changes. Chest x-ray: No acute cardiopulmonary process CTA of the chest revealed no pulmonary embolism WBC 5.3, hemoglobin 9.9, platelet count 208. INR 0.9. Electrolytes and renal function normal. Blood sugar 106. Liver function tests were elevated with AST 78, ALT 39 and alkaline phosphatase 411. Troponin negative 3 draws. ProBNP 169. Home cardiac medications: Amlodipine 5 mg daily, Lipitor 40 mg daily, Lasix 20 mg 3 times daily, Lopressor 50 mg 3 times daily, Nitrostat as needed, levothyroxine 25 g daily Echocardiogram 01/10/2023: EF 55-60%, RVSP 26, mild left and right atrial dilation, mild mitral regurgitation, no pericardial effusion. Review Of Systems: At the time of my evaluation: Constitutional: No fever, no chills. No weakness, fatigue or lethargy. EENT: No headache. No dizziness. Lungs: No shortness of breath, cough, no sputum production. No wheezing. Cardiovascular: No chest pain, no lower extremity edema. No palpitations. No paroxysmal nocturnal dyspnea. No orthopnea. No lightheadedness or dizziness. No syncopal episodes. Abdominal: No abdominal pain. No nausea, vomiting. No diarrhea. No constipation. No bloody or tarry stools. Genitourinary: No dysuria.. No urinary retention. Musculoskeletal: No myalgias. No muscle weakness, no frequent falls. No back pain. No neck pain. Integumentary: No wounds. No rash. No unusual bruising. Neurologic: No aphasia. No facial droop. No change in mentation. No head injury. No headache. Physical examination: Gen: This is a 72-year-old female resting in bed and appears to be comfortable and in no acute distress VS: reviewed HEENT: Head is atraumatic, normocephalic. Pupils equal, round. Sclerae is anicteric. NECK: Supple. No JVD. . LUNGS: Clear to auscultation. No wheezes or rhonchi. No intercostal retractions. HEART: Regular rate and rhythm. No murmur. Tenderness to chest wall ABDOMEN: Soft No tenderness. EXTREMITIES: No pedal edema. No calf tenderness. NEUROLOGICAL: Patient is awake, alert and oriented x3. Assessment: Chest pain, acute coronary syndrome ruled out, chest pain related to a musculoskeletal etiology Colon cancer Hypertension Hyperlipidemia Plan: Continue patient's cardiac medications Patient is cleared for discharge and may follow-up with her primary vp of product seen at [facility]. Thank you kindly for this consultation. Nurse practitioner note has been reviewed, I agree with documented findings and plan of care. Patient was seen and examined. Past Medical History Past Medical History: Cancer, Hyperlipidemia, Hypertension, Myocardial Infarction (MT) Additional Past Medical History / Comment(s): Colon Cancer. bowel blockage Last Myocardial Infarction Date:: 04/2022 History of Any Multi-Drug Resistant Organisms: None Reported Past Surgical History: No Surgical Hx Reported Past Anesthesia/Blood Transfusion Reactions: No Reported Reaction Past Psychological History: Depression Smoking Status: Never smoker Past Alcohol Use History: None Reported Past Drug Use History: None Reported - Past Family History Father Family Medical History: Chest Pain / Angina, Congestive Heart Failure (CHF), Coronary Artery Disease (CAD) Brother(s) Family Medical History: Chest Pain / Angina, Congestive Heart Failure (CHF), Coronary Artery Disease (CAD) Additional Family Medical History / Comment(s): stenting Medications and Allergies Home Medications Medication Instructions Recorded Confirmed Type Atorvastatin [Lipitor] 40 mg PO DAILY 04/02/22 01/09/23 History Escitalopram [Lexapro] 20 mg PO DAILY 04/02/22 01/09/23 History Pantoprazole [Protonix] 40 mg PO BID 04/02/22 01/09/23 History Metoprolol Tartrate [Lopressor] 50 mg PO TID 09/15/22 01/09/23 History Acetaminophen Tab [Tylenol] 650 mg PO Q6H PRN 11/25/22 01/09/23 History Furosemide [Lasix] 20 mg PO TID 11/25/22 01/09/23 History Lidocaine-Prilocaine Cream [Emla 1 applic TOPICAL DAILY PRN 11/25/22 01/09/23 History Cream 2.5%/2.5%] Nitroglycerin Sl Tabs [Nitrostat] 0.4 mg SUBLINGUAL Q5M PRN 11/25/22 01/09/23 History Potassium Chloride ER [K-Dur 10] 10 meq PO BID 11/25/22 01/09/23 History amLODIPine [Norvasc] 5 mg PO DAILY 11/25/22 01/09/23 History ondansetron HCL [Zofran] 8 mg PO Q6H PRN 11/25/22 01/09/23 History Folic Acid 1 mg PO DAILY@1200 #30 tab 12/06/22 01/09/23 Rx Levothyroxine Sodium [Synthroid] 25 mcg PO DAILY@0630 #30 tab 12/06/22 01/09/23 Rx Thiamine [Vitamin B-1] 100 mg PO DAILY@1200 #30 tab 12/06/22 01/09/23 Rx Multivitamins, Thera [Multivitamin 1 tab PO DAILY 01/09/23 01/09/23 History (formulary)] Allergies Allergy/AdvReac Type Severity Reaction Status Date / Time No Known Allergies Allergy Verified 01/09/23 13:23 Physical Exam Vitals: Vital Signs Temp Pulse Resp BP Pulse Ox 01/10/23 15:54 97.6 F 84 16 107/53 97 01/10/23 12:58 74 16 107/56 97 01/10/23 09:20 97.9 F 79 16 103/61 96 Results 01/10/23 08:14 01/10/23 08:14 CBC 01/10/23 Range/Units 08:14 WBC 4.0 (3.8-10.6) k/uL RBC 2.80 L (3.80-5.40) m/uL Hgb 9.3 L (11.4-16.0) gm/dL Hct 30.4 L (34.0-46.0) % Plt Count 176 (150-450) k/uL Comprehensive Metabolic Panel 01/10/23 Range/Units 08:14 Sodium 135 L (137-145) mmol/L Potassium 3.3 L (3.5-5.1) mmol/L Chloride 100 (98-107) mmol/L Carbon Dioxide 26 (22-30) mmol/L BUN 13 (7-17) mg/dL Creatinine 0.79 (0.52-1.04) mg/dL Glucose 111 H (74-99) mg/dL Calcium 8.6 (8.4-10.2) mg/dL 01/10/23 08:14 01/10/23 08:14
== END 2023-01-10 17:50 | disposition home or self-care (01) | DRG 303 ==
LOC: EC 11:26 → 3SCARD 15:27
PROVIDERS: ADMIT Internal Medicine; ATTEND Internal Medicine
DX: I25.110 Atherosclerotic heart disease of native coronary artery with unstable angina pectoris (principal); C18.9 Malignant neoplasm of colon, unspecified; C78.6 Secondary malignant neoplasm of retroperitoneum and peritoneum; I10 Essential (primary) hypertension; E03.9 Hypothyroidism, unspecified; E78.5 Hyperlipidemia, unspecified; E83.42 Hypomagnesemia; I25.2 Old myocardial infarction; Z92.21 Personal history of antineoplastic chemotherapy; Z87.19 Personal history of other diseases of the digestive system; Z86.19 Personal history of other infectious and parasitic diseases; Z93.1 Gastrostomy status; Z56.0 Unemployment, unspecified; Z86.711 Personal history of pulmonary embolism; Z79.890 Hormone replacement therapy; Z79.899 Other long term (current) drug therapy; Z82.49 Family history of ischemic heart disease and other diseases of the circulatory system
CPT/HCPCS: 36415; 71046; 71275; 80048; 80053; 83735; 83880; 84484; 85025; 85610; 85730; 93005; 93306

== ENCOUNTER → 2023-01-13 | Outpatient (CLI) | payer MEDICARE ==
--- NOTE | 2023-01-14 13:28 | PE ---
EXAMINATION TYPE: PET CT fusion skull to thigh DATE OF EXAM: 01/13/2023 CLINICAL INDICATION:Female, 72 years old with history of C18.7; TECHNIQUE: Following the intravenous administration of 12 mCi of F-18 FDG, whole body images are pe rformed from the skull base to the midthigh. Images are reviewed on the computer in the coronal, axi al, and sagittal planes. Reconstructed rotating images are created on independent workstation and re viewed on the computer. A non-contrast CT is performed in conjunction with the PET scan. Glucose le dennise 103 mg/dL COMPARISON: CT 11/26/2022, PET/CT 03/18/2022 FINDINGS: Mediastinal SUV mean is 1.6. Hepatic parenchyma SUV mean is 2.7. SKULL BASE AND NECK: No suspicious radiotracer activity. CHEST, MEDIASTINUM, AND HILAR REGION: No suspicious radiotracer activity. Resolution of right pleural effusion, trace left. ABDOMEN AND PELVIS: * Omental caking throughout the abdomen is redemonstrated. Metabolic activity within the omental dep osits has decreased to background levels. FDG activity along the liver capsule is no longer visualize d. * There is a FDG avid lesion within the sigmoid colon stent graft near the rectum max SUV 11.5 previ ously 12.5 and before stent graft max SUV 6.7, previously 9.2. * Left pelvis adenopathy measuring 4.3 x 2.3 cm is again redemonstrated SUV 4.7 previously 9.3. * This uptake within the third/fourth portion of the duodenum is decreased now max SUV 4.4, previous ly 10.9 OSSEOUS STRUCTURES: No suspicious radiotracer activity. OTHER CT: Atherosclerosis of the carotid bifurcations. Chest wall [id number] with distal tip in th e superior vena cava. Layering gallstones present. There is a PEG tube with inflatable cuff in approp riate position. There is a sigmoid colon stent in place and appears patent. Left upper anterior lower extremity varicosities. IMPRESSION: 1. Overall positive response to therapy with decrease in metabolic activity of the metastatic deposi ts throughout the omentum. There remains FDG activity within the sigmoid colon/rectum stent as well a s mild but decreased activity within the left pelvic sidewall lymphadenopathy. 2. Decrease/resolution of right pleural effusion. Trace left pleural effusion.
== END | disposition home or self-care (01) ==
LOC: RADPETMAIN 15:21
PROVIDERS: ATTEND Internal Medicine Hematology & Oncology
DX: C18.7 Malignant neoplasm of sigmoid colon (principal); J90 Pleural effusion, not elsewhere classified; R59.0 Localized enlarged lymph nodes
CPT/HCPCS: 78815; A9552

== ENCOUNTER → 2023-03-02 | Outpatient (CLI) | payer MEDICARE | END | disposition home or self-care (01) | LOC: LABWHC1 15:41 | PROVIDERS: ATTEND Internal Medicine | DX: C18.7 Malignant neoplasm of sigmoid colon (principal); E86.0 Dehydration; I21.19 ST elevation (STEMI) myocardial infarction involving other coronary artery of inferior wall; F32.5 Major depressive disorder, single episode, in full remission; R21 Rash and other nonspecific skin eruption; R94.31 Abnormal electrocardiogram [ECG] [EKG] | CPT/HCPCS: 36415; 93005 ==

== ENCOUNTER → 2023-04-14 | Outpatient (CLI) | payer MEDICARE ==
--- NOTE | 2023-04-15 09:00 | PE ---
EXAMINATION TYPE: PET CT fusion skull to thigh DATE OF EXAM: 04/14/2023 CLINICAL INDICATION:Female, 73 years old with history of C18.7; TECHNIQUE: Following the intravenous administration of 13.54 mCi of F-18 FDG, whole body images are performed from the skull base to the midthigh. Images are reviewed on the computer in the coronal, axial, and sagittal planes. Reconstructed rotating images are created on independent workstation and reviewed on the computer. A non-contrast CT is performed in conjunction with the PET scan. Glucose level 91 mg/dL CT DLP: 341.85 mGycm, Automated exposure control for dose reduction was used. COMPARISON: CT None, PET/CT 01/13/2023 no priors, FINDINGS: Mediastinal SUV mean is 1.3. Hepatic parenchyma SUV mean is 2.0 SKULL BASE AND NECK: No suspicious radiotracer activity. CHEST, MEDIASTINUM, AND HILAR REGION: No suspicious radiotracer activity. Resolution of right pleural effusion, trace left. ABDOMEN AND PELVIS: * Omental caking throughout the abdomen is redemonstrated. No increased metabolic activity definitiv rosie visualized however is somewhat ill-defined throughout the abdomen mesentery. * There is a FDG avid lesion within the sigmoid colon stent graft near the rectum max SUV 12.98, pre viously 11.5 , 12.5 and before stent graft max SUV 6.7, previously 9.2. * Left pelvis adenopathy measuring 4.1 x 3.2 cm is again redemonstrated SUV 3.5, previously 4.7 and 9.3. * This uptake within the third/fourth portion of the duodenum is increased now max SUV 6.8, previous ly 4.4, and the 10.9 OSSEOUS STRUCTURES: No suspicious radiotracer activity. OTHER CT: Atherosclerosis of the carotid bifurcations. Chest wall [id number] with distal tip in th e superior vena cava. Layering gallstones present. There is a PEG tube with inflatable cuff in approp riate position. There is a sigmoid colon stent in place and appears patent. Left upper anterior lower extremity varicosities. IMPRESSION: 1. Overall findings suggestive of mild progression with mildly increased FDG activity within the rec harmony/sigmoid stent graft. There remains ill-defined omental caking with low levels FDG activity at or below background. There remains left pelvic adenopathy which has decreased in FDG activity. 2. Increase in duodenal focal FDG activity finding remains indeterminate.
== END | disposition home or self-care (01) ==
LOC: RADPETMAIN 11:33
PROVIDERS: ATTEND Internal Medicine Hematology & Oncology
DX: C18.7 Malignant neoplasm of sigmoid colon (principal); R59.0 Localized enlarged lymph nodes
CPT/HCPCS: 78815; A9552

== ENCOUNTER → 2023-08-17 | Outpatient (CLI) | payer MEDICARE ==
--- NOTE | 2023-08-20 09:57 | PE ---
EXAMINATION TYPE: PET CT fusion skull to thigh DATE OF EXAM: 08/17/2023 CLINICAL INDICATION:Female, 73 years old with history of C18.7 colon ca; TECHNIQUE: Following the intravenous administration of 12.59 mCi of F-18 FDG, whole body images are performed from the skull base to the midthigh. Images are reviewed on the computer in the coronal, a xial, and sagittal planes. Reconstructed rotating images are created on independent workstation and reviewed on the computer. A non-contrast CT is performed in conjunction with the PET scan. Glucose level 109 mg/dL CT DLP: 292 mGycm, Automated exposure control for dose reduction was used. COMPARISON: CT None, PET/CT most recent 04/14/2023, 01/13/2023., FINDINGS: Mediastinal SUV mean is 2.1. Hepatic parenchyma SUV mean is 2.9. SKULL BASE AND NECK: No suspicious radiotracer activity. CHEST, MEDIASTINUM, AND HILAR REGION: No suspicious radiotracer activity. Resolution of right pleural effusion, trace left. ABDOMEN AND PELVIS: * Omental caking throughout the abdomen is redemonstrated. There is diffuse 1 increasing metabolic a ctivity within the omentum on today's exam max SUV in the left upper quadrant activity definitively v isualized however is somewhat ill-defined throughout the abdomen mesentery. * There is a FDG avid lesion within the sigmoid colon stent graft near the rectum max SUV 15.7, prev iously 12.98, 11.5 , 12.5 and before stent graft max SUV 14.5, 6.7, previously 9.2. * Left pelvis adenopathy measuring 6.5 x 2.6 cm with a bilobed appearance 4.1 x 3.2 cm is again rede monstrated SUV 5.1, previously 3.5, 4.7 and 9.3. * This uptake within the third/fourth portion of the duodenum is increased now max SUV 11.7, previou sly 6.8, 4.4, and 10.9. OSSEOUS STRUCTURES: * No suspicious radiotracer activity. * Left acromioclavicular joint uptake max SUV 4.7 likely on a degenerative basis. OTHER CT: Atherosclerosis of the carotid bifurcations. Chest wall [id number]-[id number] with distal tip in th e superior vena cava. Layering gallstones present. There is a PEG tube with inflatable cuff in approp riate position. There is a sigmoid colon stent in place and appears patent. Left upper anterior lower extremity varicosities. IMPRESSION: 1. Overall findings suggestive of progression increasing FDG activity omental caking within the rect al/sigmoid stent graft. There is increasing size of left pelvic adenopathy which increased metabolic activity compared to prior. The stent graft soft tissue mass with increased metabolic activity has in creased as well. 2. There is interval increase in duodenal focal FDG activity finding remains indeterminate.
== END | disposition home or self-care (01) ==
LOC: RADPETMAIN 12:24
PROVIDERS: ATTEND Internal Medicine Hematology & Oncology
DX: C18.7 Malignant neoplasm of sigmoid colon (principal); R59.0 Localized enlarged lymph nodes
CPT/HCPCS: 78815; A9552

== ENCOUNTER → 2023-08-23 | Outpatient (CLI) | payer MEDICARE ==
--- NOTE | 2023-08-24 21:47 | BD ---
EXAMINATION TYPE: Axial Bone Density DATE OF EXAM: 08/23/2023 CLINICAL HISTORY: 73 years old Female. ICD-10 CODE: M81.0 AGE-RELATED OSTEOPOROS Height: 5 ft 6 in Weight: 139 FRAX RISK QUESTIONS: Alcohol (3 or more units per day): no Family History (Parent hip fracture): no Glucocorticoids (More than 3mos): no (Ex: prednisone, prednisolone, methylprednisolone, dexamethasone, and hydrocortisone). History of Fracture in Adulthood: no Secondary Osteoporosis: 1. Type 1 Diabetes: no 2. Hyperthyroidism: no 3. Menopause before 45: no 4. Malnutrition: no 5. Chronic liver disease: no Rheumatoid Arthritis: no Current Tobacco Use: no RISK FACTORS HISTORY OF: Surgery to Spine/Hip(right/left)/Wrist (right/left): no Family History of Osteoporosis: no Active: no Diet low in dairy products/other sources of calcium: no Postmenopausal woman: yes Take estrogen and/or progesterone medications: none now Lost more than 2 inches in height since high school: no Frequent falls: no Poor Health: good Hyperparathyroidism: no Adrenal Insufficiency: no MEDICATIONS: Additional Medications: med list is in notes in pacs Additional History: colon cancer 2021 . currently on chemo EXAM MEASUREMENTS: Bone mineral densitometry was performed using the [employer] System. Bone mineral density as measured about the Lumbar spine is: ----- L1-L4(G/cm2): 0.975 T Score Values are as follows: ----- L1: -2.3 ----- L2: -1.6 ----- L3: -2.0 ----- L4: -1.1 ----- L1-L4: -1.7 Z Score Values are as follows: ----- L1: -0.5 ----- L2: 0.1 ----- L3: -0.2 ----- L4: 0.7 ----- L1-L4: 0.1 prev done elsewhere Bone mineral density about the R hip (g/cm2): 0.857 Bone mineral density about the L hip (g/cm2): 0.937 T Score values are as follows: -----R Neck: -1.3 -----L Neck: -0.7 -----R Total: -1.4 -----L Total: -1.0 Z Score values are as follows: -----R Neck: 0.5 -----L Neck: 1.1 -----R Total: 0.2 -----L Total: 0.6 baseline FRAX%s: The graph provided illustrates a 9.4chance for a major osteoporotic fx and a 1.5chance for th e hips probability for fx in 10 years time. IMPRESSION Osteopenia (T Score between -2.5 and -1). There is slightly increased risk of fracture and the patient may be considered for treatment. Re-Screen 2-5 years. NOTE: T-SCORE=SD OF THE YOUNG ADULT MEAN.
--- NOTE | 2023-08-29 19:09 | MM ---
Reason for Exam: Screening (asymptomatic). Patient History: Menarche at age 14. First Full-Term at age 33. Late child-bearing (after 30). Postmenopausal. Patient has history of breast feeding. Previous chemotherapy at age 72. Risk Values: Anamika 5 year model risk: 2.4%. NCI Lifetime model risk: 6.3%. Prior Study Comparison: No prior studies available for comparison. Tissue Density: The breast tissue is heterogeneously dense. This may lower the sensitivity of mammography. Findings: Analyzed By CAD. Growth/regional microcalcifications in the bilateral upper quadrants and in the 6:00 position of the left breast for which further magnification views are recommended. Otherwise, no discrete abnormality is seen. Overall Assessment: Incomplete: need additional imaging evaluation, BI-RAD 0 Management: Special View Mammogram of both breasts. Additional magnification views for grouped/regional microcalcifications upper outer quadrants as well as the 6:00 position left breast. [facility] will attempt to contact patient to return for supplemental views and ultrasound if indicated. Electronically signed and approved by: Eduardo Pedroza M.D. Radiologist
== END | disposition home or self-care (01) ==
LOC: RADBDWWP 14:51
PROVIDERS: ATTEND Internal Medicine Geriatric Medicine
DX: Z12.31 Encounter for screening mammogram for malignant neoplasm of breast (principal); M81.0 Age-related osteoporosis without current pathological fracture; M85.89 Other specified disorders of bone density and structure, multiple sites; Z78.0 Asymptomatic menopausal state
CPT/HCPCS: 77063; 77067; 77080

== ENCOUNTER → 2023-09-07 | Outpatient (CLI) | payer MEDICARE ==
--- NOTE | 2023-09-07 11:19 | MM ---
Reason for Exam: Additional evaluation requested from abnormal screening. Last screening mammogram was performed less than 1 month ago. Patient History: Menarche at age 14. First Full-Term at age 33. Late child-bearing (after 30). Postmenopausal. Patient has history of breast feeding. Previous chemotherapy at age 72. Risk Values: Anamika 5 year model risk: 2.4%. NCI Lifetime model risk: 6.3%. Prior Study Comparison: 08/23/2023 Bilateral MG 3D screening mammo w/cad, [facility]. Tissue Density: The breast tissue is heterogeneously dense. This may lower the sensitivity of mammography. Findings: Analyzed By CAD. There are multiple groups of fine and punctate calcifications within the left breast. There appear to be at least 3 groups of punctate calcifications within the upper outer right breast. Overall Assessment: Suspicious, BI-RAD 4 Management: Surgical Consultation of both breasts. Diagnostic Breast MRI of both breasts. A negative mammogram report should not preclude additional follow up of suspicious palpable abnormalities. Patient should continue monthly self breast exam. A clinical breast exam by your physician is recommended on an annual basis and results should be correlated with mammographic findings. Electronically signed and approved by: Zach Keita D.O. Radiologis
== END | disposition home or self-care (01) ==
LOC: RADMAMWWP 10:27
PROVIDERS: ATTEND Internal Medicine Geriatric Medicine
DX: R92.333 Mammographic heterogeneous density, bilateral breasts (principal); R92.1 Mammographic calcification found on diagnostic imaging of breast; Z78.0 Asymptomatic menopausal state
CPT/HCPCS: 77066; G0279; 77062

== ENCOUNTER → 2023-09-11 | Outpatient (CLI) | payer MEDICARE ==
--- NOTE | 2023-09-14 08:41 | BMR ---
EXAM DATE: 09/12/2023 EXAM DESCRIPTION: MRI-Breast Bilat (W/WO Contrast) INDICATION: Abnormal mammogram dated 09/07/2023 COMPARISON: Prior mammogram dated 08/23/2023 and 09/07/2022. Correlation is also made with the PET-CT dated 08/17/2023 CONTRAST: 7.2 cc Gadavist contrast material. TECHNIQUE: Multi sequence multiplanar MR imaging of the breasts was obtained. Subsequently, after the uneventful intravenous administration of Gadavist contrast material, 6 dynamic sequences were then obtained. Post processing was performed utilizing a [employer] CAD workstation. FINDINGS: The breasts are heterogeneously dense which limits the detection of small masses. There is mild background parenchymal enhancement identified. No axillary or internal mammary lymphadenopathy. No focal skin thickening or nipple retraction. The bone marrow signal intensity is unremarkable. No adenopathy in the visualized mediastinum. T2 weighted images demonstrated no dominant cystic lesion in either breast. Post contrast images demonstrated no abnormal enhancement in either breast to suggest malignancy including areas of grouped microcalcifications in both breasts. There is no abnormal signal or enhancement in the chest wall or subcutaneous tissue. IMPRESSION: 1. No MR evidence of malignancy in either breast. 2. No axillary or internal mammary lymphadenopathy. Final assessment: BI-RADS category 2: Benign findings MTDD
== END | disposition home or self-care (01) ==
LOC: RADMRIMAIN 17:46
PROVIDERS: ATTEND Internal Medicine Geriatric Medicine
DX: R92.333 Mammographic heterogeneous density, bilateral breasts (principal); Z78.0 Asymptomatic menopausal state
CPT/HCPCS: C8908; A9585; 77049

== ENCOUNTER 2023-11-27 14:20 | Emergency (ER) | payer MEDICARE ==
[2023-11-27 14:34] VITALS: TEMP 98
--- NOTE | 2023-11-27 15:27 | ED ---
Abdominal Pain HPI - General Chief Complaint: Abdominal Pain Stated Complaint: Weakness,Abd Pain Time Seen by Provider: 11/27/23 15:27 Source: patient, RN notes reviewed Mode of arrival: ambulatory Limitations: no limitations - History of Present Illness Initial Comments: Patient is a 73-year-old female presented to the ER with a chief complaint of nausea and vomiting. Patient is currently being treated for colon cancer with oral chemo. She follows up with Dr. Juarez for chemo. She states her last dose was this morning. She states since or Monday of last week she was having a "stomach bug". She has been having nausea, vomiting, diarrhea, and abdominal pain. Denies any blood in her stool. She has tried prescribed Zofran by oncologist without relief. She believes she is dehydrated. Also is reporting bilateral calf tenderness. She is unsure if it is from chemo. Does have a history significant of pulmonary embolism. Not currently on blood thinner. Only takes baby aspirin daily. She denies any current abdominal pain, chest pain, shortness of breath, fevers, chills, night sweats. - Related Data Home Medications Medication Instructions Recorded Confirmed Atorvastatin [Lipitor] 40 mg PO DAILY 04/02/22 01/09/23 Escitalopram [Lexapro] 20 mg PO DAILY 04/02/22 01/09/23 Pantoprazole [Protonix] 40 mg PO BID 04/02/22 01/09/23 Metoprolol Tartrate [Lopressor] 50 mg PO TID 09/15/22 01/09/23 Acetaminophen Tab [Tylenol] 650 mg PO Q6H PRN 11/25/22 01/09/23 Furosemide [Lasix] 20 mg PO TID 11/25/22 01/09/23 Lidocaine-Prilocaine Cream [Emla 1 applic TOPICAL DAILY PRN 11/25/22 01/09/23 Cream 2.5%/2.5%] Nitroglycerin Sl Tabs [Nitrostat] 0.4 mg SUBLINGUAL Q5M PRN 11/25/22 01/09/23 Potassium Chloride ER [K-Dur 10] 10 meq PO BID 11/25/22 01/09/23 amLODIPine [Norvasc] 5 mg PO DAILY 11/25/22 01/09/23 ondansetron HCL [Zofran] 8 mg PO Q6H PRN 11/25/22 01/09/23 Multivitamins, Thera [Multivitamin 1 tab PO DAILY 01/09/23 01/09/23 (formulary)] Previous Rx's Medication Instructions Recorded Folic Acid 1 mg PO DAILY@1200 #30 tab 12/06/22 Levothyroxine Sodium [Synthroid] 25 mcg PO DAILY@0630 #30 tab 12/06/22 Thiamine [Vitamin B-1] 100 mg PO DAILY@1200 #30 tab 12/06/22 Allergies Allergy/AdvReac Type Severity Reaction Status Date / Time No Known Allergies Allergy Verified 01/09/23 13:23 Review of Systems ROS Statement: Those systems with pertinent positive or pertinent negative responses have been documented in the HPI. ROS Other: All systems not noted in ROS Statement are negative. Past Medical History Past Medical History: Cancer, Hyperlipidemia, Hypertension, Myocardial I nfarction (MN) Additional Past Medical History / Comment(s): Colon Cancer. bowel blockage Last Myocardial Infarction Date:: 04/2022 History of Any Multi-Drug Resistant Organisms: None Reported Past Surgical History: No Surgical Hx Reported Past Anesthesia/Blood Transfusion Reactions: No Reported Reaction Past Psychological History: Depression Smoking Status: Never smoker Past Alcohol Use History: None Reported Past Drug Use History: None Reported - Past Family History Father Family Medical History: Chest Pain / Angina, Congestive Heart Failure (CHF), Coronary Artery Disease (CAD) Brother(s) Family Medical History: Chest Pain / Angina, Congestive Heart Failure (CHF), Coronary Artery Disease (CAD) Additional Family Medical History / Comment(s): stenting General Exam Limitations: no limitations General appearance: alert, in no apparent distress Head exam: Present: atraumatic, normocephalic, normal inspection Eye exam: Present: normal appearance, PERRL, EOMI. Absent: scleral icterus, conjunctival injection, periorbital swelling ENT exam: Present: normal exam, mucous membranes moist Respiratory exam: Present: normal lung sounds bilaterally. Absent: respiratory distress, wheezes, rales, rhonchi, stridor Cardiovascular Exam: Present: regular rate, normal rhythm, normal heart sounds. Absent: systolic murmur, diastolic murmur, rubs, gallop, clicks GI/Abdominal exam: Present: soft, normal bowel sounds. Absent: distended, tenderness, guarding, rebound, rigid Extremities exam: Present: normal inspection, full ROM, tenderness (Mild calf tenderness bilaterally. No evidence of infection), normal capillary refill. Absent: pedal edema, joint swelling, calf tenderness Neurological exam: Present: alert, oriented X3, CN II-XII intact Psychiatric exam: Present: normal affect, normal mood Skin exam: Present: warm, dry, intact, normal color. Absent: rash Course Vital Signs 11/27/23 14:29 Temperature 98 F Pulse Rate 80 Respiratory 16 Rate Blood Pressure 102/67 O2 Sat by Pulse 99 Oximetry Medical Decision Making - Medical Decision Making Was pt. sent in by a medical professional or institution (, [facility], [facility], urgent care, hospital, or usp...) When possible be specific @ -No Did you speak to anyone other than the patient for history (EMS, parent, family, police, friend...)? What history was obtained from this source @ -No Did you review nursing and triage notes (agree or disagree)? Why? @ -I reviewed and agree with nursing and triage notes Were old charts reviewed (outside hosp., previous admission, EMS record, old EKG, old radiological studies, urgent care reports/EKG's, usp records)? Report findings @ -No old charts were reviewed Differential Diagnosis (chest pain, altered mental status, abdominal pain women, abdominal pain men, vaginal bleeding, weakness, fever, dyspnea, syncope, headache, dizziness, GI bleed, back pain, seizure, CVA, palpatations, mental health, musculoskeletal)? @ -Differential Weakness:Hypoglycemia, shock, sepsis, hyponatremia, anemia, infection, MN, ETOH, adverse medicine reaction, overdose, stroke, this is not meant to be an all-inclusive list. EKG interpreted by me (3pts min.). @ -As above X-rays interpreted by me (1pt min.). @ -None done CT interpreted by me (1pt min.). @ -None done U/S interpreted by me (1pt. min.). @ -Ultrasound venous Doppler bilateral lower extremities negative for acute DVTs. What testing was considered but not performed or refused? (CT, X-rays, U/S, labs)? Why? @ -None What meds were considered but not given or refused? Why? @ -None Did you discuss the management of the patient with other professionals (professionals i.e. , [facility], [facility], lab, RT, psych nurse, manager social responsibility, service center specialist, teacher, armored vehicle officer, director of casework department)? Give summary @ -No Was smoking cessation discussed for >3mins.? @ -No Was critical care preformed (if so, how long)? @ -No Were there social determinants of health that impacted care today? How? (Homelessness, low income, unemployed, alcoholism, drug addiction, transportation, low edu. Level, literacy, decrease access to med. care, [place] [facility], rehab)? @ -No Was there de-escalation of care discussed even if they declined (Discuss DNR or withdrawal of care, Hospice)? DNR status @ -No What co-morbidities impacted this encounter? (DM, HTN, Smoking, COPD, CAD, Cancer, CVA, ARF, Chemo, Hep., AIDS, mental health diagnosis, sleep apnea, morbid obesity)? @ -Colon cancer currently on chemo, history of pulmonary embolism not on blood thinner. Was patient admitted / discharged? Hospital course, mention meds given and route, prescriptions, significant lab abnormalities, going to OR and other pertinent info. @ -Discharge. Patient is a 73-year-old female presenting to the ER with a chief complaint of nausea, vomiting and diarrhea. History and physical exam completed. Vitals stable. Patient in no signs of acute distress and nontoxic- appearing. No focal abdominal tenderness on exam. Mild calf tenderness bilaterally to palpation. Nonpitting edema bilaterally. Labs obtained significant for hemoglobin 10.1 (01-10-2023 hemoglobin 9.3), PT 9.6, AP TT 21.7. JOSH with a BUN of 25, creatinine 1.5. Urine without signs of infection. Influenza, COVID, RSV negative. Ultrasound bilateral lower extremities negative for acute DVT. EKG significant for normal sinus rhythm with no acute ST segment or T wave abnormalities. Patient received 1 L of IV fluids, Zofran and IV Regl an with improvement of symptoms in the ER. Upon reevaluation, patient eager for discharge. Strict return parameters discussed. Patient discharged stable condition with follow-up to Dr. Juarez and PCP. Patient verbally expressed understanding and agreement with care plan. Case discussed with ED attending, Dr. Ruiz. Undiagnosed new problem with uncertain prognosis? @ -No Drug Therapy requiring intensive monitoring for toxicity (Heparin, Nitro, Insulin, Cardizem)? @ -No Were any procedures done? @ -No Diagnosis/symptom? @ -Nausea and vomiting/JOSH Acute, or Chronic, or Acute on Chronic? @ -Acute Uncomplicated (without systemic symptoms) or Complicated (systemic symptoms)? @ -Uncomplicated] Side effects of treatment? @ -No Exacerbation, Progression, or Severe Exacerbation? @ -No Poses a threat to life or bodily function? How? (Chest pain, USA, MN, pneumonia, PE, COPD, DKA, ARF, appy, cholecystitis, CVA, Diverticulitis, Homicidal, Suicidal, threat to staff... and all critical care pts) @ -No - Lab Data Result diagrams: 11/27/23 15:14 11/27/23 15:14 Lab Results 11/27/23 11/27/23 11/27/23 Range/Units 15:14 15:14 15:14 WBC 7.1 (3.8-10.6) k/uL RBC 2.81 L (3.80-5.40) m/uL Hgb 10.1 L (11.4-16.0) gm/dL Hct 31.2 L (34.0-46.0) % MCV 111.2 H (80.0-100.0) fL MCH 36.0 H (25.0-35.0) pg MCHC 32.4 (31.0-37.0) g/dL RDW 19.0 H (11.5-15.5) % Plt Count 382 (150-450) k/uL MPV 7.9 Neutrophils % 82 % Lymphocytes % 13 % Monocytes % 4 % Eosinophils % 0 % Basophils % 1 % Neutrophils # 5.8 (1.3-7.7) k/uL Lymphocytes # 0.9 L (1.0-4.8) k/uL Monocytes # 0.3 (0-1.0) k/uL Eosinophils # 0.0 (0-0.7) k/uL Basophils # 0.0 (0-0.2) k/uL Manual Slide Review Performed Hypochromasia Slight Hypochromasia (manual) Present Anisocytosis Slight Anisocytosis (manual) Present Macrocytosis Marked A PT 9.6 L (10.0-12.5) sec INR 0.9 (<1.2) APTT 21.7 L (22.0-30.0) sec Sodium (137-145) mmol/L Potassium (3.5-5.1) mmol/L Chloride (98-107) mmol/L Carbon Dioxide (22-30) mmol/L Anion Gap mmol/L BUN (7-17) mg/dL Creatinine (0.52-1.04) mg/dL Est GFR (CKD-EPI)AfAm (>60 ml/min/1.73 sqM) Est GFR (CKD-EPI)NonAf (>60 ml/min/1.73 sqM) Glucose (74-99) mg/dL Plasma Lactic Acid Sam (0.7-2.0) mmol/L Calcium (8.4-10.2) mg/dL Magnesium (1.6-2.3) mg/dL Total Bilirubin (0.2-1.3) mg/dL AST (14-36) U/L ALT (4-34) U/L Alkaline Phosphatase (38-126) U/L Total Protein (6.3-8.2) g/dL Albumin (3.5-5.0) g/dL Amylase (30-110) U/L Lipase (23-300) U/L Urine Color Yellow Urine Appearance Clear (Clear) Urine pH 7.0 (5.0-8.0) Ur Specific Noble 1.015 (1.001-1.035) Urine Protein Negative (Negative) Urine Glucose (UA) Negative (Negative) Urine Ketones Negative (Negative) Urine Blood Negative (Negative) Urine Nitrite Negative (Negative) Urine Bilirubin Negative (Negative) Urine Urobilinogen <2.0 (<2.0) mg/dL Ur Leukocyte Esterase Negative (Negative) Influenza Type A (PCR) (Not Detectd) Influenza Type B (PCR) (Not Detectd) RSV (PCR) (Not Detectd) SARS-CoV-2 (PCR) (Not Detectd) 11/27/23 11/27/23 11/27/23 Range/Units 15:14 15:14 16:11 WBC (3.8-10.6) k/uL RBC (3.80-5.40) m/uL Hgb (11.4-16.0) gm/dL Hct (34.0-46.0) % MCV (80.0-100.0) fL MCH (25.0-35.0) pg MCHC (31.0-37.0) g/dL RDW (11.5-15.5) % Plt Count (150-450) k/uL MPV Neutrophils % % Lymphocytes % % Monocytes % % Eosinophils % % Basophils % % Neutrophils # (1.3-7.7) k/uL Lymphocytes # (1.0-4.8) k/uL Monocytes # (0-1.0) k/uL Eosinophils # (0-0.7) k/uL Basophils # (0-0.2) k/uL Manual Slide Review Hypochromasia Hypochromasia (manual) Anisocytosis Anisocytosis (manual) Macrocytosis PT (10.0-12.5) sec INR (<1.2) APTT (22.0-30.0) sec Sodium 138 (137-145) mmol/L Potassium 3.6 (3.5-5.1) mmol/L Chloride 98 (98-107) mmol/L Carbon Dioxide 27 (22-30) mmol/L Anion Gap 13 mmol/L BUN 25 H (7-17) mg/dL Creatinine 1.50 H (0.52-1.04) mg/dL Est GFR (CKD-EPI)AfAm 40 (>60 ml/min/1.73 sqM) Est GFR (CKD-EPI)NonAf 35 (>60 ml/min/1.73 sqM) Glucose 115 H (74-99) mg/dL Plasma Lactic Acid Sam 1.6 (0.7-2.0) mmol/L Calcium 9.2 (8.4-10.2) mg/dL Magnesium 2.8 H (1.6-2.3) mg/dL Total Bilirubin 0.4 (0.2-1.3) mg/dL AST 33 (14-36) U/L ALT 19 (4-34) U/L Alkaline Phosphatase 149 H (38-126) U/L Total Protein 7.5 (6.3-8.2) g/dL Albumin 4.1 (3.5-5.0) g/dL Amylase 95 (30-110) U/L Lipase 207 (23-300) U/L Urine Color Urine Appearance (Clear) Urine pH (5.0-8.0) Ur Specific Noble (1.001-1.035) Urine Protein (Negative) Urine Glucose (UA) (Negative) Urine Ketones (Negative) Urine Blood (Negative) Urine Nitrite (Negative) Urine Bilirubin (Negative) Urine Urobilinogen (<2.0) mg/dL Ur Leukocyte Esterase (Negative) Influenza Type A (PCR) Not Detected (Not Detectd) Influenza Type B (PCR) Not Detected (Not Detectd) RSV (PCR) Not Detected (Not Detectd) SARS-CoV-2 (PCR) Not Detected (Not Detectd) - EKG Data -: EKG Interpreted by Me EKG Comments: EKG at 15: 02 showing sinus rhythm with no acute ST segment or T wave abnormalities. Ventricular rate 73, WA interval 148, QRS duration 84, QT/QTc 401/427. - Radiology Data Radiology results: report reviewed, image reviewed Disposition Clinical Impression: Nausea & vomiting, JOSH (acute kidney injury) Disposition: HOME SELF-CARE Condition: Stable Instructions (If sedation given, give patient instructions): Dehydration (ED) Additional Instructions: Follow-up with Dr. Juarez and PCP in next 1-2 days. Return to the ER for any new or worsening concerns. Is patient prescribed a controlled substance at d/c from ED?: No Referrals: Partha Kelley MD [Primary Care Provider] - 1-2 days Gorge Juarez MD [STAFF PHYSICIAN] - 1-2 days Time of Disposition: 18:05
[2023-11-27] MEDS: SODIUM CHLORIDE 0.9% 1,000 ML IV STA (15:37)
[2023-11-27] MEDS: ONDANSETRON 4 MG/2 ML VIAL IVP STA (15:37)
[2023-11-27 15:42] LABS: Anisocytosis Slight; Appearance,Urine Clear (Clear); Basophils % (A) 1 %; Bilirubin,Urine Negative (Negative); Blood,Urine Negative (Negative); Color,Urine Yellow; Eosinophils % (A) 0 %; Glucose,Urine (UA) Negative (Negative); HCT 31.2 % (34.0-46.0); HGB 10.1 gm/dL (11.4-16.0); Hypochromasia Slight; Ketones,Urine Negative (Negative); Leukocyte Esterase,Urine Negative (Negative); Lymphocytes # (A) 0.9 k/uL (1.0-4.8); Lymphocytes % (A) 13 %; MCHC 32.4 g/dL (31.0-37.0); MCV 111.2 fL (80.0-100.0); Macrocytosis Marked; Mean Platelet Volume 7.9; Monocytes # (A) 0.3 k/uL (0-1.0); Monocytes % (A) 4 %; Neutrophils # (A) 5.8 k/uL (1.3-7.7); Neutrophils % (A) 82 %; Nitrite,Urine Negative (Negative); Platelet Count 382 k/uL (150-450); Protein,Urine Negative (Negative); RBC 2.81 m/uL (3.80-5.40); Specific Gravity,Urine 1.015 (1.001-1.035); Urobilinogen,Urine <2.0 mg/dL (<2.0); WBC 7.1 k/uL (3.8-10.6)
[2023-11-27 15:57] LABS: ALT 19 U/L (4-34); AST 33 U/L (14-36); African American GFR (CKD) 40 (>60 ml/min/1.73 sqM); Albumin 4.1 g/dL (3.5-5.0); Alkaline Phosphatase 149 U/L (38-126); Amylase 95 U/L (30-110); Anion Gap 13 mmol/L; Blood Urea Nitrogen 25 mg/dL (7-17); Calcium 9.2 mg/dL (8.4-10.2); Carbon Dioxide 27 mmol/L (22-30); Chloride 98 mmol/L (98-107); Glucose 115 mg/dL (74-99); Lipase 207 U/L (23-300); Magnesium 2.8 mg/dL (1.6-2.3); Non-African American GFR(CKD) 35 (>60 ml/min/1.73 sqM); Potassium 3.6 mmol/L (3.5-5.1); Sodium 138 mmol/L (137-145); Total Bilirubin 0.4 mg/dL (0.2-1.3); Total Protein 7.5 g/dL (6.3-8.2)
[2023-11-27 16:26] LABS: INR 0.9 (<1.2); Prothrombin Time 9.6 sec (10.0-12.5)
[2023-11-27 16:31] LABS: Partial Thromboplastin Time 21.7 sec (22.0-30.0)
[2023-11-27 17:01] LABS: Anisocytosis (M) Present; Hypochromasia (M) Present
[2023-11-27] MEDS: METOCLOPRAMIDE 5 MG/ML 2 ML VIAL IVP STA (17:04)
--- NOTE | 2023-11-27 17:50 | US ---
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 Pt states she does not think her legs are swollen. Hx of PE last year. Takes baby aspirin SIDE PERFORMED: Bilateral TECHNIQUE: The lower extremity deep venous system is examined utilizing real time linear array sonog iain with graded compression, doppler sonography and color-flow sonography. VESSELS IMAGED: Common Femoral Vein Deep Femoral Vein Greater Saphenous Vein * Femoral Vein Popliteal Vein Small Saphenous Vein * Proximal Calf Veins (* superficial vessels) Right Leg: No evidence for DVT Left Leg: No evidence for DVT IMPRESSION: Grayscale, color doppler, spectral doppler imaging performed of the deep veins of the lo wer extremities. There is normal flow, compressibility, vascular waveforms.
[2023-11-27 18:31] VITALS: BP 132/71; PULSE 78; RESP 18
== END 2023-11-27 18:24 | disposition home or self-care (01) ==
LOC: EC 14:20
DX: N17.9 Acute kidney failure, unspecified (principal)
CPT/HCPCS: 36415; 93005; 80053; 82150; 83605; 83690; 83735; 85025; 85610; 85730; 81003; 87636; 93970; 99284; 96374; 96375; 96361; J2765; J2405

== ENCOUNTER → 2023-11-28 | Outpatient (CLI) | payer MEDICARE ==
[2023-11-28 13:21] LABS: African American GFR (CKD) 45 (>60 ml/min/1.73 sqM); Blood Urea Nitrogen 27 mg/dL (7-17); Non-African American GFR(CKD) 39 (>60 ml/min/1.73 sqM)
--- NOTE | 2023-11-28 15:17 | CT ---
EXAMINATION TYPE: CT abdomen pelvis wo con CT DLP: 687 mGycm, Automated exposure control for dose reduction was used. DATE OF EXAM: 11/28/2023 2:41 PM COMPARISON: CT abdomen pelvis most recent from PET/CTs most recent 08/17/[address] most recently CLINICAL INDICATION:Female, 73 years old with history of C18.7 COLON CANCER; Colon CA. TECHNIQUE: Axial CT abdomen pelvis wo con;Sagittal and coronal reformats were created on a separate workstation. Contrast used: mL of , (none if empty) Oral contrast used: with Oral Contrast (none if empty) FINDINGS: LOWER CHEST: Parenchymal changes near the right middle lobe near the diaphragm. [id number]-n-[id number] partial ly visualized in the superior vena cava. ABDOMEN LIVER: Unremarkable GALLBLADDER AND BILE DUCTS: Unremarkable. PANCREAS: Unremarkable. SPLEEN: Unremarkable. ADRENAL GLANDS: Unremarkable. KIDNEYS AND URETERS: No right renal calculi. Left nonobstructing calculus measuring 3 mm.. The left ureter passes close to the known left pelvic mass. There is mild dilation of the left collecting syst em. PELVIS BLADDER: Unremarkable REPRODUCTIVE: Unremarkable. ABDOMEN & PELVIS STOMACH AND BOWEL: PEG tube is been removed. No evidence of bowel obstruction. Oral contrast is seen extending to the descending colon. There is a rectal stent in place which is nearly completely opacif ied. Soft tissue in the pelvis extending to the left lateral wall is again seen area measuring 65 x 2 9 mm which is felt to be similar given differences in measuring technique. PERITONEUM/RETROPERITONEUM: No evidence of pneumoperitoneum or free fluid. Multiple nodules are seen throughout the omentum. Which are tiny not significantly changed from prior PET/CTs however is diffic ult to compare given how many there are. VASCULATURE: No evidence of aortic aneurysm. MUSCULOSKELETAL: No acute osseous abnormalities LYMPH NODES: No gross evidence for lymphadenopathy. SOFT TISSUE/ABDOMINAL WALL: Unremarkable IMPRESSION: 1. No obvious acute intraluminal process. 2. 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 3. No evidence for bowel obstruction. Oral contrast extends to the descending colon. 4. Rectal/sigmoid stent in place. 5. Pelvic sidewall mass as seen on prior PET/CT 08/17/2023 remains present and not significantly tiarra nged..
== END | disposition home or self-care (01) ==
LOC: RADCTMAIN 12:38
PROVIDERS: ATTEND Internal Medicine Hematology & Oncology
DX: K66.8 Other specified disorders of peritoneum (principal); C18.7 Malignant neoplasm of sigmoid colon; R19.00 Intra-abdominal and pelvic swelling, mass and lump, unspecified site; Z96.89 Presence of other specified functional implants
CPT/HCPCS: 36415; 74176; 82565; 84520

== ENCOUNTER → 2023-11-30 | Outpatient (CLI) | payer MEDICARE ==
--- NOTE | 2023-12-01 11:17 | PE ---
EXAMINATION TYPE: PET CT fusion skull to thigh DATE OF EXAM: 11/30/2023 CLINICAL INDICATION:Female, 73 years old with history of C18.7 MALIGNANT NEOPLASM OF SIGMOID COLON; TECHNIQUE: Following the intravenous administration of 9.1 mCi of F-18 FDG, whole body images are p erformed from the skull base to the midthigh. Images are reviewed on the computer in the coronal, ax ial, and sagittal planes. Reconstructed rotating images are created on independent workstation and r eviewed on the computer. A non-contrast CT is performed in conjunction with the PET scan. Glucose l evel 101 mg/dL CT DLP: 214 mGycm, Automated exposure control for dose reduction was used. COMPARISON: CT 11/28/2023, PET/CT 08/17/2023, FINDINGS: Mediastinal SUV mean is 1.8. Hepatic parenchyma SUV mean is 2.7. SKULL BASE AND NECK: No suspicious radiotracer activity. CHEST, MEDIASTINUM, AND HILAR REGION: * No suspicious radiotracer activity. * Nodular densities in the right lung base seen on prior without increased metabolic activity. Possi gil on the basis of atelectasis. ABDOMEN AND PELVIS: * Again demonstrated abnormal soft tissue in the omentum favored represent Omental caking. This has low-level increased metabolic activity example includes left upper quadrant nodular focus SUV 3.8. * There is a FDG avid lesion within the sigmoid colon stent graft near the rectum max SUV 15.7, prev iously 15.7, 12.98, 11.5 , 12.5 and before stent graft max SUV 13.7, previously 14.5, 6.7, 9.2. * Left pelvis adenopathy measuring similarly 6.5 x 2.6 cm with SUV 5.0, previously 5.1, 3.5, 4.7 and 9.3. * This uptake within the third/fourth portion of the duodenum is increased now max SUV 11.8, previou sly 11.7, 6.8, 4.4, and 10.9. OSSEOUS STRUCTURES: * No suspicious radiotracer activity. * Left acromioclavicular joint uptake max SUV 2.9, previously 4.7 likely on a degenerative basis. OTHER CT: Atherosclerosis of the carotid bifurcations. Chest wall [id number] with distal tip in th e superior vena cava. Layering gallstones present. Removal of the PEG tube. There is a sigmoid colon stent in place and appears patent. Left upper anterior lower extremity varicosities. IMPRESSION: 1. No significant change in FDG activity in the omental caking, rectal/sigmoid stent graft , or left pelvic mass. 2. Stable duodenal focal FDG activity finding remains indeterminate.
== END | disposition home or self-care (01) ==
LOC: RADPETMAIN 12:41
PROVIDERS: ATTEND Internal Medicine Hematology & Oncology
DX: C18.7 Malignant neoplasm of sigmoid colon (principal); R19.09 Other intra-abdominal and pelvic swelling, mass and lump
CPT/HCPCS: 78815; A9552

== ENCOUNTER → 2024-03-14 | Outpatient (CLI) | payer MEDICARE ==
--- NOTE | 2024-03-15 14:38 | PE ---
EXAMINATION TYPE: PET CT fusion skull to thigh DATE OF EXAM: 03/14/2024 CLINICAL INDICATION:Female, 73 years old with history of C18.7 COLON; TECHNIQUE: Following the intravenous administration of 13.18 mCi of F-18 FDG, whole body images are performed from the skull base to the midthigh. Images are reviewed on the computer in the coronal, axial, and sagittal planes. Reconstructed rotating images are created on independent workstation and reviewed on the computer. A non-contrast CT is performed in conjunction with the PET scan. Glucose level 104 mg/dL CT DLP: 282.63 mGycm, Automated exposure control for dose reduction was used. COMPARISON: CT 11/28/2023, 01/09/2023, 11/26/2022, PET/CT 11/22/2023, 08/17/2023, 04/14/2023, 01/13/2023, MR I: 11/26/2022 FINDINGS: Mediastinal SUV mean is 2.47. Hepatic parenchyma SUV mean is 3.1. SKULL BASE AND NECK: No suspicious radiotracer activity. CHEST, MEDIASTINUM, AND HILAR REGION: * Increased peripheral nodules within the periphery of the right midlung measuring up to 3 mm. Too s mall accurately characterize. No activity above background. No other suspicious radiotracer activity. ABDOMEN AND PELVIS: * Again demonstrated abnormal soft tissue in the omentum favored to represent Omental caking. This h as low-level increased metabolic activity again with an example in the left upper quadrant nodular fo cus SUV 3.45, previously 3.8. * There is a FDG avid lesion within the sigmoid colon stent graft near the rectum max SUV 12.75, pre viously 15.7, 15.7, 12.98, 11.5 , 12.5 and before stent graft max SUV 13.7, previously 14.5, 6.7, 9.2 . Continued uptake within the sigmoid colon through the stent graft. Additional similar continued upt ivan within the proximal colon. * Left pelvis adenopathy measuring similarly 6.8 x 3.2 cm with SUV 4.0, previously 5.0, 5.1, 3.5, 4. 7 and 9.3. * This uptake within the third/fourth portion of the duodenum is increased now max SUV 9.78, previou sly 11.8, 11.7, 6.8, 4.4, and 10.9. OSSEOUS STRUCTURES: * No suspicious radiotracer activity. * Mild uptake within the left hip joint with a max SUV of 5.[address] findings most consistent with osteoarthritic changes. OTHER CT: Trace bilateral pleural effusions with bibasilar atelectasis. Atherosclerosis of the caroti d bifurcations. Chest wall [id number] with distal tip in the superior cavoatrial junction. Layerin g gallstones present. There is a sigmoid colon stent in place and appears patent. Left upper anterior lower extremity varicosities. Left renal cysts. IMPRESSION: 1. Minimal decrease in Max FDG activity in the omental caking, rectal/sigmoid stent graft, and left pelvic mass. No significant change in CT appearance. Finding suggests stable to minimal positive resp onse. 2. New right middle lobe peripheral tiny pulmonary nodules measuring up to 3 mm. No FDG uptake is id entified however these are too small for PET. Etiologies include infectious/inflammatory nodularity h owever metastasis is not excluded. Follow-up CT chest in 3-6 months is recommended. 3. Minimal decrease in duodenal focal FDG activity. Finding remains indeterminate. 4. Trace bilateral pleural effusions.
== END | disposition home or self-care (01) ==
LOC: RADPETMAIN 13:38
PROVIDERS: ATTEND Internal Medicine Hematology & Oncology
DX: C18.7 Malignant neoplasm of sigmoid colon (principal); R19.00 Intra-abdominal and pelvic swelling, mass and lump, unspecified site; J90 Pleural effusion, not elsewhere classified
CPT/HCPCS: 78815; A9552

== ENCOUNTER 2024-04-02 12:25 | Inpatient (IN) | payer MEDICARE ==
--- NOTE | 2024-04-02 12:38 | ED ---
General Adult HPI - General Chief complaint: Nausea/Vomiting/Diarrhea Stated complaint: Weakness,vomiting Time Seen by Provider: 04/02/24 12:31 Source: patient, RN notes reviewed Mode of arrival: wheelchair Limitations: no limitations - History of Present Illness Initial comments: Patient is a 74-year-old female presenting to the emergency department with concerns for nausea and vomiting. Onset of symptoms was almost a week ago. Patient is on chemotherapy for stage IV metastatic colon cancer. Patient stopped this 6 days ago. Patient is having mostly vomiting however some diarrhea, decreased oral intake. - Related Data Home Medications Medication Instructions Recorded Confirmed Atorvastatin [Lipitor] 40 mg PO DAILY 04/02/22 02/07/24 Escitalopram [Lexapro] 20 mg PO DAILY 04/02/22 02/07/24 Pantoprazole [Protonix] 40 mg PO BID 04/02/22 02/07/24 Metoprolol Tartrate [Lopressor] 50 mg PO TID 09/15/22 02/07/24 Acetaminophen Tab [Tylenol] 650 mg PO Q6H PRN 11/25/22 02/07/24 Furosemide [Lasix] 20 mg PO TID 11/25/22 02/07/24 Lidocaine-Prilocaine Cream [Emla 1 applic TOPICAL DAILY PRN 11/25/22 02/07/24 Cream 2.5%/2.5%] Nitroglycerin Sl Tabs [Nitrostat] 0.4 mg SUBLINGUAL Q5M PRN 11/25/22 02/07/24 Potassium Chloride ER [K-Dur 10] 10 meq PO BID 11/25/22 02/07/24 amLODIPine [Norvasc] 5 mg PO DAILY 11/25/22 02/07/24 ondansetron HCL [Zofran] 8 mg PO Q6H PRN 11/25/22 02/07/24 Multivitamins, Thera [Multivitamin 1 tab PO DAILY 01/09/23 02/07/24 (formulary)] Previous Rx's Medication Instructions Recorded Folic Acid 1 mg PO DAILY@1200 #30 tab 12/06/22 Levothyroxine Sodium [Synthroid] 25 mcg PO DAILY@0630 #30 tab 12/06/22 Thiamine [Vitamin B-1] 100 mg PO DAILY@1200 #30 tab 12/06/22 Allergies Allergy/AdvReac Type Severity Reaction Status Date / Time No Known Allergies Allergy Verified 02/07/24 09:49 Review of Systems ROS Statement: Those systems with pertinent positive or pertinent negative responses have been documented in the HPI. ROS Other: All systems not noted in ROS Statement are negative. Constitutional: Denies: fever Cardiovascular: Denies: chest pain Gastrointestinal: Reports: nausea, vomiting, diarrhea. Denies: abdominal pain Musculoskeletal: Denies: back pain Past Medical History Past Medical History: Cancer, Hyperlipidemia, Hypertension, Myocardial Infarction ([place]) Additional Past Medical History / Comment(s): Colon Cancer. bowel blockage Last Myocardial Infarction Date:: 04/2022 History of Any Multi-Drug Resistant Organisms: None Reported Past Surgical History: No Surgical Hx Reported Past Anesthesia/Blood Transfusion Reactions: No Reported Reaction Past Psychological History: Depression Smoking Status: Never smoker - Past Family History Father Family Medical History: Chest Pain / Angina, Congestive Heart Failure (CHF), Coronary Artery Disease (CAD) Brother(s) Family Medical History: Chest Pain / Angina, Congestive Heart Failure (CHF), Coronary Artery Disease (CAD) Additional Family Medical History / Comment(s): stenting General Exam Limitations: no limitations General appearance: alert, in no apparent distress Head exam: Present: normocephalic Eye exam: Present: normal appearance Neck exam: Present: normal inspection Respiratory exam: Present: normal lung sounds bilaterally Cardiovascular Exam: Present: regular rate, normal rhythm GI/Abdominal exam: Present: soft. Absent: tenderness Extremities exam: Present: normal inspection. Absent: pedal edema, calf tenderness Neurological exam: Present: alert Psychiatric exam: Present: normal affect, normal mood Skin exam: Present: normal color Course Vital Signs 04/02/24 04/02/24 12:27 13:53 Temperature 97.6 F Pulse Rate 100 84 Respiratory 20 18 Rate Blood Pressure 102/65 115/69 O2 Sat by Pulse 98 96 Oximetry EKG Findings - EKG Results: EKG: interpreted by ERMD (Specific ST-T. Occasional supraventricular complexes), sinus rhythm, normal axis, normal QRS Medical Decision Making - Medical Decision Making Was pt. sent in by a medical professional or institution (, PA, PUBLIC BATH ATTENDANT, urgent care, hospital, or halfway...) When possible be specific @ -No Did you speak to anyone other than the patient for history (EMS, parent, family, police, friend...)? What history was obtained from this source @ -No Did you review nursing and triage notes (agree or disagree)? Why? @ -I reviewed and agree with nursing and triage notes Were old charts reviewed (outside hosp., previous admission, EMS record, old EKG , old radiological studies, urgent care reports/EKG's, halfway records)? Report findings @ -Previous labs reviewed Differential Diagnosis (chest pain, altered mental status, abdominal pain women, abdominal pain men, vaginal bleeding, weakness, fever, dyspnea, syncope, headache, dizziness, GI bleed, back pain, seizure, CVA, palpatations, mental health, musculoskeletal)? @ -Differential Abdominal Pain Women: Appendicitis, Cholecystitis, diverticulosis, ischemic bowel, pancreatitis, hepatitis, UTI, gastroenteritis, AAA, incarcerated hernia, bowel obstruction, constipation, inflammatory bowel, hepatitis, peptic ulcer disease, splenic infarction, perforated viscus, vulvitis, ovarian torsion, PID, kidney stone, placenta abruption, this is not meant to be an all-inclusive list EKG interpreted by me (3pts min.). @ -As above X-rays interpreted by me (1pt min.). @ -Abdominal x-ray does not reveal acute abdomen CT interpreted by me (1pt min.). @ -None done U/S interpreted by me (1pt. min.). @ -None done What testing was considered but not performed or refused? (CT, X-rays, U/S, la bs)? Why? @ -After discussion with Dr. Jordan CT scan of the brain and will be added with admission What meds were considered but not given or refused? Why? @ -None Did you discuss the management of the patient with other professionals (professionals i.e. , PA, PUBLIC BATH ATTENDANT, lab, RT, psych nurse, outreach and education social worker, associate account executive, teacher, gunnery/ordnance officer, case packer)? Give summary @ -Case was discussed with Dr. Jordan who will admit his for Was smoking cessation discussed for >3mins.? @ -No Was critical care preformed (if so, how long)? @ -No Were there social determinants of health that impacted care today? How? (Homelessness, low income, unemployed, alcoholism, drug addiction, transportation, low edu. Level, literacy, decrease access to med. care, long term, rehab)? @ -No Was there de-escalation of care discussed even if they declined (Discuss DNR or withdrawal of care, Hospice)? DNR status @ -No What co-morbidities impacted this encounter? (DM, HTN, Smoking, COPD, CAD, Cancer, CVA, ARF, Chemo, Hep., AIDS, mental health diagnosis, sleep apnea, morbid obesity)? @ -Metastatic colon cancer Was patient admitted / discharged? Hospital course, mention meds given and route, prescriptions, significant lab abnormalities, going to OR and other pertinent info. @ -Patient presents with weakness lightheadedness nausea vomiting and diarrhea. Symptoms have progressed over the past week. Upon reevaluation patient did feel better however did not feel comfortable getting up and walking. Patient is only able to walk a couple of feet. Patient adds that she did have a syncopal episode this morning. Patient denies any trauma. Patient believes she likely lost full consciousness. No chest pain or back pain. Case discussed with Dr. Jordan who will admit his patient. Additional tests include echo and carotid ultrasound and head CT and troponin. Oncology will be consulted. Admission orders written. Undiagnosed new problem with uncertain prognosis? @ -No Drug Therapy requiring intensive monitoring for toxicity (Heparin, Nitro, Insulin, Cardizem)? @ -No Were any procedures done? @ -No Diagnosis/symptom? @ -Vomiting, syncope Acute, or Chronic, or Acute on Chronic? @ -Acute, acute Uncomplicated (without systemic symptoms) or Complicated (systemic symptoms)? @ -Default Side effects of treatment? @ -No Exacerbation, Progression, or Severe Exacerbation? @ -No Poses a threat to life or bodily function? How? (Chest pain, [place], [place], pneumonia, PE, COPD, DKA, ARF, appy, cholecystitis, CVA, Diverticulitis, Homicidal, Suicidal, threat to staff... and all critical care pts) @ -No - Lab Data Result diagrams: 04/02/24 12:43 04/02/24 12:43 Lab Results 04/02/24 04/02/24 Range/Units 12:43 12:43 WBC 7.3 (3.8-10.6) k/uL RBC 3.98 (3.80-5.40) m/uL Hgb 13.0 (11.4-16.0) gm/dL Hct 40.5 (34.0-46.0) % MCV 101.6 H (80.0-100.0) fL MCH 32.7 (25.0-35.0) pg MCHC 32.2 (31.0-37.0) g/dL RDW 18.9 H (11.5-15.5) % Plt Count 475 H (150-450) k/uL MPV 6.6 Neutrophils % 77 % Lymphocytes % 17 % Monocytes % 5 % Eosinophils % 0 % Basophils % 0 % Neutrophils # 5.7 (1.3-7.7) k/uL Lymphocytes # 1.2 (1.0-4.8) k/uL Monocytes # 0.3 (0-1.0) k/uL Eosinophils # 0.0 (0-0.7) k/uL Basophils # 0.0 (0-0.2) k/uL Anisocytosis Slight Macrocytosis Moderate Sodium 130 L (137-145) mmol/L Potassium 3.7 (3.5-5.1) mmol/L Chloride 89 L (98-107) mmol/L Carbon Dioxide 35 H (22-30) mmol/L Anion Gap 6 mmol/L BUN 34 H (7-17) mg/dL Creatinine 1.05 H (0.52-1.04) mg/dL Est GFR (CKD-EPI)AfAm 61 (>60 ml/min/1.73 sqM) Est GFR (CKD-EPI)NonAf 53 (>60 ml/min/1.73 sqM) Glucose 102 H (74-99) mg/dL Calcium 9.3 (8.4-10.2) mg/dL Total Bilirubin 0.5 (0.2-1.3) mg/dL AST 39 H (14-36) U/L ALT 17 (4-34) U/L Alkaline Phosphatase 117 (38-126) U/L Total Protein 6.3 (6.3-8.2) g/dL Albumin 3.4 L (3.5-5.0) g/dL Amylase 84 (30-110) U/L Lipase 306 H (23-300) U/L Disposition Clinical Impression: Syncope Disposition: ADMITTED IP TO THIS HOSP Is patient prescribed a controlled substance at d/c from ED?: No Referrals: Partha Kelley MD [Primary Care Provider] - 1-2 days Time of Disposition: 15:32
[2024-04-02] MEDS: FAMOTIDINE 20 MG/2 ML VIAL IV STA (12:48)
[2024-04-02] MEDS: SODIUM CHLORIDE 0.9% 1,000 ML IV STA (12:48)
[2024-04-02] MEDS: ONDANSETRON 4 MG/2 ML VIAL IVP STA (12:51)
[2024-04-02] MEDS: DICYCLOMINE 10 MG/ML 2 ML AMP IM STA (12:52)
[2024-04-02] MEDS: SODIUM CHLORIDE 0.9% 500 ML 500 ML IV STA (12:52)
[2024-04-02 13:00] LABS: ALT 17 U/L (4-34); AST 39 U/L (14-36); African American GFR (CKD) 61 (>60 ml/min/1.73 sqM); Albumin 3.4 g/dL (3.5-5.0); Alkaline Phosphatase 117 U/L (38-126); Amylase 84 U/L (30-110); Anion Gap 6 mmol/L; Blood Urea Nitrogen 34 mg/dL (7-17); Calcium 9.3 mg/dL (8.4-10.2); Carbon Dioxide 35 mmol/L (22-30); Chloride 89 mmol/L (98-107); Glucose 102 mg/dL (74-99); Lipase 306 U/L (23-300); Non-African American GFR(CKD) 53 (>60 ml/min/1.73 sqM); Potassium 3.7 mmol/L (3.5-5.1); Sodium 130 mmol/L (137-145); Total Bilirubin 0.5 mg/dL (0.2-1.3); Total Protein 6.3 g/dL (6.3-8.2)
[2024-04-02 13:01] LABS: Anisocytosis Slight; Basophils % (A) 0 %; Eosinophils % (A) 0 %; HCT 40.5 % (34.0-46.0); Lymphocytes # (A) 1.2 k/uL (1.0-4.8); Lymphocytes % (A) 17 %; MCH 32.7 pg (25.0-35.0); MCHC 32.2 g/dL (31.0-37.0); MCV 101.6 fL (80.0-100.0); Macrocytosis Moderate; Mean Platelet Volume 6.6; Monocytes # (A) 0.3 k/uL (0-1.0); Monocytes % (A) 5 %; Neutrophils # (A) 5.7 k/uL (1.3-7.7); Neutrophils % (A) 77 %; Platelet Count 475 k/uL (150-450); RBC 3.98 m/uL (3.80-5.40); RDW 18.9 % (11.5-15.5); WBC 7.3 k/uL (3.8-10.6)
--- NOTE | 2024-04-02 13:13 | XR ---
EXAMINATION TYPE: XR KUB DATE OF EXAM: 04/02/2024 COMPARISON: NONE HISTORY: Pain TECHNIQUE: Single supine KUB image of the abdomen is obtained FINDINGS: Small bowel demonstrates no evidence for dilatation or air fluid levels. Gas and fecal material is seen in non-distended colon. No convincing evidence for pneumoperitoneum. Stent device overlies the pelvis. Correlate clinically. No unusual calcifications. Ingested pill is noted left hemiabdomen. The lung bases are clear. The osseous structures are intact. IMPRESSION: 1. Overall nonobstructive bowel gas pattern.
[2024-04-02] MEDS: MAG HYDROX/AL HYDROX/SIMETH 30 ML, HYOSCYAMINE ELIXIR 10 ML, LIDOCAINE VISCOUS 2% 10 ML PO STA (14:03)
[2024-04-02] MEDS ORDERED: NALOXONE 0.4 MG/ML 1 ML VIAL IV PRN (15:32)
[2024-04-02] MEDS: SODIUM CHLORIDE 0.9% 1,000 ML IV SCH (15:36)
--- NOTE | 2024-04-02 16:18 | US ---
EXAMINATION TYPE: US carotid duplex BILAT DATE OF EXAM: 04/02/2024 COMPARISON: NONE CLINICAL INDICATION: Female, 74 years old with history of syncope; dizzy, syncope, no h/o stroke TECHNIQUE: Carotid duplex ultrasound examination. Indirect Doppler criteria was utilized. FINDINGS: EXAM MEASUREMENTS: RIGHT: Peak Systolic Velocity (PSV) cm/sec ----- Right CCA: 48.8 ----- Right ICA: 82.3 ----- Right ECA: 40.9 ICA/CCA ratio: 1.7 RIGHT: End Diastole cm/sec ----- Right CCA: 13.2 ----- Right ICA: 25.6 ----- Right ECA: 4.7 LEFT: Peak Systolic Velocity (PSV) cm/sec ----- Left CCA: 57.4 ----- Left ICA: 67.1 ----- Left ECA: 54.5 ICA/CCA ratio: 1.2 LEFT: End Diastole cm/sec ----- Left CCA: 14.7 ----- Left ICA: 21.6 ----- Left ECA: 8.3 VERTEBRALS (direction of flow): Right Vertebral: Antegrade Left Vertebral: Antegrade Rhythm: Normal ESCROW CLOSER NOTES: Mild atherosclerotic plaque with no stenosis seen IMPRESSION: No hemodynamically significant internal carotid artery stenosis on either side. Criteria for Assigning % of Stenosis / Diameter reduction (Estimation based on the indirect measurements of the internal carotid artery velocities (ICA PSV). 1. Normal (no stenosis)=ICA PSV < 125 cm/s: ratio < 2.0: ICA EDV<40 cm/s. 2. Less than 50% stenosis=ICA PSV < 125 cm/s: ratio < 2.0: ICA EDV<40 cm/s. 3. 50 to 69% stenosis=ICA PSV of 125 to 230 cm/s: ration 2.0 ? 4.0: ICA EDV 40-100 cm/s. 4. Greater than 70% stenosis to near occlusion= ICA PSV > 230 cm/s: ratio > 4.0: ICA EDV > 100 cm/s. 5. Near occlusion= ICA PSV velocities may be low or undetectable: variable ratio and ICA EDV. 6. Total occlusion=unable to detect flow.
--- NOTE | 2024-04-02 17:01 | CT ---
EXAMINATION TYPE: CT brain wo con CT DLP: 1134.4 mGycm, Automated exposure control for dose reduction was used. DATE OF EXAM: 04/02/2024 4:53 PM COMPARISON: Previous PET/CT. Colon cancer evaluation. CLINICAL INDICATION:Female, 74 years old with history of syncope, Syncope, dizziness. Colon cancer. TECHNIQUE: Brain: Axial CT images of the brain were obtained with coronal and sagittal reformats created and rev iewed. Contrast used: None. Oral contrast used: None. FINDINGS: Brain: Extra-axial spaces: No abnormal extra-axial fluid collections. Ventricular system: Within normal limits Cerebral parenchyma: No acute intraparenchymal hemorrhage or mass effect. The baca-white junction is well differentiated. Cerebellum: Unremarkable. Mass effect: No evidence of midline shift. Intracranial vasculature: unremarkable Soft tissues: Normal. Calvarium/osseous structures: No depressed skull fracture. Paranasal sinuses and mastoid air cells: Mild scattered paranasal sinus disease. Visualized orbits: Orbital contents are intact. IMPRESSION: No acute intracranial process.
[2024-04-02] MEDS ORDERED: DIPHENOX-ATROP 2.5-0.025 MG 1 EACH TAB PO PRN (17:33)
[2024-04-02] MEDS: METOPROLOL TARTRATE 50 MG TAB PO SCH (21:06)
[2024-04-02] MEDS: PANTOPRAZOLE 40 MG/10 ML VIAL IV SCH (21:06)
[2024-04-02] MEDS: POTASSIUM CHLORIDE ER 20 MEQ TAB.ER PO SCH (21:06)
[2024-04-02] MEDS: PREGABALIN 25 MG CAP PO SCH (21:06)
[2024-04-02] MEDS: ESCITALOPRAM 20 MG TAB PO SCH (21:06)
[2024-04-02] MEDS: ONDANSETRON 4 MG/2 ML VIAL IVP PRN (21:12)
[2024-04-03] MEDS: LEVOTHYROXINE 25 MCG TAB PO SCH (05:31)
--- NOTE | 2024-04-03 06:21 | P.HPIM ---
History of Present Illness H&P Date: 04/02/24 HISTORY OF PRESENT ILLNESS: 74-year-old With active medical history of stage IV advanced colon cancer with metastasis seen oncology on regular basis and on chemotherapy, who also has a history of atherosclerotic heart disease post myocardial infarction, history of hypertension, hyperlipidemia, anemia, recurrent GI bleed, recurrent bowel obstruction secondary to scar tissue, multiple complication for chemotherapy use in the last few years. The patient had a PET scan 2 weeks ago apparently has been on modified oral chemotherapy per oncology but developed to have intractable nausea and vomiting for the last few days not able to tolerate any food or fluid with significant dehydration along with lightheadedness and dizziness associated. Today she felt severely sick did not have any strength and try to walk to the bathroom had syncopal episode did not hurt herself with no injury from the fall she apparently called for help and brought to the emergency department at [facility] where was seen and evaluated her laboratory value initially showed normal white blood cell with hemoglobin of 13 sodium 130 bun 34 creatinine 1.05 with a glucose of 102 negative troponin lipase was 306 at the time after hydrating patient well with plan to walk and ambulate she becomes extremely lightheaded and dizzy become more symptomatic as well her nausea had stopped at this point after using Zofran still not able to tolerate any food. Ended up having KUB film did not show any sign of bowel obstruction, CAT scan of the brain showed no intracranial process. She was kept on gentle hydration along with antiemetics emetic medication and admitted to the hospital. REVIEW OF SYSTEMS: CONSTITUTIONAL: Looking severely malnourished in no acute respiratory distress EYES: No icterus sclerae, no conjunctivitis. EARS, NOSE, MOUTH, THROAT, and FACE: No sore throat, lymphadenopathy, carotid bruits or deformity. RESPIRATORY: No SOB cough or wheezes. CARDIOVASCULAR: No CP, Palpitation, PND, Orthopnea, or angina. GASTROINTESTINAL: Abdominal discomfort with nausea vomiting no diarrhea GENITOURINARY: Negative for Hematuria or UTI, decreased urine output INTEGUMENT/BREAST: Negative for any muscular injury with mild osteoarthritis.. HEMATOLOGIC/LYMPHATIC: Negative for bleed or purpura. MUSCULOSKELTAL: Negative for Myalgia or arthralgia. NEURLOGICAL: Syncopal episode with no blurred vision but mild dizziness. BEHAVIORAL/PSYCH: Negative. ENDOCRINE: Negative. PHYSICAL EXAMINATION: General Appearance: Alert, cooperative, looks malnourished no acute respiratory distress. Neck HEENT: Supple, no lymphadenopathy, no thyroid enlargement, no carotid bruits. Lungs: Clear to auscultation without crackles or wheezes no rhonchi, no deformity. Chest Wall: Decreased expansion with deep inspiration no tenderness and no deformity was found on exam, no costochondral pain or discomfort. Heart: Regular rate and rhythm, S1, S2 normal, positive tachycardia, no murmur, rub or gallop. Back: Symmetric, significant scoliosis no rash no CVA tenderness Abdomen: Soft, non-tender, bowel sounds positive slight discomfort in the epigastric and mid abdominal area no rebound or rigidity. Extremities: Extremities normal, atraumatic, no cyanosis or edema. Pulses: 2+ and symmetric. Skin: Skin color, texture, tugor normal, no rashes or lesions. Neurologic: Alert oriented x3 cranial nerves II through XII intact, no motor deficit, no abnormal balance or gait. ASSESSMENT AND PLAN: _Syncope: Most likely from dehydration and prerenal, continue hydration for now, carotid ultrasound, brain CAT scan will be done continue to watch patient on quality assurance monitor body for any arrhythmia CK and troponin was negative initially will repeat another 1 in few hours. _Severe intractable nausea and vomiting: Not a clear whether this is side effect from chemotherapy all related to her metastatic stage IV colon cancer, will continue hydration and watch symptoms carefully. _Acute kidney injury: With GFR is down to 53 bun 34 creatinine 1.05 continue again gentle hydration watch symptoms carefully. _Possible bowel obstruction related to metastatic colon cancer: No clear evidence of obstruction at this point with testing still watch symptoms closely might do CAT scan of the abdomen. _Acute versus subacute pancreatitis: Lipase of 306 amylase 80 4 repeat lipase after hydration again the patient is n.p.o. at this point had recently had pulm CAT scan if continue to be symptomatic CAT scan of the abdomen will be done again. _Hypertension: Has been on amlodipine 5 mg a day along with metoprolol tartrate 50 mg twice a day will hold medication till tomorrow continue hydration of blood pressure systolic above 120 will resume her home meds. _Metastatic stage IV colon cancer has been on modified chemotherapy management her intractable nausea vomiting could be related will consult oncology. _ Hypothyroidism: Resume levothyroxine 25 mcg daily if patient is not able to tolerate_oral meds IV will be done. _Hyperlipidemia: Continue atorvastatin 40 mg a day. _Gastritis and gastric ulcer disease: Has been on pantoprazole which will resume medication on an IV twice a day for now. _Chronic diarrhea with a history of colon cancer continue Lomotil on as-needed basis. _GI prophylaxis: Continue pantoprazole. _DVT prophylaxis: Knee-high KIRT hose and if continue to be bedridden will initiate Lovenox 40 mg subcutaneous daily. CODE STATUS: Full code. Admit patient to the inpatient service for more than 2 night stay. Past Medical History Past Medical History: Cancer, Hyperlipidemia, Hypertension, Myocardial Infarction ([place]) Additional Past Medical History / Comment(s): Colon Cancer. bowel blockage Last Myocardial Infarction Date:: 04/2022 History of Any Multi-Drug Resistant Organisms: None Reported Past Surgical History: No Surgical Hx Reported Past Anesthesia/Blood Transfusion Reactions: No Reported Reaction Past Psychological History: Depression Smoking Status: Never smoker - Past Family History Father Family Medical History: Chest Pain / Angina, Congestive Heart Failure (CHF), Coronary Artery Disease (CAD) Brother(s) Family Medical History: Chest Pain / Angina, Congestive Heart Failure (CHF), Coronary Artery Disease (CAD) Additional Family Medical History / Comment(s): stenting Medications and Allergies Home Medications Medication Instructions Recorded Confirmed Type Atorvastatin [Lipitor] 40 mg PO DAILY 04/02/22 04/02/24 History Escitalopram [Lexapro] 20 mg PO HS 04/02/22 04/02/24 History Pantoprazole [Protonix] 40 mg PO BID 04/02/22 04/02/24 History Metoprolol Tartrate [Lopressor] 50 mg PO BID 09/15/22 04/02/24 History Furosemide [Lasix] 20 mg PO DAILY 11/25/22 04/02/24 History amLODIPine [Norvasc] 5 mg PO DAILY 11/25/22 04/02/24 History ondansetron HCL [Zofran] 8 mg PO Q6H PRN 11/25/22 04/02/24 History Aspirin EC [Ecotrin Low Dose] 81 mg PO DAILY 04/02/24 04/02/24 History Diphenoxylate HCl/Atropine 1 - 2 tab PO QID PRN 04/02/24 04/02/24 History [Lomotil 2.5-0.025 mg Tablet] Levothyroxine Sodium [Synthroid] 25 mcg PO DAILY 04/02/24 04/02/24 History Potassium Chloride ER [K-Dur 20] 20 meq PO BID 04/02/24 04/02/24 History Pregabalin [Lyrica] 25 mg PO BID 04/02/24 04/02/24 History Prochlorperazine [Compazine] 5 mg PO Q8H PRN 04/02/24 04/02/24 History Allergies Allergy/AdvReac Type Severity Reaction Status Date / Time No Known Allergies Allergy Verified 04/02/24 17:01 Physical Exam Vitals: Vital Signs Temp Pulse Resp BP Pulse Ox 04/02/24 18:43 78 18 110/68 95 04/02/24 16:20 80 18 121/68 96 04/02/24 13:53 84 18 115/69 96 04/02/24 12:27 97.6 F 100 20 102/65 98 Intake and Output 04/02/24 04/02/24 04/02/24 06:59 14:59 22:59 Other: Weight 58.967 kg Results CBC & Chem 7: 04/02/24 12:43 04/02/24 12:43 Labs: Abnormal Lab Results - Last 24 Hours (Table) 04/02/24 04/02/24 Range/Units 12:43 12:43 MCV 101.6 H (80.0-100.0) fL RDW 18.9 H (11.5-15.5) % Plt Count 475 H (150-450) k/uL Sodium 130 L (137-145) mmol/L Chloride 89 L (98-107) mmol/L Carbon Dioxide 35 H (22-30) mmol/L BUN 34 H (7-17) mg/dL Creatinine 1.05 H (0.52-1.04) mg/dL Glucose 102 H (74-99) mg/dL AST 39 H (14-36) U/L Albumin 3.4 L (3.5-5.0) g/dL Lipase 306 H (23-300) U/L
[2024-04-03] MEDS: ONDANSETRON 4 MG TAB PO PRN (08:31)
[2024-04-03 08:36] LABS: Basophils # (A) 0.01 X 10*3/uL (0.00-0.10); Basophils % (A) 0.1 %; Eosinophils # (A) 0 X 10*3/uL (0.04-0.35); Eosinophils % (A) 0 %; HCT 36.1 % (37.2-46.3); HGB 11.8 g/dL (12.0-15.0); Lymphocytes # (A) 0.86 X 10*3/uL (0.90-5.00); Lymphocytes % (A) 12.5 %; MCH 33.1 pg (27.0-32.0); MCHC 32.7 g/dL (32.0-37.0); MCV 101.4 FL (80.0-97.0); Mean Platelet Volume 9.6 FL (9.5-12.2); Monocytes # (A) 0.48 X 10*3/uL (0.20-1.00); NRBC Per 100 WBC 0 X 10*3/uL (0.00-0.01); Neutrophils # (A) 5.49 X 10*3/uL (1.80-7.70); Platelet Count 333 X 10*3/uL (140-440); RBC 3.56 X 10*6/uL (4.10-5.20); RDW 19.5 % (11.5-14.5); WBC 6.87 X 10*3/uL (4.50-10.00)
[2024-04-03 08:58] LABS: Blood Urea Nitrogen 36.4 mg/dL (9.0-27.0); Carbon Dioxide 27.1 mmol/L (21.6-31.8); Chloride 92 mmol/L (96-109); Glucose 102 mg/dL (70-110); Potassium 3.9 mmol/L (3.5-5.5); Sodium 133 mmol/L (135-145)
[2024-04-03 08:59] LABS: ALT 16 U/L (8-44); AST 28 U/L (13-35); Albumin 3.2 g/dL (3.8-4.9); Albumin/Globulin Ratio 1.19 Ratio (1.60-3.17); Alkaline Phosphatase 105 U/L (41-126); Calcium 8.7 mg/dL (8.7-10.3); Globulin 2.7 g/dL (1.6-3.3); Total Bilirubin 0.2 mg/dL (0.3-1.2); Total Protein 5.9 g/dL (6.2-8.2)
[2024-04-03] MEDS ORDERED: PANTOPRAZOLE 40 MG/10 ML VIAL IV SCH (09:00)
[2024-04-03 09:42] LABS: Anisocytosis Slight; Basophils # (A) 0.3 k/uL (0-0.2); Basophils % (A) 3 %; Eosinophils % (A) 0 %; HCT 42.5 % (34.0-46.0); HGB 13.2 gm/dL (11.4-16.0); Hypochromasia Marked; Lymphocytes # (A) 0.9 k/uL (1.0-4.8); Lymphocytes % (A) 10 %; MCH 33.1 pg (25.0-35.0); MCHC 31.1 g/dL (31.0-37.0); MCV 106.2 fL (80.0-100.0); Macrocytosis Marked; Monocytes # (A) 0.5 k/uL (0-1.0); Monocytes % (A) 5 %; Neutrophils # (A) 6.6 k/uL (1.3-7.7); Neutrophils % (A) 80 %; Platelet Count 382 k/uL (150-450); RDW 18.7 % (11.5-15.5); WBC 8.3 k/uL (3.8-10.6)
[2024-04-03] MEDS: amLODIPine 5 MG TAB PO SCH (09:45)
[2024-04-03 09:46] LABS: Amylase 84 U/L (30-110); Lipase 202 U/L (23-300)
--- NOTE | 2024-04-03 11:17 | P.CRDCN ---
History of Present Illness History of present illness: This is Dr. Aranda dictating a consult on this patient The patient was interviewed and examined IMPRESSION / ASSESSMENT: 74-year-old female with metastatic stage IV cancer with nausea vomiting diarrhea decreased appetite and collapse with a sodium of 130 mildly increased BUN abnormal lipase cardiology was consulted Troponin sent and are normal PLAN: Continue medical care This appears GI and dehydration related HPI Patient is on chemotherapy for stage IV metastatic colon cancer and has been having nausea and vomiting along with some diarrhea and decreased oral intake Patient is a week and she collapsed Cardiology was consulted for this and troponins were sent ROS: No fever chills or rigors, no cough, phlegm or expectoration, no nausea, vomiting or diarrhea, no hematuria, dysuria, no musculoskeletal complaints, no strokes or seizures, no skin lesions. EXAMINATION: Heart sounds are normal Breath sounds are clear REVIEW OF LABS, ECG & MEDICAL DATA Sodium 130, low Potassium normal 3.7 BUN 34 and creatinine 1.1 Normal troponins Elevated lipase Normal hemoglobin and elevated platelet count of 475,000 Twelve-lead EKG shows early repolarization abnormality there is diffuse in the inferior leads and lead I and in the precordial leads from V2 to V6 No clear-cut [place] depression Past Medical History Past Medical History: Cancer, Hyperlipidemia, Hypertension, Myocardial Infarction ([place]) Additional Past Medical History / Comment(s): Colon Cancer. bowel blockage Last Myocardial Infarction Date:: 04/2022 History of Any Multi-Drug Resistant Organisms: None Reported Past Surgical History: No Surgical Hx Reported Additional Past Surgical History / Comment(s): surgery to remove PE's, stent in colon Past Anesthesia/Blood Transfusion Reactions: No Reported Reaction Past Psychological History: Depression Smoking Status: Never smoker - Past Family History Father Family Medical History: Chest Pain / Angina, Congestive Heart Failure (CHF), Coronary Artery Disease (CAD) Brother(s) Family Medical History: Chest Pain / Angina, Congestive Heart Failure (CHF), Coronary Artery Disease (CAD) Additional Family Medical History / Comment(s): stenting Medications and Allergies Home Medications Medication Instructions Recorded Confirmed Type Atorvastatin [Lipitor] 40 mg PO DAILY 04/02/22 04/02/24 History Escitalopram [Lexapro] 20 mg PO HS 04/02/22 04/02/24 History Pantoprazole [Protonix] 40 mg PO BID 04/02/22 04/02/24 History Metoprolol Tartrate [Lopressor] 50 mg PO BID 09/15/22 04/02/24 History Furosemide [Lasix] 20 mg PO DAILY 11/25/22 04/02/24 History amLODIPine [Norvasc] 5 mg PO DAILY 11/25/22 04/02/24 History ondansetron HCL [Zofran] 8 mg PO Q6H PRN 11/25/22 04/02/24 History Aspirin EC [Ecotrin Low Dose] 81 mg PO DAILY 04/02/24 04/02/24 History Diphenoxylate HCl/Atropine 1 - 2 tab PO QID PRN 04/02/24 04/02/24 History [Lomotil 2.5-0.025 mg Tablet] Levothyroxine Sodium [Synthroid] 25 mcg PO DAILY 04/02/24 04/02/24 History Potassium Chloride ER [K-Dur 20] 20 meq PO BID 04/02/24 04/02/24 History Pregabalin [Lyrica] 25 mg PO BID 04/02/24 04/02/24 History Prochlorperazine [Compazine] 5 mg PO Q8H PRN 04/02/24 04/02/24 History Allergies Allergy/AdvReac Type Severity Reaction Status Date / Time No Known Allergies Allergy Verified 04/02/24 17:01 Physical Exam Vitals: Vital Signs Temp Pulse Pulse Pulse Pulse Resp BP 04/03/24 02:23 97.4 F L 91 15 04/02/24 21:00 100 94 16 04/02/24 20:32 97.8 F 100 94 16 04/02/24 20:24 97.9 F 87 18 115/81 04/02/24 18:43 78 18 110/68 04/02/24 16:20 80 18 121/68 04/02/24 13:53 84 18 115/69 04/02/24 12:27 97.6 F 100 20 102/65 BP BP BP Pulse Ox 04/03/24 02:23 123/80 97 04/02/24 21:00 04/02/24 20:32 107/74 112/77 97 04/02/24 20:24 95 04/02/24 18:43 95 04/02/24 16:20 96 04/02/24 13:53 96 04/02/24 12:27 98 Intake and Output 04/02/24 04/03/24 04/03/24 22:59 06:59 14:59 Output Total 2 Balance -2 Output: Emesis 2 Other: Voiding Method Toilet # Voids 1 2 Weight 58.967 kg Results 04/03/24 08:54 04/03/24 05:06 Cardiac Enzymes 04/02/24 04/02/24 04/02/24 Range/Units 12:43 16:21 20:11 AST 39 H (14-36) U/L Troponin I 0.015 0.014 (0.000-0.034) ng/mL 04/02/24 Range/Units 22:49 AST (14-36) U/L Troponin I <0.012 (0.000-0.034) ng/mL CBC 04/02/24 Range/Units 12:43 WBC 7.3 (3.8-10.6) k/uL RBC 3.98 (3.80-5.40) m/uL Hgb 13.0 (11.4-16.0) gm/dL Hct 40.5 (34.0-46.0) % Plt Count 475 H (150-450) k/uL Comprehensive Metabolic Panel 04/02/24 Range/Units 12:43 Sodium 130 L (137-145) mmol/L Potassium 3.7 (3.5-5.1) mmol/L Chloride 89 L (98-107) mmol/L Carbon Dioxide 35 H (22-30) mmol/L BUN 34 H (7-17) mg/dL Creatinine 1.05 H (0.52-1.04) mg/dL Glucose 102 H (74-99) mg/dL Calcium 9.3 (8.4-10.2) mg/dL AST 39 H (14-36) U/L ALT 17 (4-34) U/L Alkaline Phosphatase 117 (38-126) U/L Total Protein 6.3 (6.3-8.2) g/dL Albumin 3.4 L (3.5-5.0) g/dL Current Medications Generic Name Dose Route Start Last Admin Trade Name Freq PRN Reason Stop Dose Admin Acetaminophen 650 mg 04/02/24 15:32 Acetaminophen Tab 325 Mg Tab PO Q6HR PRN Mild Pain or Fever > 100.5 Amlodipine Besylate 5 mg 04/03/24 09:00 Amlodipine 5 Mg Tab PO DAILY [facility] Aspirin 81 mg 04/03/24 09:00 Aspirin 81 Mg PO DAILY [facility] Atorvastatin Calcium 40 mg 04/03/24 09:00 Atorvastatin 40 Mg Tab PO DAILY [facility] Diphenoxylate HCl/Atropine 1 each 04/02/24 17:33 Diphenox-Atrop 2.5-0.025 Mg 1 Each Tab PO QID PRN Diarrhea Escitalopram Oxalate 20 mg 04/02/24 21:00 04/02/24 21:06 Escitalopram 20 Mg Tab PO 20 mg HS LARY Administration Sodium Chloride 1,000 mls @ 75 mls/hr 04/02/24 15:45 04/03/24 05:32 Saline 0.9% IV 75 mls/hr .[id number] LARY Administration Levothyroxine Sodium 25 mcg 04/03/24 06:30 04/03/24 05:31 Levothyroxine 25 Mcg Tab PO 25 mcg 0630 LARY Administration Metoprolol Tartrate 50 mg 04/02/24 21:00 04/02/24 21:06 Metoprolol Tartrate 50 Mg Tab PO Not Given BID LARY Naloxone HCl 0.2 mg 04/02/24 15:32 Naloxone 0.4 Mg/Ml 1 Ml Vial IV Q2M PRN Opioid Reversal Ondansetron HCl 4 mg 04/02/24 15:32 04/03/24 05:31 Ondansetron 4 Mg/2 Ml Vial IVP 4 mg Q8HR PRN Administration Nausea And Vomiting Ondansetron HCl 8 mg 04/02/24 17:33 Ondansetron 4 Mg Tab PO Q6H PRN Nausea Pantoprazole Sodium 40 mg 04/02/24 21:00 04/02/24 21:06 Pantoprazole 40 Mg/10 Ml Vial IV 40 mg BID LARY Administration Potassium Chloride 20 meq 04/02/24 21:00 04/02/24 21:06 Potassium Chloride Er 20 Meq Tab.Er PO 20 meq BID LARY Administration Pregabalin 25 mg 04/02/24 21:00 04/02/24 21:06 Pregabalin 25 Mg Cap PO 25 mg BID LARY Administration Prochlorperazine Maleate 5 mg 04/02/24 17:33 Prochlorperazine 5 Mg Tab PO Q8H PRN Nausea Intake and Output 04/02/24 04/03/24 04/03/24 22:59 06:59 14:59 Output Total 2 Balance -2 Output: Emesis 2 Other: Voiding Method Toilet # Voids 1 2 Weight 58.967 kg 04/02/24 12:43 04/02/24 12:43
[2024-04-03 11:50] VITALS: BMI 20.3
[2024-04-03] MEDS: ATORVASTATIN 40 MG TAB PO SCH (12:21)
[2024-04-03] MEDS: ASPIRIN 81 MG PO SCH (12:21)
[2024-04-03] MEDS: PROCHLORPERAZINE 5 MG TAB PO PRN (12:21)
--- NOTE | 2024-04-03 16:26 | P.GSCN ---
History of Present Illness Consult date: 04/03/24 History of present illness: CHIEF COMPLAINT: Nausea and vomiting HISTORY OF PRESENT ILLNESS: This is a 74-year-old female with history of stage IV metastatic colon cancer. Her last chemotherapy was 6 days ago. Patient has a rectal stent. Patient has been having nausea and vomiting for the past week. She also reports diarrhea. She denies any abdominal pain. KUB x-ray had reported overall nonobstructive bowel gas pattern. She reports her last EGD was 2 years ago. Patient also had a syncopal episode which they felt likely due to dehydration. Patient seen by cardiology and they have signed off. Patient seen and examined with Dr. Weiss PAST MEDICAL HISTORY: Colon cancer with metastatic disease, hyperlipidemia, hypertension, myocardial infarction, bowel blockage PAST SURGICAL HISTORY: rectal stent MEDICATIONS: See below ALLERGIES: See below SOCIAL HISTORY: No illicit drug use. REVIEW OF SYSTEMS: CONSTITUTIONAL: Denies fever or chills. HEENT: Denies blurred vision, vision changes, or eye pain. Denies hemoptysis CARDIOVASCULAR: Denies chest pain or pressure. RESPIRATORY: No shortness of breath. GASTROINTESTINAL: See HPI for pertinent findings HEMATOLOGIC: Denies bleeding disorders. GENITOURINARY: Denies any blood in urine or increased urinary frequency. SKIN: Denies pruitis. Denies rash. PHYSICAL EXAM: VITAL SIGNS: Reviewed GENERAL: Well-developed in no acute distress. HEENT: No sclera icterus. Extraocular movements grossly intact. Moist buccal mucosa. Head is atraumatic, normocephalic. No nasal drainage. ABDOMEN: Soft. Nondistended. Nontender NEUROLOGIC: Alert and oriented. Cranial nerves II through XII grossly intact. LABORATORY DATA: WBC 8.3 Hgb 13.2 platelets 382 Sodium 133 potassium 3.9 creatinine 1.3 Lactic acid 1.3 Lipase 306 down to 202 IMAGING: ASSESSMENT: 1. Nausea and vomiting 2. Stage IV metastatic colon cancer and last chemotherapy 6 days ago PLAN: -Patient scheduled for EGD tomorrow with Dr. Weiss -N.p.o. after midnight Physician Band Sewer note has been reviewed by physician. Signing provider agrees with the documented findings, assessment, and plan of care. Past Medical History Past Medical History: Cancer, Hyperlipidemia, Hypertension, Myocardial Infarction ([place]) Additional Past Medical History / Comment(s): Colon Cancer. bowel blockage Last Myocardial Infarction Date:: 04/2022 History of Any Multi-Drug Resistant Organisms: None Reported Past Surgical History: No Surgical Hx Reported Additional Past Surgical History / Comment(s): surgery to remove PE's, stent in colon Past Anesthesia/Blood Transfusion Reactions: No Reported Reaction Past Psychological History: Depression Smoking Status: Never smoker - Past Family History Father Family Medical History: Chest Pain / Angina, Congestive Heart Failure (CHF), Coronary Artery Disease (CAD) Brother(s) Family Medical History: Chest Pain / Angina, Congestive Heart Failure (CHF), Coronary Artery Disease (CAD) Additional Family Medical History / Comment(s): stenting Medications and Allergies Home Medications Medication Instructions Recorded Confirmed Type Atorvastatin [Lipitor] 40 mg PO DAILY 04/02/22 04/02/24 History Escitalopram [Lexapro] 20 mg PO HS 04/02/22 04/02/24 History Pantoprazole [Protonix] 40 mg PO BID 04/02/22 04/02/24 History Metoprolol Tartrate [Lopressor] 50 mg PO BID 09/15/22 04/02/24 History Furosemide [Lasix] 20 mg PO DAILY 11/25/22 04/02/24 History amLODIPine [Norvasc] 5 mg PO DAILY 11/25/22 04/02/24 History ondansetron HCL [Zofran] 8 mg PO Q6H PRN 11/25/22 04/02/24 History Aspirin EC [Ecotrin Low Dose] 81 mg PO DAILY 04/02/24 04/02/24 History Diphenoxylate HCl/Atropine 1 - 2 tab PO QID PRN 04/02/24 04/02/24 History [Lomotil 2.5-0.025 mg Tablet] Levothyroxine Sodium [Synthroid] 25 mcg PO DAILY 04/02/24 04/02/24 History Potassium Chloride ER [K-Dur 20] 20 meq PO BID 04/02/24 04/02/24 History Pregabalin [Lyrica] 25 mg PO BID 04/02/24 04/02/24 History Prochlorperazine [Compazine] 5 mg PO Q8H PRN 04/02/24 04/02/24 History Allergies Allergy/AdvReac Type Severity Reaction Status Date / Time No Known Allergies Allergy Verified 04/02/24 17:01 Surgical - Exam Vital Signs Temp Pulse Resp BP Pulse Ox 97.6 F 100 20 102/65 98 04/02/24 12:27 04/02/24 12:27 04/02/24 12:27 04/02/24 12:27 04/02/24 12:27 Results - Labs 04/03/24 08:54 04/03/24 05:06 Abnormal Lab Results - Last 24 Hours (Table) 04/02/24 04/02/24 04/03/24 Range/Units 12:43 12:43 05:06 RBC 3.56 L (4.10-5.20) X 10*6/uL Hgb 11.8 L (12.0-15.0) g/dL Hct 36.1 L (37.2-46.3) % MCV 101.6 H 101.4 H (80.0-100.0) fL MCH 33.1 H (27.0-32.0) pg RDW 18.9 H 19.5 H (11.5-15.5) % Plt Count 475 H (150-450) k/uL Lymphocytes # 0.86 L (0.90-5.00) X 10*3/uL Eosinophils # 0 L (0.04-0.35) X 10*3/uL Basophils # (0-0.2) k/uL Macrocytosis Sodium 130 L (137-145) mmol/L Chloride 89 L (98-107) mmol/L Carbon Dioxide 35 H (22-30) mmol/L Anion Gap (4.00-12.00) mmol/L BUN 34 H (7-17) mg/dL Creatinine 1.05 H (0.52-1.04) mg/dL Est GFR (CKD-EPI) (>=60) BUN/Creatinine Ratio (12.00-20.00) Ratio Glucose 102 H (74-99) mg/dL Total Bilirubin (0.3-1.2) mg/dL AST 39 H (14-36) U/L Total Protein (6.2-8.2) g/dL Albumin 3.4 L (3.5-5.0) g/dL Albumin/Globulin Ratio (1.60-3.17) Ratio Lipase 306 H (23-300) U/L 04/03/24 04/03/24 Range/Units 05:06 08:54 RBC (4.10-5.20) X 10*6/uL Hgb (12.0-15.0) g/dL Hct (37.2-46.3) % MCV 106.2 H (80.0-100.0) fL MCH (27.0-32.0) pg RDW 18.7 H (11.5-15.5) % Plt Count (150-450) k/uL Lymphocytes # 0.9 L (0.90-5.00) X 10*3/uL Eosinophils # (0.04-0.35) X 10*3/uL Basophils # 0.3 H (0-0.2) k/uL Macrocytosis Marked A Sodium 133 L (137-145) mmol/L Chloride 92 L (98-107) mmol/L Carbon Dioxide (22-30) mmol/L Anion Gap 13.90 H (4.00-12.00) mmol/L BUN 36.4 H (7-17) mg/dL Creatinine (0.52-1.04) mg/dL Est GFR (CKD-EPI) 43 L (>=60) BUN/Creatinine Ratio 28.00 H (12.00-20.00) Ratio Glucose (74-99) mg/dL Total Bilirubin 0.2 L (0.3-1.2) mg/dL AST (14-36) U/L Total Protein 5.9 L (6.2-8.2) g/dL Albumin 3.2 L (3.5-5.0) g/dL Albumin/Globulin Ratio 1.19 L (1.60-3.17) Ratio Lipase (23-300) U/L Diabetes panel 04/02/24 04/03/24 Range/Units 12:43 05:06 Sodium 130 L 133 L (137-145) mmol/L Potassium 3.7 3.9 (3.5-5.1) mmol/L Chloride 89 L 92 L (98-107) mmol/L Carbon Dioxide 35 H 27.1 (22-30) mmol/L BUN 34 H 36.4 H (7-17) mg/dL Creatinine 1.05 H 1.3 (0.52-1.04) mg/dL Glucose 102 H 102 (74-99) mg/dL Calcium 9.3 8.7 (8.4-10.2) mg/dL AST 39 H 28 (14-36) U/L ALT 17 16 (4-34) U/L Alkaline Phosphatase 117 105 (38-126) U/L Total Protein 6.3 5.9 L (6.3-8.2) g/dL Albumin 3.4 L 3.2 L (3.5-5.0) g/dL Calcium panel 04/02/24 04/03/24 Range/Units 12:43 05:06 Calcium 9.3 8.7 (8.4-10.2) mg/dL Albumin 3.4 L 3.2 L (3.5-5.0) g/dL Pituitary panel 04/02/24 04/03/24 Range/Units 12:43 05:06 Sodium 130 L 133 L (137-145) mmol/L Potassium 3.7 3.9 (3.5-5.1) mmol/L Chloride 89 L 92 L (98-107) mmol/L Carbon Dioxide 35 H 27.1 (22-30) mmol/L BUN 34 H 36.4 H (7-17) mg/dL Creatinine 1.05 H 1.3 (0.52-1.04) mg/dL Glucose 102 H 102 (74-99) mg/dL Calcium 9.3 8.7 (8.4-10.2) mg/dL Adrenal panel 04/02/24 04/03/24 Range/Units 12:43 05:06 Sodium 130 L 133 L (137-145) mmol/L Potassium 3.7 3.9 (3.5-5.1) mmol/L Chloride 89 L 92 L (98-107) mmol/L Carbon Dioxide 35 H 27.1 (22-30) mmol/L BUN 34 H 36.4 H (7-17) mg/dL Creatinine 1.05 H 1.3 (0.52-1.04) mg/dL Glucose 102 H 102 (74-99) mg/dL Calcium 9.3 8.7 (8.4-10.2) mg/dL Total Bilirubin 0.5 0.2 L (0.2-1.3) mg/dL AST 39 H 28 (14-36) U/L ALT 17 16 (4-34) U/L Alkaline Phosphatase 117 105 (38-126) U/L Total Protein 6.3 5.9 L (6.3-8.2) g/dL Albumin 3.4 L 3.2 L (3.5-5.0) g/dL
[2024-04-03] MEDS: ACETAMINOPHEN TAB 325 MG TAB PO PRN (17:54)
--- NOTE | 2024-04-03 18:12 | P.CONS ---
History of Present Illness - Reason for Consult Consult date: 04/03/24 Metastatic intramucosal carcinoma Requesting physician: Matt Loyola - Chief Complaint vomiting, anorexia, dehydration - History of Present Illness Mrs. Loco is a 74-year-old female patient of Dr. Kali Juarez. She presented initially with vague left sided lower abdominal pain that had been going on for about 2 months prior, the symptoms were progressively worsening. She was seen by Dr. Lopes, diagnostic colonoscopy and EGD 01/06/2022 revealed a large near obstructing mass at 20 cm. Pediatric scope was passed through. Biopsy revealed intramucosal carcinoma, non-invasive. 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 Patient was sent to see Dr. Lutz at [facility] in March. She had a complicated course with small bowel obstruction, PEG tube, TPN, stent placed in the sigmoid colon, bilateral PEs with thrombectomy, started on Xarelto, Mediport was placed. She started on FOLFOX treatment in April. She continued on treatment as well as TPN and some occasional IV iron. In July she began ex periencing a rash, felt to be related to 5-FU. Despite steroid treatment it did not improve. As the rash resolved it was felt that possibly was related to shingles. Patient was transitioned over to oral Xeloda 2 weeks on, 1 week off with oxaliplatin every 21 days. She did well for some time she was able to transition off TPN around December 2022. She was changed over to Camptosar 01/24 because of persistent rash. In February 2023 treatment was held because of side effects. She had 2 additional Camptosar treatments in March. PET scan showed stable metastatic disease. It was recommended that she continue on maintenance Xeloda. She had PEG removed 09/2023. She had a stable PET scan in November 2023 and March 2024. Patient came to the hospital after being "so sick" for about 5 to 7 days. She held her Xeloda 3 days into this cycle. She is not feeling much better since holding it. Nausea, vomiting and dizziness are not significantly better since stopping. The only thing that did help today was a significant amount of vomiting. She has slept most of the rest of the day. She states that she cannot eat anything without feeling ill. She is having watery bowel movements about 3 times a day, this is not new. She denies any cramping or mucousy stools, no abdominal pain with the stools. She will see some blood once in a while, bright red, she states that this is from the stent and is unchanged. No recent fevers, chills, oral irritation, sore throat, shortness of breath or cough. 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 O2 saturation is normal. CBC showing some macrocytosis, likely from treatment,diet and medications. BUN 36.4 creatinine 1.3. Amylase and lipase were within normal defined limits. KUB x-ray nonobstructive bowel gas pattern. CT of the head without contrast negative for any acute process. Carotid Doppler study no significant stenosis. Review of Systems 14 point review of systems is negative except as stated in HPI Past Medical History Past Medical History: Cancer, Hyperlipidemia, Hypertension, Myocardial Infarction (ID) Additional Past Medical History / Comment(s): Colon Cancer. bowel blockage Last Myocardial Infarction Date:: 04/2022 History of Any Multi-Drug Resistant Organisms: None Reported Past Surgical History: No Surgical Hx Reported Additional Past Surgical History / Comment(s): surgery to remove PE's, stent in colon Past Anesthesia/Blood Transfusion Reactions: No Reported Reaction Past Psychological History: Depression Smoking Status: Never smoker Past Alcohol Use History: None Reported Past Drug Use History: None Reported - Past Family History Father Family Medical History: Chest Pain / Angina, Congestive Heart Failure (CHF), Coronary Artery Disease (CAD) Brother(s) Family Medical History: Chest Pain / Angina, Congestive Heart Failure (CHF), Coronary Artery Disease (CAD) Additional Family Medical History / Comment(s): stenting Medications and Allergies Home Medications Medication Instructions Recorded Confirmed Type Atorvastatin [Lipitor] 40 mg PO DAILY 04/02/22 04/02/24 History Escitalopram [Lexapro] 20 mg PO HS 04/02/22 04/02/24 History Pantoprazole [Protonix] 40 mg PO BID 04/02/22 04/02/24 History Metoprolol Tartrate [Lopressor] 50 mg PO BID 09/15/22 04/02/24 History Furosemide [Lasix] 20 mg PO DAILY 11/25/22 04/02/24 History amLODIPine [Norvasc] 5 mg PO DAILY 11/25/22 04/02/24 History ondansetron HCL [Zofran] 8 mg PO Q6H PRN 11/25/22 04/02/24 History Aspirin EC [Ecotrin Low Dose] 81 mg PO DAILY 04/02/24 04/02/24 History Diphenoxylate HCl/Atropine 1 - 2 tab PO QID PRN 04/02/24 04/02/24 History [Lomotil 2.5-0.025 mg Tablet] Levothyroxine Sodium [Synthroid] 25 mcg PO DAILY 04/02/24 04/02/24 History Potassium Chloride ER [K-Dur 20] 20 meq PO BID 04/02/24 04/02/24 History Pregabalin [Lyrica] 25 mg PO BID 04/02/24 04/02/24 History Prochlorperazine [Compazine] 5 mg PO Q8H PRN 04/02/24 04/02/24 History Allergies Allergy/AdvReac Type Severity Reaction Status Date / Time No Known Allergies Allergy Verified 04/02/24 17:01 Physical Exam Vitals: Vital Signs Temp Pulse Pulse Pulse Pulse Resp BP 04/03/24 14:03 97.4 F L 91 16 04/03/24 11:25 98.0 F 97 90 15 04/03/24 07:00 98.0 F 97 20 04/03/24 02:23 97.4 F L 91 15 04/02/24 21:00 100 94 16 04/02/24 20:32 97.8 F 100 94 16 04/02/24 20:24 97.9 F 87 18 115/81 04/02/24 18:43 78 18 110/68 BP BP BP Pulse Ox 04/03/24 14:03 135/87 97 04/03/24 11:25 94/67 137/77 04/03/24 07:00 106/66 97 04/03/24 02:23 123/80 97 04/02/24 21:00 04/02/24 20:32 107/74 112/77 97 04/02/24 20:24 95 04/02/24 18:43 95 Intake and Output 04/03/24 04/03/24 04/03/24 06:59 14:59 22:59 Intake Total 624 Output Total 2 Balance -2 624 Intake: Oral 624 Output: Emesis 2 Other: # Voids 2 1 Weight 58.967 kg - Constitutional General appearance: cooperative, no acute distress, thin - EENT dry mucus membranes Eyes: anicteric sclerae, EOMI ENT: hearing grossly normal - Respiratory Respiratory: bilateral: CTA - Cardiovascular Rhythm: regular Heart sounds: normal: S1, S2 Abnormal Heart Sounds: no systolic murmur, no diastolic murmur, no rub, no S3 Gallop, no S4 Gallop, no click, no other leg Peripheral Edema: bilateral: None - Gastrointestinal firm abdomen to palpation General gastrointestinal: no absent bowel sounds, decreased bowel sounds, no distended, no hepatomegaly, no hyperactive bowel sounds, no normal bowel sounds, no organomegaly, no rigid, no scaphoid, no soft, no splenomegaly, no tenderness, no umbilical hernia, no ventral hernia - Integumentary Integumentary: normal - Neurologic Neurologic: CNII-XII intact - Musculoskeletal Musculoskeletal: strength equal bilaterally - Psychiatric Psychiatric: A&O x's 3, appropriate affect, intact judgment & insight Results CBC & Chem 7: 04/03/24 08:54 04/03/24 05:06 Labs: Abnormal Lab Results - Last 24 Hours (Table) 04/03/24 04/03/24 04/03/24 Range/Units 05:06 05:06 08:54 RBC 3.56 L (4.10-5.20) X 10*6/uL Hgb 11.8 L (12.0-15.0) g/dL Hct 36.1 L (37.2-46.3) % MCV 101.4 H 106.2 H (80.0-97.0) FL MCH 33.1 H (27.0-32.0) pg RDW 19.5 H 18.7 H (11.5-14.5) % Lymphocytes # 0.86 L 0.9 L (0.90-5.00) X 10*3/uL Eosinophils # 0 L (0.04-0.35) X 10*3/uL Basophils # 0.3 H (0-0.2) k/uL Macrocytosis Marked A Sodium 133 L (135-145) mmol/L Chloride 92 L (96-109) mmol/L Anion Gap 13.90 H (4.00-12.00) mmol/L BUN 36.4 H (9.0-27.0) mg/dL Est GFR (CKD-EPI) 43 L (>=60) BUN/Creatinine Ratio 28.00 H (12.00-20.00) Ratio Total Bilirubin 0.2 L (0.3-1.2) mg/dL Total Protein 5.9 L (6.2-8.2) g/dL Albumin 3.2 L (3.8-4.9) g/dL Albumin/Globulin Ratio 1.19 L (1.60-3.17) Ratio Assessment and Plan (1) Intractable vomiting Current Visit: Yes Status: Acute Priority: High Code(s): R11.10 - VOMITING, UNSPECIFIED SNOMED Code(s): 601522410 (2) Dehydration Current Visit: Yes Status: Acute Priority: High Code(s): E86.0 - DEHYDRATION SNOMED Code(s): 42565789 (3) Syncope Current Visit: Yes Status: Acute Priority: High Code(s): R55 - SYNCOPE AND COLLAPSE SNOMED Code(s): 370513530 (4) Adenocarcinoma of sigmoid colon Current Visit: Yes Status: Chronic Priority: Medium Code(s): C18.7 - MALIGNANT NEOPLASM OF SIGMOID COLON SNOMED Code(s): 367579734 Plan: Intractable vomiting -KUB x-ray on admit reporting a nonobstructive bowel gas pattern -Xeloda was held last week. The patient is not noticing a significant improvement in her nausea and vomiting. She is unable to tolerate oral intake at this time. Vomiting did help nauseated feelings today but, again she is not eating anything. -Surgery has seen the patient, plans for EGD tomorrow. Agree with the plan -IV hydration for now. -Not certain at this time if a PEG tube may have to be reconsidered or TPN. Will discuss with Primary Oncologist as well as patient and her after EGD, to see if there are any acute findings that can be corrected Dehydration -Secondary to above. IV fluids for now. Syncope -Secondary to intractable vomiting and subsequent dehydration. -CT of the brain without contrast was negative for any acute intracranial process. -Cardiology has seen and evaluated the patient. -Carotid Doppler study reports no hemodynamically significant internal carotid artery stenosis on either side -Orthostatic's positive from supine to sitting.
--- NOTE | 2024-04-03 19:40 | CA ---
Transthoracic Echo Report Name: Kaya Loco Age: 74 Gender: F : 1950 Exam Date: 04/03/2024 08:11 Exam Location: [facility] Ht (in): 67 Wt (lb): 130 Ordering Physician: Matt Loyola DO Attending/Referring Phys: Fitness Consultant Shagufta Anna RDCS Procedure CPT: Indications: Syncope Cardiac Hx: Technical Quality: Fair Contrast 1: Total Dose (mL): Contrast 2: Total Dose (mL): MEASUREMENTS (Male / Female) Normal Values 2D ECHO LVOT Diameter 2.0 cm LV Diastolic Volume MOD BP 52.8 cm??? 67 - 155 / 56 - 104 cm??? LV Systolic Volume MOD BP 22.7 cm??? 22 - 58 / 19 - 49 cm??? LV Ejection Fraction MOD BP 56.9 % >= 55 % LV Cardiac Index MOD BP 1749.4 cm???/min???m??? LV Diastolic Volume MOD 4C 49.7 cm??? LV Systolic Volume MOD 4C 23.0 cm??? LV Ejection Fraction MOD 4C 53.7 % LV Cardiac Index MOD 4C 1553.5 cm???/min???m??? LV Diastolic Length 4C 6.8 cm LV Systolic Length 4C 5.9 cm LV Diastolic Volume MOD 2C 54.4 cm??? LV Systolic Volume MOD 2C 21.4 cm??? LV Ejection Fraction MOD 2C 60.7 % LV Cardiac Index MOD 2C 1923.5 cm???/min???m??? LV Diastolic Length 2C 6.6 cm LV Systolic Length 2C 5.6 cm LA Volume 20.1 cm??? 18 - 58 / 22 - 52 cm??? LA Volume Index 12.1 cm???/m??? 16 - 28 cm???/m??? DOPPLER AV Peak Velocity 85.8 cm/s AV Peak Gradient 2.9 mmHg AV Mean Velocity 54.8 cm/s AV Mean Gradient 1.4 mmHg AV Velocity Time Integral 11.9 cm LVOT Peak Velocity 77.7 cm/s LVOT Peak Gradient 2.4 mmHg LVOT Velocity Time Integral 11.3 cm LVOT Stroke Volume 35.2 cm??? LVOT Stroke Volume Index 20.9 ml/m??? LVOT Cardiac Index 2047.9 cm???/min???m??? AV Area Cont Eq vti 3.0 cm??? AV Area Cont Eq pk 2.8 cm??? MV Area PHT 6.6 cm??? Mitral E Point Velocity 37.1 cm/s Mitral A Point Velocity 80.8 cm/s Mitral E to A Ratio 0.5 MV Deceleration Time 115.6 ms TR Peak Velocity 196.9 cm/s TR Peak Gradient 15.5 mmHg FINDINGS Left Ventricle Left ventricular ejection fraction is estimated at 55-60 %. Left ventricular cavity size normal. Left ventricular wall thickness normal. No obvious regional wall motion abnormalities. Right Ventricle Normal right ventricular size and function. Unable to estimate the right ventricular systolic pressure. Right Atrium Normal right atrial size. Left Atrium Normal left atrial size. Mitral Valve Structurally normal mitral valve. No evidence for mitral valve prolapse. No mitral stenosis. Trace mitral regurgitation. Aortic Valve Aortic valve not well visualized. No aortic valve stenosis or regurgitation. Tricuspid Valve Structurally normal tricuspid valve. No tricuspid stenosis. Trace to mild tricuspid regurgitation. Pulmonic Valve Pulmonic valve not well visualized. Pericardium No pericardial effusion. Aorta Aortic annulus normal. CONCLUSIONS Diagnosis: Syncope, status post chemotherapy Preserved LV size systolic function Normal RV size and function Previewed by: Dr. Dyllan Aranda MD (Electronically Signed) Final Date: 03 April 2024 19:39
[2024-04-04 06:08] LABS: Anisocytosis Slight; HCT 34.5 % (34.0-46.0); HGB 11.1 gm/dL (11.4-16.0); Hypochromasia Slight; MCH 33.4 pg (25.0-35.0); MCHC 32.3 g/dL (31.0-37.0); MCV 103.4 fL (80.0-100.0); Macrocytosis Moderate; Mean Platelet Volume 7.2; Platelet Count 340 k/uL (150-450); RBC 3.34 m/uL (3.80-5.40); RDW 18.8 % (11.5-15.5); WBC 8.3 k/uL (3.8-10.6)
[2024-04-04 06:27] LABS: African American GFR (CKD) 58 (>60 ml/min/1.73 sqM); Anion Gap 5 mmol/L; Blood Urea Nitrogen 39 mg/dL (7-17); Calcium 8.1 mg/dL (8.4-10.2); Carbon Dioxide 25 mmol/L (22-30); Chloride 99 mmol/L (98-107); Glucose 121 mg/dL (74-99); Non-African American GFR(CKD) 50 (>60 ml/min/1.73 sqM); Potassium 3.8 mmol/L (3.5-5.1); Sodium 129 mmol/L (137-145)
[2024-04-04] MEDS ORDERED: LIDOCAINE 2% (PF) 20 MG/ML 5 ML VIAL ONE (10:15)
[2024-04-04] MEDS ORDERED: PROPOFOL 10 MG/ML 20 ML VIAL IV ONE (10:15)
[2024-04-04] MEDS ORDERED: SUCCINYLCHOLINE CHLORIDE 200 MG/10 ML VIAL IV ONE (10:15)
[2024-04-04] MEDS: IV FLUID CONTINUATION 500 ML IV ONE (10:33)
--- NOTE | 2024-04-04 10:39 | P.OP ---
Date of Procedure: 04/04/24 Preoperative Diagnosis: Nausea Postoperative Diagnosis: Nausea Ileus Gastritis Procedure(s) Performed: EGD Anesthesia: MAC Surgeon: Sd Weiss Pathology: other (Antrum) Condition: stable Disposition: PACU Description of Procedure: The patient was placed on the endoscopy table in the lateral position. She received IV sedation. The patient reflux after anesthesia. She was rotated her side. The patient was then intubated in order to protect her airway. The patient's tracheal suction. There is no evidence of any bilious fluid in the trachea. This point the gas was placed oropharynx and into the stomach. The stomach had approximately 300 cc of bilious fluid. The fluid was aspirated. An d then the scope was advanced through the pylorus into the duodenum. The first second portion duodenum appeared normal. Scope was brought back to the antrum this was moved Flaim. A biopsy was performed. The scope was retroflexed patient has small hiatal hernia. The GE junction was at 38 signs. The distal esophagus appeared noninflamed. The gastric was withdrawn. Patient had a nasogastric tube placed. Patient will undergo CT scan to eval for possible downstream obstruction.
[2024-04-04] MEDS: IOPAMIDOL CONTRAST (ORAL USE) VIAL PO PRN (12:51)
--- NOTE | 2024-04-04 15:16 | CT ---
EXAMINATION TYPE: CT abdomen pelvis wo con DATE OF EXAM: 04/04/2024 COMPARISON: PET/CT 03/14/2024 HISTORY: 74-year-old female abdominal pain, vomiting CT DLP: 747 mGycm. Automated exposure control for dose reduction was used. TECHNIQUE: Contiguous axial scanning of the abdomen and pelvis without IV contrast. Coronal and sagit harmony reconstructions performed. FINDINGS: Heart normal size without pericardial effusion. Extensive airspace disease and consolidation has developed in the inferior lingula and left lower lob e. Scattered subpleural areas of nodularity at the right base measuring up to 9 mm, unchanged from 2023. NG tube is present. Noncontrast appearance of the liver, gallbladder, adrenal glands, right kidney, spleen, and pancreas show no gross abnormality. Underlying left-sided renal cortical cysts measuring up to 2.0 cm redemonstrated. 3 mm nonobstructive left renal stone. Unchanged left-sided pelviectasis versus parapelvic cyst measuring 2.2 cm. Dilated second portion of the duodenum up to 5.1 cm redemonstrated versus 4.1 cm, previously. Conside r the possibility of SMA compression syndrome given the narrowing of the third portion of the duodenu m. 1.9 cm left mesenteric lymph node, axial image 40 appears unchanged. A number of additional underlyin g mesenteric lymph nodes are also redemonstrated. Omental caking is redemonstrated. No dilated small bowel or free air. Possible trace free fluid on either side in the lower abdomen. Scattered mild to moderate stool. Distal sigmoid stent redemonstrated. Lobulated soft tissue mass left adnexa measuring 7.2 x 3.0 cm (versus 6.8 x 3.2 cm, previously), not significantly changed. Bladder partially distended. Uterus present but not well delineated due to clumped up adjacent nonopa cified bowel. No obvious pelvic lymphadenopathy. Bones: Severe degenerative change left hip. Hypertrophic facet arthropathy mid to lower lumbar spine with degenerative grade 1 anterolisthesis L4-L5. IMPRESSION: 1. Extensive new airspace disease in the visualized lower left lung. Correlate for infectious or asp iration pneumonitis. Recommend radiographic correlation. Trace left pleural effusion. 2. Dilated second portion of the duodenum up to 5.1 cm versus 4.1 cm, previously. Consider the possi bility of SMA compression onto the duodenum given narrowing of the third portion. 3. Omental caking, mesenteric adenopathy at the 1.9 cm, and a subpleural nodularity at the right bas e all appear similar. 7.2 x 3.0 cm lobulated soft tissue in the left adnexa also similar. Distal sigm oid metallic stent in place.
--- NOTE | 2024-04-04 16:15 | P.PN ---
Subjective Progress Note Date: 04/04/24 CHIEF COMPLAINT: Nausea and vomiting HISTORY OF PRESENT ILLNESS: Patient status post EGD for nausea and vomiting. Results reported gastritis as well as ileus. Patient had approximately 300 cc of bilious fluid in the stomach which was aspirated. She did have NG tube placed. A CT scan abdomen pelvis was ordered for evaluation of obstruction. Per nursing staff prior to Scan patient's oxygen saturation was on the lower side and required oxygen supplement. Patient also had a black stool after the CAT scan. Afebrile. WBC 8.3 Hgb 11.1 platelets 340 sodium 129 creatinine 1.10 Patient seen and examined with Dr. Weiss PHYSICAL EXAM: VITAL SIGNS: Reviewed. GENERAL: no acute distress. ABDOMEN: Soft. Nondistended. NG tube in place with bilious output NEUROLOGIC: Alert and oriented. Cranial nerves II through XII grossly intact. ASSESSMENT: 1. Nausea and vomiting 2. Status post EGD with evidence of ileus and gastritis 3. Hyponatremia 4. Stage IV metastatic colon cancer with rectal stent and last chemotherapy 6 days ago PLAN: -Continue NG tube for decompression -Follow-up on CT scan abdomen and pelvis results -Keep patient n.p.o. -Chest x-ray ordered for hypoxia and possible aspiration -Continue IV fluids -CBC ordered for melanotic stool -Continue PPI Physician It Systems Engineer note has been reviewed by physician. Signing provider agrees with the documented findings, assessment, and plan of care. Objective - Vital Signs Vital signs: Vital Signs Temp 97.7 F 04/04/24 11:45 Pulse 80 04/04/24 11:45 Resp 14 04/04/24 11:22 BP 117/70 04/04/24 11:45 Pulse Ox 95 04/04/24 11:45 FiO2 Intake & Output 04/03/24 04/04/24 04/04/24 18:59 06:59 18:59 Intake Total 978 240 250 Balance 978 240 250 Weight 58.967 kg Intake: IV 250 Oral 978 240 Other: Voiding Method Toilet # Voids 1 1 1 # Bowel Movements 1 - Labs CBC & Chem 7: 04/04/24 05:45 04/04/24 05:45 Labs: Abnormal Lab Results - Last 24 Hours (Table) 04/04/24 04/04/24 Range/Units 05:45 05:45 RBC 3.34 L (3.80-5.40) m/uL Hgb 11.1 L (11.4-16.0) gm/dL MCV 103.4 H (80.0-100.0) fL RDW 18.8 H (11.5-15.5) % Sodium 129 L (137-145) mmol/L BUN 39 H (7-17) mg/dL Creatinine 1.10 H (0.52-1.04) mg/dL Glucose 121 H (74-99) mg/dL Calcium 8.1 L (8.4-10.2) mg/dL
[2024-04-04 16:32] LABS: Anisocytosis Slight; HCT 34.3 % (34.0-46.0); HGB 11.1 gm/dL (11.4-16.0); Hypochromasia Slight; MCH 33.1 pg (25.0-35.0); MCHC 32.3 g/dL (31.0-37.0); MCV 102.5 fL (80.0-100.0); Macrocytosis Moderate; Mean Platelet Volume 6.9; Platelet Count 265 k/uL (150-450); RBC 3.35 m/uL (3.80-5.40); RDW 18.6 % (11.5-15.5); WBC 2.6 k/uL (3.8-10.6)
[2024-04-04] MEDS: LACTATED RINGERS 1,000 ML IV SCH (16:48)
--- NOTE | 2024-04-04 17:09 | XR ---
EXAMINATION TYPE: XR chest 2V DATE OF EXAM: 04/04/2024 4:40 PM CLINICAL INDICATION:Female, 74 years old with history of shortness of breath; [facility] COMPARISON: Chest radiographs from 01/09/2023 TECHNIQUE: XR chest 2V Frontal and lateral views of the chest. FINDINGS: Lungs/Pleura: Consolidating pneumonia in the lingula. Small patch consolidation left lower lobe. Left hemidiaphragm is partially obscured in the consolidation approaches the left heart border. Pulmonary vascularity: Unremarkable. Heart/mediastinum: Cardiomediastinal silhouette is unremarkable. Musculoskeletal: No acute osseous pathology. Other findings: None Lines/Tubes: NG tube extends below the diaphragm. Right sided Medication port partially ascends the right superior vena cava and then loops around and has its tip near the caval atrial junction. IMPRESSION: Left lung base pneumonia.
[2024-04-04] MEDS: PIPERACILLIN-TAZOBACTAM 3.375 GM in SODIUM CHLORIDE 0.9% 100 ML IVPB SCH (17:16)
--- NOTE | 2024-04-05 09:29 | XR ---
EXAMINATION TYPE: XR chest 1V DATE OF EXAM: 04/05/2024 HISTORY: Shortness of breath. COMPARISON: 04/04/2024 TECHNIQUE: Single view of the chest is submitted. FINDINGS: Demonstrated are scattered senescent parenchymal change. Again noted is left lower lobe infiltrate felt to reflect pneumonia. The heart is stable. Hilar and mediastinal structures are within normal limits. Degenerative changes are seen of the dorsal spine. IMPRESSION: 1. Again noted is left lower lobe infiltrate felt to reflect pneumonia.
--- NOTE | 2024-04-05 10:20 | P.PN ---
Subjective Progress Note Date: 04/04/24 HISTORY OF PRESENT ILLNESS: 74-year-old With active medical history of stage IV advanced colon cancer with metastasis seen oncology on regular basis and on chemotherapy, who also has a history of atherosclerotic heart disease post myocardial infarction, history of hypertension, hyperlipidemia, anemia, recurrent GI bleed, recurrent bowel obstruction secondary to scar tissue, multiple complication for chemotherapy use in the last few years. The patient had a PET scan 2 weeks ago apparently has been on modified oral chemotherapy per oncology but developed to have intractable nausea and vomiting for the last few days not able to tolerate any food or fluid with significant dehydration along with lightheadedness and dizziness associated. Today she felt severely sick did not have any strength and try to walk to the bathroom had syncopal episode did not hurt herself with no injury from the fall she apparently called for help and brought to the emergency department at [facility] where was seen and evaluated her laboratory value initially showed normal white blood cell with hemoglobin of 13 sodium 130 bun 34 creatinine 1.05 with a glucose of 102 negative troponin lipase was 306 at the time after hydrating patient well with plan to walk and ambulate she becomes extremely lightheaded and dizzy become more symptomatic as well her nausea had stopped at this point after using Zofran still not able to tolerate any food. Ended up having KUB film did not show any sign of bowel obstruction, CAT scan of the brain showed no intracranial process. She was kept on gentle hydration along with antiemetics emetic medication and admitted to the hospital. 04/04/2024: She is feeling slightly better today continue to have significant nausea not been able to take any food by doing fluid down. Seen general surgery going for EGD today to see if she have any active gastritis. No obstruction was found on her CAT scan originally we will keep watching patient still be on conservative management with the current nutrition patient eventually might req uire to do either TPN or PEG tube feeding. Also continue to watch her hemodynamic status continue to watch her protein level as well. REVIEW OF SYSTEMS: CONSTITUTIONAL: Looking severely malnourished in no acute respiratory distress EYES: No icterus sclerae, no conjunctivitis. EARS, NOSE, MOUTH, THROAT, and FACE: No sore throat, lymphadenopathy, carotid bruits or deformity. RESPIRATORY: No SOB cough or wheezes. CARDIOVASCULAR: No CP, Palpitation, PND, Orthopnea, or angina. GASTROINTESTINAL: Abdominal discomfort with nausea vomiting no diarrhea GENITOURINARY: Negative for Hematuria or UTI, decreased urine output INTEGUMENT/BREAST: Negative for any muscular injury with mild osteoarthritis.. HEMATOLOGIC/LYMPHATIC: Negative for bleed or purpura. MUSCULOSKELTAL: Negative for Myalgia or arthralgia. NEURLOGICAL: Syncopal episode with no blurred vision but mild dizziness. BEHAVIORAL/PSYCH: Negative. ENDOCRINE: Negative. PHYSICAL EXAMINATION: General Appearance: Alert, cooperative, looks malnourished no acute respiratory distress. Neck HEENT: Supple, no lymphadenopathy, no thyroid enlargement, no carotid bruits. Lungs: Clear to auscultation without crackles or wheezes no rhonchi, no deformity. Chest Wall: Decreased expansion with deep inspiration no tenderness and no deformity was found on exam, no costochondral pain or discomfort. Heart: Regular rate and rhythm, S1, S2 normal, positive tachycardia, no murmur, rub or gallop. Back: Symmetric, significant scoliosis no rash no CVA tenderness Abdomen: Soft, non-tender, bowel sounds positive slight discomfort in the epigastric and mid abdominal area no rebound or rigidity. Extremities: Extremities normal, atraumatic, no cyanosis or edema. Pulses: 2+ and symmetric. Skin: Skin color, texture, tugor normal, no rashes or lesions. Neurologic: Alert oriented x3 cranial nerves II through XII intact, no motor deficit, no abnormal balance or gait. ASSESSMENT AND PLAN: _Syncope: Combination of severe dehydration along with hypotension no other signs and symptoms of any cardiac related problem at this point her blood pressure medication eventually might need to be change as well as she is not having any reactive tachycardia. _Severe intractable nausea and vomiting: Will be going for EGD today by general surgery still watching for any sign and symptom of obstruction related to more adhesion which CAT scan failed to show any abnormality at this point. _Acute kidney injury: Improved significantly continue current hydration. _Possible bowel obstruction related to metastatic colon cancer: No clear evidence of obstruction at this point with testing still watch symptoms closely might do CAT scan of the abdomen. _Acute versus subacute pancreatitis: Lipase was elevated causing more reactive pancreatic cancer at the time down to normal at this point patient not having any active pancreatitis or symptoms probably more obstruction and more severe gastritis our gastric outlet syndrome. _Hypertension: Has been on amlodipine 5 mg a day along with metoprolol tartrate 50 mg twice a day blood pressure running on the low side at some point probably cut down metoprolol to 25 and off blood the pain might be a good idea. _Metastatic stage IV colon cancer has been on modified chemotherapy management her intractable nausea vomiting could be related will consult oncology. Again not quite sure whether able to see any further metastasis on the current CAT scan which can be part of the reason why she is having intractable symptoms at this point. _ Hypothyroidism: Resume levothyroxine 25 mcg daily if patient is not able to tolerate_oral meds IV will be done. _Hyperlipidemia: Continue atorvastatin 40 mg a day. _Gastritis and gastric ulcer disease: Has been on pantoprazole which will resume medication on an IV twice a day for now. Will be going for EGD today. _Chronic diarrhea with a history of colon cancer continue Lomotil on as-needed basis. Symptom of diarrhea is much better with having more nausea and vomiting at this point. _Malnutrition and hypoalbuminemia: Might require either PEG feeding or TPN. Discussion: Patient be going for EGD today still been watched by cardiology, oncology and general surgery after EGD will decide on further management awaiting probably for PICC line for possible need TPN. Objective - Vital Signs Vital signs: Vital Signs Temp 98.1 F 04/05/24 07:00 Pulse 104 H 04/05/24 07:00 Resp 14 04/05/24 07:00 BP 95/54 04/05/24 07:00 Pulse Ox 94 L 04/05/24 07:00 FiO2 Intake & Output 04/04/24 04/05/24 04/05/24 18:59 06:59 18:59 Intake Total 250 Output Total 500 900 Balance -250 -900 Intake: IV 250 Output: Emesis 500 600 Other 300 Other: Voiding Method Bedside Commode # Voids 1 1 # Bowel Movements 1 1 - Labs CBC & Chem 7: 04/04/24 16:01 04/04/24 05:45 Labs: Abnormal Lab Results - Last 24 Hours (Table) 04/04/24 Range/Units 16:01 WBC 2.6 L (3.8-10.6) k/uL RBC 3.35 L (3.80-5.40) m/uL Hgb 11.1 L (11.4-16.0) gm/dL MCV 102.5 H (80.0-100.0) fL RDW 18.6 H (11.5-15.5) %
--- NOTE | 2024-04-05 10:25 | P.PN ---
Subjective Progress Note Date: 04/05/24 HISTORY OF PRESENT ILLNESS: 74-year-old With active medical history of stage IV advanced colon cancer with metastasis seen oncology on regular basis and on chemotherapy, who also has a history of atherosclerotic heart disease post myocardial infarction, history of hypertension, hyperlipidemia, anemia, recurrent GI bleed, recurrent bowel obstruction secondary to scar tissue, multiple complication for chemotherapy use in the last few years. The patient had a PET scan 2 weeks ago apparently has been on modified oral chemotherapy per oncology but developed to have intractable nausea and vomiting for the last few days not able to tolerate any food or fluid with significant dehydration along with lightheadedness and dizziness associated. Today she felt severely sick did not have any strength and try to walk to the bathroom had syncopal episode did not hurt herself with no injury from the fall she apparently called for help and brought to the emergency department at [facility] where was seen and evaluated her laboratory value initially showed normal white blood cell with hemoglobin of 13 sodium 130 bun 34 creatinine 1.05 with a glucose of 102 negative troponin lipase was 306 at the time after hydrating patient well with plan to walk and ambulate she becomes extremely lightheaded and dizzy become more symptomatic as well her nausea had stopped at this point after using Zofran still not able to tolerate any food. Ended up having KUB film did not show any sign of bowel obstruction, CAT scan of the brain showed no intracranial process. She was kept on gentle hydration along with antiemetics emetic medication and admitted to the hospital. 04/04/2024: She is feeling slightly better today continue to have significant nausea not been able to take any food by doing fluid down. Seen general surgery going for EGD today to see if she have any active gastritis. No obstruction was found on her CAT scan originally we will keep watching patient still be on conservative management with the current nutrition patient eventually might req uire to do either TPN or PEG tube feeding. Also continue to watch her hemodynamic status continue to watch her protein level as well. 04/05/2024: Patient ended up going for EGD yesterday finding more consistent with severe gastritis biopsy was taking no growth or tumor no gastric outlet syndrome. Sadly as patient recovering from her procedure she had aspiration ended up having severe hypoxia chest x-ray this morning shows infiltrate in left lower lobe patient was started on Zosyn yesterday we will continue Zosyn for aspiration pneumonia at this point will be seen pulmonary as well. She is still symptomatic has an NG tube currently to help to reduce amount of nausea and vomiting and her stomach is more flat she feels slightly better that she is not throwing up no diarrhea today. Her nutritional status still quite down the patient is going for PICC line for possible TPN. Pain management is going well so far. No further signs and symptoms of any abnormality with her syncope with exception of hypertension start midodrine 5 mg twice a day and she is off Norvasc com pletely her metoprolol to tartrate to be down to 25 mg twice a day which he watching for any reactive tachycardia. REVIEW OF SYSTEMS: CONSTITUTIONAL: Looking severely malnourished in no acute respiratory distress EYES: No icterus sclerae, no conjunctivitis. EARS, NOSE, MOUTH, THROAT, and FACE: No sore throat, lymphadenopathy, carotid bruits or deformity. RESPIRATORY: No SOB cough or wheezes. CARDIOVASCULAR: No CP, Palpitation, PND, Orthopnea, or angina. GASTROINTESTINAL: Abdominal discomfort with nausea vomiting no diarrhea GENITOURINARY: Negative for Hematuria or UTI, decreased urine output INTEGUMENT/BREAST: Negative for any muscular injury with mild osteoarthritis.. HEMATOLOGIC/LYMPHATIC: Negative for bleed or purpura. MUSCULOSKELTAL: Negative for Myalgia or arthralgia. NEURLOGICAL: Syncopal episode with no blurred vision but mild dizziness. BEHAVIORAL/PSYCH: Negative. ENDOCRINE: Negative. PHYSICAL EXAMINATION: General Appearance: Alert, cooperative, looks malnourished no acute respiratory distress. Neck HEENT: Supple, no lymphadenopathy, no thyroid enlargement, no carotid bruits. Lungs: Clear to auscultation without crackles or wheezes no rhonchi, no deformity. Chest Wall: Decreased expansion with deep inspiration no tenderness and no deformity was found on exam, no costochondral pain or discomfort. Heart: Regular rate and rhythm, S1, S2 normal, positive tachycardia, no murmur, rub or gallop. Back: Symmetric, significant scoliosis no rash no CVA tenderness Abdomen: Soft, non-tender, bowel sounds positive slight discomfort in the epigastric and mid abdominal area no rebound or rigidity. Extremities: Extremities normal, atraumatic, no cyanosis or edema. Pulses: 2+ and symmetric. Skin: Skin color, texture, tugor normal, no rashes or lesions. Neurologic: Alert oriented x3 cranial nerves II through XII intact, no motor deficit, no abnormal balance or gait. ASSESSMENT AND PLAN: _Severe intractable nausea and vomiting: Will be going for EGD today by general surgery still watching for any sign and symptom of obstruction related to more adhesion which CAT scan failed to show any abnormality at this point. _Aspiration pneumonia: Complication after her EGD continue oxygen, continue Zosyn for now and patient seen pulmonary. Chest x-ray shows infiltrate on the left lower lobe will continue with Zosyn as a better coverage for aspiration pneumonia. _Syncope: Combination of severe dehydration along with hypotension no other signs and symptoms of any cardiac related problem at this point her blood pressure medication eventually might need to be change as well as she is not having any reactive tachycardia. _Acute kidney injury: Improved significantly continue current hydration. _Possible bowel obstruction related to metastatic colon cancer: Has done better with NG tube currently she is not having any nausea or vomiting for now and still having some stool but improved from before. _Acute versus subacute pancreatitis: Lipase was elevated causing more reactive pancreatic cancer at the time down to normal at this point patient not having any active pancreatitis or symptoms probably more obstruction and more severe gastritis our gastric outlet syndrome. _Hypotension: She will be off Norvasc completely will decrease metoprolol to 25 mg twice a day and patient be started on midodrine 5 mg twice a day try to keep her systolic blood pressure above 120. _Metastatic stage IV colon cancer has been on modified chemotherapy management her intractable nausea vomiting could be related will consult oncology. Again not quite sure whether able to see any further metastasis on the current CAT scan which can be part of the reason why she is having intractable symptoms at this point. _ Hypothyroidism: Resume levothyroxine 25 mcg daily if patient is not able to tolerate_oral meds IV will be done. _Hyperlipidemia: Continue atorvastatin 40 mg a day. _Gastritis and gastric ulcer disease: Has been on pantoprazole which will resume medication on an IV twice a day for now. Will be going for EGD today. _Chronic diarrhea with a history of colon cancer continue Lomotil on as-needed basis. Symptom of diarrhea is much better with having more nausea and vomiting at this point. _Malnutrition and hypoalbuminemia: Might require either PEG feeding or TPN. Discussion: She had aspiration pneumonia after her EGD done biopsy still pending at this point she is feeling better with the NG tube on she will be going for PICC line to do TPN. Objective - Vital Signs Vital signs: Vital Signs Temp 98.1 F 04/05/24 07:00 Pulse 104 H 04/05/24 07:00 Resp 14 04/05/24 07:00 BP 95/54 04/05/24 07:00 Pulse Ox 94 L 04/05/24 07:00 FiO2 Intake & Output 04/04/24 04/05/24 04/05/24 18:59 06:59 18:59 Intake Total 250 Output Total 500 900 Balance -250 -900 Intake: IV 250 Output: Emesis 500 600 Other 300 Other: Voiding Method Bedside Commode # Voids 1 1 # Bowel Movements 1 1 - Labs CBC & Chem 7: 04/04/24 16:01 04/04/24 05:45 Labs: Abnormal Lab Results - Last 24 Hours (Table) 04/04/24 Range/Units 16:01 WBC 2.6 L (3.8-10.6) k/uL RBC 3.35 L (3.80-5.40) m/uL Hgb 11.1 L (11.4-16.0) gm/dL MCV 102.5 H (80.0-100.0) fL RDW 18.6 H (11.5-15.5) %
[2024-04-05 10:49] LABS: BUN/Creat Ratio 25.25 Ratio (12.00-20.00); Blood Urea Nitrogen 30.3 mg/dL (9.0-27.0); Calcium 7.6 mg/dL (8.7-10.3); Carbon Dioxide 24.6 mmol/L (21.6-31.8); Chloride 100 mmol/L (96-109); Glucose 70 mg/dL (70-110); Potassium 3.3 mmol/L (3.5-5.5); Sodium 136 mmol/L (135-145)
--- NOTE | 2024-04-05 11:12 | P.PN ---
Subjective Progress Note Date: 04/05/24 Principal diagnosis: Intractable vomiting Patient feels better with the nasogastric tube in place. CAT scan shows proximal small bowel dilation and mild gastric distention as well. Patient with evidence of carcinomatosis by CAT scan and given history. Apparently she had a PEG tube placed a few years ago for decompression purposes. Objective - Vital Signs Vital signs: Vital Signs Temp 98.1 F 04/05/24 07:00 Pulse 120 H 04/05/24 10:19 Resp 17 04/05/24 10:19 BP 108/67 04/05/24 10:19 Pulse Ox 99 04/05/24 10:19 FiO2 Intake & Output 04/04/24 04/05/24 04/05/24 18:59 06:59 18:59 Intake Total 250 Output Total 500 900 Balance -250 -900 Intake: IV 250 Output: Emesis 500 600 Other 300 Other: Voiding Method Bedside Commode # Voids 1 1 # Bowel Movements 1 1 - Exam Abdomen: Soft, mild tenderness, mild distention - Labs CBC & Chem 7: 04/04/24 16:01 04/05/24 06:33 Labs: Abnormal Lab Results - Last 24 Hours (Table) 04/04/24 04/05/24 Range/Units 16:01 06:33 WBC 2.6 L (3.8-10.6) k/uL RBC 3.35 L (3.80-5.40) m/uL Hgb 11.1 L (11.4-16.0) gm/dL MCV 102.5 H (80.0-100.0) fL RDW 18.6 H (11.5-15.5) % Potassium 3.3 L (3.5-5.5) mmol/L BUN 30.3 H (9.0-27.0) mg/dL Est GFR (CKD-EPI) 48 L (>=60) BUN/Creatinine Ratio 25.25 H (12.00-20.00) Ratio Calcium 7.6 L (8.7-10.3) mg/dL Assessment and Plan (1) Intractable vomiting Narrative/Plan: 74-year-old female with stage IV colorectal cancer. Patient with intractable vomiting. Improved after gastric decompression. Agree with plans for TPN and P ICC line. Patient may benefit from replacement of the PEG tube for gastric decompression purposes. Await oncologic plans and recommendation long-term. Current Visit: Yes Status: Acute Priority: High Code(s): R11.10 - VOMITING, UNSPECIFIED SNOMED Code(s): 663195103
--- NOTE | 2024-04-05 12:34 | P.CNPUL ---
History of Present Illness Consult date: 04/05/24 Requesting physician: Sd Weiss Reason for consult: dyspnea, abnormal CXR/CT (Possible aspiration) Chief complaint: Nausea and vomiting History of present illness: This is a very pleasant 74-year-old female patient with a known history of hypertension, hyperlipidemia, metastatic colon cancer currently on Xeloda who had been experiencing a 1 to 2-week history of nausea and vomiting. She presented here to the emergency room on April 02, 2024 for the same. She had stopped her Xeloda 6 days prior due to the nausea and vomiting without improvement. She did undergo EGD yesterday and there was some concern regarding possible aspiration. A nasogastric tube was placed. Chest x-ray does reveal a consolidating infiltrate in the lingula area. Small patch of consolidation in the left lower lobe. She is seen today in consultation on the regular medical floor. She is sitting up in bed. Awake and alert in no acute distress. She is maintaining good O2 saturations in the 90s on room air. She is afebrile. White count 2.6. Hemoglobin 11.1. Platelets 265. Sodium 136. Potassium 3.3. Bicarb 25. BUN 30. Creatinine 1.2. Glucose 70. She is currently on Zosyn. [facility] her [facility]. Review of Systems REVIEW OF SYSTEMS: CONSTITUTIONAL: Denies any recent significant weight loss or weight gain. EYES: Denies change in vision. EARS, NOSE, MOUTH, THROAT: Denies headaches, denies sore throat. CARDIOVASCULAR: Denies chest pain, palpitations or syncopal episodes. RESPIRATORY: Positive for shortness of breath, cough, congestion no hemoptysis. GASTROINTESTINAL: Positive for nausea and vomiting GENITOURINARY: Denies hematuria, denies infections. MUSKULOSKELETAL: Denies pain, denies swelling. INTEGUMENTARY: Denies rash, denies eczema. NEUROLOGICAL: Denies recent memory loss, no recent seizure activity. PSYCHIATRIC: Denies anxiety, denies depression. HEMATOLOGIC/LYMPHATIC: Denies anemia, denies enlarged lymph nodes. Past Medical History Past Medical History: Cancer, Hyperlipidemia, Hypertension, Myocardial Infarction ([place]) Additional Past Medical History / Comment(s): Colon Cancer. bowel blockage Last Myocardial Infarction Date:: 04/2022 History of Any Multi-Drug Resistant Organisms: None Reported Past Surgical History: No Surgical Hx Reported Additional Past Surgical History / Comment(s): surgery to remove PE's, stent in colon Past Anesthesia/Blood Transfusion Reactions: No Reported Reaction Past Psychological History: Depression Smoking Status: Never smoker Past Alcohol Use History: None Reported Past Drug Use History: None Reported - Past Family History Father Family Medical History: Chest Pain / Angina, Congestive Heart Failure (CHF), Coronary Artery Disease (CAD) Brother(s) Family Medical History: Chest Pain / Angina, Congestive Heart Failure (CHF), Coronary Artery Disease (CAD) Additional Family Medical History / Comment(s): stenting Medications and Allergies Home Medications Medication Instructions Recorded Confirmed Type Atorvastatin [Lipitor] 40 mg PO DAILY 04/02/22 04/02/24 History Escitalopram [Lexapro] 20 mg PO HS 04/02/22 04/02/24 History Pantoprazole [Protonix] 40 mg PO BID 04/02/22 04/02/24 History Metoprolol Tartrate [Lopressor] 50 mg PO BID 09/15/22 04/02/24 History Furosemide [Lasix] 20 mg PO DAILY 11/25/22 04/02/24 History amLODIPine [Norvasc] 5 mg PO DAILY 11/25/22 04/02/24 History ondansetron HCL [Zofran] 8 mg PO Q6H PRN 11/25/22 04/02/24 History Aspirin EC [Ecotrin Low Dose] 81 mg PO DAILY 04/02/24 04/02/24 History Diphenoxylate HCl/Atropine 1 - 2 tab PO QID PRN 04/02/24 04/02/24 History [Lomotil 2.5-0.025 mg Tablet] Levothyroxine Sodium [Synthroid] 25 mcg PO DAILY 04/02/24 04/02/24 History Potassium Chloride ER [K-Dur 20] 20 meq PO BID 04/02/24 04/02/24 History Pregabalin [Lyrica] 25 mg PO BID 04/02/24 04/02/24 History Prochlorperazine [Compazine] 5 mg PO Q8H PRN 04/02/24 04/02/24 History Allergies Allergy/AdvReac Type Severity Reaction Status Date / Time No Known Allergies Allergy Verified 04/02/24 17:01 Physical Exam Vitals: Vital Signs Temp Pulse Pulse Pulse Pulse Resp BP 08/02/24 10:19 125 H 129 H 120 H 17 04/05/24 07:00 98.1 F 104 H 14 95/54 04/05/24 02:00 97.4 F L 98 20 96/59 04/04/24 20:51 92/47 04/04/24 20:00 97.8 F 110 H 20 88/57 04/04/24 14:40 116 H 123/59 04/04/24 13:40 91 149/81 04/04/24 13:15 84 142/80 04/04/24 12:45 82 109/67 04/04/24 12:30 82 92/59 BP BP BP Pulse Ox 04/05/24 10:19 95/59 72/45 108/67 99 04/05/24 07:00 94 L 04/05/24 02:00 95 04/04/24 20:51 04/04/24 20:00 95 04/04/24 14:40 90 L 04/04/24 13:40 96 04/04/24 13:15 93 L 04/04/24 12:45 97 04/04/24 12:30 95 Intake and Output 04/04/24 04/05/24 04/05/24 22:59 06:59 14:59 Output Total 500 900 Balance -500 -900 Output: Emesis 500 600 Other 300 Other: Voiding Method Bedside Commode # Voids 0 1 # Bowel Movements 0 1 GENERAL EXAM: Alert, very pleasant 74-year-old female, on room air, comfortable in no apparent distress. HEAD: Normocephalic. EYES: Normal reaction of pupils, equal size. NOSE: Nasogastric tube in place. Clear with pink turbinates. THROAT: No erythema or exudates. NECK: No masses, no JVD. CHEST: No chest wall deformity. LUNGS: Equal air entry with coarse rhonchi over the left lung. CVS: S1 and S2 normal with no audible murmur, regular rhythm. ABDOMEN: No hepatosplenomegaly, normal bowel sounds, no guarding or rigidity. SPINE: No scoliosis or deformity SKIN: No rashes CENTRAL NERVOUS SYSTEM: No focal deficits, tone is normal in all 4 extremities. EXTREMITIES: There is no peripheral edema. No clubbing, no cyanosis. Peripheral pulses are intact. Results - Laboratory Findings CBC and BMP: 04/04/24 16:01 04/05/24 06:33 Abnormal lab findings: Abnormal Labs 04/02/24 04/02/24 04/03/24 12:43 12:43 05:06 WBC RBC 3.56 L Hgb 11.8 L Hct 36.1 L MCV 101.6 H 101.4 H MCH 33.1 H RDW 18.9 H 19.5 H Plt Count 475 H Lymphocytes # 0.86 L Eosinophils # 0 L Basophils # Macrocytosis Sodium 130 L Potassium Chloride 89 L Carbon Dioxide 35 H Anion Gap BUN 34 H Creatinine 1.05 H Est GFR (CKD-EPI) BUN/Creatinine Ratio Glucose 102 H Calcium Total Bilirubin AST 39 H Total Protein Albumin 3.4 L Albumin/Globulin Ratio Lipase 306 H 04/03/24 04/03/24 04/04/24 05:06 08:54 05:45 WBC RBC 3.34 L Hgb 11.1 L Hct MCV 106.2 H 103.4 H MCH RDW 18.7 H 18.8 H Plt Count Lymphocytes # 0.9 L Eosinophils # Basophils # 0.3 H Macrocytosis Marked A Sodium 133 L Potassium Chloride 92 L Carbon Dioxide Anion Gap 13.90 H BUN 36.4 H Creatinine Est GFR (CKD-EPI) 43 L BUN/Creatinine Ratio 28.00 H Glucose Calcium Total Bilirubin 0.2 L AST Total Protein 5.9 L Albumin 3.2 L Albumin/Globulin Ratio 1.19 L Lipase 04/04/24 04/04/24 04/05/24 05:45 16:01 06:33 WBC 2.6 L RBC 3.35 L Hgb 11.1 L Hct MCV 102.5 H MCH RDW 18.6 H Plt Count Lymphocytes # Eosinophils # Basophils # Macrocytosis Sodium 129 L Potassium 3.3 L Chloride Carbon Dioxide Anion Gap BUN 39 H 30.3 H Creatinine 1.10 H Est GFR (CKD-EPI) 48 L BUN/Creatinine Ratio 25.25 H Glucose 121 H Calcium 8.1 L 7.6 L Total Bilirubin AST Total Protein Albumin Albumin/Globulin Ratio Lipase - Diagnostic Findings Chest x-ray: image reviewed Assessment and Plan Assessment: Shortness of breath secondary to suspected aspiration pneumonia involving the left lower lobe and lingula. On Zosyn Nausea and vomiting for the past several weeks. EGD yesterday was first 2023 revealed gastritis and ileus. Nasogastric tube in place History of metastatic colon cancer, treated with Xeloda most recently in the outpatient setting History of hypertension Hyperlipidemia Plan: The patient was seen and evaluated Chest x-rays, labs and medications reviewed Currently stable and on room air Continue Zosyn Nasogastric tube in place We will continue to follow and make further recommendations based on her clinical status I have personally seen and examined the patient, performed the documentation and the assessment and plan as written. Number of minutes spent on the visit: 20.
[2024-04-05] MEDS ORDERED: BENZOCAINE SPRAY 1 CAN MUCOUS MEM PRN (14:02)
[2024-04-05 14:06] LABS: Basophils # (A) 0.08 X 10*3/uL (0.00-0.10); Basophils % (A) 0.4 %; Eosinophils # (A) 0 X 10*3/uL (0.04-0.35); Eosinophils % (A) 0 %; HCT 30.9 % (37.2-46.3); HGB 10.1 g/dL (12.0-15.0); Lymphocytes # (A) 1.28 X 10*3/uL (0.90-5.00); Lymphocytes % (A) 5.9 %; MCH 33.7 pg (27.0-32.0); MCHC 32.7 g/dL (32.0-37.0); Macrocytosis (M) 2+; Mean Platelet Volume 9.9 FL (9.5-12.2); Monocytes # (A) 1.04 X 10*3/uL (0.20-1.00); Monocytes % (A) 4.8 %; NRBC Per 100 WBC 0 X 10*3/uL (0.00-0.01); Neutrophils # (A) 18.92 X 10*3/uL (1.80-7.70); Neutrophils % (A) 87.6 %; Platelet Count 215 X 10*3/uL (140-440); RDW 19.8 % (11.5-14.5); WBC 21.61 X 10*3/uL (4.50-10.00)
[2024-04-05] MEDS: MIDODRINE 5 MG TAB PO SCH (16:42)
[2024-04-05] MEDS: METOPROLOL TARTRATE 25 MG TAB PO SCH (16:42)
[2024-04-05] MEDS ORDERED: MIDODRINE 5 MG TAB PO SCH (17:30)
[2024-04-05] MEDS: POTASSIUM CHLORIDE 20 MEQ in WATER FOR INJECTION 1 100ML.BAG IVPB SCH (17:33)
--- NOTE | 2024-04-05 18:58 | P.PN ---
Subjective Progress Note Date: 04/05/24 S/p EGD on 04/04, postoperative diagnosis ileus and gastritis, concern for possible downstream obstruction. NG tube has been placed. At today's visit patient reports improvement in nausea vomiting since NG placed. Reporting sore throat, requesting topical analgesic. Benzocaine spray ordered. PICC line has been placed and orders for TPN has been ordered. Objective - Vital Signs Vital signs: Vital Signs Temp 98.1 F 04/05/24 07:00 Pulse 120 H 04/05/24 10:19 Resp 17 04/05/24 10:19 BP 108/67 04/05/24 10:19 Pulse Ox 99 04/05/24 10:19 FiO2 Intake & Output 04/04/24 04/05/24 04/05/24 18:59 06:59 18:59 Intake Total 250 Output Total 500 900 Balance -250 -900 Intake: IV 250 Output: Emesis 500 600 Other 300 Other: Voiding Method Bedside Commode # Voids 1 1 # Bowel Movements 1 1 - Constitutional General appearance: Present: no acute distress - EENT Eyes: Present: anicteric sclerae, EOMI ENT: Present: hearing grossly normal - Respiratory Details: breathing is even and unlabored - Cardiovascular Details: well perfused - Gastrointestinal General gastrointestinal: Present: soft. Absent: tenderness - Musculoskeletal Musculoskeletal: Present: strength equal bilaterally - Psychiatric Psychiatric: Present: A&O x's 3 - Labs CBC & Chem 7: 04/05/24 06:33 04/05/24 06:33 Labs: Abnormal Lab Results - Last 24 Hours (Table) 04/04/24 04/05/24 Range/Units 16:01 06:33 WBC 2.6 L (3.8-10.6) k/uL RBC 3.35 L (3.80-5.40) m/uL Hgb 11.1 L (11.4-16.0) gm/dL MCV 102.5 H (80.0-100.0) fL RDW 18.6 H (11.5-15.5) % Potassium 3.3 L (3.5-5.5) mmol/L BUN 30.3 H (9.0-27.0) mg/dL Est GFR (CKD-EPI) 48 L (>=60) BUN/Creatinine Ratio 25.25 H (12.00-20.00) Ratio Calcium 7.6 L (8.7-10.3) mg/dL - Imaging and Cardiology CT scan - abdomen: report reviewed CT scan - pelvis: report reviewed Assessment and Plan (1) Dehydration Current Visit: Yes Status: Acute Priority: High Code(s): E86.0 - DEHYDRATION SNOMED Code(s): 02254007 (2) Intractable vomiting Current Visit: Yes Status: Acute Priority: High Code(s): R11.10 - VOMITING, UNSPECIFIED SNOMED Code(s): 963426419 (3) Adenocarcinoma of sigmoid colon Current Visit: Yes Status: Chronic Priority: Medium Code(s): C18.7 - MALIGNANT NEOPLASM OF SIGMOID COLON SNOMED Code(s): 015706816 Plan: Intractable vomiting, Ileus: -KUB x-ray on admit reporting a nonobstructive bowel gas pattern -Xeloda was held last week. The patient is not noticing a significant improvement in her nausea and vomiting. She is unable to tolerate oral intake at this time. Vomiting did help nauseated feelings today but, again she is not eating anything. -S/p EGD on 04/04, postoperative diagnosis ileus and gastritis, concern for possible downstream obstruction. NG tube has been placed, with improvement in N/V. -CT AP obtained, showing small bowel dilation. Omental caking, mesenteric adenopathy at 1.9cm, and a subpleural nodularity at the right base appear similar. 7.2 x 3.0 cm lobulated soft tissue in the left adenexa also similar. -Picc line obtainted, lithoduplicator operator consult placed for TPN. Spoke with her primary oncologist, Dr. Juarez, will likely need peg tube placement. F/u scheduled for 04/12, will further evaluate at that time, and place outpt referral to surgery for placement as indicated -Continue to hold xeloda, will evaluate when to restart at f/u Dehydration -Secondary to above. Continue IV fluids Syncope -Secondary to intractable vomiting and subsequent dehydration. -CT of the brain without contrast was negative for any acute intracranial process. -Cardiology has seen and evaluated the patient. -Carotid Doppler study reports no hemodynamically significant internal carotid artery stenosis on either side -Orthostatic's positive from supine to sitting.
[2024-04-05 19:47] LABS: Magnesium 2.1 mg/dL (1.5-2.4); Phosphorus 3.2 mg/dL (2.4-5.1)
[2024-04-05] MEDS ORDERED: METOPROLOL TARTRATE 25 MG TAB PO SCH (21:00)
[2024-04-05] MEDS: MVI, ADULT NO.4 WITH VIT K 10 ML, TRACE (CONC-1ML/DOSE) 1 ML in AMINO ACID 5%-D20W+LYTE... IV SCH (22:29)
[2024-04-05] MEDS: FAT EMULSION 20% 250 ML in EMPTY BAG 1 BAG IV SCH (22:29)
[2024-04-06 06:05] LABS: Ionized Calcium 4.9 mg/dL (4.5-5.3)
[2024-04-06 06:26] LABS: AST 38 U/L (14-36); African American GFR (CKD) 88 (>60 ml/min/1.73 sqM); Albumin 2.5 g/dL (3.5-5.0); Albumin/Globulin Ratio 0.9; Alkaline Phosphatase 157 U/L (38-126); Anion Gap 7 mmol/L; Blood Urea Nitrogen 26 mg/dL (7-17); Calcium 8.4 mg/dL (8.4-10.2); Carbon Dioxide 24 mmol/L (22-30); Chloride 101 mmol/L (98-107); Globulin 2.7 g/dL; Glucose 132 mg/dL (74-99); Magnesium 2.1 mg/dL (1.6-2.3); Non-African American GFR(CKD) 76 (>60 ml/min/1.73 sqM); Phosphorus 2.2 mg/dL (2.5-4.5); Potassium 3.3 mmol/L (3.5-5.1); Sodium 132 mmol/L (137-145); Total Bilirubin 0.5 mg/dL (0.2-1.3); Total Protein 5.2 g/dL (6.3-8.2)
[2024-04-06 07:02] LABS: ALT 22 U/L (4-34)
--- NOTE | 2024-04-06 10:37 | P.PN ---
Subjective Progress Note Date: 04/06/24 This is a very pleasant 74-year-old female patient with a known history of hypertension, hyperlipidemia, metastatic colon cancer currently on Xeloda who had been experiencing a 1 to 2-week history of nausea and vomiting. She presented here to the emergency room on April 02, 2024 for the same. She had sto pped her Xeloda 6 days prior due to the nausea and vomiting without improvement. She did undergo EGD yesterday and there was some concern regarding possible aspiration. A nasogastric tube was placed. Chest x-ray does reveal a consolidating infiltrate in the lingula area. Small patch of consolidation in the left lower lobe. She is seen today in consultation on the regular medical floor. She is sitting up in bed. Awake and alert in no acute distress. She is maintaining good O2 saturations in the 90s on room air. She is afebrile. White count 2.6. Hemoglobin 11.1. Platelets 265. Sodium 136. Potassium 3.3. Bicarb 25. BUN 30. Creatinine 1.2. Glucose 70. She is currently on Zosyn. Lactated Ringer's at [facility] for her nausea. The patient is seen today April 06, 2024 in follow-up on the regular medical floor. She is currently resting comfortably in bed. Awake and alert in no acute distress. Her nasogastric tube was inadvertently pulled out earlier this morning. She is feeling better overall. Still with some nausea. She is being nourished with TPN at 30 MLS per hour and lipids. Sodium 132. Potassium 3.3. Bicarb 24. BUN 26. Creatinine 0.78. Glucose 132. She is maintaining O2 saturations up to 99% on 2 L/min per nasal cannula. She is afebrile. Hemodyna mically stable. She remains on antibiotics in the form of Zosyn. Normal saline at 75 MLS per hour. Objective - Vital Signs Vital signs: Vital Signs Temp 98.0 F 04/06/24 07:35 Pulse 99 04/06/24 07:35 Resp 15 04/06/24 07:35 BP 113/65 04/06/24 07:35 Pulse Ox 99 04/06/24 07:35 FiO2 Intake & Output 04/05/24 04/06/24 04/06/24 18:59 06:59 18:59 Output Total 500 Balance -500 Weight 58.967 kg Output: Other 500 Other: Voiding Method Bedside Commode # Voids 1 1 # Bowel Movements 1 - Exam GENERAL EXAM: Alert, pleasant 74-year-old female, on 2 L nasal cannula, comfortable in no apparent distress. HEAD: Normocephalic. EYES: Normal reaction of pupils, equal size. NOSE: Clear with pink turbinates. THROAT: No erythema or exudates. NECK: No masses, no JVD. CHEST: No chest wall deformity. LUNGS: Equal air entry with coarse rhonchi over the left lung. CVS: S1 and S2 normal with no audible murmur, regular rhythm. ABDOMEN: No hepatosplenomegaly, normal bowel sounds, no guarding or rigidity. SPINE: No scoliosis or deformity SKIN: No rashes CENTRAL NERVOUS SYSTEM: No focal deficits, tone is normal in all 4 extremities. EXTREMITIES: There is no peripheral edema. No clubbing, no cyanosis. Peripheral pulses are intact. - Labs CBC & Chem 7: 04/05/24 06:33 04/06/24 05:15 Labs: Abnormal Lab Results - Last 24 Hours (Table) 04/05/24 04/05/24 04/06/24 Range/Units 06:33 06:33 05:15 WBC 21.61 H (4.50-10.00) X 10*3/uL RBC 3.00 L (4.10-5.20) X 10*6/uL Hgb 10.1 L (12.0-15.0) g/dL Hct 30.9 L (37.2-46.3) % MCV 103.0 H (80.0-97.0) FL MCH 33.7 H (27.0-32.0) pg RDW 19.8 H (11.5-14.5) % Immature Gran # 0.29 H (0.00-0.04) X 10*3/uL Neutrophils # 18.92 H (1.80-7.70) X 10*3/uL Monocytes # 1.04 H (0.20-1.00) X 10*3/uL Eosinophils # 0 L (0.04-0.35) X 10*3/uL Macrocytosis (manual) 2+ A Sodium 132 L (137-145) mmol/L Potassium 3.3 L 3.3 L (3.5-5.5) mmol/L BUN 30.3 H 26 H (9.0-27.0) mg/dL Est GFR (CKD-EPI) 48 L (>=60) BUN/Creatinine Ratio 25.25 H (12.00-20.00) Ratio Glucose 132 H (74-99) mg/dL Calcium 7.6 L (8.7-10.3) mg/dL Phosphorus 2.2 L (2.5-4.5) mg/dL AST 38 H (14-36) U/L Alkaline Phosphatase 157 H (38-126) U/L Total Protein 5.2 L (6.3-8.2) g/dL Albumin 2.5 L (3.5-5.0) g/dL Assessment and Plan Assessment: Shortness of breath secondary to suspected aspiration pneumonia involving the left lower lobe and lingula. On Zosyn Nausea and vomiting for the past several weeks. EGD yesterday was first 2023 revealed gastritis and ileus. Nasogastric tube currently out History of metastatic colon cancer, treated with Xeloda most recently in the outpatient setting History of hypertension Hyperlipidemia Plan: The patient was seen and evaluated Labs and medications reviewed Stable on 2 L nasal cannula Continue Zosyn We will continue to follow I have personally seen and examined the patient, performed the documentation and the assessment and plan as written. Number of minutes spent on the visit: 10.
[2024-04-06] MEDS: POTASSIUM PHOSPHATE 15 MMOL in SODIUM CHLORIDE 0.9% 250 ML IV ONE (14:26)
[2024-04-06] MEDS: POTASSIUM CHLORIDE 20 MEQ in WATER FOR INJECTION 1 100ML.BAG IVPB ONE (17:26)
--- NOTE | 2024-04-06 21:03 | P.PN ---
Subjective Patient seen and evaluated at bedside. Doing much better, no acute events overnight, some residual nausea. Objective - Vital Signs Vital signs: Vital Signs Temp 97.8 F 04/06/24 18:19 Pulse 94 04/06/24 18:19 Resp 16 04/06/24 14:00 BP 101/65 04/06/24 18:19 Pulse Ox 98 04/06/24 18:19 FiO2 Intake & Output 04/06/24 04/06/24 04/07/24 06:59 18:59 06:59 Output Total 500 Balance -500 Output: Other 500 Other: Voiding Method Bedside Commode Bedside Commode # Voids 1 0 # Bowel Movements 1 0 - Exam gen: nad cv: rrr pul: non labored breathing abd: soft, mild tenderness to palpation, no guarding - Labs CBC & Chem 7: 04/05/24 06:33 04/06/24 05:15 Labs: Abnormal Lab Results - Last 24 Hours (Table) 04/06/24 Range/Units 05:15 Sodium 132 L (137-145) mmol/L Potassium 3.3 L (3.5-5.1) mmol/L BUN 26 H (7-17) mg/dL Glucose 132 H (74-99) mg/dL Phosphorus 2.2 L (2.5-4.5) mg/dL AST 38 H (14-36) U/L Alkaline Phosphatase 157 H (38-126) U/L Total Protein 5.2 L (6.3-8.2) g/dL Albumin 2.5 L (3.5-5.0) g/dL Assessment and Plan Assessment: 74-year-old female with stage IV colorectal cancer. Patient with intractable vomiting. Improved after gastric decompression, nasogastric tube fell out last night/this am, will continue to monitor without it tolerating clear liquids Agree with plans for TPN and PICC line. Time with Patient: Less than 30
[2024-04-06] MEDS: 1: MVI, ADULT NO.4 WITH VIT K 10 ML, TRACE (CONC-1ML/DOSE) 1 ML in AMINO ACID 5%-D20W+LY IV SCH (21:43)
[2024-04-07 04:04] LABS: ALT 10 U/L (4-34); AST 20 U/L (14-36); African American GFR (CKD) >90 (>60 ml/min/1.73 sqM); Albumin 1.8 g/dL (3.5-5.0); Albumin/Globulin Ratio 0.8; Alkaline Phosphatase 97 U/L (38-126); Anion Gap 0 mmol/L; Blood Urea Nitrogen 18 mg/dL (7-17); Calcium 7.6 mg/dL (8.4-10.2); Carbon Dioxide 24 mmol/L (22-30); Chloride 107 mmol/L (98-107); Globulin 2.2 g/dL; Glucose 134 mg/dL (74-99); Magnesium 1.7 mg/dL (1.6-2.3); Non-African American GFR(CKD) >90 (>60 ml/min/1.73 sqM); Phosphorus 1.9 mg/dL (2.5-4.5); Potassium 4.4 mmol/L (3.5-5.1); Sodium 131 mmol/L (137-145); Total Bilirubin 0.3 mg/dL (0.2-1.3)
--- NOTE | 2024-04-07 09:57 | P.PN ---
Subjective Progress Note Date: 04/07/24 Principal diagnosis: Intractable vomiting Patient doing well today. NG tube fell out accidentally yesterday and she tolerated it being out. She tolerated sips of liquids. She would like to try more to eat. She has had a bowel movement again today and yesterday as well. No pain. Objective - Vital Signs Vital signs: Vital Signs Temp 98.4 F 04/07/24 08:00 Pulse 86 04/07/24 08:00 Resp 16 04/07/24 08:00 BP 107/65 04/07/24 08:00 Pulse Ox 97 04/07/24 08:00 FiO2 Intake & Output 04/06/24 04/07/24 04/07/24 18:59 06:59 18:59 Other: Voiding Method Bedside Commode Bedside Commode # Voids 0 1 # Bowel Movements 0 1 - Exam Abdomen: Soft, nontender, nondistended - Labs CBC & Chem 7: 04/05/24 06:33 04/07/24 03:30 Labs: Abnormal Lab Results - Last 24 Hours (Table) 04/07/24 Range/Units 03:30 Sodium 131 L (137-145) mmol/L BUN 18 H (7-17) mg/dL Glucose 134 H (74-99) mg/dL Calcium 7.6 L (8.4-10.2) mg/dL Phosphorus 1.9 L (2.5-4.5) mg/dL Total Protein 4.0 L (6.3-8.2) g/dL Albumin 1.8 L (3.5-5.0) g/dL Assessment and Plan (1) Intractable vomiting Narrative/Plan: Patient doing better today. Begin full liquid diet. Ambulate. Discussed options of PEG tube placement. She and I both agree we will hold PEG tube placement unless symptoms of recurrent vomiting recur. Current Visit: Yes Status: Acute Priority: High Code(s): R11.10 - VOMITING, UNSPECIFIED SNOMED Code(s): 397635799
--- NOTE | 2024-04-07 10:14 | P.PN ---
Subjective Progress Note Date: 04/07/24 This is a very pleasant 74-year-old female patient with a known history of hypertension, hyperlipidemia, metastatic colon cancer currently on Xeloda who had been experiencing a 1 to 2-week history of nausea and vomiting. She presented here to the emergency room on April 02, 2024 for the same. She had sto pped her Xeloda 6 days prior due to the nausea and vomiting without improvement. She did undergo EGD yesterday and there was some concern regarding possible aspiration. A nasogastric tube was placed. Chest x-ray does reveal a consolidating infiltrate in the lingula area. Small patch of consolidation in the left lower lobe. She is seen today in consultation on the regular medical floor. She is sitting up in bed. Awake and alert in no acute distress. She is maintaining good O2 saturations in the 90s on room air. She is afebrile. White count 2.6. Hemoglobin 11.1. Platelets 265. Sodium 136. Potassium 3.3. Bicarb 25. BUN 30. Creatinine 1.2. Glucose 70. She is currently on Zosyn. Lactated Ringer's at [facility] for her nausea. The patient is seen today April 06, 2024 in follow-up on the regular medical floor. She is currently resting comfortably in bed. Awake and alert in no acute distress. Her nasogastric tube was inadvertently pulled out earlier this morning. She is feeling better overall. Still with some nausea. She is being nourished with TPN at 30 MLS per hour and lipids. Sodium 132. Potassium 3.3. Bicarb 24. BUN 26. Creatinine 0.78. Glucose 132. She is maintaining O2 saturations up to 99% on 2 L/min per nasal cannula. She is afebrile. Hemodyna mically stable. She remains on antibiotics in the form of Zosyn. Normal saline at 75 MLS per hour. The patient is seen today April 07, 2024 in follow-up on the regular medical floor. She is awake and alert in no acute distress. Maintaining good O2 saturations in the 90s on room air. She is continued on Zosyn. Her abdominal discomfort is improving. No episodes of vomiting. Tolerating a full liquid diet. Doing well with the NG tube out. PEG tube placement is on hold for now. Surgical services is following. Sodium 131. Potassium 4.4. Bicarb 24. BUN 18. Creatinine 0.52. Glucose 134. She is being nourished with TPN and lipids. Objective - Vital Signs Vital signs: Vital Signs Temp 98.4 F 04/07/24 08:00 Pulse 86 04/07/24 08:00 Resp 16 04/07/24 08:00 BP 107/65 04/07/24 08:00 Pulse Ox 97 04/07/24 08:00 FiO2 Intake & Output 04/06/24 04/07/24 04/07/24 18:59 06:59 18:59 Other: Voiding Method Bedside Commode Bedside Commode # Voids 0 1 # Bowel Movements 0 1 - Exam GENERAL EXAM: Alert, pleasant 74-year-old female, on room air, resting in bed, comfortable in no apparent distress. HEAD: Normocephalic. EYES: Normal reaction of pupils, equal size. NOSE: Clear with pink turbinates. THROAT: No erythema or exudates. NECK: No masses, no JVD. CHEST: No chest wall deformity. LUNGS: Equal air entry with coarse rhonchi over the left lung. CVS: S1 and S2 normal with no audible murmur, regular rhythm. ABDOMEN: No hepatosplenomegaly, normal bowel sounds, no guarding or rigidity. SPINE: No scoliosis or deformity SKIN: No rashes CENTRAL NERVOUS SYSTEM: No focal deficits, tone is normal in all 4 extremities. EXTREMITIES: There is no peripheral edema. No clubbing, no cyanosis. Peripheral pulses are intact. - Labs CBC & Chem 7: 04/05/24 06:33 04/07/24 03:30 Labs: Abnormal Lab Results - Last 24 Hours (Table) 04/07/24 Range/Units 03:30 Sodium 131 L (137-145) mmol/L BUN 18 H (7-17) mg/dL Glucose 134 H (74-99) mg/dL Calcium 7.6 L (8.4-10.2) mg/dL Phosphorus 1.9 L (2.5-4.5) mg/dL Total Protein 4.0 L (6.3-8.2) g/dL Albumin 1.8 L (3.5-5.0) g/dL Assessment and Plan Assessment: Shortness of breath secondary to suspected aspiration pneumonia involving the left lower lobe and lingula. On Zosyn Nausea and vomiting for the past several weeks. EGD yesterday was first 2023 revealed gastritis and ileus. Nasogastric tube currently out History of metastatic colon cancer, treated with Xeloda most recently in the outpatient setting History of hypertension Hyperlipidemia Plan: The patient was seen and evaluated Labs and medications reviewed Stable and on room air Continue Zosyn Follow-up chest x-ray in a.m. Diet advanced per surgical services PEG tube insertion on hold for now Continued on TPN/lipids We will continue to follow I have personally seen and examined the patient, performed the documentation and the assessment and plan as written. Number of minutes spent on the visit: 10.
[2024-04-07] MEDS: SODIUM PHOSPHATE 30 MMOL in DEXTROSE 5% IN WATER 250 ML IVPB ONE (12:21)
[2024-04-07] MEDS: MAGNESIUM SULFATE-D5W PMX 1 GM in DEXTROSE/WATER 1 100ML.BAG IVPB ONE (13:00)
--- NOTE | 2024-04-07 18:16 | P.PN ---
Subjective Progress Note Date: 04/06/24 HISTORY OF PRESENT ILLNESS: 74-year-old With active medical history of stage IV advanced colon cancer with metastasis seen oncology on regular basis and on chemotherapy, who also has a history of atherosclerotic heart disease post myocardial infarction, history of hypertension, hyperlipidemia, anemia, recurrent GI bleed, recurrent bowel obstruction secondary to scar tissue, multiple complication for chemotherapy use in the last few years. The patient had a PET scan 2 weeks ago apparently has been on modified oral chemotherapy per oncology but developed to have intractable nausea and vomiting for the last few days not able to tolerate any food or fluid with significant dehydration along with lightheadedness and dizziness associated. Today she felt severely sick did not have any strength and try to walk to the bathroom had syncopal episode did not hurt herself with no injury from the fall she apparently called for help and brought to the emergency department at [facility] where was seen and evaluated her laboratory value initially showed normal white blood cell with hemoglobin of 13 sodium 130 bun 34 creatinine 1.05 with a glucose of 102 negative troponin lipase was 306 at the time after hydrating patient well with plan to walk and ambulate she becomes extremely lightheaded and dizzy become more symptomatic as well her nausea had stopped at this point after using Zofran still not able to tolerate any food. Ended up having KUB film did not show any sign of bowel obstruction, CAT scan of the brain showed no intracranial process. She was kept on gentle hydration along with antiemetics emetic medication and admitted to the hospital. 04/04/2024: She is feeling slightly better today continue to have significant nausea not been able to take any food by doing fluid down. Seen general surgery going for EGD today to see if she have any active gastritis. No obstruction was found on her CAT scan originally we will keep watching patient still be on conservative management with the current nutrition patient eventually might req uire to do either TPN or PEG tube feeding. Also continue to watch her hemodynamic status continue to watch her protein level as well. 04/05/2024: Patient ended up going for EGD yesterday finding more consistent with severe gastritis biopsy was taking no growth or tumor no gastric outlet syndrome. Sadly as patient recovering from her procedure she had aspiration ended up having severe hypoxia chest x-ray this morning shows infiltrate in left lower lobe patient was started on Zosyn yesterday we will continue Zosyn for aspiration pneumonia at this point will be seen pulmonary as well. She is still symptomatic has an NG tube currently to help to reduce amount of nausea and vomiting and her stomach is more flat she feels slightly better that she is not throwing up no diarrhea today. Her nutritional status still quite down the patient is going for PICC line for possible TPN. Pain management is going well so far. No further signs and symptoms of any abnormality with her syncope with exception of hypertension start midodrine 5 mg twice a day and she is off Norvasc com pletely her metoprolol to tartrate to be down to 25 mg twice a day which he watching for any reactive tachycardia. 04/06/2024: Patient lost her NG tube today incidentally with a sneeze while she is using the bathroom. Decided to keep NG tube out at this point she is remain n.p.o. except for ice chips and clear water patient seems to tolerate it very well, no further intractable nausea and vomiting continue to have bowel movement at this point. Still been treated for aspiration pneumonia since her intervention and EGD chest x-ray showed significant infiltrate in the left lower lobe at the time. Patient still seen pulmonary remain on Zosyn along with oxygen. She had PICC line and still on TPN via PICC line for now. Has been holding off on Xeloda treatment for her colon cancer since her admission. REVIEW OF SYSTEMS: CONSTITUTIONAL: Looking severely malnourished in no acute respiratory distress EYES: No icterus sclerae, no conjunctivitis. EARS, NOSE, MOUTH, THROAT, and FACE: No sore throat, lymphadenopathy, carotid bruits or deformity. RESPIRATORY: No SOB cough or wheezes. CARDIOVASCULAR: No CP, Palpitation, PND, Orthopnea, or angina. GASTROINTESTINAL: Abdominal discomfort with nausea vomiting no diarrhea GENITOURINARY: Negative for Hematuria or UTI, decreased urine output INTEGUMENT/BREAST: Negative for any muscular injury with mild osteoarthritis.. HEMATOLOGIC/LYMPHATIC: Negative for bleed or purpura. MUSCULOSKELTAL: Negative for Myalgia or arthralgia. NEURLOGICAL: Syncopal episode with no blurred vision but mild dizziness. BEHAVIORAL/PSYCH: Negative. ENDOCRINE: Negative. PHYSICAL EXAMINATION: General Appearance: Alert, cooperative, looks malnourished no acute respiratory distress. Neck HEENT: Supple, no lymphadenopathy, no thyroid enlargement, no carotid bruits. Lungs: Clear to auscultation without crackles or wheezes no rhonchi, no deformity. Chest Wall: Decreased expansion with deep inspiration no tenderness and no deformity was found on exam, no costochondral pain or discomfort. Heart: Regular rate and rhythm, S1, S2 normal, positive tachycardia, no murmur, rub or gallop. Back: Symmetric, significant scoliosis no rash no CVA tenderness Abdomen: Soft, non-tender, bowel sounds positive slight discomfort in the epigastric and mid abdominal area no rebound or rigidity. Extremities: Extremities normal, atraumatic, no cyanosis or edema. Pulses: 2+ and symmetric. Skin: Skin color, texture, tugor normal, no rashes or lesions. Neurologic: Alert oriented x3 cranial nerves II through XII intact, no motor deficit, no abnormal balance or gait. ASSESSMENT AND PLAN: _Severe intractable nausea and vomiting: Had EGD and biopsy Still seen general surgery with CAT scan showing proximal small bowel dilatation mild gastric distention after her EGD with decompression and NG tube had helped quite bit patient apparently been recommended by general surgery to do PEG feeding _Aspiration pneumonia: Responded well to treatment so far chest x-ray showed severe left lower lobe pneumonia continue Zosyn along with oxygen her NG tube came out at this point we will continue without it for the next few days unless patient continues to have intractable nausea and vomiting. _Syncope: Combination of severe dehydration along with hypotension no other sig ns and symptoms of any cardiac related problem at this point her blood pressure medication eventually might need to be change as well as she is not having any reactive tachycardia. _Acute kidney injury: Will continue hydration her bone is down to 30 with creatinine 1.2 GFR still slightly bit low but much better than before. _Possible bowel obstruction related to metastatic colon cancer: Meds probably the reason why she had the bowel and the gastric distention which is not mechanical at this point continue current management will benefit at some point from peg tube for both decompression and feeding. _Acute versus subacute pancreatitis: Originally lipase was elevated as reaction more than real pancreatitis and has improved since doing well this probably was aggravated by gastric outlet syndrome. _Hypotension: She will be off Norvasc completely will decrease metoprolol to 25 mg twice a day and patient be started on midodrine 5 mg twice a day try to keep her systolic blood pressure above 120. _Metastatic stage IV colon cancer has been on Xeloda which has been held since her admission. _ Hypothyroidism: Resume levothyroxine 25 mcg daily if patient is not able to tolerate_oral meds IV will be done. _Hyperlipidemia: Continue atorvastatin 40 mg a day. _Gastritis and gastric ulcer disease: Continue PPI had a biopsy done from her EGD results is not final. _Chronic diarrhea with a history of colon cancer continue Lomotil on as-needed basis. Symptom of diarrhea is much better with having more nausea and vomiting at this point. _Malnutrition and hypoalbuminemia: Might require either PEG feeding or TPN. Discussion: NG tube is out at this point, still doing TPN via PICC line and might benefit from doing PEG tube. Objective - Vital Signs Vital signs: Vital Signs Temp 98.0 F 04/06/24 07:35 Pulse 99 04/06/24 08:00 Resp 15 04/06/24 08:00 BP 113/65 04/06/24 07:35 Pulse Ox 99 04/06/24 07:35 FiO2 Intake & Output 04/05/24 04/06/24 04/06/24 18:59 06:59 18:59 Output Total 500 Balance -500 Weight 58.967 kg Output: Other 500 Other: Voiding Method Bedside Commode Bedside Commode # Voids 1 1 # Bowel Movements 1 - Labs CBC & Chem 7: 04/05/24 06:33 04/07/24 03:30 Labs: Abnormal Lab Results - Last 24 Hours (Table) 04/05/24 04/06/24 Range/Units 06:33 05:15 WBC 21.61 H (4.50-10.00) X 10*3/uL RBC 3.00 L (4.10-5.20) X 10*6/uL Hgb 10.1 L (12.0-15.0) g/dL Hct 30.9 L (37.2-46.3) % MCV 103.0 H (80.0-97.0) FL MCH 33.7 H (27.0-32.0) pg RDW 19.8 H (11.5-14.5) % Immature Gran # 0.29 H (0.00-0.04) X 10*3/uL Neutrophils # 18.92 H (1.80-7.70) X 10*3/uL Monocytes # 1.04 H (0.20-1.00) X 10*3/uL Eosinophils # 0 L (0.04-0.35) X 10*3/uL Macrocytosis (manual) 2+ A Sodium 132 L (137-145) mmol/L Potassium 3.3 L (3.5-5.1) mmol/L BUN 26 H (7-17) mg/dL Glucose 132 H (74-99) mg/dL Phosphorus 2.2 L (2.5-4.5) mg/dL AST 38 H (14-36) U/L Alkaline Phosphatase 157 H (38-126) U/L Total Protein 5.2 L (6.3-8.2) g/dL Albumin 2.5 L (3.5-5.0) g/dL
--- NOTE | 2024-04-07 18:19 | P.PN ---
Subjective Progress Note Date: 04/07/24 HISTORY OF PRESENT ILLNESS: 74-year-old With active medical history of stage IV advanced colon cancer with metastasis seen oncology on regular basis and on chemotherapy, who also has a history of atherosclerotic heart disease post myocardial infarction, history of hypertension, hyperlipidemia, anemia, recurrent GI bleed, recurrent bowel obstruction secondary to scar tissue, multiple complication for chemotherapy use in the last few years. The patient had a PET scan 2 weeks ago apparently has been on modified oral chemotherapy per oncology but developed to have intractable nausea and vomiting for the last few days not able to tolerate any food or fluid with significant dehydration along with lightheadedness and dizziness associated. Today she felt severely sick did not have any strength and try to walk to the bathroom had syncopal episode did not hurt herself with no injury from the fall she apparently called for help and brought to the emergency department at [facility] where was seen and evaluated her laboratory value initially showed normal white blood cell with hemoglobin of 13 sodium 130 bun 34 creatinine 1.05 with a glucose of 102 negative troponin lipase was 306 at the time after hydrating patient well with plan to walk and ambulate she becomes extremely lightheaded and dizzy become more symptomatic as well her nausea had stopped at this point after using Zofran still not able to tolerate any food. Ended up having KUB film did not show any sign of bowel obstruction, CAT scan of the brain showed no intracranial process. She was kept on gentle hydration along with antiemetics emetic medication and admitted to the hospital. 04/04/2024: She is feeling slightly better today continue to have significant nausea not been able to take any food by doing fluid down. Seen general surgery going for EGD today to see if she have any active gastritis. No obstruction was found on her CAT scan originally we will keep watching patient still be on conservative management with the current nutrition patient eventually might req uire to do either TPN or PEG tube feeding. Also continue to watch her hemodynamic status continue to watch her protein level as well. 04/05/2024: Patient ended up going for EGD yesterday finding more consistent with severe gastritis biopsy was taking no growth or tumor no gastric outlet syndrome. Sadly as patient recovering from her procedure she had aspiration ended up having severe hypoxia chest x-ray this morning shows infiltrate in left lower lobe patient was started on Zosyn yesterday we will continue Zosyn for aspiration pneumonia at this point will be seen pulmonary as well. She is still symptomatic has an NG tube currently to help to reduce amount of nausea and vomiting and her stomach is more flat she feels slightly better that she is not throwing up no diarrhea today. Her nutritional status still quite down the patient is going for PICC line for possible TPN. Pain management is going well so far. No further signs and symptoms of any abnormality with her syncope with exception of hypertension start midodrine 5 mg twice a day and she is off Norvasc com pletely her metoprolol to tartrate to be down to 25 mg twice a day which he watching for any reactive tachycardia. 04/06/2024: Patient lost her NG tube today incidentally with a sneeze while she is using the bathroom. Decided to keep NG tube out at this point she is remain n.p.o. except for ice chips and clear water patient seems to tolerate it very well, no further intractable nausea and vomiting continue to have bowel movement at this point. Still been treated for aspiration pneumonia since her intervention and EGD chest x-ray showed significant infiltrate in the left lower lobe at the time. Patient still seen pulmonary remain on Zosyn along with oxygen. She had PICC line and still on TPN via PICC line for now. Has been holding off on Xeloda treatment for her colon cancer since her admission. 04/07/2024: Her diet was increased to clear liquid diet, apparently had more discussion for PEG feeding with Dr. Brasher and decided to hold off still oncology, that conclusion at some point. Surprisingly her white blood cell Has climb up to 21,600 not clear whether this is from aspiration pneumonia or reactive to having her off chemotherapy for period of time. Will repeat another CBC tomorrow She is still on Zosyn for aspiration pneumonia which will give her good coverage for gram negative for gram-positive. REVIEW OF SYSTEMS: CONSTITUTIONAL: Looking severely malnourished in no acute respiratory distress EYES: No icterus sclerae, no conjunctivitis. EARS, NOSE, MOUTH, THROAT, and FACE: No sore throat, lymphadenopathy, carotid bruits or deformity. RESPIRATORY: No SOB cough or wheezes. CARDIOVASCULAR: No CP, Palpitation, PND, Orthopnea, or angina. GASTROINTESTINAL: Abdominal discomfort with nausea vomiting no diarrhea GENITOURINARY: Negative for Hematuria or UTI, decreased urine output INTEGUMENT/BREAST: Negative for any muscular injury with mild osteoarthritis.. HEMATOLOGIC/LYMPHATIC: Negative for bleed or purpura. MUSCULOSKELTAL: Negative for Myalgia or arthralgia. NEURLOGICAL: Syncopal episode with no blurred vision but mild dizziness. BEHAVIORAL/PSYCH: Negative. ENDOCRINE: Negative. PHYSICAL EXAMINATION: General Appearance: Alert, cooperative, looks malnourished no acute respiratory distress. Neck HEENT: Supple, no lymphadenopathy, no thyroid enlargement, no carotid bruits. Lungs: Clear to auscultation without crackles or wheezes no rhonchi, no deformity. Chest Wall: Decreased expansion with deep inspiration no tenderness and no deformity was found on exam, no costochondral pain or discomfort. Heart: Regular rate and rhythm, S1, S2 normal, positive tachycardia, no murmur, rub or gallop. Back: Symmetric, significant scoliosis no rash no CVA tenderness Abdomen: Soft, non-tender, bowel sounds positive slight discomfort in the epigastric and mid abdominal area no rebound or rigidity. Extremities: Extremities normal, atraumatic, no cyanosis or edema. Pulses: 2+ and symmetric. Skin: Skin color, texture, tugor normal, no rashes or lesions. Neurologic: Alert oriented x3 cranial nerves II through XII intact, no motor deficit, no abnormal balance or gait. ASSESSMENT AND PLAN: _Severe intractable nausea and vomiting: Had EGD and biopsy Still seen general surgery with CAT scan showing proximal small bowel dilatation mild gastric distention after her EGD with decompression and NG tube had helped quite bit patient apparently been recommended by general surgery to do PEG feeding _Severe leukocytosis: Not clear whether this is reactive to her aspiration pneumonia or just recovering bone marrow from her earlier chemotherapy. Continue to watch for any other infection in the meanwhile remain on antibiotics. _Aspiration pneumonia: Responded well to treatment so far chest x-ray showed severe left lower lobe pneumonia continue Zosyn along with oxygen her NG tube came out at this point we will continue without it for the next few days unless patient continues to have intractable nausea and vomiting. _Syncope: Combination of severe dehydration along with hypotension no other signs and symptoms of any cardiac related problem at this point her blood pressure medication eventually might need to be change as well as she is not having any reactive tachycardia. _Acute kidney injury: Will continue hydration her bone is down to 30 with creatinine 1.2 GFR still slightly bit low but much better than before. _Possible bowel obstruction related to metastatic colon cancer: Meds probably the reason why she had the bowel and the gastric distention which is not mechanical at this point continue current management will benefit at some point from peg tube for both decompression and feeding. _Acute versus subacute pancreatitis: Originally lipase was elevated as reaction more than real pancreatitis and has improved since doing well this probably was aggravated by gastric outlet syndrome. _Hypotension: She will be off Norvasc completely will decrease metoprolol to 25 mg twice a day and patient be started on midodrine 5 mg twice a day try to keep her systolic blood pressure above 120. _Metastatic stage IV colon cancer has been on Xeloda which has been held since her admission. _ Hypothyroidism: Resume levothyroxine 25 mcg daily if patient is not able to tolerate_oral meds IV will be done. _Hyperlipidemia: Continue atorvastatin 40 mg a day. _Gastritis and gastric ulcer disease: Continue PPI had a biopsy done from her EGD results is not final. _Chronic diarrhea with a history of colon cancer continue Lomotil on as-needed basis. Symptom of diarrhea is much better with having more nausea and vomiting at this point. _Malnutrition and hypoalbuminemia: Might require either PEG feeding or TPN. Discussion: Continue TPN via PICC line with the possible need for PEG tube if continue to have any further nausea and vomiting. Objective - Vital Signs Vital signs: Vital Signs Temp 98.1 F 04/07/24 13:50 Pulse 75 04/07/24 13:50 Resp 17 04/07/24 13:50 BP 90/50 04/07/24 13:50 Pulse Ox 96 04/07/24 13:50 FiO2 Intake & Output 04/06/24 04/07/24 04/07/24 18:59 06:59 18:59 Other: Voiding Method Bedside Commode Bedside Commode Bedside Commode # Voids 0 1 3 # Bowel Movements 0 1 - Labs CBC & Chem 7: 04/05/24 06:33 04/07/24 03:30 Labs: Abnormal Lab Results - Last 24 Hours (Table) 04/07/24 Range/Units 03:30 Sodium 131 L (137-145) mmol/L BUN 18 H (7-17) mg/dL Glucose 134 H (74-99) mg/dL Calcium 7.6 L (8.4-10.2) mg/dL Phosphorus 1.9 L (2.5-4.5) mg/dL Total Protein 4.0 L (6.3-8.2) g/dL Albumin 1.8 L (3.5-5.0) g/dL
[2024-04-07 19:47] VITALS: RESP 20
[2024-04-08 02:24] VITALS: BP 104/64; PULSE 100; TEMP 99.2
[2024-04-08 05:32] LABS: ALT 9 U/L (4-34); AST 20 U/L (14-36); African American GFR (CKD) >90 (>60 ml/min/1.73 sqM); Albumin 1.9 g/dL (3.5-5.0); Albumin/Globulin Ratio 0.8; Alkaline Phosphatase 99 U/L (38-126); Anion Gap 1 mmol/L; Blood Urea Nitrogen 16 mg/dL (7-17); Calcium 7.4 mg/dL (8.4-10.2); Carbon Dioxide 21 mmol/L (22-30); Chloride 106 mmol/L (98-107); Globulin 2.4 g/dL; Glucose 117 mg/dL (74-99); Magnesium 1.7 mg/dL (1.6-2.3); Non-African American GFR(CKD) >90 (>60 ml/min/1.73 sqM); Phosphorus 2.1 mg/dL (2.5-4.5); Potassium 4.3 mmol/L (3.5-5.1); Sodium 128 mmol/L (137-145); Total Bilirubin 0.4 mg/dL (0.2-1.3); Total Protein 4.3 g/dL (6.3-8.2)
[2024-04-08] MEDS ORDERED: METOPROLOL TARTRATE 25 MG TAB ONE ×2 (08:59→21:37)
[2024-04-08] MEDS ORDERED: ATORVASTATIN 40 MG TAB ONE (08:59)
[2024-04-08] MEDS ORDERED: ASPIRIN 81 MG ONE (08:59)
[2024-04-08] MEDS ORDERED: PREGABALIN 25 MG CAP ONE (08:59)
[2024-04-08] MEDS ORDERED: PANTOPRAZOLE 40 MG/10 ML VIAL ONE ×2 (08:59→21:38)
[2024-04-08] MEDS ORDERED: POTASSIUM CHLORIDE ER 20 MEQ TAB.ER PO ONE ×2 (09:00→21:38)
[2024-04-08] MEDS ORDERED: SODIUM CHLORIDE 0.9% 100 ML ONE ×3 (09:00→21:38)
[2024-04-08] MEDS ORDERED: PIPERACILLIN-TAZOBACTAM 3.375 GM VIAL ONE ×3 (09:00→21:38)
[2024-04-08] MEDS ORDERED: ONDANSETRON 4 MG TAB ONE (16:24)
[2024-04-08] MEDS ORDERED: MAGNESIUM SULFATE-D5W PMX 200 ML IVPB ONE (21:31)
[2024-04-08] MEDS ORDERED: ACETAMINOPHEN TAB 325 MG TAB ONE (21:38)
[2024-04-08] MEDS ORDERED: [UNRECOGNIZED DRUG - OTHER] IV ONE (22:05)
[2024-04-08] MEDS ORDERED: SODIUM PHOSPHATE 3 MMOL/ML ONE (22:05)
[2024-04-08] MEDS ORDERED: AMINO ACID 5% IV ONE (22:05)
[2024-04-09] MEDS ORDERED: LEVOTHYROXINE 25 MCG TAB ONE (05:56)
[2024-04-09] MEDS ORDERED: ATORVASTATIN 40 MG TAB ONE (09:40)
[2024-04-09] MEDS ORDERED: METOPROLOL TARTRATE 25 MG TAB ONE ×2 (09:40→21:29)
[2024-04-09] MEDS ORDERED: PANTOPRAZOLE 40 MG/10 ML VIAL ONE ×2 (09:40→21:30)
[2024-04-09] MEDS ORDERED: POTASSIUM CHLORIDE ER 20 MEQ TAB.ER PO ONE ×2 (09:40→21:29)
[2024-04-09] MEDS ORDERED: SODIUM CHLORIDE 0.9% 100 ML ONE ×2 (09:41→16:57)
[2024-04-09] MEDS ORDERED: PIPERACILLIN-TAZOBACTAM 3.375 GM VIAL ONE ×2 (09:41→16:57)
[2024-04-09] MEDS ORDERED: LACTATED RINGERS 1,000 ML BAG ONE (11:00)
[2024-04-09] MEDS ORDERED: LIDOCAINE 1% INJ 10MG/ML (20 ML MDV) ONE (11:23)
[2024-04-09] MEDS ORDERED: PROPOFOL 10 MG/ML 20 ML VIAL IV ONE (11:23)
[2024-04-09] MEDS ORDERED: SODIUM CHLORIDE 0.9% 100 ML BAG ONE (12:00)
[2024-04-09] MEDS ORDERED: FAT EMULSION 20% 250 ML BAG ONE (12:00)
[2024-04-09] MEDS ORDERED: ASPIRIN 81 MG ONE (13:34)
[2024-04-09] MEDS ORDERED: PREGABALIN 25 MG CAP ONE ×2 (14:13→21:30)
[2024-04-09] MEDS ORDERED: MVI, ADULT NO.4 WITH VIT K 10 ML VIAL IV ONE (23:59)
[2024-04-09] MEDS ORDERED: TRACE (CONC-1ML/DOSE) 1 ML VIAL IV ONE (23:59)
[2024-04-09] MEDS ORDERED: AMINO ACID 5% IV ONE (23:59)
[2024-04-09] MEDS ORDERED: [UNRECOGNIZED DRUG - OTHER] IV ONE (23:59)
[2024-04-10] MEDS ORDERED: PIPERACILLIN-TAZOBACTAM 3.375 GM VIAL ONE ×3 (00:12→17:45)
[2024-04-10] MEDS ORDERED: SODIUM CHLORIDE 0.9% 100 ML ONE ×3 (00:12→17:45)
[2024-04-10] MEDS ORDERED: ONDANSETRON 4 MG/2 ML VIAL ONE ×2 (01:32→21:35)
[2024-04-10] MEDS ORDERED: POTASSIUM CHLORIDE ER 20 MEQ TAB.ER PO ONE ×2 (10:30→21:13)
[2024-04-10] MEDS ORDERED: METOPROLOL TARTRATE 25 MG TAB ONE (10:30)
[2024-04-10] MEDS ORDERED: ASPIRIN 81 MG ONE (10:30)
[2024-04-10] MEDS ORDERED: ATORVASTATIN 40 MG TAB ONE (10:31)
[2024-04-10] MEDS ORDERED: PANTOPRAZOLE 40 MG/10 ML VIAL ONE ×2 (10:31→21:13)
[2024-04-10] MEDS ORDERED: PREGABALIN 25 MG CAP ONE ×2 (10:32→21:14)
[2024-04-10] MEDS ORDERED: AMPICILLIN-SULBACTAM 3 GM VIAL ONE (13:36)
[2024-04-10] MEDS ORDERED: MVI, ADULT NO.4 WITH VIT K 10 ML VIAL IV ONE (15:00)
[2024-04-10] MEDS ORDERED: TRACE (CONC-1ML/DOSE) 1 ML VIAL IV ONE (15:00)
[2024-04-10] MEDS ORDERED: [UNRECOGNIZED DRUG - OTHER] IV ONE (15:00)
[2024-04-10] MEDS ORDERED: AMINO ACID 5% IV ONE (15:00)
[2024-04-11] MEDS ORDERED: LEVOTHYROXINE 25 MCG TAB ONE ×2 (05:53→10:50)
[2024-04-11] MEDS ORDERED: AMINO ACID 5% IV ONE (06:00)
[2024-04-11] MEDS ORDERED: [UNRECOGNIZED DRUG - OTHER] IV ONE (06:00)
[2024-04-11] MEDS ORDERED: POTASSIUM CHLORIDE ER 20 MEQ TAB.ER PO ONE ×2 (10:50→21:00)
[2024-04-11] MEDS ORDERED: ASPIRIN 81 MG ONE (10:50)
[2024-04-11] MEDS ORDERED: ATORVASTATIN 40 MG TAB ONE ×3 (10:50→21:00)
[2024-04-11] MEDS ORDERED: PREGABALIN 25 MG CAP ONE ×2 (10:56→21:01)
[2024-04-11] MEDS ORDERED: PANTOPRAZOLE 40 MG/10 ML VIAL ONE (21:00)
[2024-04-12] MEDS ORDERED: ZINC OXIDE PASTE (Z-GUARD) 1 APPLIC TOPICAL ONE ×2 (01:19)
[2024-04-12] MEDS ORDERED: LEVOTHYROXINE 25 MCG TAB ONE (06:03)
[2024-04-12] MEDS ORDERED: ASPIRIN 81 MG ONE (08:22)
[2024-04-12] MEDS ORDERED: METOPROLOL TARTRATE 25 MG TAB ONE (08:22)
[2024-04-12] MEDS ORDERED: PANTOPRAZOLE 40 MG/10 ML VIAL ONE (08:22)
[2024-04-12] MEDS ORDERED: POTASSIUM CHLORIDE ER 20 MEQ TAB.ER PO ONE (08:22)
[2024-04-12] MEDS ORDERED: ATORVASTATIN 40 MG TAB ONE (08:23)
[2024-04-12] MEDS ORDERED: PREGABALIN 25 MG CAP ONE (08:23)
[2024-04-12] MEDS ORDERED: MVI, ADULT NO.4 WITH VIT K 10 ML VIAL IV ONE (09:00)
[2024-04-12] MEDS ORDERED: FAT EMULSION 20% 250 ML BAG ONE (09:00)
[2024-04-12] MEDS ORDERED: TRACE (CONC-1ML/DOSE) 1 ML VIAL IV ONE (09:00)
[2024-04-12] MEDS ORDERED: [UNRECOGNIZED DRUG - OTHER] IV ONE (09:00)
[2024-04-12] MEDS ORDERED: AMINO ACID 5% IV ONE (09:00)
--- NOTE | 2024-05-11 07:38 | US ---
Kaya Loco : 1950 EXAMINATION TYPE: US venous doppler duplex UE LT DATE OF EXAM: 04/11/2024 COMPARISON: NONE CLINICAL INDICATION: 73-year-old female recent PICC line placed, new swelling. SIDE PERFORMED: Left Left Arm: Grayscale, color doppler, spectral doppler imaging performed of the deep veins of the upper extremiti es. PICC line is visualized at the level of the axillary vein. Satisfactory blood flow is demonstrate d in the subclavian, internal jugular, axillary, and brachial veins as well as the radial/ulnar veins . However, there is thrombus within the basilic vein. Cephalic vein is patent. IMPRESSION: 1. Exam positive for left upper extremity SVT involving the basilic vein. 2. PICC line in place, visualized traversing the axillary vein. No evidence for DVT within the left u pper extremity.
--- NOTE | 2024-05-20 15:44 | XR ---
EXAMINATION TYPE: XR chest 1V portable DATE OF EXAM: 04/08/2024 COMPARISON: Chest radiographs from 04/05/2024 TECHNIQUE: XR chest 1V portable Portable AP radiograph of the chest. CLINICAL INDICATION:Female, 74 years old with history of Pneumonia; FINDINGS: Lungs/Pleura: No sizable pleural effusion or pneumothorax. Left mid and lower lung patchy airspace op acities are redemonstrated. Pulmonary vascularity: Unremarkable. Heart/mediastinum: Cardiomediastinal silhouette is partially obscured due to overlying and adjacent o pacities. Musculoskeletal: No acute osseous pathology. Other findings: None Lines/Tubes: [id number] projecting over the right hemithorax with distal tip at the cavoatrial junction. IMPRESSION: Similar left mid and lower lung patchy airspace opacities concerning for pneumonia.
== END 2024-04-12 14:30 | disposition home or self-care (01) | DRG 388 ==
LOC: EC 12:25 → 6NMEDSUR 15:34 → OBSVTOIN 04-04 10:01
PROVIDERS: ADMIT Internal Medicine Geriatric Medicine; ATTEND Internal Medicine Geriatric Medicine
PROC: 02HV33Z Insertion of Infusion Device into Superior Vena Cava, Percutaneous Approach (ICD-10-PCS; 2024-04-04)
PROC: B5181ZA Fluoroscopy of Superior Vena Cava using Low Osmolar Contrast, Guidance (ICD-10-PCS; 2024-04-04)
PROC: B548ZZA Ultrasonography of Superior Vena Cava, Guidance (ICD-10-PCS; 2024-04-04)
PROC: 3E0336Z Introduction of Nutritional Substance into Peripheral Vein, Percutaneous Approach (ICD-10-PCS; 2024-04-04)
PROC: 0DH63UZ Insertion of Feeding Device into Stomach, Percutaneous Approach (ICD-10-PCS; 2024-04-04)
PROC: 0D9670Z Drainage of Stomach with Drainage Device, Via Natural or Artificial Opening (ICD-10-PCS; 2024-04-04)
PROC: 05HC33Z Insertion of Infusion Device into Left Basilic Vein, Percutaneous Approach (ICD-10-PCS; 2024-04-04)
PROC: 0DB78ZX Excision of Stomach, Pylorus, Via Natural or Artificial Opening Endoscopic, Diagnostic (ICD-10-PCS; principal; 2024-04-04 10:20)
DX: K56.699 Other intestinal obstruction unspecified as to partial versus complete obstruction (principal); J69.0 Pneumonitis due to inhalation of food and vomit; K85.90 Acute pancreatitis without necrosis or infection, unspecified; C18.7 Malignant neoplasm of sigmoid colon; C25.9 Malignant neoplasm of pancreas, unspecified; C79.9 Secondary malignant neoplasm of unspecified site; N17.9 Acute kidney failure, unspecified; E46 Unspecified protein-calorie malnutrition; E87.1 Hypo-osmolality and hyponatremia; K56.7 Ileus, unspecified; I10 Essential (primary) hypertension; E03.9 Hypothyroidism, unspecified; Z79.890 Hormone replacement therapy; K25.9 Gastric ulcer, unspecified as acute or chronic, without hemorrhage or perforation; E78.5 Hyperlipidemia, unspecified; K52.9 Noninfective gastroenteritis and colitis, unspecified; I95.9 Hypotension, unspecified; E88.09 Other disorders of plasma-protein metabolism, not elsewhere classified; R74.8 Abnormal levels of other serum enzymes; I25.10 Atherosclerotic heart disease of native coronary artery without angina pectoris; D64.9 Anemia, unspecified; R55 Syncope and collapse; D75.89 Other specified diseases of blood and blood-forming organs; E86.0 Dehydration; F32.A Depression, unspecified; G54.0 Brachial plexus disorders; I25.2 Old myocardial infarction; K29.70 Gastritis, unspecified, without bleeding; K31.89 Other diseases of stomach and duodenum; Z79.82 Long term (current) use of aspirin; Z79.899 Other long term (current) drug therapy; Z82.49 Family history of ischemic heart disease and other diseases of the circulatory system; Z85.038 Personal history of other malignant neoplasm of large intestine; Z92.21 Personal history of antineoplastic chemotherapy; Z87.19 Personal history of other diseases of the digestive system; Z86.711 Personal history of pulmonary embolism; I08.1 Rheumatic disorders of both mitral and tricuspid valves
CPT/HCPCS: 36415; 36573; 43239; 70450; 71045; 71046; 74018; 74176; 80048; 80053; 82150; 82330; 83605; 83690; 83735; 84100; 84478; 84484; 85025; 85027; 88305; 88342; 93306; 93880; 94760; 96361; 96372; 96374; 99285